=== PATIENT | female | born 1960 | race Caucasian/White ===

== ENCOUNTER → 2016-10-25 | Outpatient (CLI) | payer BC ==
[~2016-10-25] MED LIST: ASPI-435 PO; ATOR10TA82 PO; CEPH500C PO; INSPMPHMLG; LISI-729 PO
--- NOTE | 2016-10-25 16:39 | MAMMOGRAPHY REPORT ---
BILATERAL DIGITAL SCREENING MAMMOGRAM TOMOSYNTHESIS WITH CAD: 10/25/2016 CLINICAL HISTORY: Routine screening. Patient has no complaints. TECHNIQUE: Breast tomosynthesis in addition to standard 2D mammography was performed. Current study was also evaluated with a Computer Aided Detection (CAD) system. COMPARISON: Comparison is made to exams dated: 07/14/2015 mammogram, 04/07/2015 mammogram, 09/30/2014 m ammogram, and 06/25/2014 mammogram - [facility]. BREAST COMPOSITION: There are scattered areas of fibroglandular density in both breasts. FINDINGS: No suspicious masses, calcifications, or areas of architectural distortion are noted in e ither breast. There has been no significant interval change compared to prior exams. A biopsy marke r clip is again noted in the right upper outer quadrant. Asymmetries in bilateral upper outer quadr ants are stable compared to prior exams. IMPRESSION: ACR BI-RADS CATEGORY 2: BENIGN There is no mammographic evidence of malignancy. A 1 year screening mammogram is recommended. The p atient will receive written notification of the results. Approximately 10% of breast cancers are not detected with mammography. A negative mammographic repor t should not delay biopsy if a clinically suggestive mass is present. Liz Damon M.D. /:10/25/2016 15:43:01 Relief Salesperson: Tasha GRAHAM)(M), [facility] letter sent: Normal 1/2 BI-RADS Code: ACR BI-RADS Category 2: Benign
== END | disposition home or self-care (01) ==
LOC: C.MAMM 11:18
PROVIDERS: ATTEND Internal Medicine
DX: Z12.31 Encounter for screening mammogram for malignant neoplasm of breast (principal)

== ENCOUNTER → 2017-04-30 | Outpatient (CLI) | payer BC ==
[~2017-04-30] MED LIST changes: -ATOR10TA82 PO; +ATOR10TA88 PO; -CEPH500C PO
[2017-04-30 15:01] LABS: URINE APPEARANCE TURBID (CLEAR); URINE COLOR DK YELLOW; URINE EPITHELIAL CELL AUTO >30 /lpf (0-5); URINE NITRITE POS (NEG); URINE PH 5.5 (4.5-7.5); URINE SPECIFIC GRAVITY 1.025 (1.000-1.030); UROBILINOGEN NEG (NEG)
[2017-04-30 15:24] LABS: MANUAL MICROSCOPIC REQUIRED? NO; REVIEW REQ? YES; URINE BILIRUBIN NEG (NEG)
== END | disposition home or self-care (01) ==
LOC: C.LAB1850 13:07
PROVIDERS: ATTEND Internal Medicine
DX: N39.0 Urinary tract infection, site not specified (principal)

== ENCOUNTER → 2017-06-22 | Outpatient (CLI) | payer BC ==
[~2017-06-22] MED LIST changes: +ATOR10TA82 PO; -ATOR10TA88 PO
== END | disposition home or self-care (01) ==
LOC: C.LABSPEC 10:56
PROVIDERS: ATTEND Urology
DX: N39.0 Urinary tract infection, site not specified (principal); R10.2 Pelvic and perineal pain; N39.46 Mixed incontinence

== ENCOUNTER → 2017-08-09 | Outpatient (CLI) | payer BC ==
[2017-08-06 12:41] LABS: BLOOD UREA NITROGEN 8 mg/dl (7-18); CREATININE 0.71 mg/dl (0.60-1.20)
[~2017-08-09] MED LIST changes: +OPTIRAY 320 IV PRN
--- NOTE | 2017-08-09 08:38 | DIAGNOSTIC IMAGING REPORT ---
CT UROGRAM CLINICAL HISTORY: Dysuria. Microscopic hematuria. COMPARISON STUDY: No priors. TECHNIQUE: Before and following the IV administration of 120 cc of Optiray 320, CT urogram of the abdomen and pelvis is performed from the lung bases to the proximal femora. Images are reviewed in the axial, sagittal, and coronal planes. IV contrast was administered without complication. A dose lowering technique was utilized adhering to the principles of ALARA. CT DOSE: 1266.48 mGycm FINDINGS: Lung bases: The heart is normal in size and without pericardial effusion. Small fat-containing Bochdalek hernias are present at both lung bases. The lung bases are otherwise clear. There is a small hiatal hernia. Liver: The contrast-enhanced liver is normal in size, contour, and attenuation. There is no intrahepatic biliary ductal dilatation. The hepatic veins and portal veins are patent. Gallbladder: Unremarkable. Spleen: Normal in size and attenuation. Pancreas: Atrophic. Adrenal glands: Unremarkable. Kidneys and ureters: The contrast enhanced kidneys are normal in size and without hydronephrosis. There are no renal calculi identified on the unenhanced images. The kidneys enhance and excrete symmetrically. There is no enhancing renal cortical mass lesion identified. There is no evidence of urothelial lesion within the renal pelvis bilaterally or along the course of either ureter. Abdominal vasculature: The abdominal aorta is normal in course and caliber noting moderate atherosclerotic calcification. Bowel: There is mild to moderate colonic fecal retention. No bowel obstruction is seen. The appendix is well-visualized and normal. Peritoneum: There is no intraperitoneal free air or abdominal ascites. A small fat-containing umbilical hernia is identified. Lymphadenopathy: None. Pelvic viscera: The bladder, uterus, and adnexa are normal as visualized. Skeletal structures: No lytic or blastic lesions are seen. IMPRESSION: 1. Unremarkable CT urogram. 2. There are no acute infectious or inflammatory findings in the abdomen or pelvis. 3. Additional findings as above. Electronically signed by: Josué Pierson M.D. 08/09/2017 8:37 AM Dictated Date/Time: 08/09/2017 8:30 AM
== END | disposition home or self-care (01) ==
LOC: C.CTS 07:59
PROVIDERS: ATTEND Urology
DX: R31.29 Other microscopic hematuria (principal); R30.0 Dysuria

== ENCOUNTER → 2017-11-02 | Day surgery (SDC) | payer BC ==
[2017-11-02] VITALS (7 sets, daily range): BP systolic 112–134; BP diastolic 55–70; PULSE 85–97; TEMP 36.6–36.9; O2SAT 90–99; Ht 175.3 cm; Wt 76.0 kg
[~2017-11-02] VITALS: Ht 175.3 cm; Wt 76.0 kg
[~2017-11-02] MED LIST changes: +ACET-1693 PO; +CEFAZOLIN 1000MG IV PUSH 7.5 ML IV SCH; +CLOP1TAB15 PO; +DEXTROSE 50% 50 ML SYR ONE; +FENTANYL CITRATE INJ 50 MCG/1 ML 2 ML VIAL IV ONE; +FENTANYL CITRATE INJ 50 MCG/1 ML 2 ML VIAL ONE; +GABA-112 PO; +IODIXANOL (VISIPAQUE) 270 MG/ML 150ML FLUSH ONE; +LIDOCAINE HCL 1% 20 ML VIAL INJ ONE; +MIDAZOLAM HCL 1 MG/ML 2ML VIAL IV ONE; +MIDAZOLAM HCL 1 MG/ML 2ML VIAL ONE; +MIRA1TAB3 PO; +NURSING VERBAL MED ORDER ONE; -OPTIRAY 320 IV PRN; +SODIUM CHLORIDE 0.9% 1000ML 1,000 ML IV SCH
--- NOTE | 2017-11-02 05:46 | History and Physical ---
History & Physical Date of Service Nov 02, 2017. History & Physical Dear Dr. Doherty: I had the pleasure of seeing Mrs. Arevalo today for evaluation of her left lower extremity. As you know, she is a 57-year-old female who underwent vascular intervention with stenting and ballooning of her left superficial femoral artery last year. In August, she underwent balloon angioplasty and in January underwent stenting and again re-ballooning this May and August. This was done in the beginning for left lower extremity pain, which started in her groin shooting down to the inner knee. She had no complaints of calf claudication at that time or rest pain. She had no ulcerations on her foot. She now presents complaining of left leg claudication symptoms and rest pains, which developed recently since her ballooning in August. The claudication occurs mostly upstairs both climbing and going down. It is relieved with rest. She claims she does not walk far or fast enough on the level ground to have it bother her, but she does complain of pain in her foot at night where she has to stand up and walk on it or dangling it over the side of the bed. Recently this week, she actually fractured her left lower extremity. She did have an ultrasound of the lower extremity, which showed occlusion of the left superficial femoral artery from its origin to the popliteal. Index, however, on the left side is in the 0.85 range which does not match her symptomatology. She is scheduled for an orthopedic appointment after ours today to further evaluate her fracture. ALLERGIES: PLETAL. MEDICATIONS: Medications include: aspirin, atorvastatin, Plavix, Elmiron, gabapentin, Humalog, lisinopril, and Myrbetriq. PAST MEDICAL HISTORY: Positive for diabetes and lower extremity arterial insufficiency. PAST SURGICAL HISTORY: Include tonsillectomy, C-sections, breast biopsy, endovascular procedures last year. FAMILY HISTORY: Positive for heart disease, hypertension, diabetes, cancer, peripheral vascular disease, carotid disease and stroke. SOCIAL HISTORY: She has smoked for 14 years, half a pack a day. She drinks 1 glass of wine a day. REVIEW OF SYSTEMS: Ten systems were reviewed. Pertinent positives are found in the HPI. No other pertinent positives were found. [place] are found. PHYSICAL EXAMINATION: The patient is awake, oriented x3. She is in no apparent distress. She has normal body habitus. Blood pressure is 106/52 on the left, 102/48 on the right. Head and neck are within normal limits, cannot appreciate carotid pulses. Radials, carotids, supratemporals are +2 bilaterally. Abdominal exam shows no abnormal dilatation of the aorta. Her heart was regular rate and rhythm. Lungs were clear to auscultation. Again, the femoral pulses are +2 bilaterally. She has faintly palpable pedal pulse on the right. I cannot evaluate for pedal pulses in her left foot due to a cast, but she has no palpable popliteal. Capillary refill in the left foot is markedly decreased when compared to the right. Neurologic exam appears to be normal with normal motor function and sensation. ASSESSMENT: 1. 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 PLAN AND RECOMMENDATIONS: At this point, we will obtain arteriography this week for mapping of the arterial supply of the left leg. Being that she is occluded multiple times and has been stented and ballooned in the past, we would recommend bypass versus reendovascular intervention. The lesion is also a fairly long lesion from the origin of the superficial femoral artery down to the popliteal artery. She is agreeable to arteriogram at this point. If we go ahead with the bypass, we will have to coordinate this with orthopedics due to the fracture in her left lower extremity. We will keep you informed as to her progress. Thank you very much for letting us participate in the care of this patient. #[id number] Signature Line Electronic Signature on File CC: Raymond Doherty MD [facility] [address] [address] * Electronically Reviewed/Signed by: Wu Salmeron MD Author Signature Dt/Tm:11/01/2017 11:59 AM Malter Operator Joseluis Bianchi [facility] [address] [place] [address] SELENAS /AUDREY Result Type: .Consult Date of Service: November 01, 2017 00:00 EDT Authorization Status: Final Subject: Consult Ltr Author or Import Date: MD Salmeron Eugene J on November 01, 2017 11:11 EDT Verified By: MD Salmeron Eugene J on November 01, 2017 11:59 EDT Encounter info: [id number], [facility], Clinic, 11/01/2017 - 11/02/2017 Contributor system: [id number]
[2017-11-02 10:12] LABS: CREATININE 0.83 mg/dl (0.60-1.20)
--- NOTE | 2017-11-02 11:10 | History & Physical Bridge Note ---
H&P Re-Evaluation Bridge Note: I have examined the patient, reviewed the History & Physical and in the interval since the performance of the History & Physical I have noted the following changes of clinical significance: No changes noted
--- NOTE | 2017-11-02 11:11 | Pre Sedation Assessment ---
Pre Sedation Assessment General Date of Sedation: Nov 02, 2017. Vital Signs Past 12 Hours Date Time Temp Pulse Resp B/P (MAP) Pulse Ox O2 Delivery O2 Flow Rate FiO2 11/02/17 09:39 36.8 85 18 134/70 (91) 94 Room Air Pre-Sedation Airway Assessment Smoking Status: Former Smoker Hx of Sleep Apnea: No Short Thick Neck: No Thyro-mental Distance: > 3 Finger Breadths Oral Cavity: WNL Mallampati Classification: Class I ASA Classification: Class II NPO Status Date of Last Intake of Fluids: Nov 01, 2017 Time of Last Intake of Fluids: 2229 Date of Last Intake of Solids: Nov 01, 2017 Time of Last Intake of Solids: 2229 Procedure Planning Contraindications for Sedation: None Current Medications Reviewed: Yes Notes The planned sedation has been discussed with the patient. Informed Consent was obtained. I have identified the patient, determined the appropriateness of sedation and have assessed the patient immediately prior to the procedure. All medicine(s) and interventions are by my order.
--- NOTE | 2017-11-02 13:42 | Discharge Instructions ---
Discharge Instructions Date of Service Nov 02, 2017. Visit Reason for Visit: Left Foot Rest Pain Discharge Discharge Diagnosis / Problem: Left superficial femoral artery occlusion Discharge Goals Goal(s): Diagnostic testing Activity Recommendations Activity Limitations: per Instructions/Follow-up section Anesthesia . Post Anesthesia Instructions: If you have had General Anesthesia or IV Sedation: * Do not drive today. * Resume driving when surgeon permits. * Do not make important decisions or sign legal documents today. * Call surgeon for: 1. Temperature elevations greater than 101 degrees F. 2. Uncontrollable pain. 3. Excessive bleeding. 4. Persistent nausea and vomiting. 5. Medication intolerance (nausea, vomiting or rash). * For nausea and vomiting use only clear liquids such as: tea, soda, bouillon until nausea subsides, then gradually increase diet as tolerated. * If you have any concerns or questions, call your surgeon's office. If physician is unavailable and it is an emergency, call 911 or go to the nearest emergency room. . Instructions / Follow-Up Instructions / Follow-Up Call [phone] to schedule a follow up appointment if one not already scheduled. SPECIAL CARE INSTRUCTIONS: Medications: * Continue to take your medications as directed. If you have been given a prescription for Plavix, please fill it immediately and take as directed. Incision Care: * Your puncture site may have some bruising and minor swelling for about one week. * You will have a small dressing covering your puncture site. You may remove the dressing after 24 hours and shower. You may let the warm soapy water run over it, but be sure to dry the puncture site well and keep it dry. * DO NOT IMMERSE THE INCISION IN A TUB/POOL/etc. UNTIL HEALED. * Puncture sites should be kept covered with a band-aid until it begins to heal. Restrictions: * Depending on whether you leg or arm was punctured to access the arteries, you will be required to lay flat, hold your arm still, or both, for about 4 hours after the procedure to prevent bleeding. * Limit your activity for the first 48 hours. You may walk and go up and down steps. Avoid excessive bending or movement at the puncture site. Possible Complications: * Excessive Swelling - after blood flow is improved you may notice increased swelling in the lower legs. This is a normal response. This usually depends on the amount of blockages in the leg, how long they have been there prior to your procedure and how much blood flow was restored. Elevating your legs will help to improve this. Please notify our office ([phone] ) if the swelling does not go away after lying in bed overnight. * Infection/Drainage/Bleeding - Drainage or bleeding from the puncture site should be minimal. If you have excessive bleeding or drainage, call our office ([phone]) right away. * Pain - You may experience some mild pain or soreness at your puncture site. If your pain does not improve, please contact our office ([phone]). Call your doctor and seek emergent treatment if you develop: * Temperature above 101 degrees * Any fever or chills * Any redness or purulent drainage from the puncture site * Any new dusky/blue colored toes or feet with coolness or sharp or aching pain. SKIN IRRITATION: * You may experience some redness and/or swelling in the area where radiation was administered. If any skin irritation occurs, please contact your family physician. FOLLOW UP VISIT: Keep any scheduled doctor appointments. Diet Recommendations Recommended Home Diet: resume previous diet Procedures Procedures Performed: Left Lower Extremity Arteriogram, Mechanical Closure Right Femoral Artery, Moderate Concious Sedation 1327 to 1337 Pending Studies Studies pending at discharge: no Medical Emergencies . Who to Call and When: Medical Emergencies: If at any time you feel your situation is an emergency, please call 911 immediately. . Non-Emergent Contact Non-Emergency issues call your: Surgeon . . "Provider Documentation" section prepared by Wu Salmeron. .
--- NOTE | 2017-11-02 13:43 | [facility] Post Operative Brief Note ---
Immediate Operative Summary Operative Date Nov 02, 2017. Pre-Operative Diagnosis left superficial femoral artery occlusion Post-Operative Diagnosis left superficial femoral artery occlusion Procedure(s) Performed Left Lower Extremity Arteriogram, Mechanical Closure Right Femoral Artery, Moderate Concious Sedation [address] Salmeron Dough Mixing Machine Operator Surgeon(s) none Estimated Blood Loss 5 ml Findings Consistent with Post-Op Diagnosis Specimens none Drains None Anesthesia Type IV Sedat Cons RN Only Complication(s) none Disposition Accompanied Pt To Recover: no Disposition:
--- NOTE | 2017-11-02 13:48 | Post Sedation Assessment ---
Post Sedation Assessment General Date of Sedation Nov 02, 2017. Vital Signs: Vital Signs Past 12 Hours Date Time Temp Pulse Resp B/P (MAP) Pulse Ox O2 Delivery O2 Flow Rate FiO2 11/02/17 09:39 36.8 85 18 134/70 (91) 94 Room Air Post Procedure Recovery Score Activity: (2) Moves 4 extremities * Respiration: (2) Deep breath/cough Circulation: (2) +/-20% PreAnes Value Consciousness: (2) Fully Awake Oxygen Saturation: (2) > 92% On Room Air Post Anesthesia Score: 10 Discharge Sedation Level of Care: Fast Track Phase II Post Sedation Plan On clinical assessment, the patient appears to have tolerated the sedation without complications. Patient is recovering as anticipated. Patient will continue to be monitored by nursing and may be discharged when sedation discharge criteria are met per below protocol. Upon Completions of procedure and additional 15 minutes continue every 5 minute vital signs and the P.A.R. score; then discharge to a Phase I or Fast Track to Phase II per the following guidelines: * Discharge Patient to appropriate Phase II area if PAR is 8 or greater or return to pre- procedure baseline. The post - procedure orders will be as directed. * If PAR score is less than 8 or not return to pre-procedure baseline then patient will follow Phase I monitoring till PAR is reached for Phase II. The Phase I may be done in procedure room or may call to secure a Phase I area. * If naloxone or flumazenil are used for reversal, hold in Phase I for an additional 60 -120 minutes before discharge to Phase II. Please call the Sedation Physician to re-evaluate and complete post-note for discharge to Phase II area. Do NOT discharge from procedure sedation or Phase 1 until post- sedation evaluation note is complete by procedure /sedation MD Sedation Discharge Instructions to be given to the patient at discharge to home.
--- NOTE | 2017-11-02 13:48 | [facility] Operative Report ---
Operative Report Operative Date Nov 02, 2017. Pre-Operative Diagnosis left superficial femoral artery occlusion Post-Operative Diagnosis left superficial femoral artery occlusion Procedure(s) Performed Left Lower Extremity Arteriogram, Mechanical Closure Right Femoral Artery, Moderate Concious Sedation [address] Salmeron Casework Supervisor Surgeon(s) none Estimated Blood Loss 5 ml Findings Total occlusion of left superficial femoral artery and proximal popliteal artery. Specimens none Drains None Anesthesia Type IV Sedat Cons RN Only Complication(s) none Disposition no Indications This is a 57-year-old female who had stents and balloon angioplasties of her left superficial femoral artery done within the last year. She was treated 4 times. She now presented with occlusion of her superficial femoral artery with rest pain in the foot as as well as a fracture to the left ankle. Rest pain in the foot develop prior to her fracturing her ankle. Arteriography was recommended.I have discussed the risks options and benefits of the procedure with the patient. The patient understands the risks options and benefits and agrees to the procedure. Description of Procedure The patient was taken to the angiogram suite and placed in the supine position. After both groins were prepped and draped in a sterile manner local anesthetic was administered to the right groin. A percutaneous puncture was made in the right common femoral artery and an 035 wire inserted. A 5 Setswana sheath was inserted over the wire. Using an 035 Glidewire and a rim catheter the left iliac was cannulated from the right side. The rim catheter was passed down to the distal external iliac artery on the left. Left lower extremity arteriography was performed. This showed the common and profunda femoral arteries to be widely patent. There is occlusion of the superficial femoral artery right at its origin. It reconstituted in the popliteal artery in the midportion. Below there she had three-vessel runoff onto the foot. No other lesions were seen in the left lower extremity. The rim catheter was pulled back to the origin of the left common iliac artery. Arteriography was done of the iliac system which showed this to be widely patent with no evidence of narrowing. The rim catheter was removed. Injection of the sheath on the right side show the puncture to be in the common femoral artery. Puncture was then closed using the star closure device. Adequate hemostasis was noted. Dressings were applied and the patient left the angiogramsuite in good condition and tolerated procedure well. I attest to the content of the Intraoperative Record and any orders documented therein. Any exceptions are noted below.
== END | disposition home or self-care (01) ==
LOC: C.ACU 09:03
PROVIDERS: ATTEND Surgery Vascular Surgery
DX: I70.92 Chronic total occlusion of artery of the extremities (principal); E11.9 Type 2 diabetes mellitus without complications; I77.1 Stricture of artery; Z82.49 Family history of ischemic heart disease and other diseases of the circulatory system; Z83.3 Family history of diabetes mellitus; Z82.3 Family history of stroke

== ENCOUNTER 2017-11-09 06:11 | Inpatient (IN) | payer BC ==
[2017-11-05 14:48] VITALS: BMI 24.0
[2017-11-05 16:22] LABS: BASO % 0.4 %; BASO ABS # 0.03 K/uL (0-0.2); EOS % 0.8 %; EOS ABS # 0.06 K/uL (0-0.5); HEMATOCRIT 40.7 % (37-47); HEMOGLOBIN 13.8 g/dL (12.0-16.0); IG# 0.02 K/uL (0.00-0.02); LYMPH % 28.6 %; LYMPH ABS # 2.12 K/uL (1.2-3.4); MEAN CELL VOLUME 99.8 fL (80-100); MEAN CORPUSCULAR HEMOGLOBIN 33.8 pg (25-34); MEAN CORPUSCULAR HGB CONC 33.9 g/dl (32-36); MEAN PLATELET VOLUME 9.2 fL (7.4-10.4); MONO % 7.8 %; MONO ABS # 0.58 K/uL (0.11-0.59); NEUT % 62.1 %; NEUT ABS # 4.59 K/uL (1.4-6.5); PLATELET COUNT 455 K/uL (130-400); RED CELL DISTRIBUTION WIDTH CV 13.3 % (11.5-14.5); RED CELL DISTRIBUTION WIDTH SD 48.4 fL (36.4-46.3)
[2017-11-05 16:29] LABS: CREATININE 0.95 mg/dl (0.60-1.20); POTASSIUM 4.4 mmol/L (3.5-5.1)
--- NOTE | 2017-11-05 16:29 | DIAGNOSTIC IMAGING REPORT ---
CHEST 2 VIEWS ROUTINE CLINICAL HISTORY: pat preoperative COMPARISON STUDY: No previous studies for comparison. FINDINGS: The bones soft tissues and hemidiaphragms are normal. The cardiomediastinal silhouette is normal. The lungs are clear. The pulmonary vasculature is normal. IMPRESSION: Negative chest. The above report was generated using voice recognition software. It may contain grammatical, syntax or spelling errors. Electronically signed by: Brian Bearden M.D. 11/05/2017 4:28 PM Dictated Date/Time: 11/05/2017 4:28 PM
[~2017-11-09] VITALS: Ht 175.3 cm; Wt 74.6 kg
[2017-11-09] VITALS (9 sets, daily range): BP systolic 104–134; BP diastolic 57–90; PULSE 65–86; TEMP 36.3–36.7; O2SAT 97–100; Ht 175.3 cm; Wt 74.6 kg
--- NOTE | 2017-11-09 05:55 | History and Physical ---
History & Physical Date of Service November 09, 2017. History & Physical Dear Dr. Doherty: I had the pleasure of seeing Mrs. Arevalo today for evaluation of her left lower extremity. As you know, she is a 57-year-old female who underwent vascular intervention with stenting and ballooning of her left superficial femoral artery last year. In August, she underwent balloon angioplasty and in January underwent stenting and again re-ballooning this May and August. This was done in the beginning for left lower extremity pain, which started in her groin shooting down to the inner knee. She had no complaints of calf claudication at that time or rest pain. She had no ulcerations on her foot. She now presents complaining of left leg claudication symptoms and rest pains, which developed recently since her ballooning in August. The claudication occurs mostly upstairs both climbing and going down. It is relieved with rest. She claims she does not walk far or fast enough on the level ground to have it bother her, but she does complain of pain in her foot at night where she has to stand up and walk on it or dangling it over the side of the bed. Recently this week, she actually fractured her left lower extremity. She did have an ultrasound of the lower extremity, which showed occlusion of the left superficial femoral artery from its origin to the popliteal. Index, however, on the left side is in the 0.85 range which does not match her symptomatology. She is scheduled for an orthopedic appointment after ours today to further evaluate her fracture. ALLERGIES: PLETAL. MEDICATIONS: Medications include: aspirin, atorvastatin, Plavix, Elmiron, gabapentin, Humalog, lisinopril, and Myrbetriq. PAST MEDICAL HISTORY: Positive for diabetes and lower extremity arterial insufficiency. PAST SURGICAL HISTORY: Include tonsillectomy, C-sections, breast biopsy, endovascular procedures last year. FAMILY HISTORY: Positive for heart disease, hypertension, diabetes, cancer, peripheral vascular disease, carotid disease and stroke. SOCIAL HISTORY: She has smoked for 14 years, half a pack a day. She drinks 1 glass of wine a day. REVIEW OF SYSTEMS: Ten systems were reviewed. Pertinent positives are found in the HPI. No other pertinent positives were found. [place] are found. PHYSICAL EXAMINATION: The patient is awake, oriented x3. She is in no apparent distress. She has normal body habitus. Blood pressure is 106/52 on the left, 102/48 on the right. Head and neck are within normal limits, cannot appreciate carotid pulses. Radials, carotids, supratemporals are +2 bilaterally. Abdominal exam shows no abnormal dilatation of the aorta. Her heart was regular rate and rhythm. Lungs were clear to auscultation. Again, the femoral pulses are +2 bilaterally. She has faintly palpable pedal pulse on the right. I cannot evaluate for pedal pulses in her left foot due to a cast, but she has no palpable popliteal. Capillary refill in the left foot is markedly decreased when compared to the right. Neurologic exam appears to be normal with normal motor function and sensation. ASSESSMENT: 1. 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 PLAN AND RECOMMENDATIONS: At this point, we will obtain arteriography this week for mapping of the arterial supply of the left leg. Being that she is occluded multiple times and has been stented and ballooned in the past, we would recommend bypass versus reendovascular intervention. The lesion is also a fairly long lesion from the origin of the superficial femoral artery down to the popliteal artery. She is agreeable to arteriogram at this point. If we go ahead with the bypass, we will have to coordinate this with orthopedics due to the fracture in her left lower extremity. We will keep you informed as to her progress. Thank you very much for letting us participate in the care of this patient. #[id number] Signature Line Electronic Signature on File CC: Raymond Doherty MD [facility] [address] [id number] * Electronically Reviewed/Signed by: Wu Salmeron MD Author Signature Dt/Tm:11/01/2017 11:59 AM Lease Purchase Driver Joseluis Bianchi [facility] [place] [place] [address] SELENAS /AUDREY Result Type: .Consult Date of Service: November 01, 2017 00:00 EDT Authorization Status: Final Subject: Consult Ltr Author or Import Date: MD Salmeron Eugene J on November 01, 2017 11:11 EDT Verified By: MD Salmeron Eugene J on November 01, 2017 11:59 EDT Encounter info: [id number], [email or web address], Clinic, 11/01/2017 - 11/02/2017 Contributor system: [id number] She underwent arteriography showing an occluded SFA from its origin to the mid popliteal. We recommended a left femoral to popliteal bypass. She does have a useable vein in the left leg. She is admitted at this time for a fem pop bypass. I have discussed the risks options and benefits of the procedure with the patient. The patient understands the risks options and benefits and agrees to the procedure.
[~2017-11-09 06:11] MED LIST changes: -ACET-1693 PO; -CEFAZOLIN 1000MG IV PUSH 7.5 ML IV SCH; +CEFAZOLIN IV 1,000 MG in SYRINGE 0 ML IV SCH; -DEXTROSE 50% 50 ML SYR ONE; -FENTANYL CITRATE INJ 50 MCG/1 ML 2 ML VIAL IV ONE; -FENTANYL CITRATE INJ 50 MCG/1 ML 2 ML VIAL ONE; -IODIXANOL (VISIPAQUE) 270 MG/ML 150ML FLUSH ONE; +LACTATED RINGER'S 1000ML 1,000 ML IV SCH; -LIDOCAINE HCL 1% 20 ML VIAL INJ ONE; -MIDAZOLAM HCL 1 MG/ML 2ML VIAL IV ONE; -MIDAZOLAM HCL 1 MG/ML 2ML VIAL ONE; -NURSING VERBAL MED ORDER ONE
[2017-11-09] MEDS ORDERED: MIDAZOLAM HCL 1 MG/ML 2ML VIAL ONE (06:38)
[2017-11-09] MEDS ORDERED: FENTANYL CITRATE INJ 50 MCG/1 ML 2 ML VIAL ONE ×4 (06:38→10:55)
[2017-11-09] MEDS ORDERED: BUPIVACAINE/EPINEPHRINE 0.5% MPF 1:200,000 30 ML VIAL ONE (07:02)
[2017-11-09] MEDS ORDERED: GELATIN SPONGE SZ 100 ONE (07:02)
[2017-11-09] MEDS ORDERED: PAPAVERINE HCL INJ 30 MG/ML 2 ML VIAL ONE (07:03)
[2017-11-09] MEDS ORDERED: LIDOCAINE HCL 1% 20 ML VIAL ONE (07:03)
[2017-11-09] MEDS ORDERED: CEFAZOLIN SOD 1 GM VIAL ONE (07:03)
[2017-11-09] MEDS ORDERED: THROMBIN 5000 UNITS KIT ONE (07:03)
[2017-11-09] MEDS ORDERED: HEPARIN SOD (PORCINE) 1000 UNIT/ML 10 ML VIAL ONE ×2 (07:04→11:03)
[2017-11-09] MEDS ORDERED: THROMBIN FOR SOLN 20000 UNIT KIT ONE (07:28)
[2017-11-09] MEDS: CEFAZOLIN 1000MG IV PUSH 7.5 ML IV SCH ×2 (08:10→12:32)
[2017-11-09] MEDS ORDERED: HYDROmorphone INJ 2 MG/ML SYR/VIAL ONE ×2 (08:41→10:57)
[2017-11-09] MEDS: IODIXANOL (VISIPAQUE) 270 MG/ML 50ML ONE ×2 (09:38→11:25)
[2017-11-09] MEDS ORDERED: LABETALOL HCL IV 5 MG/ML 20ML IV PRN (09:45)
[2017-11-09] MEDS ORDERED: HYDROmorphone INJ 2 MG/ML SYR/VIAL IV PRN (09:45)
[2017-11-09] MEDS ORDERED: FENTANYL CITRATE INJ 50 MCG/1 ML 2 ML VIAL IV PRN (09:45)
[2017-11-09] MEDS ORDERED: ATROPINE SULFATE 0.1 MG/ML 5ML SYR IV PRN (09:45)
[2017-11-09] MEDS ORDERED: EpHEDrine SULFATE INJ 50 MG/ML AMP IV PRN (09:45)
[2017-11-09] MEDS ORDERED: ONDANSETRON INJ 2 MG/ML 2 ML VIAL IV PRN ×2 (09:45→11:30)
[2017-11-09] MEDS ORDERED: MEPERIDINE HCL 25 MG/ML CARP IV PRN (09:45)
[2017-11-09] MEDS ORDERED: PROPOFOL IV EMULSION 10 MG/ML 20 ML VIAL ONE (11:03)
[2017-11-09] MEDS ORDERED: EpHEDrine SULFATE 50MG/5ML SYR ONE (11:03)
[2017-11-09] MEDS ORDERED: DEXAMETHASONE SOD INJ 4 MG/ML VIAL ONE (11:03)
[2017-11-09] MEDS ORDERED: NITROGLYCERIN/D5W 100 MCG/ML BTL ONE (11:03)
[2017-11-09] MEDS ORDERED: ONDANSETRON INJ 2 MG/ML 2 ML VIAL ONE (11:03)
[2017-11-09] MEDS ORDERED: NEOSTIGMINE METHYLSULFATE 5 MG/5 ML SYR ONE (11:03)
[2017-11-09] MEDS ORDERED: GLYCOPYRROLATE INJ 0.2 MG/ML VIAL ONE (11:03)
[2017-11-09] MEDS ORDERED: ROCURONIUM BROMIDE 10 MG/ML 5 ML VIAL ONE (11:03)
[2017-11-09] MEDS ORDERED: LIDOCAINE HCL 2% 2 ML VIAL (20MG/ML) ONE (11:03)
[2017-11-09] MEDS ORDERED: PHENYLEPHRINE HCL INJ 10 MG/ML VIAL ONE (11:03)
--- NOTE | 2017-11-09 11:23 | [facility] Post Operative Brief Note ---
Immediate Operative Summary Operative Date November 09, 2017. Pre-Operative Diagnosis 1. 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 Post-Operative Diagnosis Same Procedure(s) Performed Left Femoral Popliteal insitu bypass endarterectomy and patch angioplasty of left common femoral artery. Surgeon Dr. Wu Salmeron Center Mgr Surgeon(s) Stephanie Baker PA-C Estimated Blood Loss 150mL Findings Consistent with Post-Op Diagnosis Specimens A. Plaque of left femoral artery Drains None Anesthesia Type General Complication(s) none Disposition Accompanied Pt To Recover: no Disposition: Recovery Room / PACU
[2017-11-09] MEDS ORDERED: CARBOHYDRATES FOR HYPOGLYCEMIA PO PRN (11:30)
[2017-11-09] MEDS ORDERED: GLUCOSE 40% GEL 15 GM TUBE PO PRN (11:30)
[2017-11-09] MEDS ORDERED: GLUCOSE 10 TABS/TUBE PO PRN (11:30)
[2017-11-09] MEDS ORDERED: MoRPHine SULFATE 4 MG/ML 1 ML CARP\\VIAL IV PRN (11:30)
[2017-11-09] MEDS ORDERED: GLUCAGON FOR INJ 1 MG VIAL SQ PRN (11:30)
[2017-11-09] MEDS ORDERED: DEXTROSE 50% 50 ML SYR IV PRN (11:30)
[2017-11-09] MEDS ORDERED: ACETAMINOPHEN 325 MG TAB PO PRN (11:30)
[2017-11-09] MEDS ORDERED: METOPROLOL TARTRATE 1 MG/ML VIAL ONE (12:03)
--- NOTE | 2017-11-09 12:03 | [facility] Operative Report ---
Operative Report Operative Date November 09, 2017. Pre-Operative Diagnosis 1. 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 Post-Operative Diagnosis Same Procedure(s) Performed Left Femoral Popliteal insitu bypass endarterectomy and patch angioplasty of left common femoral artery. Surgeon Dr. Wu Salmeron Funeral Arranger Surgeon(s) Stephanie Baker PA-C Estimated Blood Loss 150mL Findings Left superficial femoral artery occlusion. Good Doppler pulses after bypass. Vein was very usable. Specimens A. Plaque of left femoral artery Drains None Anesthesia Type General Complication(s) none Disposition no Recovery Room / PACU Indications This is a 57-year-old female who developed breast pain in her left foot. This was approximately 2 days before she fractured her left ankle. She has had stents placed in the left leg in the past. She is now occluded her left superficial femoral artery with resultant rest pain. Bypass is recommended.I have discussed the risks options and benefits of the procedure with the patient. The patient understands the risks options and benefits and agrees to the procedure. Description of Procedure The patient was taken to the operating room and placed in the supine position. The left leg was then prepped and draped in a sterile manner after general anesthesia was accomplished. A longitudinal groin incision was then made. This was carried down to where the common femoral artery was identified at the inguinal ligament. It was dissected free down past the bifurcation. The saphenous vein was identified in the groin. It was of good caliber and was a very usable vein. The saphenofemoral junction was dissected free. We then made an incision below the knee on the medial aspect. The popliteal fossa was entered. Saphenous vein was identified on the way down to the fascial level. Again it was of good caliber at that level. The popliteal artery was then identified. It was isolated. It was soft and mildly thickened. Next the saphenous vein was clamped at the saphenofemoral junction. It was then transected. The proximal stump was oversewn with a 5-0 Prolene suture. The first valve of the saphenous vein was identified and trimmed under direct vision. We then clamped the common femoral artery proximally. We clamped the profunda and superficial femoral arteries distally. A longitudinal arteriotomy was then made. The proximal portion of the superficial femoral artery at its region had a stent present. This was removed. There was a large amount of fibrous hyperplasia present at the beginning of the supreficial artery extending into the common femoral artery. This was excised. We then placed a patch over the common femoral artery and the proximal portion of the superficial femoral artery. This was a bovine patch. Once this was completed, a longitudinal arteriotomy was made in the lower portion of the bovine patch. The saphenous vein was then sewn to the bovine patch opening using a 5-0 Prolene suture in his vascular fashion. After completing the closure clamps were removed. There was good flow into the saphenous vein down to the first valve. We then transected the saphenous vein distally in the distal incision. The distal portion was tied with a 2-0 silk suture. Using the [employer] valve cutter, the valves were cut in the saphenous vein. Excellent flow was seen after cutting the valves with one pass. Popliteal arteries and clamped proximal distally. Large longitudinal arteriotomy was then made. Mild thickening was seen in the artery with a good distal lumen noted. The vein was then trimmed and beveled in the appropriate fashion and an end-to-side anastomosis was accomplished between the saphenous vein and the popliteal artery using a 6-0 Prolene suture in the usual vascular fashion. Prior to completing the closure, backbleeding and fore bleeding was allowed to occur. The final few sutures were placed and securely tied. Clamps were removed and excellent flow was seen through the saphenous vein and popliteal artery. There was a good Doppler signal heard in the foot. Bleeding between the sutures were controlled with interrupted 6-0 Prolene sutures. After this was completed the side branch of the saphenous vein just beyond the anterior arterial anastomosis was punctured with a micropuncture technique and the micropuncture sheath inserted. Arteriogram down the leg showed a large branch present in the mid thigh with a significant amount of flow. There is also branch present at the knee again with a good amount of flow filling the deep veins. The distal anastomosis could be seen. It was patent but only a faint amount of contrast was noted going through it. We then made an incision over the large branch in the mid thigh. This was isolated and tied with 2-0 silk suture. There is a much better pulse distally. We did another injection at that time. Better flow is seen quick visualization of the runoff vessels are noted. There is three-vessel runoff down through the foot. The popliteal anastomosis was widely patent. We then extended lower incision upward approximately 2 cm and the other large branch feeding the deep veins was ligated. This was again done with a 2-0 silk suture. At that point excellent Doppler signals were heard at the foot. Adequate hemostasis was obtained of the wounds and the wounds were then closed in the usual fashion with a running 2-0 Vicryl suture for the femoral sheet 3-0 Vicryl for the subcutaneous layer and ese for the skin. Sterile dressings were applied to the wounds. The lower leg was then placed back in her boot due to her fracture. The patient left the operation room in satisfactory condition and tolerated the procedure well. All needle and sponge counts were correct at the end of the procedure. Stephanie Falcon Pac assisted due to lack of resident availability and was necessary for prepping, draping, retraction, wound closure deep layers, subcutaneous tissue, and skin closure and was necessary for assisting with the case. I attest to the content of the Intraoperative Record and any orders documented therein. Any exceptions are noted below.
[2017-11-09 12:36] LABS: BASO % 0.2 %; BASO ABS # 0.03 K/uL (0-0.2); EOS % 0.2 %; EOS ABS # 0.03 K/uL (0-0.5); HEMATOCRIT 37.1 % (37-47); HEMOGLOBIN 12.2 g/dL (12.0-16.0); IG# 0.04 K/uL (0.00-0.02); LYMPH % 8.1 %; LYMPH ABS # 1.26 K/uL (1.2-3.4); MEAN CELL VOLUME 100.3 fL (80-100); MEAN CORPUSCULAR HGB CONC 32.9 g/dl (32-36); MEAN PLATELET VOLUME 8.7 fL (7.4-10.4); MONO % 0.8 %; MONO ABS # 0.12 K/uL (0.11-0.59); NEUT % 90.4 %; NEUT ABS # 13.99 K/uL (1.4-6.5); PLATELET COUNT 470 K/uL (130-400); RED CELL DISTRIBUTION WIDTH CV 13.1 % (11.5-14.5); RED CELL DISTRIBUTION WIDTH SD 48.1 fL (36.4-46.3); WHITE BLOOD COUNT 15.47 K/uL (4.8-10.8)
--- NOTE | 2017-11-09 13:26 | Progress Note ---
Progress Note Date of Service: November 09, 2017. Subjective I assisted Dr Salmeron with Julieta Arevalo's Left Femoral Popliteal insitu bypass, endarterectomy and patch angioplasty of left common femoral artery on 11/09/17, d/ t lack of resident availability. Problem List Medical Problems: (1) Cellulitis of toe of left foot Status: Acute Objective Vital Signs Vital Signs Past 12 Hours Date Time Temp Pulse Resp B/P (MAP) Pulse Ox O2 Delivery O2 Flow Rate FiO2 11/09/17 13:20 62 13 115/52 100 Nasal Cannula 2 11/09/17 13:10 36.7 61 18 113/49 100 Nasal Cannula 2 11/09/17 13:00 61 12 120/51 100 Nasal Cannula 2 11/09/17 12:50 60 14 113/46 100 Nasal Cannula 2 11/09/17 12:40 68 13 127/54 100 Nasal Cannula 2 11/09/17 12:30 67 13 151/61 100 Oxymask 10 11/09/17 12:20 68 14 146/54 100 Oxymask 10 11/09/17 12:10 36.1 79 17 150/55 100 Oxymask 10 11/09/17 06:41 36.4 79 16 128/90 97 Room Air Intake & Output 8-Hour Column 11/09/17 11/10/17 11/10/17 16:00 00:00 08:00 Intake Total 2150 ml Output Total 600 ml Balance 1550 ml 24-Hour Column 11/10/17 08:00 Intake Total 2150 ml Output Total 600 ml Balance 1550 ml Laboratory and Microbiology Results Past 24 Hours Test 11/09/17 06:26 11/09/17 07:58 11/09/17 12:22 11/09/17 13:05 Range/Units Bedside Glucose 187 267 396 70-90 mg/dl White Blood Count 15.47 4.8-10.8 K/uL Red Blood Count 3.70 4.2-5.4 M/uL Hemoglobin 12.2 12.0-16.0 g/dL Hematocrit 37.1 37-47 % Mean Corpuscular Volume 100.3 80-100 fL Mean Corpuscular Hemoglobin 33.0 25-34 pg Mean Corpuscular Hemoglobin Concent 32.9 32-36 g/dl Platelet Count 470 130-400 K/uL Mean Platelet Volume 8.7 7.4-10.4 fL Neutrophils (%) (Auto) 90.4 % Lymphocytes (%) (Auto) 8.1 % Monocytes (%) (Auto) 0.8 % Eosinophils (%) (Auto) 0.2 % Basophils (%) (Auto) 0.2 % Neutrophils # (Auto) 13.99 1.4-6.5 K/uL Lymphocytes # (Auto) 1.26 1.2-3.4 K/uL Monocytes # (Auto) 0.12 0.11-0.59 K/uL Eosinophils # (Auto) 0.03 0-0.5 K/uL Basophils # (Auto) 0.03 0-0.2 K/uL RDW Standard Deviation 48.1 36.4-46.3 fL RDW Coefficient of Variation 13.1 11.5-14.5 % Immature Granulocyte % (Auto) 0.3 % Immature Granulocyte # (Auto) 0.04 0.00-0.02 K/uL
--- NOTE | 2017-11-09 13:52 | DIAGNOSTIC IMAGING REPORT ---
L ANKLE 2 VIEWS CLINICAL HISTORY: ankle fracture COMPARISON: None. DISCUSSION: Oblique fracture distal fibula. Slight widening of the ankle mortise. Small avulsion from the anterior margin of the distal tibia. Medial malleolus is intact. There is no evidence for soft tissue swelling. IMPRESSION: 1. Oblique fracture distal fibula. 2. Slight widening ankle mortise. 3. Small avulsion anterior margin of the distal tibia. The above report was generated using voice recognition software. It may contain grammatical, syntax or spelling errors. Electronically signed by: Brian Bearden M.D. 11/09/2017 1:50 PM Dictated Date/Time: 11/09/2017 1:49 PM
--- NOTE | 2017-11-09 13:59 | Anesthesiology Progress Note ---
Anesthesia Post Op Note Date & Time November 09, 2017 at 13:56 Vital Signs Pain Intensity: 0 Vital Signs Past 12 Hours Date Time Temp Pulse Resp B/P (MAP) Pulse Ox O2 Delivery O2 Flow Rate FiO2 11/09/17 13:20 62 13 115/52 100 Nasal Cannula 2 11/09/17 13:10 36.7 61 18 113/49 100 Nasal Cannula 2 11/09/17 13:00 61 12 120/51 100 Nasal Cannula 2 11/09/17 12:50 60 14 113/46 100 Nasal Cannula 2 11/09/17 12:40 68 13 127/54 100 Nasal Cannula 2 11/09/17 12:30 67 13 151/61 100 Oxymask 10 11/09/17 12:20 68 14 146/54 100 Oxymask 10 11/09/17 12:10 36.1 79 17 150/55 100 Oxymask 10 11/09/17 06:41 36.4 79 16 128/90 97 Room Air Notes Mental Status: alert / awake / arousable, participated in evaluation Pt Amnestic to Procedure: Yes Nausea / Vomiting: adequately controlled Pain: adequately controlled Airway Patency, RR, SpO2: stable & adequate BP & HR: stable & adequate Hydration State: stable & adequate Anesthetic Complications: no major complications apparent Elevated blood sugar noted. Pt uses insulin pump which was reconnected and activated by pt. Requested hospitalist consult to manage glycemic control.
[2017-11-09] MEDS ORDERED: D5W AND 1/2NSS 1,000 ML IV SCH (14:00)
[2017-11-09] MEDS ORDERED: PHARMACY GLYCEMIC MGMT CONSULT PRN (14:15)
[2017-11-09] MEDS ORDERED: HydrALAZINE HCL 20 MG/ML VIAL IV. PRN (14:30)
[2017-11-09] MEDS ORDERED: INSULIN IV INFUSION PROTOCOL STA (14:36)
--- NOTE | 2017-11-09 14:39 | Medical Consult ---
Consultation Date of Consultation: November 09, 2017. Attending Physician: Wu Salmeron M.D. Reason for Consultation: Hyperglycemia History of Present Illness Patient is a 57 y/o female, with PMHX of PAD, HLD, HTN, and T1DM, urinary incontinence, s/p L femoral popliteal insitu bypass endarterectomy by Dr. Salmeron on 11/09. Hospitalist team was consulted for hyperglycemic management. Patient resting in bed. Feeling well postop. Denies any pain. Has not eaten/ drank since procedure. No flatus/BM postop. Discussed starting insulin gtt while hyperglycemic. Patient denies any fever, chills, sweats, lightheadedness, dizziness, vision changes, CP, palpitations, edema, SOB, wheezing, cough, abdominal pain, nausea, vomiting, diarrhea, urinary symptoms, melena, numbness/ tingling, weakness, muscle/joint pain, anxiety/depression, active bleeding, or new skin discoloration/changes. Past Medical/Surgical History Medical Problems: T1DM on insulin pump PAD HLD HTN urinary incontinence PAST SURGICAL HISTORY: tonsillectomy C-sections breast biopsy endovascular procedures Family History Cancer Diabetes mellitus Heart disease Hypertension Social History Smoking Status: Former Smoker Marital Status: Housing Status: lives with significant other Allergies Coded Allergies: Cilostazol (Verified Allergy, Unknown, CHEST PAIN,SOB NAUSEA, 11/09/17) Home Medications Current Inpatient Medications Medications (Trade) Dose Ordered Sig/Eusebia Route Start Time Stop Time Status Last Admin Dose Admin Sodium Chloride 1,000 ml @ 75 mls/hr [id number] IV 11/09/17 06:00 11/09/17 18:00 Lactated Ringer's 1,000 ml @ 15 mls/hr Q24H IV 11/09/17 06:00 11/10/17 05:59 Fentanyl Citrate (Fentanyl Inj) 50 mcg Q5M PRN IV 11/09/17 09:45 11/09/17 14:45 Hydromorphone HCl (Dilaudid Inj) 0.5 mg Q5M PRN IV 11/09/17 09:45 11/09/17 14:45 Meperidine HCl (Demerol Inj) 25 mg Q5M PRN IV 11/09/17 09:45 11/09/17 14:45 Ondansetron HCl (Zofran Inj) 4 mg ONE PRN IV 11/09/17 09:45 11/09/17 14:45 Labetalol HCl (Normodyne IV) 5 mg Q5M PRN IV 11/09/17 09:45 11/09/17 14:45 Ephedrine Sulfate (EpHEDrine SULFATE INJ) 5 mg Q5M PRN IV 11/09/17 09:45 11/09/17 14:45 Atropine Sulfate (Atropine Sulfate 0.1mg/ml Inj) 0.5 mg Q1M PRN IV 11/09/17 09:45 11/09/17 14:45 Acetaminophen (Tylenol Tab) 650 mg Q4H PRN PO 11/09/17 11:30 12/09/17 11:29 Oxycodone/ Acetaminophen (Percocet 5-325mg Tab) `1-2 TABS FOR MODER... Q4H PRN PO 11/09/17 11:30 11/23/17 11:29 Morphine Sulfate (MoRPHine SULFATE INJ) If PO analgesic is orde... Q2H PRN IV 11/09/17 11:30 11/23/17 11:29 Ondansetron HCl (Zofran Inj) 4 mg Q6H PRN IV 11/09/17 11:30 12/09/17 11:29 Cefazolin Sodium 1000 mg/Syringe 7.5 ml @ 2.5 mls/min Q8H IV 11/09/17 16:00 11/10/17 00:02 Enoxaparin Sodium (Lovenox Inj) 30 mg Q12 SQ 11/10/17 09:00 12/10/17 08:59 Dextrose/Sodium Chloride 1,000 ml @ 125 mls/hr Q8H IV 11/09/17 14:00 11/09/17 21:59 Insulin Human Regular (novoLIN-R) SLIDING SCALE IF C... ACHS SC 11/09/17 16:00 12/09/17 15:59 UNV Glucose (Glucose 40% Gel) 15-30 GRAMS 15 GRAMS... UD PRN PO 11/09/17 11:30 12/09/17 11:29 Glucose (Glucose Chew Tab) 4-8 Tablets 4 Tabl... UD PRN PO 11/09/17 11:30 12/09/17 11:29 Dextrose (Dextrose 50% 50ML Syringe) 25-50ML 25ML FOR ... UD PRN IV 11/09/17 11:30 12/09/17 11:29 Glucagon (Glucagon Inj) 1 mg UD PRN SQ 11/09/17 11:30 12/09/17 11:29 Carbohydrates (Carbohydrates For Hypoglycemia) 15-30 GRAMS 15 grams if BSG 54-69... UD PRN PO 11/09/17 11:30 12/09/17 11:29 Aspirin (Ecotrin Tab) 81 mg QAM PO 11/10/17 09:00 12/10/17 08:59 Atorvastatin Calcium (Lipitor Tab) 40 mg QAM PO 11/10/17 09:00 12/10/17 08:59 Gabapentin (Neurontin Cap) 100 mg QAM PO 11/10/17 09:00 12/10/17 08:59 Insulin Human Lispro (HumaLOG INSULIN PUMP) 1 UD N/A 11/09/17 11:30 12/09/17 11:29 UNV Lisinopril (Zestril Tab) 2.5 mg QAM PO 11/10/17 09:00 12/10/17 08:59 Mirabegron (Myrbetriq Er) 50 mg QAM PO 11/10/17 09:00 12/10/17 08:59 Miscellaneous Information (Consult Glycemic Management Pharmacy) 1 UD PRN N/A 11/09/17 14:15 12/09/17 14:14 Current Inpatient Medications Current Inpatient Medications Medications (Trade) Dose Ordered Sig/Eusebia Route Start Time Stop Time Status Last Admin Dose Admin Sodium Chloride 1,000 ml @ 75 mls/hr [id number] IV 11/09/17 06:00 11/09/17 18:00 Lactated Ringer's 1,000 ml @ 15 mls/hr Q24H IV 11/09/17 06:00 11/10/17 05:59 Fentanyl Citrate (Fentanyl Inj) 50 mcg Q5M PRN IV 11/09/17 09:45 11/09/17 14:45 Hydromorphone HCl (Dilaudid Inj) 0.5 mg Q5M PRN IV 11/09/17 09:45 11/09/17 14:45 Meperidine HCl (Demerol Inj) 25 mg Q5M PRN IV 11/09/17 09:45 11/09/17 14:45 Ondansetron HCl (Zofran Inj) 4 mg ONE PRN IV 11/09/17 09:45 11/09/17 14:45 Labetalol HCl (Normodyne IV) 5 mg Q5M PRN IV 11/09/17 09:45 11/09/17 14:45 Ephedrine Sulfate (EpHEDrine SULFATE INJ) 5 mg Q5M PRN IV 11/09/17 09:45 11/09/17 14:45 Atropine Sulfate (Atropine Sulfate 0.1mg/ml Inj) 0.5 mg Q1M PRN IV 11/09/17 09:45 11/09/17 14:45 Acetaminophen (Tylenol Tab) 650 mg Q4H PRN PO 11/09/17 11:30 12/09/17 11:29 Oxycodone/ Acetaminophen (Percocet 5-325mg Tab) `1-2 TABS FOR MODER... Q4H PRN PO 11/09/17 11:30 11/23/17 11:29 Morphine Sulfate (MoRPHine SULFATE INJ) If PO analgesic is orde... Q2H PRN IV 11/09/17 11:30 11/23/17 11:29 Ondansetron HCl (Zofran Inj) 4 mg Q6H PRN IV 11/09/17 11:30 12/09/17 11:29 Cefazolin Sodium 1000 mg/Syringe 7.5 ml @ 2.5 mls/min Q8H IV 11/09/17 16:00 11/10/17 00:02 Enoxaparin Sodium (Lovenox Inj) 30 mg Q12 SQ 11/10/17 09:00 12/10/17 08:59 Dextrose/Sodium Chloride 1,000 ml @ 125 mls/hr Q8H IV 11/09/17 14:00 11/09/17 21:59 Insulin Human Regular (novoLIN-R) SLIDING SCALE IF C... ACHS SC 11/09/17 16:00 12/09/17 15:59 UNV Glucose (Glucose 40% Gel) 15-30 GRAMS 15 GRAMS... UD PRN PO 11/09/17 11:30 12/09/17 11:29 Glucose (Glucose Chew Tab) 4-8 Tablets 4 Tabl... UD PRN PO 11/09/17 11:30 12/09/17 11:29 Dextrose (Dextrose 50% 50ML Syringe) 25-50ML 25ML FOR ... UD PRN IV 11/09/17 11:30 12/09/17 11:29 Glucagon (Glucagon Inj) 1 mg UD PRN SQ 11/09/17 11:30 12/09/17 11:29 Carbohydrates (Carbohydrates For Hypoglycemia) 15-30 GRAMS 15 grams if BSG 54-69... UD PRN PO 11/09/17 11:30 12/09/17 11:29 Aspirin (Ecotrin Tab) 81 mg QAM PO 11/10/17 09:00 12/10/17 08:59 Atorvastatin Calcium (Lipitor Tab) 40 mg QAM PO 11/10/17 09:00 12/10/17 08:59 Gabapentin (Neurontin Cap) 100 mg QAM PO 11/10/17 09:00 12/10/17 08:59 Insulin Human Lispro (HumaLOG INSULIN PUMP) 1 ea UD N/A 11/09/17 11:30 12/09/17 11:29 UNV Lisinopril (Zestril Tab) 2.5 mg QAM PO 11/10/17 09:00 12/10/17 08:59 Mirabegron (Myrbetriq Er) 50 mg QAM PO 11/10/17 09:00 12/10/17 08:59 Miscellaneous Information (Consult Glycemic Management Pharmacy) 1 ea UD PRN N/A 11/09/17 14:15 12/09/17 14:14 Physical Exam Date Time Temp Pulse Resp B/P (MAP) Pulse Ox O2 Delivery O2 Flow Rate FiO2 11/09/17 14:07 71 16 115/73 (87) 100 Nasal Cannula 2.0 11/09/17 13:40 36.5 67 14 134/78 (96) 97 Nasal Cannula 2.0 11/09/17 13:40 97 Nasal Cannula 2.0 11/09/17 13:40 97 Nasal Cannula 2.0 11/09/17 13:20 62 13 115/52 100 Nasal Cannula 2 11/09/17 13:10 36.7 61 18 113/49 100 Nasal Cannula 2 11/09/17 13:00 61 12 120/51 100 Nasal Cannula 2 11/09/17 12:50 60 14 113/46 100 Nasal Cannula 2 11/09/17 12:40 68 13 127/54 100 Nasal Cannula 2 11/09/17 12:30 67 13 151/61 100 Oxymask 10 11/09/17 12:20 68 14 146/54 100 Oxymask 10 11/09/17 12:10 36.1 79 17 150/55 100 Oxymask 10 11/09/17 06:41 36.4 79 16 128/90 97 Room Air General Appearance: no apparent distress, + pertinent finding (O2 NC ) Head: normocephalic, atraumatic Eyes: normal inspection, PERRL ENT: hearing grossly normal Neck: supple Respiratory/Chest: lungs clear, no respiratory distress, no accessory muscle use Cardiovascular: regular rate, rhythm Abdomen/GI: normal bowel sounds, non tender, soft Extremities/Musculoskelatal: no calf tenderness, no pedal edema Neurologic/Psych: alert, normal mood/affect, oriented x 3 Skin: normal color, warm/dry, no rash Laboratory Results Last 24 Hours Test 11/09/17 06:26 11/09/17 07:58 11/09/17 12:22 11/09/17 13:05 Bedside Glucose 187 mg/dl 267 mg/dl 396 mg/dl White Blood Count 15.47 K/uL Red Blood Count 3.70 M/uL Hemoglobin 12.2 g/dL Hematocrit 37.1 % Mean Corpuscular Volume 100.3 fL Mean Corpuscular Hemoglobin 33.0 pg Mean Corpuscular Hemoglobin Concent 32.9 g/dl Platelet Count 470 K/uL Mean Platelet Volume 8.7 fL Neutrophils (%) (Auto) 90.4 % Lymphocytes (%) (Auto) 8.1 % Monocytes (%) (Auto) 0.8 % Eosinophils (%) (Auto) 0.2 % Basophils (%) (Auto) 0.2 % Neutrophils # (Auto) 13.99 K/uL Lymphocytes # (Auto) 1.26 K/uL Monocytes # (Auto) 0.12 K/uL Eosinophils # (Auto) 0.03 K/uL Basophils # (Auto) 0.03 K/uL RDW Standard Deviation 48.1 fL RDW Coefficient of Variation 13.1 % Immature Granulocyte % (Auto) 0.3 % Immature Granulocyte # (Auto) 0.04 K/uL Assessment & Plan Patient is a 57 y/o female, with PMHX of PAD, HLD, HTN, and T1DM, urinary incontinence, s/p L femoral popliteal insitu bypass endarterectomy by Dr. Salmeron on 11/09. Hospitalist team was consulted for hyperglycemic management. s/p L femoral popliteal insitu bypass endarterectomy by Dr. Salmeron on 11/09: - Surgical management, pain management, DVT prophylaxis as per primary team - Follow postop CBC and PRP PAD, HLD: - Plavix held as per primary team - Continue ASA and Lipitor T1DM on insulin pump w/ hyperglycemia- last hgbA1c 6.6% in 10/2016, peripheral neuropathy: - Pharmacy consulted for glycemic management- starting insulin gtt - Continue Gabapentin 100 mg HS PRN - Recheck hgbA1c HTN: - Hold Lisinopril 2.5 mg daily pending postop PRP - IV Hydralazine PRN Urinary incontinence: Continue Myrbetriq DVT prophylaxis: Lovenox SQ BID as per surgical team Code status: LEVEL I, FULL Dispo: As per primary team
[2017-11-09] MEDS ORDERED: INSULIN HUMAN REGULAR IV BOLUS 2 UNIT in SYRINGE 0 ML IV SCH (15:00)
[2017-11-09] MEDS ORDERED: INSULIN HUMAN LISPRO (humaLOG) 100 UNITS/ML VIAL SC PRN (15:15)
--- NOTE | 2017-11-09 15:19 | Pharmacy Progress Note ---
Glycemic Control Intl Consult Date of Service November 09, 2017. Scope Glycemic Pharmacist consulted by Dr Salmeron on 11/09/17 for glycemic control and to write orders per [facility] inpatient glycemic control protocol Objective Weight (Kilograms): 74.600 Accuchecks BSG (last 24hrs): Test 11/09/17 06:26 11/09/17 07:58 11/09/17 12:21 11/09/17 13:05 Bedside Glucose 187 mg/dl (70-90) 267 mg/dl (70-90) 390 mg/dl (70-90) 396 mg/dl (70-90) Test 11/09/17 14:13 Bedside Glucose 406 mg/dl (70-90) Laboratory Data (last 24hrs) Test 11/09/17 12:22 White Blood Count 15.47 K/uL Red Blood Count 3.70 M/uL Hemoglobin 12.2 g/dL Hematocrit 37.1 % Mean Corpuscular Volume 100.3 fL Mean Corpuscular Hemoglobin 33.0 pg Mean Corpuscular Hemoglobin Concent 32.9 g/dl Platelet Count 470 K/uL Mean Platelet Volume 8.7 fL Neutrophils (%) (Auto) 90.4 % Lymphocytes (%) (Auto) 8.1 % Monocytes (%) (Auto) 0.8 % Eosinophils (%) (Auto) 0.2 % Basophils (%) (Auto) 0.2 % Neutrophils # (Auto) 13.99 K/uL Lymphocytes # (Auto) 1.26 K/uL Monocytes # (Auto) 0.12 K/uL Eosinophils # (Auto) 0.03 K/uL Basophils # (Auto) 0.03 K/uL Recent Pertinent Medications Outpatient Anti-diabetic Regimen: * Humalog Insulin Pump * Carb ratio 1 unit per 15 grams CHO consumed * other settings unknown at this time * A1c = 6.6 % 10/2016 per hospitalist note, new A1c on order Risk Factors for Insulin Resistance: * Steroids: Dexamethasone 4mg IV x 1 in OR * Infection: Ancef postop * IVF: D51/2NS @ 125cc/hr * Recent Surgery: s/p left fem pop insitu bypass endarterectomy * Diet: Type 2 DM Assessment & Plan ASSESSMENT: * 57 year old type 1 diabetic managed as outpatient on humalog insulin pump * s/p left femoral popliteal insitu bypass endarterectomy with sustained hypergycemia requiring insulin drip at this time * Will continue Humalog insulin pump that was restarted postop for patient basal and prandial insulin so that patient may transition back to the pump only more quickly PLAN FOR INPATIENT GLYCEMIC CONTROL: * Starting IV insulin infusion per moderate stress protocol * Goal Range 110 - 180 mg/dl * In the critical care setting, continuous IV insulin infusion has been shown to be the best method for achieving glycemic targets. * Discontinue insulin drip when both: 1 - 2 consecutive blood sugars < 180mg/dl 2 - insulin drip rate < 2 units/hr * Basal insulin with Humalog insulin pump per home basal rate settings * Correctional Insulin with Humalog insulin pump ACHS per home settings * Nutritional / Prandial insulin per carb ratio of 1 unit per 15 grams CHO consumed * Please note that the plan above was derived based on current level of insulin resistance and hospital stress. These recommendations are appropriate for inpatient admission only. Plan of care upon discharge will need to be reassessed to avoid potential outpatient hypo/hyperglycemia. Thank you.
[2017-11-09] MEDS ORDERED: SODIUM CHLORIDE 0.9% 1000ML 1,000 ML IV ONE (15:30)
[2017-11-09] MEDS: INSULIN REGULAR 250 UNITS in SODIUM CHLORIDE 0.9% 250ML 250 ML IV SCH ×6 (15:56→21:22)
[2017-11-09] MEDS ORDERED: INSULIN HUMAN REGULAR SC SCH (16:00)
[2017-11-09] MEDS: CEFAZOLIN IV 1,000 MG in SYRINGE 0 ML IV SCH (16:59)
[2017-11-09] MEDS ORDERED: INSULIN ASPART 100 UNITS/ML 3 ML PEN SC SCH (18:30)
[2017-11-09] MEDS: OXYCODONE/ACETAMINOPHEN 5-325 TAB PO PRN (20:40)
[2017-11-09] MEDS ORDERED: GABAPENTIN 100 MG CAP PO PRN (21:00)
[2017-11-10] VITALS (8 sets, daily range): BP systolic 114–126; BP diastolic 56–67; PULSE 79–99; TEMP 36.6–36.7; O2SAT 94–100
[2017-11-10] MEDS: CEFAZOLIN IV 1,000 MG in SYRINGE 0 ML IV SCH (00:08)
[2017-11-10] MEDS: MIRABEGRON ER 25 MG TAB PO SCH (07:55)
--- NOTE | 2017-11-10 08:13 | Progress Note ---
Subjective Date of Service: November 10, 2017. Subjective this pt is doing well has no issues has better glucose control since resuming her insulin pump Problem List Medical Problems: (1) Cellulitis of toe of left foot Status: Acute Review of Systems Constitutional: No fever, No chills, No weakness, No fatigue Respiratory: No cough, No shortness of breath, No dyspnea on exertion Cardiac: No chest pain, No orthopnea, No PND Abdomen: No pain, No nausea, No vomiting Female : No dysuria, No urinary frequency, No hematuria Neurologic: No memory loss, No paralysis, No weakness Objective Vital Signs Date Time Temp Pulse Resp B/P (MAP) Pulse Ox O2 Delivery O2 Flow Rate FiO2 11/10/17 04:00 17 100 Nasal Cannula 2.0 11/10/17 03:06 36.7 79 16 114/66 (82) 100 Nasal Cannula 2.0 11/10/17 02:00 16 100 Nasal Cannula 2.0 11/10/17 01:00 17 100 Nasal Cannula 2.0 11/10/17 00:05 Nasal Cannula 2.0 11/09/17 23:05 36.7 78 16 114/69 (84) 100 Nasal Cannula 2.0 11/09/17 20:14 36.6 85 16 104/65 (78) 100 Nasal Cannula 2.0 11/09/17 19:00 36.6 86 16 117/71 (86) 100 Nasal Cannula 2.0 11/09/17 16:40 36.3 75 16 107/68 (81) 100 Nasal Cannula 2.0 11/09/17 16:15 Nasal Cannula 2.0 11/09/17 15:40 36.3 65 16 122/78 (93) 100 Nasal Cannula 11/09/17 14:40 69 16 110/57 (74) 100 Nasal Cannula 2.0 11/09/17 14:07 71 16 115/73 (87) 100 Nasal Cannula 2.0 11/09/17 13:40 36.5 67 14 134/78 (96) 97 Nasal Cannula 2.0 11/09/17 13:40 97 Nasal Cannula 2.0 11/09/17 13:40 97 Nasal Cannula 2.0 11/09/17 13:20 62 13 115/52 100 Nasal Cannula 2 11/09/17 13:10 36.7 61 18 113/49 100 Nasal Cannula 2 11/09/17 13:00 61 12 120/51 100 Nasal Cannula 2 11/09/17 12:50 60 14 113/46 100 Nasal Cannula 2 11/09/17 12:40 68 13 127/54 100 Nasal Cannula 2 11/09/17 12:30 67 13 151/61 100 Oxymask 10 11/09/17 12:20 68 14 146/54 100 Oxymask 10 11/09/17 12:10 36.1 79 17 150/55 100 Oxymask 10 Physical Exam General Appearance: WD/WN, + mild distress Eyes: normal inspection, sclerae normal Neck: supple, no JVD Respiratory/Chest: chest non-tender, lungs clear Cardiovascular: regular rate, rhythm, no murmur Abdomen: normal bowel sounds, non tender, soft Extremities: no pedal edema, no calf tenderness Neurologic/Psychiatric: alert, oriented x 3 Laboratory Results Last 24 Hours Test 11/09/17 12:21 11/09/17 12:22 11/09/17 13:05 11/09/17 14:13 Bedside Glucose 390 mg/dl 396 mg/dl 406 mg/dl White Blood Count 15.47 K/uL Red Blood Count 3.70 M/uL Hemoglobin 12.2 g/dL Hematocrit 37.1 % Mean Corpuscular Volume 100.3 fL Mean Corpuscular Hemoglobin 33.0 pg Mean Corpuscular Hemoglobin Concent 32.9 g/dl Platelet Count 470 K/uL Mean Platelet Volume 8.7 fL Neutrophils (%) (Auto) 90.4 % Lymphocytes (%) (Auto) 8.1 % Monocytes (%) (Auto) 0.8 % Eosinophils (%) (Auto) 0.2 % Basophils (%) (Auto) 0.2 % Neutrophils # (Auto) 13.99 K/uL Lymphocytes # (Auto) 1.26 K/uL Monocytes # (Auto) 0.12 K/uL Eosinophils # (Auto) 0.03 K/uL Basophils # (Auto) 0.03 K/uL RDW Standard Deviation 48.1 fL RDW Coefficient of Variation 13.1 % Immature Granulocyte % (Auto) 0.3 % Immature Granulocyte # (Auto) 0.04 K/uL Test 11/09/17 17:03 11/09/17 18:03 11/09/17 19:04 11/09/17 20:06 Bedside Glucose 264 mg/dl 217 mg/dl 194 mg/dl 173 mg/dl Test 11/09/17 21:06 11/10/17 04:44 Bedside Glucose 156 mg/dl Assessment and Plan Patient is a 57 y/o female, with PMHX of PAD, HLD, HTN, and T1DM, urinary incontinence, s/p L femoral popliteal insitu bypass endarterectomy by Dr. Salmeron on 11/09. Hospitalist team was consulted for hyperglycemic management, pt was placed on gtt and will resume home insulin pump when able s/p L femoral popliteal insitu bypass endarterectomy by Dr. Salmeron on 11/09: - Surgical management, pain management, DVT prophylaxis as per primary team PAD, HLD:- Plavix held as per primary team - Continue ASA and Lipitor T1DM on insulin pump w/ hyperglycemia- last hgbA1c 6.6% in 10/2016, peripheral neuropathy: - Pharmacy consulted for glycemic management- starting insulin gtt --> transition to pump when able - Continue Gabapentin 100 mg HS PRN HTN: - Hold Lisinopril 2.5 mg daily pending postop PRP - IV Hydralazine PRN Urinary incontinence: Continue Myrbetriq DVT prophylaxis: Lovenox SQ BID as per surgical team Code status: LEVEL I, FULL
--- NOTE | 2017-11-10 08:30 | Progress Note ---
Progress Note Date of Service: November 10, 2017. Subjective No complaints. No pain in foot. Foot feels much better. Problem List Medical Problems: (1) Cellulitis of toe of left foot Status: Acute Objective Vital Signs Vital Signs Past 12 Hours Date Time Temp Pulse Resp B/P (MAP) Pulse Ox O2 Delivery O2 Flow Rate FiO2 11/10/17 04:00 17 100 Nasal Cannula 2.0 11/10/17 03:06 36.7 79 16 114/66 (82) 100 Nasal Cannula 2.0 11/10/17 02:00 16 100 Nasal Cannula 2.0 11/10/17 01:00 17 100 Nasal Cannula 2.0 11/10/17 00:05 Nasal Cannula 2.0 11/09/17 23:05 36.7 78 16 114/69 (84) 100 Nasal Cannula 2.0 Exam Awake and alert VSS Afebrile Graft patent Good pedal doppler signals on foot Dressing intact. Laboratory and Microbiology Results Past 24 Hours Test 11/09/17 12:21 11/09/17 12:22 11/09/17 13:05 11/09/17 14:13 Range/Units Bedside Glucose 390 396 406 70-90 mg/dl White Blood Count 15.47 4.8-10.8 K/uL Red Blood Count 3.70 4.2-5.4 M/uL Hemoglobin 12.2 12.0-16.0 g/dL Hematocrit 37.1 37-47 % Mean Corpuscular Volume 100.3 80-100 fL Mean Corpuscular Hemoglobin 33.0 25-34 pg Mean Corpuscular Hemoglobin Concent 32.9 32-36 g/dl Platelet Count 470 130-400 K/uL Mean Platelet Volume 8.7 7.4-10.4 fL Neutrophils (%) (Auto) 90.4 % Lymphocytes (%) (Auto) 8.1 % Monocytes (%) (Auto) 0.8 % Eosinophils (%) (Auto) 0.2 % Basophils (%) (Auto) 0.2 % Neutrophils # (Auto) 13.99 1.4-6.5 K/uL Lymphocytes # (Auto) 1.26 1.2-3.4 K/uL Monocytes # (Auto) 0.12 0.11-0.59 K/uL Eosinophils # (Auto) 0.03 0-0.5 K/uL Basophils # (Auto) 0.03 0-0.2 K/uL RDW Standard Deviation 48.1 36.4-46.3 fL RDW Coefficient of Variation 13.1 11.5-14.5 % Immature Granulocyte % (Auto) 0.3 % Immature Granulocyte # (Auto) 0.04 0.00-0.02 K/uL Test 11/09/17 17:03 11/09/17 18:03 11/09/17 19:04 11/09/17 20:06 Range/Units Bedside Glucose 264 217 194 173 70-90 mg/dl Test 11/09/17 21:06 11/10/17 08:03 11/10/17 08:16 Range/Units Bedside Glucose 156 145 70-90 mg/dl Imp: Post left fem pop bypass Plan: Will increase ambulation today and start PT/OT
[2017-11-10] MEDS: ENOXAPARIN 30 MG/0.3 ML SYR SQ SCH ×2 (08:47→21:14)
[2017-11-10] MEDS: ASPIRIN 81 MG ECTAB PO SCH (08:47)
[2017-11-10] MEDS: ATORVASTATIN 40 MG TAB PO SCH (08:47)
[2017-11-10 08:49] LABS: BASO % 0.1 %; BASO ABS # 0.01 K/uL (0-0.2); EOS % 0.1 %; EOS ABS # 0.01 K/uL (0-0.5); HEMATOCRIT 28.1 % (37-47); HEMOGLOBIN 9.5 g/dL (12.0-16.0); IG# 0.02 K/uL (0.00-0.02); LYMPH ABS # 2.53 K/uL (1.2-3.4); MEAN CELL VOLUME 99.3 fL (80-100); MEAN CORPUSCULAR HEMOGLOBIN 33.6 pg (25-34); MEAN CORPUSCULAR HGB CONC 33.8 g/dl (32-36); MEAN PLATELET VOLUME 8.7 fL (7.4-10.4); MONO % 9.1 %; MONO ABS # 0.92 K/uL (0.11-0.59); NEUT % 65.5 %; NEUT ABS # 6.63 K/uL (1.4-6.5); PLATELET COUNT 433 K/uL (130-400); RED CELL DISTRIBUTION WIDTH CV 13.1 % (11.5-14.5); WHITE BLOOD COUNT 10.12 K/uL (4.8-10.8)
[2017-11-10] MEDS ORDERED: LISINOPRIL 5 MG TAB PO SCH (09:00)
[2017-11-10] MEDS ORDERED: GABAPENTIN 100 MG CAP PO SCH (09:00)
[2017-11-10 09:18] LABS: CREATININE 0.63 mg/dl (0.60-1.20); POTASSIUM 4.1 mmol/L (3.5-5.1)
[2017-11-10 09:41] LABS: HEMOGLOBIN A1C 6.7 % (4.5-5.6)
--- NOTE | 2017-11-10 11:42 | Pharmacy Progress Note ---
Glycemic Control Progress Note Date of Service November 10, 2017. Scope Glycemic Pharmacist consulted for glycemic control to write orders per [facility] inpatient glycemic control protocol. Objective Accuchecks BSG (last 24hrs): Test 11/09/17 12:21 11/09/17 13:05 11/09/17 14:13 11/09/17 17:03 Bedside Glucose 390 mg/dl (70-90) 396 mg/dl (70-90) 406 mg/dl (70-90) 264 mg/dl (70-90) Test 11/09/17 18:03 11/09/17 19:04 11/09/17 20:06 11/09/17 21:06 Bedside Glucose 217 mg/dl (70-90) 194 mg/dl (70-90) 173 mg/dl (70-90) 156 mg/dl (70-90) Test 11/10/17 08:03 11/10/17 08:16 Bedside Glucose 145 mg/dl (70-90) Random Glucose 136 mg/dl (70-99) HbA1c: Test 11/10/17 08:16 Hemoglobin A1c 6.7 % (4.5-5.6) H Recent Pertinent Medications Outpatient Anti-diabetic Regimen: * Humalog Insulin Pump * Carb ratio 1 unit per 15 grams CHO consumed * other settings unknown at this time * A1c = 6.7 % Risk Factors for Insulin Resistance: * Steroids: Dexamethasone 4mg IV x 1 in OR 11/09 * Recent Surgery: POD1 left fem pop insitu bypass endarterectomy * Diet: Type 2 DM Assessment & Plan ASSESSMENT: 11/10/17 * Patient transitioned off of insulin drip last night when two consecutive blood sugars were < 180mg/dl and insulin drip rate was < 2 units/hr * Blood sugars look great, only on home insulin pump * A1c at goal 11/09/17 * 57 year old type 1 diabetic managed as outpatient on humalog insulin pump * s/p left femoral popliteal insitu bypass endarterectomy with sustained hypergycemia requiring insulin drip at this time * Will continue Humalog insulin pump that was restarted postop for patient basal and prandial insulin so that patient may transition back to the pump only more quickly PLAN FOR INPATIENT GLYCEMIC CONTROL: * Discontinued IV insulin infusion per moderate stress protocol (DONE last night ) * Basal insulin with Humalog insulin pump per home basal rate settings * Correctional Insulin with Humalog insulin pump ACHS per home settings * Nutritional / Prandial insulin per carb ratio of 1 unit per 15 grams CHO consumed * Please note that the plan above was derived based on current level of insulin resistance and hospital stress. These recommendations are appropriate for inpatient admission only. Plan of care upon discharge will need to be reassessed to avoid potential outpatient hypo/hyperglycemia. Thank you.
[2017-11-10] MEDS: OXYCODONE/ACETAMINOPHEN 5-325 TAB PO PRN (17:13)
[2017-11-11 06:56] VITALS: BP 109/64; PULSE 104; TEMP 36.9; O2SAT 95
[2017-11-11] MEDS: ASPIRIN 81 MG ECTAB PO SCH (08:44)
[2017-11-11] MEDS: ATORVASTATIN 40 MG TAB PO SCH (08:45)
[2017-11-11] MEDS: MIRABEGRON ER 25 MG TAB PO SCH (08:45)
--- NOTE | 2017-11-11 09:23 | Progress Note ---
Progress Note Date of Service: November 11, 2017. Subjective No complaints. Left foot and toes feeling better Problem List Medical Problems: (1) Cellulitis of toe of left foot Status: Acute Objective Vital Signs Vital Signs Past 12 Hours Date Time Temp Pulse Resp B/P (MAP) Pulse Ox O2 Delivery O2 Flow Rate FiO2 11/11/17 06:56 36.9 104 16 109/64 (79) 95 Room Air 11/10/17 23:40 Room Air 11/10/17 22:54 36.7 99 14 121/65 (83) 94 Room Air Exam Awake and alert VSS Afebrile Incisions dry and clean Good dopplers in feet and in graft. Laboratory and Microbiology Results Past 24 Hours Test 11/10/17 12:20 11/10/17 17:14 11/10/17 20:51 11/11/17 07:53 Range/Units Bedside Glucose 201 86 71 280 70-90 mg/dl Imp: Post left fem pop bypass Plan: Doing well Was in chair yesterday Once patient can ambulate with walker can d/c home
[2017-11-11] MEDS: ENOXAPARIN 30 MG/0.3 ML SYR SQ SCH ×2 (09:39→21:39)
[2017-11-11] MEDS: OXYCODONE/ACETAMINOPHEN 5-325 TAB PO PRN (12:36)
[2017-11-11 15:25] VITALS: BP 98/61; PULSE 90; TEMP 36.7; O2SAT 97
[2017-11-11 23:08] VITALS: BP 114/68; PULSE 93; TEMP 36.8; O2SAT 96
[2017-11-12] VITALS (7 sets, daily range): BP systolic 93–128; BP diastolic 56–73; PULSE 79–106; TEMP 36.7–36.8; O2SAT 96–98
[2017-11-12] MEDS: OXYCODONE/ACETAMINOPHEN 5-325 TAB PO PRN (01:16)
--- NOTE | 2017-11-12 08:02 | Anesthesiology Progress Note ---
Anesthesia Post Op Note Date & Time November 12, 2017 at 08:01 Vital Signs Vital Signs Past 12 Hours Date Time Temp Pulse Resp B/P (MAP) Pulse Ox O2 Delivery O2 Flow Rate FiO2 11/12/17 07:27 36.7 79 18 110/65 (80) 97 Room Air 11/11/17 23:10 Room Air 11/11/17 23:08 36.8 93 17 114/68 (83) 96 Room Air Notes Mental Status: alert / awake / arousable, participated in evaluation Pt Amnestic to Procedure: Yes Nausea / Vomiting: adequately controlled Pain: adequately controlled Airway Patency, RR, SpO2: stable & adequate BP & HR: stable & adequate Hydration State: stable & adequate Anesthetic Complications: no major complications apparent
--- NOTE | 2017-11-12 08:45 | Progress Note ---
Progress Note Date of Service: November 12, 2017. Subjective 57 yo f with multiple medical problems, POD #3 after LLE fem-pop insitu bypass, seen in f/u today. Pt admits pain, but is controlled by meds. Admits fatigue. Lightheaded during PT yesterday, BP at that time dropped into 70's systolic, then recovered to 117 when sitting for a few minutes. Hgb 9.5 POD #1. Resting VS stable. Problem List Medical Problems: (1) Cellulitis of toe of left foot Status: Acute Objective Vital Signs Vital Signs Past 12 Hours Date Time Temp Pulse Resp B/P (MAP) Pulse Ox O2 Delivery O2 Flow Rate FiO2 11/12/17 07:27 36.7 79 18 110/65 (80) 97 Room Air 11/11/17 23:10 Room Air 11/11/17 23:08 36.8 93 17 114/68 (83) 96 Room Air Exam CONST: A&O x3, NAD, generally healthy appearing female CHEST: RRR lungs CTAB ABD; soft, nonender, + bs x 4 quad EXT: LLE incisions intact with ese, + local tenderness, ecchymosis and edema. + excellent distal dopplers. L foot/ankle with + signifciant ecchymosis and edema from recent fx. pressure areas noted to MTP jt, dorsal foot and heel area. + tender. Toes with brisk cap refill. Laboratory and Microbiology Results Past 24 Hours Test 11/11/17 12:23 11/11/17 17:15 11/11/17 20:47 11/12/17 08:36 Range/Units Bedside Glucose 224 206 226 70-90 mg/dl ASSESSMENT and PLAN: s/p LLE fem-pop insitu bypass LLE SFA occlusion with rest pain Pt doing generally well post op. Foot pain improved since surgery. Recheck H&H this AM and RN to perform orthostatic VS. PT NOT to use knee walker at this point. Possible D/C tomorrow.
[2017-11-12 09:06] LABS: HEMATOCRIT 27.3 % (37-47); HEMOGLOBIN 9.2 g/dL (12.0-16.0)
[2017-11-12] MEDS: ASPIRIN 81 MG ECTAB PO SCH (09:32)
[2017-11-12] MEDS: ATORVASTATIN 40 MG TAB PO SCH (09:33)
[2017-11-12] MEDS: MIRABEGRON ER 25 MG TAB PO SCH (09:33)
[2017-11-12] MEDS: ENOXAPARIN 30 MG/0.3 ML SYR SQ SCH ×2 (09:34→21:44)
--- NOTE | 2017-11-12 12:11 | Clinical Documentation Query ---
QUERY 1 OF [address] ROMEO, In your clinical opinion is this patient being managed for: ( x ) Acute blood loss anemia ( ) Not Agree ( ) Other explanation of clinical findings (Please Explain. If no explanation given, this would be considered a no response.) ( ) Unable to determine ( ) Need to Discuss (Please call CDS via extension or qliq. If no interaction occurs this is considered a no response.) The medical record reflects the following clinical findings, treatment, and risk factors. Clinical Indicators: 57 yo female presenting with Left superficial femoral artery occlusion for an endarterectomy. EBL of 150 cc. Baseline Hgb 13.8/Hct 40.7 which has trended down to 9.2/27.3. Pt became lightheaded and systolic BP dropped into the 70's systolic in PT on 11/11 Treatment: repeated H/H, check orthostatic BP's Risk Factors: surgical blood loss QUERY 2 OF 2 In your clinical opinion is this patient being managed for: ( ) Pressure ulcers L foot and L heel, unstageable, POA ( ) Pressure ulcers L foot and L heel, unstageable, not POA ( x ) Not Agree ( ) Other explanation of clinical findings (Please Explain. If no explanation given, this would be considered a no response.) ( ) Unable to determine ( ) Need to Discuss (Please call CDS via extension or qliq. If no interaction occurs this is considered a no response.) The medical record reflects the following clinical findings, treatment, and risk factors. Clinical Indicators: Documentation in the progress note of 11/12 indicates "pressure areas to MTP joint, dorsal foot and heel area." WOCN note indicates "deep tissue injury" Treatment: WOCN consult, optifoam change q 3 days, assess sites daily for progression, anode builder to offload pressure Risk Factors: DM, PAD, HTN Please clarify and document your clinical opinion in the progress notes and discharge summary. Terms such as "probable", "suspected", "likely", "questionable", "possible", or "still to be ruled out" are acceptable. IF IN AGREEMENT, YOU MUST DOCUMENT ABOVE DIAGNOSTIC STATEMENT IN DAILY PROGRESS NOTES AND DISCHARGE SUMMARY. This document is not part of the patient's record. Thank You, Sharon Shahid, RN [phone]
--- NOTE | 2017-11-12 14:46 | Pharmacy Progress Note ---
Pharmacy Glycemic Short Note 2 Date of Service November 12, 2017. OUTPATIENT ANTIDIABETIC REGIMEN: * Humalog Insulin Pump * Carb ratio 1 unit per 15 grams CHO consumed * other settings unknown at this time * A1c = 6.7 % ASSESSMENT: * 57 yr old T1DM female admitted POD #3 s/p left femoral popliteal insitu bypass endarterectomy * Pt's BSGs became elevated on 11/11 but seem to be trending downward now. * Discussed with pt's RN and requested that BSG be checked q4h (rather than ACHS ) in attempt to get BSGs back within goal. PLAN FOR INPATIENT GLYCEMIC CONTROL: * Basal insulin with Humalog insulin pump per home basal rate settings * Correctional Insulin with Humalog insulin pump ACHS per home settings * Nutritional / Prandial insulin per carb ratio of 1 unit per 15 grams CHO consumed PLAN FOR DISCHARGE: * HbA1c indicates adequate glycemic control * Continue Humalog pump on discharge at home settings
--- NOTE | 2017-11-12 16:11 | Hospitalist Progress Note ---
Hospitalist Progress Note Date of Service November 12, 2017. (Yamile Pierre ., SUNNI) Subjective Pt evaluation today including: conversation w/ patient, physical exam, chart review, lab review, review of inpatient medication list Voiding: no voiding problems Ms. Arevalo continues to feel a bit lightheaded with standing after experiencing SBP in the 70s yesterday with standing. She has some discomfort in her left foot. She otherwise has no complaints. ROS Constitutional: no chills, aches, sweats or fever Respiratory: no sob,cough, sputum, or wheezing Cardiac: no chest pain, palpitations, edema, orthopnea GI: no abdominal pain, nausea, vomiting, diarrhea or constipation : no dysuria or hesitancy Extremities: see HPI Skin: no rash All other systems reviewed and negative (Yamile Pierre .SUNNI) Medications Medications Administered Medications (Trade) Dose Ordered Sig/Eusebia Route Start Time Stop Time Status Last Admin Dose Admin Cefazolin Sodium 7.5 ml @ 2.5 mls/min PREOP IV 11/09/17 06:00 11/09/17 12:00 DC 11/09/17 12:32 2.5 MLS/MIN Gelatin (Surgifoam Sponge 100 (LARGE)) 2 ea STK-MED ONCE .ROUTE 11/09/17 07:02 11/09/17 07:03 DC 11/09/17 11:25 2 EA Iodixanol (Visipaque 50ml) 270 mg STK-MED ONCE .ROUTE 11/09/17 07:03 11/09/17 07:04 DC 11/09/17 11:25 270 MG Heparin Sodium (Porcine) (Heparin Iv Bolus) 10,000 unit STK-MED ONCE .ROUTE 11/09/17 07:04 11/09/17 07:05 DC 11/09/17 11:25 5,000 UNIT Thrombin (Recothrom Kit) 20,000 units STK-MED ONCE .ROUTE 11/09/17 07:28 11/09/17 07:29 DC 11/09/17 11:25 20,000 UNITS Oxycodone/ Acetaminophen (Percocet 5-325mg Tab) `1-2 TABS FOR MODER... Q4H PRN PO 11/09/17 11:30 11/23/17 11:29 11/12/17 01:16 2 TAB Cefazolin Sodium 1000 mg/Syringe 7.5 ml @ 2.5 mls/min Q8H IV 11/09/17 16:00 11/10/17 00:02 DC 11/10/17 00:08 2.5 MLS/MIN Enoxaparin Sodium (Lovenox Inj) 30 mg Q12 SQ 11/10/17 09:00 12/10/17 08:59 11/12/17 09:34 30 MG Aspirin (Ecotrin Tab) 81 mg QAM PO 11/10/17 09:00 12/10/17 08:59 11/12/17 09:32 81 MG Atorvastatin Calcium (Lipitor Tab) 40 mg QAM PO 11/10/17 09:00 12/10/17 08:59 11/12/17 09:33 40 MG Insulin Human Lispro (HumaLOG INSULIN PUMP) 1 ea ACHS N/A 11/09/17 17:15 12/09/17 17:14 11/12/17 12:00 1 EA Mirabegron (Myrbetriq Er) 50 mg QAM PO 11/10/17 09:00 12/10/17 08:59 11/12/17 09:33 50 MG Insulin Human Regular (Insulin IV Infusion Protocol) 1 ea NOW STAT N/A 11/09/17 14:36 11/09/17 14:39 DC 11/09/17 14:36 1 EA Insulin Human Regular 2 unit/ Syringe 2 ml @ 1 mls/min TODAY@1500 IV 11/09/17 15:00 11/09/17 15:01 DC 11/09/17 15:38 1 MLS/MIN Insulin Human Regular 250 units/ Sodium Chloride 252.5 ml @ 0 mls/hr Q24H IV 11/09/17 15:00 11/10/17 08:00 DC 11/09/17 20:12 1.9 MLS/HR Sodium Chloride 1,000 ml @ 125 mls/hr Q8H ONCE IV 11/09/17 15:30 11/09/17 23:29 DC 11/09/17 16:59 125 MLS/HR (Yamile Pierre CRNP) Objective Vital Signs Date Time Temp Pulse Resp B/P (MAP) Pulse Ox O2 Delivery O2 Flow Rate FiO2 11/12/17 15:11 36.7 87 18 128/73 (91) 96 Room Air 11/12/17 11:27 36.7 87 18 123/68 (86) 98 Room Air 11/12/17 08:55 106 100/66 (77) 11/12/17 08:55 97 93/60 (71) 11/12/17 08:54 85 112/56 (74) 11/12/17 08:00 Room Air 11/12/17 07:27 36.7 79 18 110/65 (80) 97 Room Air 11/11/17 23:10 Room Air 11/11/17 23:08 36.8 93 17 114/68 (83) 96 Room Air (Yamile Pierre CRNP) Physical Exam Notes: General: no distress Eyes: normal inspection, PERLL Respiratory: chest non tender, clear to auscultation, normal breath sounds, no respiratory distress, no accessory muscle use Cardiac: regular rate and rhythm, no rub or gallop, no murmur, no edema, no jvd GI/: active bowel sounds, no abd pain or tenderness, soft, non distended Extremities: normal range of motion, normal strength, non tender Neuro/Psych: alert and oriented x 3, normal mood and affect Skin: normal color, dry, wounds with dressings with small amounts of shadowing left foot. Incision with ese, well approximated and without erythema or drainage (Yamile Peirre, SUNNI) Laboratory Results Last 24 Hours Test 11/11/17 17:15 11/11/17 20:47 11/12/17 07:51 11/12/17 08:51 Bedside Glucose 206 mg/dl 226 mg/dl 174 mg/dl Hemoglobin 9.2 g/dL Hematocrit 27.3 % Test 11/12/17 11:56 Bedside Glucose 209 mg/dl (Yamile Pierre CRNP) Assessment and Plan Patient is a 57 y/o female, with PMHX of PAD, HLD, HTN, and T1DM, urinary incontinence, s/p L femoral popliteal insitu bypass endarterectomy by Dr. Salmeron on 11/09. Hospitalist team was consulted for hyperglycemic management, pt was placed on gtt initially but has transition to home insulin pump s/p L femoral popliteal insitu bypass endarterectomy by Dr. Salmeron on 11/09, post op anemia due to blood loss, hypotension: - Surgical management, pain management, DVT prophylaxis as per primary team - agree hold htn medications until patients pressures have normalized - she does not appear to be orthostatic any longer from her recorded vital signs. Encourage slow change from laying to standing. - hgb stable around 9.5 for the past few days. PAD, HLD:- Plavix held as per primary team - Continue ASA and Lipitor T1DM on insulin pump w/ hyperglycemia- last hgbA1c 6.6% in 10/2016, peripheral neuropathy: - Pharmacy consulted for glycemic management- continue home insulin pump with q4h checks per their recommendation - Continue Gabapentin 100 mg HS PRN Hypertension - Hold Lisinopril 2.5 mg as above Urinary incontinence: Continue Myrbetriq DVT prophylaxis: Lovenox SQ BID as per surgical team Code status: LEVEL I, FULL Medicine will sign off as patient is being well managed by pharmacy for hyperglycemia and is off insulin drip. Please let us know if we can be of any further assistance (Yamile Pierre, SUNNI) Supervising Note Dr. Kang I performed a history and physical examination on the patient. I reviewed above note and agree with it. I discussed plan with APC and patient. During my face to face encounter with the patient, I answered all of the patient's questions. Blood sugar appears to be better controlled. Will sign off case. Please call if any questions or assistance is required. (Jeffy Kang M.D.)
[2017-11-13] VITALS (7 sets, daily range): BP systolic 110–149; BP diastolic 60–74; PULSE 80–101; TEMP 36.6–36.8; O2SAT 94–98
[2017-11-13] MEDS: ATORVASTATIN 40 MG TAB PO SCH (08:45)
[2017-11-13] MEDS: ASPIRIN 81 MG ECTAB PO SCH (08:45)
[2017-11-13] MEDS: MIRABEGRON ER 25 MG TAB PO SCH (08:45)
[2017-11-13] MEDS: ENOXAPARIN 30 MG/0.3 ML SYR SQ SCH ×2 (08:46→20:50)
[2017-11-13] MEDS: PSEUDOEPHEDRINE HCL 30 MG TAB PO SCH ×3 (10:30→22:07)
--- NOTE | 2017-11-13 14:29 | Medical Consult ---
Consultation Note Date of Service November 12, 2017. Consultation Note CHIEF COMPLAINT: Left heel ulcer and ankle fracture. HISTORY OF PRESENT ILLNESS: Julieta is a pleasant 57-year-old female, who I am following for her left ankle fracture. I was consult did to evaluate her immobilization she is starting to develop a heel ulcer in the hospital. She underwent left femoral popliteal in situ bypass endarterectomy and patch angioplasty of the left common femoral artery by Dr. Salmeron on November 09, 2017. She has been removed from the boot and the heel and foot ulcer have been covered. PAST MEDICAL HISTORY: Diabetes and lower extremity arterial insufficiency. PAST SURGICAL HISTORY: Tonsillectomy, , breast biopsy, endovascular procedure. MEDICATIONS: Noted in the EMR. ALLERGIES: Pletal. FAMILY HISTORY: Heart disease, hypertension, diabetes, cancer, PVD, carotid artery disease, and stroke. SOCIAL HISTORY: Smoked for 14 years half-pack per day. Admits to alcohol use one glass of wine per day. REVIEW OF SYSTEMS: A 14-point review of systems is noted in my office medical record. PHYSICAL EXAM: Patient is in no acute distress breathing easily at 16 breaths per minute. They have an appropriate mood and affect. They weigh 75 kg and are 175 cm tall. Focusing on the left lower extremity, her sensation to light touch is intact distally, she is able to wiggle her toes up and down. His cap refill less than 2 seconds. Mild swelling about the ankle and foot with noted ecchymosis about the ankle and lower leg. Minimal tenderness to palpation about the distal fibula. Her calf is soft and nontender. Negative calf and forefoot squeeze test. The dressing about her heel was removed, there is a very small type I pressure ulcer near the Achilles insertion. In addition she has the same dressings over the ball of her foot. RADIOGRAPHS: 3 views of the left ankle compared to outside films done October 27, 2017, show a minimally displaced Barreto B distal fibula fracture. There is also noted calcification within the anterior vessels of the ankle. IMPRESSION: Left distal fibula fracture, Barreto B, minimally displaced, closed, subsequent hospital visit, grade 1 Heel ulcer. PLAN: After a lengthy discussion with the patient today regarding my above clinical findings, as well and reviewing her radiographs, she will continue to be treated conservatively in a high tide cam boot and remain nonweightbearing. A doughnut will be placed around the heel ulcer dressing to offload that area while in the boot. She may ice and elevate. She will follow-up as an outpatient in 1-2 weeks for repeat x-rays 3 views of the left ankle out of the boot. The patient understood all my instructions and explanation; all their questions were satisfactorily addressed.
[2017-11-13] MEDS: OXYCODONE/ACETAMINOPHEN 5-325 TAB PO PRN (23:49)
[2017-11-14] VITALS (8 sets, daily range): BP systolic 98–125; BP diastolic 59–72; PULSE 84–105; TEMP 36.5–36.7; O2SAT 95–100
[2017-11-14] MEDS: PSEUDOEPHEDRINE HCL 30 MG TAB PO SCH ×4 (04:05→21:32)
[2017-11-14] MEDS: ENOXAPARIN 30 MG/0.3 ML SYR SQ SCH ×2 (09:06→21:19)
[2017-11-14] MEDS: ATORVASTATIN 40 MG TAB PO SCH (09:06)
[2017-11-14] MEDS: ASPIRIN 81 MG ECTAB PO SCH (09:06)
[2017-11-14] MEDS: MIRABEGRON ER 25 MG TAB PO SCH (09:07)
--- NOTE | 2017-11-14 17:01 | Progress Note ---
Progress Note Date of Service: November 14, 2017. Subjective 57 yo f s/p LLE fem-pop in situ bypass, seen inf/u today. Pt deneis any new complaints. Problem List Medical Problems: (1) Cellulitis of toe of left foot Status: Acute Objective Vital Signs Vital Signs Past 12 Hours Date Time Temp Pulse Resp B/P (MAP) Pulse Ox O2 Delivery O2 Flow Rate FiO2 11/14/17 15:50 85 125/72 (89) 11/14/17 15:17 36.7 91 18 105/67 (80) 95 Room Air 11/14/17 11:48 105 100 11/14/17 11:29 36.6 86 18 116/70 (85) 96 Room Air 11/14/17 08:41 Room Air 11/14/17 07:25 36.6 84 18 120/59 (79) 98 Room Air Exam CONST: A&O x3, NAD, generally healthy appearing female CHEST: RRR lungs CTAB ABD; soft, nonender, + bs x 4 quad EXT: LLE incisions intact with ese, + local tenderness, ecchymosis and edema. + excellent distal dopplers. L foot/ankle with + signifciant ecchymosis and edema from recent fx. pressure areas noted to MTP jt, dorsal foot and heel area. + tender. Toes with brisk cap refill. Intake & Output 8-Hour Column 11/14/17 11/15/17 11/15/17 16:00 00:00 08:00 Intake Total 320 ml Output Total 400 ml Balance -80 ml 24-Hour Column 11/15/17 08:00 Intake Total 320 ml Output Total 400 ml Balance -80 ml Laboratory and Microbiology Results Past 24 Hours Test 11/13/17 17:28 11/13/17 20:22 11/13/17 23:49 11/14/17 04:03 Range/Units Bedside Glucose 205 134 82 87 70-90 mg/dl Test 11/14/17 08:08 11/14/17 12:09 Range/Units Bedside Glucose 166 189 70-90 mg/dl ASSESSMENT and PLAN: s/p LLE fem-pop bypass PAD with rest pain Pt doing well pos top. Consider d/c to rehab when placed.
[2017-11-15 02:50] VITALS: BP 110/68; PULSE 90; TEMP 36.8; O2SAT 93
[2017-11-15] MEDS: PSEUDOEPHEDRINE HCL 30 MG TAB PO SCH ×2 (04:04→09:28)
[2017-11-15 07:36] VITALS: BP 109/66; PULSE 89; TEMP 36.8; O2SAT 97
[2017-11-15] MEDS: MIRABEGRON ER 25 MG TAB PO SCH (09:27)
[2017-11-15] MEDS: ASPIRIN 81 MG ECTAB PO SCH (09:27)
[2017-11-15] MEDS: ATORVASTATIN 40 MG TAB PO SCH (09:27)
[2017-11-15] MEDS: ENOXAPARIN 30 MG/0.3 ML SYR SQ SCH (09:28)
[2017-11-15] MEDS ORDERED: OXYC-57 PO ×3 (11:19→12:35)
--- NOTE | 2017-11-15 11:22 | Discharge Instructions ---
Discharge Instructions Date of Service November 15, 2017. Admission Reason for Admission: Peripheral Arterial Disease Discharge Discharge Diagnosis / Problem: Left femoral to popliteal bypass Discharge Goals Goal(s): Therapeutic intervention Activity Recommendations Activity Limitations: per Instructions/Follow-up section Lifting Limitations: none Exercise/Sports Limitations: none Shower/Bathe: tomorrow Weightbearing Status: Left weightbearing (as tolerated), Right weightbearing ( as tolerated) . Instructions / Follow-Up Instructions / Follow-Up Call [phone] to schedule a follow up appointment if one not already scheduled. ACTIVITY RECOMMENDATIONS: See Above SPECIAL CARE INSTRUCTIONS: Call your doctor if: * Temperature above 101 degrees * Pain not relieved by pain medicine ordered * There is increased drainage or redness from any incision * You have any unanswered questions or concerns. Current Hospital Diet Patient's current hospital diet: AHA Diet (Heart Healthy), Diabetes Type 2 Diet Discharge Diet Recommended Diet: AHA Diet (Heart Healthy), Diabetes Type 2 Diet Procedures Procedures Performed: Left Femoral Popliteal insitu bypass endarterectomy and patch angioplasty of left common femoral artery. Pending Studies Studies pending at discharge: no Laboratory Results Hemoglobin A1c Test 11/10/17 08:16 Range/Units Estimated Average Glucose 146 mg/dl Hemoglobin A1c 6.7 H 4.5-5.6 % Medical Emergencies . Who to Call and When: Medical Emergencies: If at any time you feel your situation is an emergency, please call 911 immediately. . Non-Emergent Contact Non-Emergency issues call your: Surgeon . "Provider Documentation" section prepared by Wu Salmeron. . [place] Drug Monitoring Program Search Results: no issues identified
[2017-11-15 13:15] VITALS: BP 109/66; PULSE 89; TEMP 36.8; O2SAT 97
--- NOTE | 2017-11-15 14:43 | Progress Note ---
Progress Note Date of Service: November 15, 2017. Subjective 57 yo f s/p LLE fem-pop in situ bypass seen in f/u today. Pt states she began having severe cramps in L bottom of foot when wearing her boot, so removed it. She is remaining NWB on LLE. Denies any other new complaints and is anxious for d/c. Problem List Medical Problems: (1) Cellulitis of toe of left foot Status: Acute Objective Vital Signs Vital Signs Past 12 Hours Date Time Temp Pulse Resp B/P (MAP) Pulse Ox O2 Delivery O2 Flow Rate FiO2 11/15/17 13:15 36.8 89 16 97 Room Air 11/15/17 07:40 Room Air 11/15/17 07:36 36.8 89 16 109/66 (80) 97 Room Air 11/15/17 02:50 36.8 90 14 110/68 (82) 93 Room Air Exam CONST: A&O x3, NAD, generally healthy appearing female CHEST: RRR lungs CTAB ABD; soft, nonender, + bs x 4 quad EXT: LLE incisions intact with ese, + local tenderness, ecchymosis and edema. + excellent distal dopplers. L foot/ankle with + signifciant ecchymosis and edema from recent fx. pressure areas noted to MTP jt, dorsal foot and heel area. + tender. Toes with brisk cap refill. Intake & Output 8-Hour Column 11/15/17 11/16/17 11/16/17 16:00 00:00 08:00 Intake Total 420 ml Balance 420 ml 24-Hour Column 11/16/17 08:00 Intake Total 420 ml Balance 420 ml Laboratory and Microbiology Results Past 24 Hours Test 11/14/17 17:03 11/14/17 20:37 11/15/17 08:15 11/15/17 11:57 Range/Units Bedside Glucose 189 126 275 267 70-90 mg/dl ASSESSMENT and PLAN: s/p LLE fem-pop in situ bypass LLE severe PAD with rest pain Pt doing generally well post op. Will d/c to rehab today. Will attempt to reach orthopedics for recs regarding her boot.
--- NOTE | 2017-11-15 15:17 | Consultant Recommendations ---
Team Leader/Research Psychologist Recommendations Date of Service November 15, 2017. Team Leader/Research Psychologist Recommendations Left distal fibula fracture, Barreto B, minimally displaced, closed, subsequent hospital visit, grade 1 Heel ulcer. Nonweightbearing. Continue boot +/- arch support. Continue with donut insert padding to heel. Ice. Elevate. Follow up next with Dr Inman in office. Phone number [phone].
--- NOTE | 2017-11-19 12:37 | DISCHARGE SUMMARY ---
ADMISSION DIAGNOSIS: Left superficial femoral artery occlusion with rest pain in the left foot. DISCHARGE DIAGNOSES: 1. Status post left femoral to popliteal artery in situ bypass, and endarterectomy and patch angioplasty of left common femoral artery. 2. Left superficial femoral artery occlusion with rest pain of the left foot. DISCHARGE CONDITION: Stable. CONSULTATIONS IN THE HOSPITAL: Included: 1. Orthopedics with Dr. Inman due to her left ankle fracture. 2. Medicine due to hyperglycemia postoperatively. PROCEDURES IN THE HOSPITAL: Included her left femoral to popliteal artery in situ bypass, and endarterectomy and patch angioplasty of left common femoral artery performed on 11/09/2017 with an EBL of 150 mL and no significant complication. HISTORY OF PRESENT ILLNESS: Ms. Arevalo is a 57-year-old female who presented to Dr. Salmeron's office due to a left SFA occlusion a few weeks prior to this surgery. She is complaining of severe pain in her left foot, worse since lying down in bed at night and imaging had demonstrated an occlusion of her SFA in the location of previously placed stents at another facility. She is also complaining of significant claudication. Patient did suffer a fall prior to being seen in the office by Dr. Salmeron and was noted to have a left ankle fracture. She underwent attempted angiography of the left leg; however, the occlusion was unable to be traversed with a wire and that point she was recommended to undergo a femoral to distal bypass. The procedure, risks, benefits and alternatives were discussed at length with the patient. She expressed understanding and agreement to proceed. HOSPITAL COURSE: The patient was admitted on 11/09/2017 after undergoing her left leg femoral popliteal artery in situ bypass procedure. This was performed without significant complications. She did have elevated blood sugars for a few days postoperatively, which were managed by medicine. She also developed some small ulcers on her foot due to swelling and her orthopedic boot. Due to difficulty getting around and difficulty being at home alone for any period of time, it was recommended that she go to a rehab for a period of time postoperatively and she was discharged when placement was made to [facility]. PHYSICAL EXAMINATION: VITAL SIGNS: On day of discharge, her vital signs were as follows: A temperature of 36.8, pulse of 89, respiratory rate of 16, blood pressure of 109/66 and pulse oximetry of 97% on room air. CONSTITUTIONAL AND GENERAL: Patient is a healthy appearing, well-nourished, well-developed middle-aged female in no acute distress. She ambulates with a walker and is nonweightbearing on her left foot due to the fracture. HEAD: Normocephalic and atraumatic. EYES: EOMI. ENMT: Demonstrates no hearing loss, rhinorrhea or pharyngeal erythema. NECK: Supple, nontender with midline trachea without masses or crepitus. LUNGS: Demonstrate no dyspnea. They are clear bilaterally. CARDIOVASCULAR: Demonstrated nondisplaced apical impulse with a regular rate and rhythm without murmurs. Her peripheral pulses are full and equal in all extremities unless otherwise noted, specifically they were normal in her carotid, brachial, radial and femoral pulses. Her left one is difficult to palpate due to her incision. ABDOMEN: Soft, nontender with normoactive bowel sounds in all 4 quadrants. No guarding or rebound. There is no flank or CVA tenderness. Patient's left foot demonstrates excellent easily dopplerable distal pulses. The pulse in her bypass is palpable. EXTREMITIES: Her bilateral upper extremities demonstrate no cyanosis, edema, clubbing, varicosities or ulcers. Patient definitely does have some considerable edema due to her recent surgery. Her incisions are well approximated with ese and healing appropriately. There is tenderness and some mild ecchymosis but no significant erythema or drainage is noted. Her incisions are dry. Her left foot does demonstrate a few small pressure areas from her wearing the boot. These are not open as of yet and they are protected with dressing. DIET UPON DISCHARGE: Low-cholesterol AHA and diabetic diet. MEDICATIONS: Reconciled on the chart and are as per the discharge instructions. FOLLOWUP: Should be with Dr. Salmeron or his PA Stephanie Falcon within 2 weeks for reevaluation and removal of ese. Patient was advised to call the office with any other questions.
== END 2017-11-15 15:00 | DRG 253 ==
LOC: C.ACU 06:11 → C.MSW 06:12 → ENRESERV 13:00
PROVIDERS: ADMIT Surgery Vascular Surgery; ATTEND Surgery Vascular Surgery
PROC: 06BQ0ZZ Excision of Left Saphenous Vein, Open Approach (ICD-10-PCS; principal; 2017-11-09 08:00)
PROC: 04PY0DZ Removal of Intraluminal Device from Lower Artery, Open Approach (ICD-10-PCS; principal; 2017-11-09 08:00)
PROC: 04CL0ZZ Extirpation of Matter from Left Femoral Artery, Open Approach (ICD-10-PCS; principal; 2017-11-09 08:00)
PROC: 041L09L Bypass Left Femoral Artery to Popliteal Artery with Autologous Venous Tissue, Open Approach (ICD-10-PCS; principal; 2017-11-09 08:00)
PROC: 04UL0KZ Supplement Left Femoral Artery with Nonautologous Tissue Substitute, Open Approach (ICD-10-PCS; principal; 2017-11-09 08:00)
DX: E10.51 Type 1 diabetes mellitus with diabetic peripheral angiopathy without gangrene (principal); I77.1 Stricture of artery; D62 Acute posthemorrhagic anemia; L97.429 Non-pressure chronic ulcer of left heel and midfoot with unspecified severity; L03.032 Cellulitis of left toe; E10.40 Type 1 diabetes mellitus with diabetic neuropathy, unspecified; Z79.82 Long term (current) use of aspirin; F17.200 Nicotine dependence, unspecified, uncomplicated; E10.65 Type 1 diabetes mellitus with hyperglycemia; E78.5 Hyperlipidemia, unspecified; I10 Essential (primary) hypertension; R32 Unspecified urinary incontinence; S82.832D Other fracture of upper and lower end of left fibula, subsequent encounter for closed fracture with routine healing; X58.XXXD Exposure to other specified factors, subsequent encounter

== ENCOUNTER → 2017-11-21 | Outpatient (CLI) | payer BC ==
[~2017-11-21] MED LIST changes: -CEFAZOLIN IV 1,000 MG in SYRINGE 0 ML IV SCH; -LACTATED RINGER'S 1000ML 1,000 ML IV SCH; +OXYC-57 PO; -SODIUM CHLORIDE 0.9% 1000ML 1,000 ML IV SCH
== END | disposition home or self-care (01) ==
LOC: C.RDSM 14:30
PROVIDERS: ATTEND Orthopaedic Surgery Sports Medicine
DX: S82.899A Other fracture of unspecified lower leg, initial encounter for closed fracture (principal); X58.XXXA Exposure to other specified factors, initial encounter

== ENCOUNTER → 2018-02-19 | Outpatient (CLI) | payer BC ==
[~2018-02-19] MED LIST changes: -GABA-112 PO; -OXYC-57 PO; +SNTO30
== END | disposition home or self-care (01) ==
LOC: C.RDSM 09:48
PROVIDERS: ATTEND Orthopaedic Surgery Sports Medicine
DX: S82.892A Other fracture of left lower leg, initial encounter for closed fracture (principal); X58.XXXA Exposure to other specified factors, initial encounter

== ENCOUNTER 2022-06-10 13:24 | Inpatient (IN) ==
[2022-06-10 13:53] LABS: Basophils # (auto) 0.04 K/uL (0-0.2); Basophils % (auto) 0.6 %; Eosinophils # (auto) 0.09 K/uL (0-0.50); Eosinophils % (auto) 1.3 %; Hematocrit (blood only) 42.6 % (34.1-44.9); Hemoglobin 14.8 g/dl (12.0-16.0); Immature Granulocytes # (auto) 0.02 K/uL (0.00-0.02); Immature Granulocytes % (auto) 0.3 %; Lymphocytes % (auto) 35.5 %; Mean Corpuscular Hemoglobin 35.5 pg (25.0-34.0); Mean Corpuscular Hgb Conc 34.7 g/dL (32.0-36.0); Mean Corpuscular Volume 102.2 fL (80.0-100.0); Mean Platelet Volume 9.3 fL (9.4-12.3); Monocytes # (auto) 0.54 K/uL (0.24-0.82); Neutrophils # (auto) 3.68 K/uL (1.4-6.5); Neutrophils % (auto) 54.3 %; Platelet Count 384 K/uL (130-400); RDW Coefficient of Variation 12.8 % (11.5-14.5); RDW Standard Deviation 48.1 fL (36.4-46.3); Red Blood Count 4.17 M/uL (3.93-5.22); White Blood Count 6.77 K/ul (4.8-10.8)
[2022-06-10 14:11] LABS: Partial Thromboplastin Ratio 1.1; Partial Thromboplastin Time 29.3 Seconds (21.0-31.0); Prothrombin Time 10.7 Seconds (9.0-12.0)
[2022-06-10 14:25] LABS: Albumin Globulin Ratio 1.2 (0.9-2); Albumin Level 3.8 gm/dl (3.4-5.0); BUN Creatinine Ratio 19.7 (10-20); Bilirubin,Total 0.6 mg/dl (0.2-1.0); Calcium 9.2 mg/dl (8.5-10.1); Creatinine Clr Calc Pharmacy 75.4 ml/min; Est GFR (African American) 96.1 ml/min; Est GFR (Non-African American) 82.9 ml/min; Globulin 3.3 gm/dl (2.5-4.0); Potassium 4.4 mmol/L (3.5-5.1); Total Protein 7.1 gm/dl (6.0-8.3)
[2022-06-10 14:27] LABS: Troponin I High Sensitivity 3.7 pg/ml (0-14)
--- NOTE | 2022-06-10 15:14 | Emergency Department Note ---
Impression & Plan Acute pain of right foot, PAD (peripheral artery disease) ED Provider Note INFORMANT: Patient ED PROVIDER(S): Shahbaz Tsang MD CHIEF COMPLAINT: Right leg pain PLAN: Disposition: Admitted Condition: Good Outpatient prescription management: none Referral: None MEDICAL DECISION MAKING: Patient presented to emergency room because of right leg pain. Her laboratory testing was unremarkable. Patient underwent ultrasound imaging of the right leg and she was found to have occlusion of her right superficial femoral artery. There was reconstitution of flow in the distal superficial femoral/popliteal artery. She did have three-vessel runoff although blunted waveforms distally. Given the findings with her recent stenting, I did consult with vascular surgery, Dr. Wu Salmeron. He recommended admission and noted that the patient would need operative intervention with a bypass. He asked for the hospitalist admit the patient. The patient was given IV heparin per his direction. She was also given IV morphine for pain. [facility] was [facility] for further management. Triage Nursing notes reviewed and agree them. Vital Signs: reviewed and remarkable for no significant abnormalities Differential diagnosis: Arterial compromise, DVT, musculoskeletal, infection, joint effusion, trauma, lymphedema,, as well as other pathologies. Diagnostics interpreted by me: ECG: none Cardiac Monitoring: none Imaging studies: Ultrasound as noted below HPI: The patient is a 62 year old female who presents to the Emergency Room with complaints of right foot pain. This started yesterday and is persisting. The patient also notes the following associated symptoms, claudication, fatigue and redness in the foot. The patient has used rest for relieving factors. Current pain is rated as 4/10. Patient had a stent by Dr. Salmeron in the RLE3 weeks ago. She called today and was directed to the ER. Pt denies LOC, headache, fevers, chills, diaphoresis, visual changes, neck pain, chest pain, breathing difficulties, nausea, vomiting, abdominal pain, back pain, melena, hematochezia, urinary symptoms, weakness, lymphadenopathy, or other complaints. ROS: See above HPI for pertinent positives & negatives. A total of 10 systems reviewed and were otherwise negative. PAST MEDICAL HISTORY:See Below , PAD PAST SURGICAL HISTORY:See Below,RLE Stent FAMILY HISTORY:See Below SOCIAL HISTORY:See Below, smoker HOME MEDICATIONS:See Below ALLERGIES:See Below VITALS:See Below PHYSICAL EXAMINATION: GENERAL: Awake, alert, well-appearing, in no distress HENT: Normocephalic, atraumatic. Oropharynx unremarkable. EYES: Normal conjunctiva. Sclera non-icteric. NECK: Inspection normal. Non-tender. Supple. No nuchal rigidity. FROM. No masses. RESPIRATORY: Clear to auscultation. No wheezes. No rales. Normal respiratory effort. CARDIAC: Normal rate. Normal rhythm. No murmurs. No rubs. Extremities warm and well perfused. Pulses equal. No JVD. GI: Soft, non-distended. No tenderness to palpation. No rebound or guarding. No masses. RECTAL: Deferred. MUSCULOSKELETAL: Atraumatic. Chest examination reveals no tenderness. The back is symmetrical on inspection without obvious abnormality. There is no CVA tenderness to palpation. No joint edema. LOWER EXTREMITIES: Calves are equal size bilaterally and non-tender. No edema. No discoloration on the LEFT. RIGHT foot erythematous on the heel and toes. NEURO: Normal sensorium. No sensory or motor deficits noted. SKIN: No rash or jaundice noted. Shahbaz Tsang MD Past Med/Surg History Medical History Acquired deformity of both feet Acquired hallux valgus of right foot Callus Controlled type 1 diabetes mellitus with hypoglycemia, with long-term current use of insulin Current tobacco use Diabetes Diabetes mellitus with diabetic polyneuropathy Diabetic neuropathy Hallux rigidus of right foot Hallux rigidus, left foot Hallux valgus (acquired), left foot HTN (hypertension) Hyperlipidemia Lateral epicondylitis of elbow 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 Superficial femoral artery occlusion Vitamin B12 deficiency Vitamin D deficiency Surgical History H/O hand surgery History of 3 sections History of angioplasty History of ankle surgery History of femoropopliteal bypass Family History Father Myocardial infarction Hypertension Diabetes Cardiac disorder Mother Lung cancer Diabetes Cardiac disorder Myocardial infarction Brother Lung cancer Hypertension Cardiac disorder Myocardial infarction Aunt Dementia Sister Hypertension Diabetes Denies family history of Colon cancer Ovarian cancer Prostate cancer Breast cancer Social History Smoking Status: Current every day smoker Tobacco Type: Cigarettes packs per day: 1; Second Hand Exposure: Yes; Hx Alcohol Use: Yes Alcohol type: wine Alcohol type Comment: 1-2 daily Hx Substance Use: No Preferred Language: Chinese Visual Impairment: No Limitations Hearing Ability: Normal marital status: Current Living Situation: Spouse 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 Feels Safe at Home: Yes Childhood Exposure to Second-Hand Smoke: Yes Dental Care, Regularly: No Physical Activity Frequency: Does not Exercise Seatbelt Use: always Sunscreen Use: No Allergies Allergies Allergy/AdvReac Type Severity Reaction Status Date / Time cilostazol Allergy Severe CHEST Verified 06/10/22 16:12 PAIN,SOB NAUSEA Home Meds Home Medications Medication Instructions Recorded Confirmed ascorbic acid (vitamin C) 100 mg 100 mg PO DAILY 06/11/19 06/10/22 tablet aspirin 81 mg tablet,delayed 81 mg PO QAM 06/11/19 06/10/22 release (Adult Aspirin Regimen) cyanocobalamin (vitamin B-12) 1,000 mcg PO DAILY 06/28/20 06/10/22 1,000 mcg capsule clopidogrel 75 mg tablet (Plavix) 75 mg PO QAM 06/10/22 06/10/22 insulin lispro 100 unit/mL 0 unit continuous subcutaneous 06/10/22 06/10/22 subcutaneous solution (Humalog infusion DAILY U-100 Insulin) Previous Rx's Medication Instructions Recorded blood sugar diagnostic (Contour #600 ea 04/22/21 Next Test Strips) atorvastatin 40 mg tablet (Lipitor) 40 mg PO DAILY #90 tabs 06/21/21 glucagon 3 mg/actuation nasal 3 mg intranasal ONCE #2 ea 08/04/21 spray (Baqsimi) mirabegron 50 mg tablet,extended 50 mg PO DAILY #90 tabs 08/22/21 release 24 hr (Myrbetriq) flash glucose scanning reader #1 ea 11/21/21 (FreeStyle Gayatri 2 Kamiah) flash glucose sensor (FreeStyle #7 ea 11/21/21 Gayatri 2 Sensor kit) gabapentin 100 mg capsule 100 mg PO TID PRN loss of 04/05/22 sensation #270 caps lisinopril 2.5 mg tablet 5 mg PO DAILY #180 tabs 04/12/22 Results & Data (ED) Vital Signs Vital Signs - 24 hr 06/10/22 13:27 06/10/22 14:13 06/10/22 14:13 Temperature 36.5 C Temperature Source Temporal Artery Scan Pulse Rate 87 83 Pulse Rate [Right Finger] 85 Pulse Rate from SpO2 Sensor 84 Pulse Rhythm [Right Finger] Regular Pulse Strength [Right Finger] Normal Respiratory Rate 16 20 17 Respiratory Effort / Characteristics Non-Labored Respiratory Depth Normal Respiratory Pattern Regular Blood Pressure 124/63 Blood Pressure [Right Arm] 134/59 L Blood Pressure Mean 83 Blood Pressure Mean [Right Arm] 84 Blood Pressure Position [Right Arm] Lying Pulse Oximetry 100 98 97 Oxygen Delivery Method Room Air Room Air Sepsis Recent Fever Within 48 Hours No Sepsis New/Unexplained Change in Mental Status No Sepsis Action Taken by Nursing No Action Required 06/10/22 14:30 06/10/22 14:30 06/10/22 15:38 Temperature Temperature Source Pulse Rate 86 Pulse Rate [Right Finger] Pulse Rate from SpO2 Sensor 85 Pulse Rhythm [Right Finger] Pulse Strength [Right Finger] Respiratory Rate 17 Respiratory Effort / Characteristics Respiratory Depth Respiratory Pattern Blood Pressure 140/68 139/64 Blood Pressure [Right Arm] Blood Pressure Mean 92 89 Blood Pressure Mean [Right Arm] Blood Pressure Position [Right Arm] Pulse Oximetry 98 Oxygen Delivery Method Sepsis Recent Fever Within 48 Hours Sepsis New/Unexplained Change in Mental Status Sepsis Action Taken by Nursing 06/10/22 15:38 06/10/22 16:00 06/10/22 16:00 Temperature Temperature Source Pulse Rate 84 82 Pulse Rate [Right Finger] Pulse Rate from SpO2 Sensor 84 83 Pulse Rhythm [Right Finger] Pulse Strength [Right Finger] Respiratory Rate 19 14 Respiratory Effort / Characteristics Respiratory Depth Respiratory Pattern Blood Pressure 144/80 H Blood Pressure [Right Arm] Blood Pressure Mean 101 Blood Pressure Mean [Right Arm] Blood Pressure Position [Right Arm] Pulse Oximetry 98 97 Oxygen Delivery Method Sepsis Recent Fever Within 48 Hours Sepsis New/Unexplained Change in Mental Status Sepsis Action Taken by Nursing 06/10/22 16:30 06/10/22 16:30 06/10/22 17:00 Temperature Temperature Source Pulse Rate 79 Pulse Rate [Right Finger] Pulse Rate from SpO2 Sensor 79 Pulse Rhythm [Right Finger] Pulse Strength [Right Finger] Respiratory Rate 17 Respiratory Effort / Characteristics Respiratory Depth Respiratory Pattern Blood Pressure 150/79 H 156/88 H Blood Pressure [Right Arm] Blood Pressure Mean 102 110 Blood Pressure Mean [Right Arm] Blood Pressure Position [Right Arm] Pulse Oximetry 97 Oxygen Delivery Method Sepsis Recent Fever Within 48 Hours Sepsis New/Unexplained Change in Mental Status Sepsis Action Taken by Nursing 06/10/22 17:00 06/10/22 17:30 06/10/22 17:30 Temperature Temperature Source Pulse Rate 86 83 Pulse Rate [Right Finger] Pulse Rate from SpO2 Sensor 86 82 Pulse Rhythm [Right Finger] Pulse Strength [Right Finger] Respiratory Rate 25 H 18 Respiratory Effort / Characteristics Respiratory Depth Respiratory Pattern Blood Pressure 153/78 H Blood Pressure [Right Arm] Blood Pressure Mean 103 Blood Pressure Mean [Right Arm] Blood Pressure Position [Right Arm] Pulse Oximetry 97 96 Oxygen Delivery Method Sepsis Recent Fever Within 48 Hours Sepsis New/Unexplained Change in Mental Status Sepsis Action Taken by Nursing Laboratory Data Result diagrams: 06/10/22 13:40 06/10/22 13:40 Lab Results 06/10/22 06/10/22 06/10/22 Range/Units 13:40 13:40 13:40 WBC 6.77 (4.8-10.8) K/ul RBC 4.17 (3.93-5.22) M/uL Hgb 14.8 (12.0-16.0) g/dl Hct 42.6 (34.1-44.9) % MCV 102.2 H (80.0-100.0) fL MCH 35.5 H (25.0-34.0) pg MCHC 34.7 (32.0-36.0) g/dL RDW Std Deviation 48.1 H (36.4-46.3) fL RDW Coeff of Nicolas 12.8 (11.5-14.5) % Plt Count 384 (130-400) K/uL MPV 9.3 L (9.4-12.3) fL Immature Gran % (Auto) 0.3 % Neut % (Auto) 54.3 % Lymph % (Auto) 35.5 % [place] % (Auto) 8.0 % Eos % (Auto) 1.3 % Baso % (Auto) 0.6 % Neut # (Auto) 3.68 (1.4-6.5) K/uL Lymph # (Auto) 2.40 (1.2-3.4) K/uL [place] # (Auto) 0.54 (0.24-0.82) K/uL Eos # (Auto) 0.09 (0-0.50) K/uL Baso # (Auto) 0.04 (0-0.2) K/uL Immature Gran # (Auto) 0.02 (0.00-0.02) K/uL PT 10.7 (9.0-12.0) Seconds INR 1.0 (0.9-1.1) APTT 29.3 (21.0-31.0) Seconds PTT Ratio 1.1 Sodium 138 (136-145) mmol/L Potassium 4.4 (3.5-5.1) mmol/L Chloride 104 (98-107) mmol/L Carbon Dioxide 28 (21-32) mmol/L Anion Gap 6 (3-11) BUN 15 (6-23) mg/dl Creatinine 0.76 (0.6-1.2) mg/dl Est Cr Clr Drug Dosing 75.4 ml/min Est GFR ( Amer) 96.1 ml/min Est GFR (Non-Af Amer) 82.9 ml/min BUN/Creatinine Ratio 19.7 (10-20) Glucose 183 H (70-99(Fasting)) mg/dl Calcium 9.2 (8.5-10.1) mg/dl Total Bilirubin 0.6 (0.2-1.0) mg/dl AST 22 (13-39) U/L ALT 14 (7-52) U/L Alkaline Phosphatase 78 (34-104) U/L Troponin I High Sens 3.7 (0-14) pg/ml Total Protein 7.1 (6.0-8.3) gm/dl Albumin 3.8 (3.4-5.0) gm/dl Globulin 3.3 (2.5-4.0) gm/dl Albumin/Globulin Ratio 1.2 (0.9-2) Administered Medications Heparin Sodium/Dextrose (Heparin Sodium/Dextrose) 25,000 units in 500 mls @ 16 mls/hr IV .Q24H [facility]; Protocol Stop: 07/10/22 17:14 Last Admin: 06/10/22 18:27 Dose: 800 units/hr, 16 mls/hr Documented By: STACIE Co-signed By: NRB Discontinued Medications Heparin Sodium (Porcine) (Heparin Sod (Porcine) 1000 Unit/Ml) 4,000 units IV NOW ONE Stop: 06/10/22 18:16 Last Admin: 06/10/22 18:00 Dose: 4,000 units Documented By: STACIE Co-signed By: LIS Heparin Sodium/Dextrose (Heparin Iv Adult Wt-Based Low-Dose With Bolus Protocol) 1 each IV NOW STA; Protocol Stop: 06/10/22 16:47 Last Admin: 06/10/22 18:00 Dose: 1 each Documented By: STACIE Imaging Data Radiologist's Impression: Duplex Scan Lower Extremity Artery 06/10/22 13:43 ULTRASOUND RIGHT LOWER EXTREMITY ARTERIAL CLINICAL HISTORY: Arterial stent in the right leg. COMPARISON STUDY: No priors. FINDINGS: Real-time grayscale and color Doppler sonography of the arteries of the right lower extremity is performed from the inguinal crease to the foot. Ankle brachial indices were not performed on this portable examination. FINDINGS: There is advanced atherosclerotic plaque and irregularity throughout the arteries of the right lower extremity. There are triphasic arterial waveforms in the common femoral artery with velocities measuring up to 147 cm/s. The profunda femoris artery is patent with velocities measured 136 cm/s. There is complete thrombosis throughout the superficial femoral artery, proximally to distally which likely includes the reported history of a superficial femoral artery stent. There is reconstitution at the level of the distal superficial femoral/popliteal artery. There is monophasic flow within the popliteal artery and velocities measuring up to 116 cm/s. There are blunted arterial waveforms with monophasic flow throughout the calf arteries. Velocities within the calf vessels measure up to 37 cm/s. The dorsalis pedis artery is patent with velocities measuring up to 14 cm/s. IMPRESSION: 1. Complete thrombosis of the right superficial femoral artery, which likely includes the reported history of a superficial femoral artery stent. 2. There is reconstitution of flow at the distal superficial femoral/popliteal artery with three-vessel runoff to the foot. Blunted/monophasic waveforms are noted within the calf vessels. Dictated: 06/10/2022 3:20 PM Transcribed: 06/10/2022 3:32 PM Zahra [id number] [facility] Electronically signed by: Josué Pierson M.D. 06/10/2022 3:43 PM Discharge Plan Visit Data Chief Complaint: Referred by Doctor Stated Complaint: REFFERED BY DOCTOR, NUMBNESS IN FOOT ED Provider: Shahbaz Tsang Discharge Problem: Acute pain of right foot, PAD (peripheral artery disease)
--- NOTE | 2022-06-10 15:45 | Ultrasound Report ---
ULTRASOUND RIGHT LOWER EXTREMITY ARTERIAL CLINICAL HISTORY: Arterial stent in the right leg. COMPARISON STUDY: No priors. FINDINGS: Real-time grayscale and color Doppler sonography of the arteries of the right lower extremi ty is performed from the inguinal crease to the foot. Ankle brachial indices were not performed on th is portable examination. FINDINGS: There is advanced atherosclerotic plaque and irregularity throughout the arteries of the ri ght lower extremity. There are triphasic arterial waveforms in the common femoral artery with velocit ies measuring up to 147 cm/s. The profunda femoris artery is patent with velocities measured 136 cm/s . There is complete thrombosis throughout the superficial femoral artery, proximally to distally whic h likely includes the reported history of a superficial femoral artery stent. There is reconstitution at the level of the distal superficial femoral/popliteal artery. There is monophasic flow within the popliteal artery and velocities measuring up to 116 cm/s. There are blunted arterial waveforms with monophasic flow throughout the calf arteries. Velocities within the calf vessels measure up to 37 cm/ s. The dorsalis pedis artery is patent with velocities measuring up to 14 cm/s. IMPRESSION: 1. Complete thrombosis of the right superficial femoral artery, which likely includes the reported hi story of a superficial femoral artery stent. 2. There is reconstitution of flow at the distal superficial femoral/popliteal artery with three-vess el runoff to the foot. Blunted/monophasic waveforms are noted within the calf vessels. Dictated: 06/10/2022 3:20 PM Transcribed: 06/10/2022 3:32 PM Zahra [id number] [facility] Electronically signed by: Josué Pierson M.D. 06/10/2022 3:43 PM
[2022-06-10] MEDS ORDERED: Heparin IV Adult Wt-Based Low-Dose WITH Bolus Protocol IV STA (16:46)
[2022-06-10] MEDS ORDERED: MoRPHine SULFATE 2 MG/ML CARP IV PRN (16:46)
[2022-06-10] MEDS ORDERED: HEPARIN SOD (PORCINE) 1000 UNIT/ML IV ONE ×2 (17:01→18:15)
--- NOTE | 2022-06-10 17:37 | History & Physical Report ---
Date of Service June 10, 2022 Assessment & Plan (1) Arterial thrombosis: Plan: Patient has occlusion of her superficial femoral artery after undergoing a procedure and stenting of the superficial femoral artery on the right side May 15. Patient is instituted on therapeutic heparin drip and vascular surgery consultation will be performed when available. Patient remains on aspirin and Dr. Salmeron recommends discontinuation of Plavix (2) Diabetic peripheral neuropathy associated with type 1 diabetes mellitus: Plan: Patient remains on an insulin pump, she is on gabapentin for peripheral ne uropathy as needed on lisinopril 2.5 for risk reduction of diabetic nephropathy (3) Tobacco use disorder: Plan: Patient says he has been continuing to smoke up until day of admission she now will stop smoking and does not wish for nicotine patch counseling was given for smoking cessation (4) Vitamin B12 deficiency: Plan: We will continue oral B12 supplementation check a B12 level in the morning (5) Hyperlipidemia: Plan: Remains on atorvastatin History of Present Illness Primary Care Provider: Raymond Doherty MD 62-year-old female with type 1 diabetes and tobacco use history who underwent angioplasty and stenting of right superficial femoral artery by Dr. Salmeron March 15 presents to the ER with right foot pain escalating over the last 2 days, arterial Doppler in the ER shows complete thrombosis of the right superficial femoral artery which includes the previously performed stent with reconstitution of flow distally. Patient was instituted on a therapeutic heparin infusion in the emergency department Patient is a previous left femoropopliteal bypass November 09, [address] Salmeron and does continue to smoke Allergies Allergy/AdvReac Type Severity Reaction Status Date / Time cilostazol Allergy Severe CHEST Verified 06/10/22 16:12 PAIN,SOB NAUSEA Home Medications Medication Instructions Recorded Confirmed Type ascorbic acid (vitamin C) 100 mg 100 mg PO DAILY 06/11/19 06/10/22 History tablet aspirin 81 mg tablet,delayed 81 mg PO QAM 06/11/19 06/10/22 History release (Adult Aspirin Regimen) cyanocobalamin (vitamin B-12) 1,000 mcg PO DAILY 06/28/20 06/10/22 History 1,000 mcg capsule blood sugar diagnostic (Contour #600 ea 04/22/21 03/21/22 Rx Next Test Strips) atorvastatin 40 mg tablet (Lipitor) 40 mg PO DAILY #90 tabs 06/21/21 06/10/22 Rx glucagon 3 mg/actuation nasal 3 mg intranasal ONCE #2 ea 08/04/21 06/10/22 Rx spray (Baqsimi) mirabegron 50 mg tablet,extended 50 mg PO DAILY #90 tabs 08/22/21 06/10/22 Rx release 24 hr (Myrbetriq) flash glucose scanning reader #1 ea 11/21/21 03/21/22 Rx (FreeStyle Gayatri 2 [place]) flash glucose sensor (FreeStyle #7 ea 11/21/21 03/21/22 Rx Gayatri 2 Sensor kit) gabapentin 100 mg capsule 100 mg PO TID PRN loss of 04/05/22 06/10/22 Rx sensation #270 caps lisinopril 2.5 mg tablet 5 mg PO DAILY #180 tabs 04/12/22 06/10/22 Rx clopidogrel 75 mg tablet (Plavix) 75 mg PO QAM 06/10/22 06/10/22 History insulin lispro 100 unit/mL 0 unit continuous subcutaneous 06/10/22 06/10/22 History subcutaneous solution (Humalog infusion DAILY U-100 Insulin) Past Med/Surg History Medical History Acquired deformity of both feet Acquired hallux valgus of right foot Callus Controlled type 1 diabetes mellitus with hypoglycemia, with long-term current use of insulin Current tobacco use Diabetes Diabetes mellitus with diabetic polyneuropathy Diabetic neuropathy Hallux rigidus of right foot Hallux rigidus, left foot Hallux valgus (acquired), left foot HTN (hypertension) Hyperlipidemia Lateral epicondylitis of elbow 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 Superficial femoral artery occlusion Vitamin B12 deficiency Vitamin D deficiency Surgical History H/O hand surgery History of 3 sections History of angioplasty History of ankle surgery History of femoropopliteal bypass Family History Father Myocardial infarction Hypertension Diabetes Cardiac disorder Mother Lung cancer Diabetes Cardiac disorder Myocardial infarction Brother Lung cancer Hypertension Cardiac disorder Myocardial infarction Aunt Dementia Sister Hypertension Diabetes Denies family history of Colon cancer Ovarian cancer Prostate cancer Breast cancer Social History Smoking Status: Current every day smoker Tobacco Type: Cigarettes packs per day: 1; Second Hand Exposure: Yes; Hx Alcohol Use: Yes Alcohol type: wine Alcohol type Comment: 1-2 daily Hx Substance Use: No Preferred Language: Malaysian Visual Impairment: No Limitations Hearing Ability: Normal marital status: Current Living Situation: Spouse 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 Feels Safe at Home: Yes Childhood Exposure to Second-Hand Smoke: Yes Dental Care, Regularly: No Physical Activity Frequency: Does not Exercise Seatbelt Use: always Sunscreen Use: No Review of Systems Review of Systems: Mild distress and fatigue no headache, no visual changes no speech or swallowing issues no chest pain, pressure or palpitations no shortness of breath, cough or wheezes no abdominal pain, nausea or vomiting, diarrhea or constipation no dysuria, hematuria or frequency Patient is right foot pain predominantly on the heel no back pain, CVA tenderness or radicular pain no bruising, bleeding or rashes no focal signs of weakness or numbness or altered sensation no complaints of anxiety or depression.. Physical Exam Physical Exam: The patient appeared well nourished and normally developed. Vital signs as documented. Head exam is normocephalic atraumatic Neck is without JVD, thyromegaly, or carotid bruits. Lungs are clear to auscultation, no focal loss of breath sounds Cardiac exam, Rhythm is regular.. No murmurs, rubs or gallops. Abdominal exam reveals normal bowel sounds, soft non tender, no masses Right lower extremity has redness to her foot I cannot palpate pulses to dors deon pedis or posterior tibialis and she is delayed capillary refill on the right foot compared to the left Neurologic exam is alert and oriented, no focal loss of strength or sensation Skin is without bruises or rashes Psychologically is without concerns for anxiety or depression.. Results & Data Results & Data ([facility]) Vital Signs (Past 12 Hours) Vital Signs Temp Pulse Pulse Resp BP BP Pulse Ox 06/10/22 16:00 82 14 97 06/10/22 16:00 144/80 H 06/10/22 15:38 84 19 98 06/10/22 15:38 139/64 06/10/22 14:30 86 17 98 06/10/22 14:30 140/68 06/10/22 14:13 83 17 97 06/10/22 14:13 85 20 134/59 L 98 06/10/22 13:27 97.7 F 87 16 124/63 100 O2 Del Method 06/10/22 16:00 06/10/22 16:00 06/10/22 15:38 06/10/22 15:38 06/10/22 14:30 06/10/22 14:30 06/10/22 14:13 06/10/22 14:13 Room Air 06/10/22 13:27 Room Air Diagnostic Findings Duplex Scan Lower Extremity Artery 06/10/22 13:43 ULTRASOUND RIGHT LOWER EXTREMITY ARTERIAL CLINICAL HISTORY: Arterial stent in the right leg. COMPARISON STUDY: No priors. FINDINGS: Real-time grayscale and color Doppler sonography of the arteries of the right lower extremity is performed from the inguinal crease to the foot. Ankle brachial indices were not performed on this portable examination. FINDINGS: There is advanced atherosclerotic plaque and irregularity throughout the arteries of the right lower extremity. There are triphasic arterial waveforms in the common femoral artery with velocities measuring up to 147 cm/s. The profunda femoris artery is patent with velocities measured 136 cm/s. There is complete thrombosis throughout the superficial femoral artery, proximally to distally which likely includes the reported history of a superficial femoral artery stent. There is reconstitution at the level of the distal superficial femoral/popliteal artery. There is monophasic flow within the popliteal artery and velocities measuring up to 116 cm/s. There are blunted arterial waveforms with monophasic flow throughout the calf arteries. Velocities within the calf vessels measure up to 37 cm/s. The dorsalis pedis artery is patent with velocities measuring up to 14 cm/s. IMPRESSION: 1. Complete thrombosis of the right superficial femoral artery, which likely includes the reported history of a superficial femoral artery stent. 2. There is reconstitution of flow at the distal superficial femoral/popliteal artery with three-vessel runoff to the foot. Blunted/monophasic waveforms are noted within the calf vessels. Electronically signed by: Josué Pierson M.D. 06/10/2022 3:43 PM PG Care Time/CCT Total # of Minutes Spent Total Time Spent with Patient: Total time spent is greater than 50% in coordination of care (as documented) at patient's floor/unit and/or counseling patient: Coding Level of Care Code 32191 Initial Inpt Care Lvl 2 Diagnoses Arterial thrombosis I74.9 Diabetic peripheral neuropathy associated with type 1 diabetes mellitus E10.42 Tobacco use disorder F17.200 Vitamin B12 deficiency E53.8 Hyperlipidemia E78.5
[2022-06-10] MEDS: HEPARIN SODIUM/DEXTROSE 25,000 UNITS/500 ML BAG IV SCH (18:27)
[2022-06-10] MEDS ORDERED: ALUMINUM/MAGNESIUM SUSP 30 ML UDC PO PRN (20:55)
[2022-06-10] MEDS ORDERED: DEXTROSE 50% 50 ML SYRINGE IV PRN (20:55)
[2022-06-10] MEDS ORDERED: GLUCOSE 40% GEL 15 GM TUBE PO PRN (20:55)
[2022-06-10] MEDS ORDERED: ONDANSETRON INJ 2 MG/ML 2 ML VIAL IV PRN (20:55)
[2022-06-10] MEDS ORDERED: GLUCOSE 10 TAB/TUBE PO PRN (20:55)
[2022-06-10] MEDS ORDERED: CARBOHYDRATES FOR HYPOGLYCEMIA PO PRN (20:55)
[2022-06-10] MEDS ORDERED: GLUCAGON FOR INJ 1 MG VIAL SQ PRN (20:55)
[2022-06-10] MEDS ORDERED: INSULIN ASPART 100 UNITS/ML VIAL SC PRN (21:30)
[2022-06-10] MEDS: ACETAMINOPHEN 500 MG TAB PO PRN (21:32)
[2022-06-11 01:03] LABS: Partial Thromboplastin Ratio 2.2
[2022-06-11 01:08] LABS: Partial Thromboplastin Time 60.5 Seconds (21.0-31.0)
[2022-06-11] MEDS: ACETAMINOPHEN 500 MG TAB PO PRN ×2 (05:54→12:23)
[2022-06-11 06:23] LABS: BUN Creatinine Ratio 21.4 (10-20); Calcium 8.7 mg/dl (8.5-10.1); Creatinine Clr Calc Pharmacy 81.9 ml/min; Est GFR (African American) 106.1 ml/min; Est GFR (Non-African American) 91.6 ml/min; Potassium 4.1 mmol/L (3.5-5.1)
[2022-06-11 06:32] LABS: Partial Thromboplastin Ratio 2.1
[2022-06-11] MEDS: ATORVASTATIN 40 MG TAB PO SCH (08:11)
[2022-06-11] MEDS: ASCORBIC ACID 500 MG TAB PO SCH (08:12)
[2022-06-11] MEDS: MIRABEGRON ER 25 MG TAB PO SCH (08:14)
[2022-06-11] MEDS: CYANOCOBALAMIN (B-12) 500 MCG TABLET PO SCH (08:15)
[2022-06-11] MEDS: lisinopril 5 MG TAB PO SCH (08:15)
[2022-06-11] MEDS: ASPIRIN 81 MG ECTAB PO SCH (08:16)
[2022-06-11] MEDS: NICOTINE 7 MG/24 HR TDSY TD SCH (08:16)
[2022-06-11] MEDS: oxyCODONE HCL IR 5 MG TAB (IMMEDIATE RELEASE) PO PRN ×3 (08:22→21:04)
[2022-06-11] MEDS: INSULIN, Rapid-Acting PUMP SCH ×5 (08:30→21:01)
[2022-06-11] MEDS ORDERED: NON-FORMULARY MEDICATION (Insulin Lispro [Humalog U-100 Insulin] 100 unit/mL solution) continuous subcutaneous infusion SCH (09:00)
--- NOTE | 2022-06-11 11:30 | Ultrasound Report ---
US venous mapping right lower extremity CLINICAL HISTORY: pre op right fem pop bypass. Venous mapping. COMPARISON STUDY: None. FINDINGS: The right greater and lesser saphenous veins were visualized and appear patent. The caliber of these venous structures are included on the attached worksheet. IMPRESSION: Ultrasound provided for mapping of the right greater and lesser saphenous veins. ACT 112: Negative or not required by law. Electronically signed by: Darron Simms M.D. 06/11/2022 11:29 AM
--- NOTE | 2022-06-11 15:23 | Hospitalist Progress Note ---
Date of Service June 11, 2022 Assessment & Plan (1) Arterial thrombosis: Plan: Patient has occlusion of her right superficial femoral artery after undergoing a procedure and stenting of the superficial femoral artery on the right side May 15. -Continue heparin drip -Vascular surgery consultation pending but n.p.o. after midnight tonight likely for vascular surgery on Sunday -Patient remains on aspirin and Dr. Salmeron recommends discontinuation of Plavix -Continue Tylenol, oxycodone, IV morphine as needed for pain -Follow CBC, BMP (2) Diabetic peripheral neuropathy associated with type 1 diabetes mellitus: Plan: Patient remains on an insulin pump, continue Accu-Cheks She is on gabapentin for peripheral neuropathy as needed-not ordered here -Continue on on lisinopril 5 Mg daily for risk reduction of diabetic nephropathy -Hemoglobin A1c pending (3) Tobacco use disorder: Plan: Current smoker -She reports she is committed to smoking cessation Continue nicotine patch (4) Vitamin B12 deficiency: Plan: -continue oral B12 supplementation -check a B12 level in the morning (5) Hyperlipidemia: Plan: Remains on atorvastatin (6) PAD (peripheral artery disease): Plan: History of left femoropopliteal bypass and now right SFA stent with occlusion Is a type I diabetic and current smoker putting her at high risk for PAD Continue aspirin but Plavix discontinued as above -Continue atorvastatin 40 mg daily -Encourage smoking cessation (7) Urinary urgency: Plan: Continue Myrbetriq Follows with urology (8) Macrocytosis without anemia: Plan: With a history of B12 deficiency Check B12, TSH, and folate in the morning (9) HTN (hypertension): Plan: Blood pressures are controlled Continue home lisinopril Plan DVT prophylaxis-Heparin drip Disposition-continued stay medical/surgical unit, awaiting vascular surgery Admission and Anticipated Discharge Date Admission Date: June 10, 2022 Subjective Patient has pain in her right leg and foot. Denies chest pains or shortness of breath, no abdominal pains or nausea. She is eating and drinking. Review of Systems Review of Systems: All systems reviewed & are unremarkable except as noted in HPI & below Physical Exam Constitutional: WD/WN, vitals as above Eyes: + anicteric sclerae Neck: trachea midline, no thyromegaly Respiratory: normal respiratory effort, lungs clear to auscultation Cardiovascular: RRR, no murmur, no edema Vessels: dorsalis pedis pulses present (Bilaterally but barely palpable on right) Chest (Breasts): Chest: normal inspection of chest Gastrointestinal (Abdomen): normal bowel sounds, soft, nontender, no hepatosplenomegaly Musculoskeletal: Extremities: extremities normal to inspection; no cyanosis and no clubbing Skin: no rashes, warm and dry Neurologic: moves all extremities and awake; no focal motor deficits Psychiatric: A+Ox3, euthymic affect Lymphatic: no lymphedema Results & Data Results & Data ([facility]) Vital Signs (Past 12 Hours) Vital Signs Temp Pulse Resp BP Pulse Ox O2 Del Method 06/11/22 07:40 Room Air 06/11/22 07:29 36.7 C 70 16 147/75 H 97 Room Air Laboratory Results 06/11/22 06/11/22 06/11/22 Range/Units 11:59 08:04 05:30 APTT 58.0 H* (21.0-31.0) Seconds PTT Ratio 2.1 Sodium (136-145) mmol/L Potassium (3.5-5.1) mmol/L Chloride (98-107) mmol/L Carbon Dioxide (21-32) mmol/L Anion Gap (3-11) BUN (6-23) mg/dl Creatinine (0.6-1.2) mg/dl Est Cr Clr Drug Dosing ml/min Est GFR ( Amer) ml/min Est GFR (Non-Af Amer) ml/min BUN/Creatinine Ratio (10-20) Glucose (70-99(Fasting)) mg/dl POC Glucose 117 H 114 H (70-99) mg/dl Estimat Average Glucose Hemoglobin A1c Calcium (8.5-10.1) mg/dl Magnesium (1.7-2.4) mg/dl SARS-CoV-2, RNA, NAAT (NEGATIVE) 06/11/22 06/11/22 06/11/22 Range/Units 05:30 05:30 00:18 APTT 60.5 H* (21.0-31.0) Seconds PTT Ratio 2.2 Sodium 140 (136-145) mmol/L Potassium 4.1 (3.5-5.1) mmol/L Chloride 107 (98-107) mmol/L Carbon Dioxide 30 (21-32) mmol/L Anion Gap 3 (3-11) BUN 15 (6-23) mg/dl Creatinine 0.70 (0.6-1.2) mg/dl Est Cr Clr Drug Dosing 81.9 ml/min Est GFR ( Amer) 106.1 ml/min Est GFR (Non-Af Amer) 91.6 ml/min BUN/Creatinine Ratio 21.4 H (10-20) Glucose 169 H (70-99(Fasting)) mg/dl POC Glucose (70-99) mg/dl Estimat Average Glucose Pending Hemoglobin A1c Pending Calcium 8.7 (8.5-10.1) mg/dl Magnesium 2.0 (1.7-2.4) mg/dl SARS-CoV-2, RNA, NAAT (NEGATIVE) 06/11/22 06/10/22 06/10/22 Range/Units 00:01 20:47 18:55 APTT (21.0-31.0) Seconds PTT Ratio Sodium (136-145) mmol/L Potassium (3.5-5.1) mmol/L Chloride (98-107) mmol/L Carbon Dioxide (21-32) mmol/L Anion Gap (3-11) BUN (6-23) mg/dl Creatinine (0.6-1.2) mg/dl Est Cr Clr Drug Dosing ml/min Est GFR ( Amer) ml/min Est GFR (Non-Af Amer) ml/min BUN/Creatinine Ratio (10-20) Glucose (70-99(Fasting)) mg/dl POC Glucose 110 H 190 H (70-99) mg/dl Estimat Average Glucose Hemoglobin A1c Calcium (8.5-10.1) mg/dl Magnesium (1.7-2.4) mg/dl SARS-CoV-2, RNA, NAAT NEGATIVE (NEGATIVE) PG Care Time/CCT Total # of Minutes Spent Total Time Spent with Patient: Total time spent is greater than 50% in coordination of care (as documented) at patient's floor/unit and/or counseling patient: Coding Level of Care Code 31398 Subseq Hosp Care Lvl 2 Diagnoses Arterial thrombosis I74.9 Diabetic peripheral neuropathy associated with type 1 diabetes mellitus E10.42 Tobacco use disorder F17.200 Vitamin B12 deficiency E53.8 Hyperlipidemia E78.5 PAD (peripheral artery disease) I73.9 Urinary urgency R39.15 Macrocytosis without anemia D75.89 HTN (hypertension) I10
[2022-06-12] MEDS: HEPARIN SODIUM/DEXTROSE 25,000 UNITS/500 ML BAG IV SCH (00:12)
[2022-06-12 06:54] LABS: Estimated Average Glucose 174 mg/dl; Hemoglobin A1C 7.7 % (4.5-5.6)
[2022-06-12 08:11] LABS: Basophils # (auto) 0.04 K/uL (0-0.2); Basophils % (auto) 0.8 %; Eosinophils # (auto) 0.08 K/uL (0-0.50); Eosinophils % (auto) 1.6 %; Hematocrit (blood only) 39.3 % (34.1-44.9); Hemoglobin 13.4 g/dl (12.0-16.0); Immature Granulocytes # (auto) 0.01 K/uL (0.00-0.02); Immature Granulocytes % (auto) 0.2 %; Lymphocytes # (auto) 2.15 K/uL (1.2-3.4); Mean Corpuscular Hemoglobin 35.4 pg (25.0-34.0); Mean Corpuscular Hgb Conc 34.1 g/dL (32.0-36.0); Mean Corpuscular Volume 103.7 fL (80.0-100.0); Mean Platelet Volume 9.2 fL (9.4-12.3); Monocytes # (auto) 0.41 K/uL (0.24-0.82); Monocytes % (auto) 8.2 %; Neutrophils # (auto) 2.31 K/uL (1.4-6.5); Neutrophils % (auto) 46.2 %; Platelet Count 279 K/uL (130-400); RDW Coefficient of Variation 12.5 % (11.5-14.5); RDW Standard Deviation 47.9 fL (36.4-46.3); Red Blood Count 3.79 M/uL (3.93-5.22)
[2022-06-12 08:31] LABS: BUN Creatinine Ratio 18.1 (10-20); Calcium 8.8 mg/dl (8.5-10.1); Creatinine Clr Calc Pharmacy 79.6 ml/min; Est GFR (African American) 102.6 ml/min; Est GFR (Non-African American) 88.5 ml/min; Magnesium 1.9 mg/dl (1.7-2.4); Potassium 3.9 mmol/L (3.5-5.1)
[2022-06-12] MEDS: INSULIN, Rapid-Acting PUMP SCH ×4 (08:32→21:56)
[2022-06-12] MEDS: ASCORBIC ACID 500 MG TAB PO SCH (08:34)
[2022-06-12] MEDS: MIRABEGRON ER 25 MG TAB PO SCH (08:34)
[2022-06-12] MEDS: ATORVASTATIN 40 MG TAB PO SCH (08:34)
[2022-06-12] MEDS: NICOTINE 7 MG/24 HR TDSY TD SCH (08:34)
[2022-06-12] MEDS: ASPIRIN 81 MG ECTAB PO SCH (08:35)
[2022-06-12] MEDS: lisinopril 5 MG TAB PO SCH (08:35)
[2022-06-12] MEDS: CYANOCOBALAMIN (B-12) 500 MCG TABLET PO SCH (08:35)
[2022-06-12 08:41] LABS: Partial Thromboplastin Ratio 1.9
--- NOTE | 2022-06-12 08:51 | Consultation ---
Date of Consultation June 12, 2022 Assessment & Plan (1) Acute occlusion of artery of lower extremity: Pt with acute occlusion of RLE SFA/pop arteries. Pt discussed with Dr Salmeron, recommends pt undergo RLE fem-distal BPG in OR tomorrow. Procedure, risks, benefits, and alternatives discussed with pt at Dr Salmeron's request. Pt expresses understanding and agreement to proceed. History of Present Illness Reason for Consultation: RLE PAD Attending Physician: Susan Tucker MD History of Present Illness 62 yo f with hx of DMII, PAD with LLE fem-pop BPG years ago, and RLE angio with intervention d/t acute occlusion about 4 weeks ago, seen today in consultation for occlusion of RLE stents. Pt also with hx of HTN, hyperlipidemia, and neuropathy. Pt states she was at home and devloped some RLE pain and numbness about 3 days ago. Thought it was d/t low blood sugar, so corrected this, but pain and numbness remained, so she came to [facility] ED for eval. States she is unable to ambulate more than a few feet on her RLE. States numbness extends from toes to ankle, with some tingling in R heel. Denies PALOMARES, fever, chest pain, SOB, palpitations, abd pain, N/V, other complaints. Imaging demonstrates occluded RLE stents. Allergies Allergy/AdvReac Type Severity Reaction Status Date / Time cilostazol Allergy Severe CHEST Verified 06/10/22 16:12 PAIN,SOB NAUSEA Home Medications Medication Instructions Recorded Confirmed Type ascorbic acid (vitamin C) 100 mg 100 mg PO DAILY 06/11/19 06/10/22 History tablet aspirin 81 mg tablet,delayed 81 mg PO QAM 06/11/19 06/10/22 History release (Adult Aspirin Regimen) cyanocobalamin (vitamin B-12) 1,000 mcg PO DAILY 06/28/20 06/10/22 History 1,000 mcg capsule blood sugar diagnostic (Contour #600 ea 04/22/21 03/21/22 Rx Next Test Strips) atorvastatin 40 mg tablet (Lipitor) 40 mg PO DAILY #90 tabs 06/21/21 06/10/22 Rx glucagon 3 mg/actuation nasal 3 mg intranasal ONCE #2 ea 08/04/21 06/10/22 Rx spray (Baqsimi) mirabegron 50 mg tablet,extended 50 mg PO DAILY #90 tabs 08/22/21 06/10/22 Rx release 24 hr (Myrbetriq) flash glucose scanning reader #1 ea 11/21/21 03/21/22 Rx (FreeStyle Gayatri 2 [place]) flash glucose sensor (FreeStyle #7 ea 11/21/21 03/21/22 Rx Gayatri 2 Sensor kit) gabapentin 100 mg capsule 100 mg PO TID PRN loss of 04/05/22 06/10/22 Rx sensation #270 caps lisinopril 2.5 mg tablet 5 mg PO DAILY #180 tabs 04/12/22 06/10/22 Rx clopidogrel 75 mg tablet (Plavix) 75 mg PO QAM 06/10/22 06/10/22 History insulin lispro 100 unit/mL 0 unit continuous subcutaneous 06/10/22 06/10/22 History subcutaneous solution (Humalog infusion DAILY U-100 Insulin) Patient History Medical History (Updated 06/12/22 @ 08:50 by Stephanie Falcon PA-C) Acquired deformity of both feet Acquired hallux valgus of right foot Acute occlusion of artery of lower extremity Callus Controlled type 1 diabetes mellitus with hypoglycemia, with long-term current use of insulin Current tobacco use Diabetes Diabetes mellitus with diabetic polyneuropathy Diabetic neuropathy Hallux rigidus of right foot Hallux rigidus, left foot Hallux valgus (acquired), left foot HTN (hypertension) Hyperlipidemia Lateral epicondylitis of elbow Macrocytosis without anemia 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 Superficial femoral artery occlusion Vitamin B12 deficiency Vitamin D deficiency Surgical History H/O hand surgery History of 3 sections History of angioplasty History of ankle surgery History of femoropopliteal bypass Family History Father Myocardial infarction Hypertension Diabetes Cardiac disorder Mother Lung cancer Diabetes Cardiac disorder Myocardial infarction Brother Lung cancer Hypertension Cardiac disorder Myocardial infarction Aunt Dementia Sister Hypertension Diabetes Denies family history of Colon cancer Ovarian cancer Prostate cancer Breast cancer Social History Smoking Status: Current every day smoker Tobacco Type: Cigarettes packs per day: 1; Cigarettes Per Day: 5/6 cigarettes per day; Second Hand Exposure: No; Do You Dip or Chew Tobacco: No; Tobacco Cessation Education Requested by Patient: No Hx Alcohol Use: Yes Alcohol type: wine Alcohol type Comment: 1-2 daily Hx Substance Use: No Preferred Language: Malaysian Visual Impairment: No Limitations Hearing Ability: Normal Digital Marketing Assistant Required: Yes Beliefs That Will Affect Care: None marital status: Current Living Situation: Spouse 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 Feels Safe at Home: Yes Safety Concerns: Feels Safe At This Time Childhood Exposure to Second-Hand Smoke: Yes Dental Care, Regularly: No Physical Activity Frequency: Does not Exercise Seatbelt Use: always Sunscreen Use: No Assistive Devices: Denture - Upper and Glasses Review of Systems Review of Systems: All systems reviewed & are unremarkable except as noted in HPI & below Physical Exam Constitutional: WD/WN, vitals as above cooperative; not in distress ENMT: Ears: no hearing impairment Respiratory: normal respiratory effort, lungs clear to auscultation A uscultation: + diminished lung sounds Cardiovascular: Rate/Rhythm: regular rate and regular rhythm Vessels: femoral pulses present, posterior tibial pulses present (RLE palpable, LLE nonpalpable), dorsalis pedis pulses present (LLE palpable, RLE nonpalpable) and radial pulses present Extremities: + abnormal capillary refill (RLE toes delayed at 7-8 seconds) Gastrointestinal (Abdomen): Inspection/Auscultation: abdomen normal to inspection and normal bowel sounds Percussion/Palpation: abdomen soft; abdomen nontender Musculoskeletal: able to bend R toes, but feels she has less strength in it. Skin: no rashes, warm and dry Neurologic: moves all extremities and awake; no focal motor deficits and not confused Psychiatric: A+Ox3, euthymic affect Results & Data ([facility]) Vital Signs (Past 12 Hours) Vital Signs Temp Pulse Resp BP Pulse Ox O2 Del Method 06/12/22 08:00 36.7 C 66 17 120/64 96 Room Air 06/11/22 21:00 Room Air
[2022-06-12] MEDS: CYANOCOBALAMIN 1000 MCG/ML VIAL IM SCH (10:20)
[2022-06-12] MEDS: FOLIC ACID 1 MG TAB PO SCH (10:20)
[2022-06-12] MEDS: oxyCODONE HCL IR 5 MG TAB (IMMEDIATE RELEASE) PO PRN (10:28)
[2022-06-12] MEDS: ACETAMINOPHEN 500 MG TAB PO PRN (14:28)
--- NOTE | 2022-06-12 16:20 | Hospitalist Progress Note ---
Date of Service June 12, 2022 Assessment & Plan (1) Arterial thrombosis: Plan: Patient has occlusion of her right superficial femoral artery after undergoing a procedure and stenting of the superficial femoral artery on the right side May 15. -Continue heparin drip -Vascular surgery planning for bypass graft Sunday -n.p.o. after midnight -Patient remains on aspirin and Dr. Salmeron recommends discontinuation of Plavix -Continue Tylenol, oxycodone, IV morphine as needed for pain -Follow CBC, BMP (2) Diabetic peripheral neuropathy associated with type 1 diabetes mellitus: Plan: Patient remains on an insulin pump, continue Accu-Cheks She is on gabapentin prn for peripheral neuropathy as needed-not ordered here -Continue on on lisinopril 5 Mg daily for risk reduction of diabetic nephropathy -Hemoglobin A1c 7.7% -ok to wear insulin pump with surgery (3) Tobacco use disorder: Plan: Current smoker -She reports she is committed to smoking cessation Continue nicotine patch (4) Vitamin B12 deficiency: Plan: -is on oral B12 supplementation - B12 level here still low at 279 -add on B12 1000 mcg IM daily x 3 doses then resume po B12 (5) Hyperlipidemia: Plan: Remains on atorvastatin (6) PAD (peripheral artery disease): Plan: History of left femoropopliteal bypass and now right SFA stent with occlusion Is a type I diabetic and current smoker putting her at high risk for PAD Continue aspirin but Plavix discontinued as above -Continue atorvastatin 40 mg daily -Encouraged smoking cessation (7) Urinary urgency: Plan: Continue Myrbetriq Follows with urology (8) Macrocytosis without anemia: Plan: With a history of B12 deficiency as baove B12 level low and replacing as above olate also low-replace with folic acid 1mg po daily TSH normal (9) HTN (hypertension): Plan: Blood pressures are controlled Continue home lisinopril Plan DVT prophylaxis-Heparin drip Disposition-continued stay medical/surgical unit, awaiting vascular surgery Admission and Anticipated Discharge Date Admission Date: June 10, 2022 Subjective Pt reports ongoing pain in right leg but controlled with pain meds. No CP, SOB, abd pain, nausea. Review of Systems Review of Systems: All systems reviewed & are unremarkable except as noted in HPI & below Physical Exam Constitutional: WD/WN, vitals as above Eyes: + anicteric sclerae Neck: trachea midline, no thyromegaly Respiratory: normal respiratory effort, lungs clear to auscultation Cardiovascular: RRR, no murmur, no edema Vessels: dorsalis pedis pulses present (on left but not right) cap refill delayed on right foot Chest (Breasts): Chest: normal inspection of chest Gastrointestinal (Abdomen): normal bowel sounds, soft, nontender, no hepatosplenomegaly Musculoskeletal: Extremities: extremities normal to inspection; no cyanosis and no clubbing Skin: no rashes, warm and dry Neurologic: moves all extremities and awake; no focal motor deficits Psychiatric: A+Ox3, euthymic affect Lymphatic: no lymphedema Results & Data Results & Data ([facility]) Vital Signs (Past 12 Hours) Vital Signs Temp Pulse Pulse Resp BP Pulse Ox O2 Del Method 06/12/22 15:36 36.6 C 70 16 119/72 95 Room Air 06/12/22 12:11 36.4 C L 74 14 124/72 98 Room Air 06/12/22 08:00 36.7 C 66 17 120/64 96 Room Air Laboratory Results 06/12/22 06/12/22 06/12/22 Range/Units 11:49 07:53 07:53 WBC 5.00 (4.8-10.8) K/ul RBC 3.79 L (3.93-5.22) M/uL Hgb 13.4 (12.0-16.0) g/dl Hct 39.3 (34.1-44.9) % MCV 103.7 H (80.0-100.0) fL MCH 35.4 H (25.0-34.0) pg MCHC 34.1 (32.0-36.0) g/dL RDW Std Deviation 47.9 H (36.4-46.3) fL RDW Coeff of Nicolas 12.5 (11.5-14.5) % Plt Count 279 (130-400) K/uL MPV 9.2 L (9.4-12.3) fL Immature Gran % (Auto) 0.2 % Neut % (Auto) 46.2 % Lymph % (Auto) 43.0 % Sanders % (Auto) 8.2 % Eos % (Auto) 1.6 % Baso % (Auto) 0.8 % Neut # (Auto) 2.31 (1.4-6.5) K/uL Lymph # (Auto) 2.15 (1.2-3.4) K/uL Sanders # (Auto) 0.41 (0.24-0.82) K/uL Eos # (Auto) 0.08 (0-0.50) K/uL Baso # (Auto) 0.04 (0-0.2) K/uL Immature Gran # (Auto) 0.01 (0.00-0.02) K/uL APTT (21.0-31.0) Seconds PTT Ratio Sodium (136-145) mmol/L Potassium (3.5-5.1) mmol/L Chloride (98-107) mmol/L Carbon Dioxide (21-32) mmol/L Anion Gap (3-11) BUN (6-23) mg/dl Creatinine (0.6-1.2) mg/dl Est Cr Clr Drug Dosing ml/min Est GFR ( Amer) ml/min Est GFR (Non-Af Amer) ml/min BUN/Creatinine Ratio (10-20) Glucose (70-99(Fasting)) mg/dl POC Glucose 156 H (70-99) mg/dl Estimat Average Glucose mg/dl Hemoglobin A1c (4.5-5.6) % Calcium (8.5-10.1) mg/dl Magnesium (1.7-2.4) mg/dl Vitamin B12 (180-914) pg/ml Folate (>5.38) ng/ml TSH 4.522 H (0.300-4.500) uIu/ml 06/12/22 06/12/22 06/12/22 Range/Units 07:53 07:53 07:53 WBC (4.8-10.8) K/ul RBC (3.93-5.22) M/uL Hgb (12.0-16.0) g/dl Hct (34.1-44.9) % MCV (80.0-100.0) fL MCH (25.0-34.0) pg MCHC (32.0-36.0) g/dL RDW Std Deviation (36.4-46.3) fL RDW Coeff of Nicolas (11.5-14.5) % Plt Count (130-400) K/uL MPV (9.4-12.3) fL Immature Gran % (Auto) % Neut % (Auto) % Lymph % (Auto) % Sanders % (Auto) % Eos % (Auto) % Baso % (Auto) % Neut # (Auto) (1.4-6.5) K/uL Lymph # (Auto) (1.2-3.4) K/uL Sanders # (Auto) (0.24-0.82) K/uL Eos # (Auto) (0-0.50) K/uL Baso # (Auto) (0-0.2) K/uL Immature Gran # (Auto) (0.00-0.02) K/uL APTT 51.0 H* (21.0-31.0) Seconds PTT Ratio 1.9 Sodium 138 (136-145) mmol/L Potassium 3.9 (3.5-5.1) mmol/L Chloride 106 (98-107) mmol/L Carbon Dioxide 31 (21-32) mmol/L Anion Gap 1 L (3-11) BUN 13 (6-23) mg/dl Creatinine 0.72 (0.6-1.2) mg/dl Est Cr Clr Drug Dosing 79.6 ml/min Est GFR ( Amer) 102.6 ml/min Est GFR (Non-Af Amer) 88.5 ml/min BUN/Creatinine Ratio 18.1 (10-20) Glucose 121 H (70-99(Fasting)) mg/dl POC Glucose (70-99) mg/dl Estimat Average Glucose mg/dl Hemoglobin A1c (4.5-5.6) % Calcium 8.8 (8.5-10.1) mg/dl Magnesium 1.9 (1.7-2.4) mg/dl Vitamin B12 279 (180-914) pg/ml Folate 5.46 (>5.38) ng/ml TSH (0.300-4.500) uIu/ml 06/12/22 06/11/22 06/11/22 Range/Units 05:48 20:20 17:07 WBC (4.8-10.8) K/ul RBC (3.93-5.22) M/uL Hgb (12.0-16.0) g/dl Hct (34.1-44.9) % MCV (80.0-100.0) fL MCH (25.0-34.0) pg MCHC (32.0-36.0) g/dL RDW Std Deviation (36.4-46.3) fL RDW Coeff of Nicolas (11.5-14.5) % Plt Count (130-400) K/uL MPV (9.4-12.3) fL Immature Gran % (Auto) % Neut % (Auto) % Lymph % (Auto) % Sanders % (Auto) % Eos % (Auto) % Baso % (Auto) % Neut # (Auto) (1.4-6.5) K/uL Lymph # (Auto) (1.2-3.4) K/uL Sanders # (Auto) (0.24-0.82) K/uL Eos # (Auto) (0-0.50) K/uL Baso # (Auto) (0-0.2) K/uL Immature Gran # (Auto) (0.00-0.02) K/uL APTT (21.0-31.0) Seconds PTT Ratio Sodium (136-145) mmol/L Potassium (3.5-5.1) mmol/L Chloride (98-107) mmol/L Carbon Dioxide (21-32) mmol/L Anion Gap (3-11) BUN (6-23) mg/dl Creatinine (0.6-1.2) mg/dl Est Cr Clr Drug Dosing ml/min Est GFR ( Amer) ml/min Est GFR (Non-Af Amer) ml/min BUN/Creatinine Ratio (10-20) Glucose (70-99(Fasting)) mg/dl POC Glucose 152 H 163 H 120 H (70-99) mg/dl Estimat Average Glucose mg/dl Hemoglobin A1c (4.5-5.6) % Calcium (8.5-10.1) mg/dl Magnesium (1.7-2.4) mg/dl Vitamin B12 (180-914) pg/ml Folate (>5.38) ng/ml TSH (0.300-4.500) uIu/ml 06/11/22 Range/Units 05:30 WBC (4.8-10.8) K/ul RBC (3.93-5.22) M/uL Hgb (12.0-16.0) g/dl Hct (34.1-44.9) % MCV (80.0-100.0) fL MCH (25.0-34.0) pg MCHC (32.0-36.0) g/dL RDW Std Deviation (36.4-46.3) fL RDW Coeff of Nicolas (11.5-14.5) % Plt Count (130-400) K/uL MPV (9.4-12.3) fL Immature Gran % (Auto) % Neut % (Auto) % Lymph % (Auto) % Sanders % (Auto) % Eos % (Auto) % Baso % (Auto) % Neut # (Auto) (1.4-6.5) K/uL Lymph # (Auto) (1.2-3.4) K/uL Sanders # (Auto) (0.24-0.82) K/uL Eos # (Auto) (0-0.50) K/uL Baso # (Auto) (0-0.2) K/uL Immature Gran # (Auto) (0.00-0.02) K/uL APTT (21.0-31.0) Seconds PTT Ratio Sodium (136-145) mmol/L Potassium (3.5-5.1) mmol/L Chloride (98-107) mmol/L Carbon Dioxide (21-32) mmol/L Anion Gap (3-11) BUN (6-23) mg/dl Creatinine (0.6-1.2) mg/dl Est Cr Clr Drug Dosing ml/min Est GFR ( Amer) ml/min Est GFR (Non-Af Amer) ml/min BUN/Creatinine Ratio (10-20) Glucose (70-99(Fasting)) mg/dl POC Glucose (70-99) mg/dl Estimat Average Glucose 174 mg/dl Hemoglobin A1c 7.7 H (4.5-5.6) % Calcium (8.5-10.1) mg/dl Magnesium (1.7-2.4) mg/dl Vitamin B12 (180-914) pg/ml Folate (>5.38) ng/ml TSH (0.300-4.500) uIu/ml PG Care Time/CCT Total # of Minutes Spent Total Time Spent with Patient: Total time spent is greater than 50% in coordination of care (as documented) at patient's floor/unit and/or counseling patient: Coding Level of Care Code 47700 Subseq Hosp Care Lvl 2 Diagnoses Arterial thrombosis I74.9 Diabetic peripheral neuropathy associated with type 1 diabetes mellitus E10.42 Tobacco use disorder F17.200 Vitamin B12 deficiency E53.8 Hyperlipidemia E78.5 PAD (peripheral artery disease) I73.9 Urinary urgency R39.15 Macrocytosis without anemia D75.89 HTN (hypertension) I10
[2022-06-13 06:00] LABS: Basophils # (auto) 0.03 K/uL (0-0.2); Basophils % (auto) 0.5 %; Eosinophils # (auto) 0.09 K/uL (0-0.50); Eosinophils % (auto) 1.5 %; Hematocrit (blood only) 37.8 % (34.1-44.9); Hemoglobin 13.2 g/dl (12.0-16.0); Immature Granulocytes # (auto) 0.01 K/uL (0.00-0.02); Immature Granulocytes % (auto) 0.2 %; Lymphocytes # (auto) 2.26 K/uL (1.2-3.4); Lymphocytes % (auto) 37.4 %; Mean Corpuscular Hemoglobin 35.5 pg (25.0-34.0); Mean Corpuscular Hgb Conc 34.9 g/dL (32.0-36.0); Mean Corpuscular Volume 101.6 fL (80.0-100.0); Mean Platelet Volume 9.5 fL (9.4-12.3); Monocytes # (auto) 0.54 K/uL (0.24-0.82); Monocytes % (auto) 8.9 %; Neutrophils # (auto) 3.12 K/uL (1.4-6.5); Neutrophils % (auto) 51.5 %; Platelet Count 283 K/uL (130-400); RDW Coefficient of Variation 12.3 % (11.5-14.5); RDW Standard Deviation 46.5 fL (36.4-46.3); Red Blood Count 3.72 M/uL (3.93-5.22); White Blood Count 6.05 K/ul (4.8-10.8)
[2022-06-13 06:26] LABS: Calcium 8.7 mg/dl (8.5-10.1); Creatinine Clr Calc Pharmacy 68.3 ml/min; Est GFR (African American) 85.1 ml/min; Est GFR (Non-African American) 73.4 ml/min; Magnesium 1.8 mg/dl (1.7-2.4)
[2022-06-13 06:45] LABS: Partial Thromboplastin Ratio 1.7
[2022-06-13] MEDS: HEPARIN SODIUM/DEXTROSE 25,000 UNITS/500 ML BAG IV SCH ×2 (06:46→22:27)
--- NOTE | 2022-06-13 07:29 | History & Physical Bridge Note ---
Date of Service June 13, 2022 History & Physical Bridge Note Patient for right fem pop bypass. I have discussed the risks options and benefits of the procedure with the patient. The patient understands the risks options and benefits and agrees to the procedure. I have examined the patient, reviewed the History & Physical and in the interval since the performance of the History & Physical I have noted the following changes of clinical significance: no changes noted
[2022-06-13 07:31] LABS: Partial Thromboplastin Time 46.7 Seconds (21.0-31.0)
[2022-06-13] MEDS ORDERED: ceFAZolin 2000MG 2,000 MG/15 ML SYR IV ONE (08:00)
[2022-06-13] MEDS: ASCORBIC ACID 500 MG TAB PO SCH (08:25)
[2022-06-13] MEDS: FOLIC ACID 1 MG TAB PO SCH (08:27)
[2022-06-13] MEDS: lisinopril 5 MG TAB PO SCH (08:27)
[2022-06-13] MEDS: ASPIRIN 81 MG ECTAB PO SCH (08:28)
[2022-06-13] MEDS: ATORVASTATIN 40 MG TAB PO SCH (08:28)
[2022-06-13] MEDS: MIRABEGRON ER 25 MG TAB PO SCH (08:29)
[2022-06-13] MEDS ORDERED: SODIUM CHLORIDE 0.9% 1000ML 1,000 ML IV SCH (09:00)
[2022-06-13] MEDS ORDERED: NEOSTIGMINE METHYLSULFATE 1 MG/ML 10ML VIAL ONE (09:24)
[2022-06-13] MEDS ORDERED: ONDANSETRON INJ 2 MG/ML 2 ML VIAL ONE ×2 (09:24→19:32)
[2022-06-13] MEDS ORDERED: MIDAZOLAM HCL 1 MG/ML 2ML VIAL ONE (09:24)
[2022-06-13] MEDS ORDERED: GLYCOPYRROLATE 0.2 MG/ML VIAL ONE (09:24)
[2022-06-13] MEDS ORDERED: PROPOFOL IV EMULSION 10 MG/ML 20 ML VIAL IV ONE ×2 (09:24→19:32)
[2022-06-13] MEDS ORDERED: fentaNYL citrate 100 MCG/2 ML VIAL ONE ×3 (09:24→14:45)
[2022-06-13] MEDS: INSULIN, Rapid-Acting PUMP SCH ×4 (09:31→22:40)
[2022-06-13] MEDS ORDERED: ATROPINE SULFATE 0.1 MG/ML 10ML SYR IV PRN ×2 (09:42→18:51)
[2022-06-13] MEDS ORDERED: HYDROmorphone INJ 1 MG/ML SYRINGE IV PRN (09:42)
[2022-06-13] MEDS ORDERED: ONDANSETRON INJ 2 MG/ML 2 ML VIAL IV PRN ×2 (09:42→18:51)
[2022-06-13] MEDS ORDERED: fentaNYL citrate 100 MCG/2 ML VIAL IV PRN ×2 (09:42→18:51)
[2022-06-13] MEDS ORDERED: ePHEDrine sulfate 50 MG/ML AMP IV PRN ×2 (09:42→18:51)
--- NOTE | 2022-06-13 09:42 | Anesthesiology Consultation ---
Date of Service June 13, 2022 History Surgery Operation Date: 06/13/22 09:45 Proposed Procedures p Right Femoral Popliteal Prosthetic Bypass - Wu Salmeron MD Height/Weight Height: 5 ft 8 in Weight: 68.8 kg Allergies Allergy/AdvReac Type Severity Reaction Status Date / Time cilostazol Allergy Severe CHEST Verified 06/10/22 16:12 PAIN,SOB NAUSEA Medications Home Medications Medication Instructions Recorded Confirmed Last Taken ascorbic acid (vitamin C) 100 mg 100 mg PO DAILY 06/11/19 06/10/22 05/14/22 06:30 tablet aspirin 81 mg tablet,delayed 81 mg PO QAM 06/11/19 06/10/22 05/14/22 06:30 release (Adult Aspirin Regimen) cyanocobalamin (vitamin B-12) 1,000 mcg PO DAILY 06/28/20 06/10/22 05/14/22 06:30 1,000 mcg capsule blood sugar diagnostic (Contour #600 ea 04/22/21 03/21/22 Unknown Next Test Strips) atorvastatin 40 mg tablet (Lipitor) 40 mg PO DAILY #90 tabs 06/21/21 06/10/22 05/14/22 06:30 glucagon 3 mg/actuation nasal 3 mg intranasal ONCE #2 ea 08/04/21 06/10/22 Unknown spray (Baqsimi) mirabegron 50 mg tablet,extended 50 mg PO DAILY #90 tabs 08/22/21 06/10/22 05/14/22 06:30 release 24 hr (Myrbetriq) flash glucose scanning reader #1 ea 11/21/21 03/21/22 Unknown (FreeStyle Gayatri 2 Petroleum) flash glucose sensor (FreeStyle #7 ea 11/21/21 03/21/22 Unknown Gayatri 2 Sensor kit) gabapentin 100 mg capsule 100 mg PO TID PRN loss of 04/05/22 06/10/22 Unknown sensation #270 caps lisinopril 2.5 mg tablet 5 mg PO DAILY #180 tabs 04/12/22 06/10/22 05/14/22 06:30 clopidogrel 75 mg tablet (Plavix) 75 mg PO QAM 06/10/22 06/10/22 Unknown insulin lispro 100 unit/mL 0 unit continuous subcutaneous 06/10/22 06/10/22 Unknown subcutaneous solution (Humalog infusion DAILY U-100 Insulin) Active Medications Generic Name Dose Route Start Last Admin Trade Name Freq PRN Reason Stop Dose Admin Acetaminophen 1,000 mg 06/10/22 20:55 06/12/22 14:28 Acetaminophen 500 Mg Tab PO 07/10/22 20:54 1,000 mg TID PRN Administration pain/fever Ascorbic Acid 250 mg 06/11/22 09:00 06/13/22 08:25 Ascorbic Acid 500 Mg Tab PO 07/11/22 08:59 250 mg DAILY NIRALI Administration Aspirin 81 mg 06/11/22 09:00 06/13/22 08:28 Aspirin 81 Mg Ectab PO 07/11/22 08:59 81 mg QAM NIRALI Administration Atorvastatin Calcium 40 mg 06/11/22 09:00 06/13/22 08:28 Atorvastatin 40 Mg Tab PO 07/11/22 08:59 40 mg DAILY NIRALI Administration Cyanocobalamin 1,000 mcg 06/11/22 09:00 06/12/22 08:35 Cyanocobalamin (B-12) 500 Mcg Tablet PO 07/11/22 08:59 1,000 mcg DAILY NIRALI Administration Cyanocobalamin 1,000 mcg 06/12/22 09:30 06/12/22 10:20 Cyanocobalamin 1000 Mcg/Ml Vial IM 06/14/22 09:01 1,000 mcg QAM NIRALI Administration Folic Acid 1 mg 06/12/22 09:30 06/13/22 08:27 Folic Acid 1 Mg Tab PO 07/12/22 09:29 1 mg QAM NIRALI Administration Heparin Sodium/Dextrose 25,000 units in 500 mls @ 16 mls/hr 06/10/22 17:15 06/13/22 07:14 Heparin Sodium/Dextrose IV 07/10/22 17:14 800 units/hr .Q24H NIRALI 16 mls/hr Titration Protocol 800 UNITS/HR Sodium Chloride 1,000 mls @ 80 mls/hr 06/13/22 09:00 06/13/22 09:20 Nss 1000ml IV 06/13/22 21:29 80 mls/hr .[id number] NIRALI Administration Insulin Aspart 1 each 06/11/22 07:30 06/13/22 09:31 Insulin, Rapid-Acting Pump N/A 07/11/22 07:29 Not Given ACHS [facility] Protocol Lisinopril 5 mg 06/11/22 09:00 06/13/22 08:27 Lisinopril 5 Mg Tab PO 07/11/22 08:59 5 mg DAILY NIRALI Administration Mirabegron 50 mg 06/11/22 09:00 06/13/22 08:29 Mirabegron Er 25 Mg Tab PO 07/11/22 08:59 50 mg DAILY NIRALI Administration Miscellaneous 1 each 06/11/22 08:59 06/13/22 08:25 Remove Nicoderm Patch N/A 07/11/22 08:58 1 each DAILY@0859 NIRALI Administration Nicotine 7 mg 06/11/22 09:00 06/12/22 08:34 Nicotine 7 Mg/24 Hr Tdsy TD 07/11/22 08:59 Not Given QAM NIRALI Oxycodone HCl 10 mg 06/10/22 20:55 06/12/22 10:28 Oxycodone Hcl Ir 5 Mg Tab (Immediate Release) PO 06/24/22 20:54 10 mg Q6H PRN Administration mild to moderate pain NPO Date Last Intake of Fluids: 06/12/22 Time Last Intake of Fluids: 20:30 Last Intake of Fluids Comment: sips of water this am with morning medications Date Last Intake of Solids: 06/12/22 Time Last Intake of Solids: 20:30 Past Medical History Medical History Acquired deformity of both feet Acquired hallux valgus of right foot Acute occlusion of artery of lower extremity Callus Controlled type 1 diabetes mellitus with hypoglycemia, with long-term current use of insulin Current tobacco use Diabetes Diabetes mellitus with diabetic polyneuropathy Diabetic neuropathy Hallux rigidus of right foot Hallux rigidus, left foot Hallux valgus (acquired), left foot HTN (hypertension) Hyperlipidemia Lateral epicondylitis of elbow Macrocytosis without anemia 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 Superficial femoral artery occlusion Vitamin B12 deficiency Vitamin D deficiency (1) Arterial thrombosis: Plan: Patient has occlusion of her superficial femoral artery after undergoing a procedure and stenting of the superficial femoral artery on the right side May 15. Patient is instituted on therapeutic heparin drip and vascular surgery consultation will be performed when available. Patient remains on aspirin and Dr. Salmeron recommends discontinuation of Plavix Past Family History Family History Father Myocardial infarction Hypertension Diabetes Cardiac disorder Mother Lung cancer Diabetes Cardiac disorder Myocardial infarction Brother Lung cancer Hypertension Cardiac disorder Myocardial infarction Aunt Dementia Sister Hypertension Diabetes Denies family history of Colon cancer Ovarian cancer Prostate cancer Breast cancer Past Surgical History Surgical History H/O hand surgery History of 3 sections History of angioplasty History of ankle surgery History of femoropopliteal bypass Social History Smoking Status: Current every day smoker tobacco type: cigarettes Smoking cigarettes per day: 5/6 cigarettes per day Do You Dip or Chew Tobacco: No Hx Alcohol Use: Yes Alcohol type: wine alcohol intake frequency: 0-2 drinks per day Hx Substance Use: No substance use type: does not use Physical Exam Vital Signs Last Vital Signs Temp 36.6 C 06/13/22 09:19 Pulse 73 06/13/22 09:19 Resp 18 06/13/22 09:19 BP 139/57 L 06/13/22 09:19 Pulse Ox 98 06/13/22 09:19 O2 Del Method 06/13/22 09:19 Testing Laboratory Results 06/13/22 05:33 06/13/22 05:33 PT 10.7 Seconds (9.0-12.0) 06/10/22 13:40 INR 1.0 (0.9-1.1) 06/10/22 13:40 APTT 46.7 Seconds (21.0-31.0) H* 06/13/22 05:33 Hemoglobin A1c 7.7 % (4.5-5.6) H 06/11/22 05:30 Blood Type O Positive 06/13/22 05:33 Antibody Screen NEGATIVE 06/13/22 05:33 06/13/22 06/13/22 09:14 05:56 POC Glucose 226 H 189 H
[2022-06-13] MEDS ORDERED: BUPIVACAINE/EPINEPHRINE 0.5% MPF 1:200,000 10 ML VIAL ONE (10:03)
[2022-06-13] MEDS ORDERED: THROMBIN FOR SOLN 20000 UNIT KIT ONE (10:03)
[2022-06-13] MEDS ORDERED: PAPAVERINE HCL INJ 30 MG/ML 2 ML VIAL ONE (10:03)
[2022-06-13] MEDS ORDERED: HEPARIN (PORCINE) 1000 UNIT/ML 10 ML (CATH LAB USE ONLY) ONE (10:03)
[2022-06-13] MEDS ORDERED: LIDOCAINE 1% LOCAL 20 ML VIAL ONE (10:03)
[2022-06-13] MEDS ORDERED: ceFAZolin 330 MG/ML 1 GM VIAL ONE ×2 (10:03→14:33)
[2022-06-13] MEDS ORDERED: GELATIN SPONGE 12-7MM ONE (10:15)
[2022-06-13] MEDS ORDERED: LIDOCAINE 2% MPF LOCAL 5 ML VIAL INFIL ONE ×2 (11:10→19:32)
[2022-06-13] MEDS ORDERED: ROCURONIUM BROMIDE 10 MG/ML 5 ML VIAL IV ONE ×6 (11:10→14:15)
[2022-06-13] MEDS ORDERED: HEPARIN SOD (PORCINE) 1000 UNIT/ML ONE ×2 (11:10→12:51)
[2022-06-13] MEDS ORDERED: GELATIN SPONGE SZ 100 ONE (11:12)
[2022-06-13] MEDS ORDERED: ePHEDrine sulfate 50 MG/ML SYR ONE (11:20)
[2022-06-13] MEDS ORDERED: PHENYLEPHRINE HCL 10 MG/ML VIAL ONE (12:47)
[2022-06-13] MEDS ORDERED: SUGAMMADEX SODIUM 200 MG/2 ML VIAL IV ONE (13:21)
[2022-06-13] MEDS ORDERED: ALBUMIN HUMAN 5% 12.5 GM/250 ML VIAL IV ONE (13:22)
[2022-06-13] MEDS ORDERED: SODIUM CHLORIDE 0.9% 250 ML IV PRN ×4 (13:32→18:20)
[2022-06-13 13:44] LABS: iSTAT Creatinine 0.6 mg/dl (0.6-1.3); iSTAT Hemoglobin 10.2 g/dl (12.0-16.0); iSTAT Ionized Calcium 1.14 mmol/l (1.12-1.32); iSTAT Potassium 4.8 mmol/L (3.3-5.0)
[2022-06-13] MEDS ORDERED: NovoLIN-R INSULIN PER UNIT CHARGE ONE (13:45)
[2022-06-13] MEDS ORDERED: VISIPAQUE IV ONE (13:54)
[2022-06-13] MEDS ORDERED: VASOPRESSIN 20 UNIT/ML VIAL ONE (13:56)
[2022-06-13] MEDS: GELATIN SPONGE SZ 100 ONE ×2 (15:01→16:47)
[2022-06-13] MEDS ORDERED: PROTAMINE SULFATE 10 MG/ML 5 ML VIAL IV ONE (15:02)
--- NOTE | 2022-06-13 15:07 | Post Operative Brief Note ---
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
[2022-06-13] MEDS ORDERED: PHENYLEPHRINE 100MCG/ML 5ML SYR ONE (15:37)
[2022-06-13] MEDS ORDERED: STAT IV Infusion **Titration per Protocol STA (15:42)
[2022-06-13] MEDS ORDERED: INSULIN ASPART PER UNIT ONE (15:43)
[2022-06-13] MEDS ORDERED: PHENYLEPHRINE 100MCG/ML 5ML SYR IV PRN (15:44)
[2022-06-13] MEDS ORDERED: PHENYLEPHRINE HCL 20 MG in DEXTROSE 5% 500 ML IV SCH (15:45)
[2022-06-13 15:48] LABS: Basophils # (auto) 0.05 K/uL (0-0.2); Basophils % (auto) 0.4 %; Eosinophils # (auto) 0.01 K/uL (0-0.50); Eosinophils % (auto) 0.1 %; Hematocrit (blood only) 32.1 % (34.1-44.9); Immature Granulocytes # (auto) 0.07 K/uL (0.00-0.02); Immature Granulocytes % (auto) 0.5 %; Mean Corpuscular Hemoglobin 33.5 pg (25.0-34.0); Mean Corpuscular Hgb Conc 34.3 g/dL (32.0-36.0); Mean Corpuscular Volume 97.9 fL (80.0-100.0); Mean Platelet Volume 9.8 fL (9.4-12.3); Monocytes # (auto) 0.76 K/uL (0.24-0.82); Monocytes % (auto) 5.5 %; Neutrophils # (auto) 11.84 K/uL (1.4-6.5); Neutrophils % (auto) 85.5 %; Platelet Count 182 K/uL (130-400); RDW Coefficient of Variation 16.2 % (11.5-14.5); RDW Standard Deviation 58.7 fL (36.4-46.3); Red Blood Count 3.28 M/uL (3.93-5.22); White Blood Count 13.83 K/ul (4.8-10.8)
--- NOTE | 2022-06-13 16:11 | Anesthesiology Progress Note ---
Date of Service June 13, 2022 Anesthesia Post Procedure Vital Signs Vital Signs: Temp Pulse Pulse Resp BP Pulse Ox O2 Del Method 06/13/22 15:21 36.0 C L 102 H 10 L 72/43 L 100 Oxymask 06/13/22 09:19 36.6 C 73 18 139/57 L 98 Room Air 06/13/22 08:01 36.5 C 71 16 113/68 97 Room Air 06/12/22 21:55 Room Air 06/12/22 20:26 36.8 C 72 18 107/64 97 Room Air O2 Flow Rate 06/13/22 15:21 4 06/13/22 09:19 06/13/22 08:01 06/12/22 21:55 06/12/22 20:26 Pain Intensity Right Foot: Pain Intensity: 0 Right Leg: Pain Intensity: 5 Transfer of Care Handoff Completed per policy Notes Mental Status: alert / awake / arousable and participated in evaluation Patient Amnestic to Procedure: Yes Nausea / Vomiting: adequately controlled Pain: adequately controlled Airway Patency, RR, SpO2: stable & adequate BP & HR: see Notes below Hydration State: stable & adequate Anesthetic Complications: no major complications apparent and Pt Satisfied with anesthetic care Notes: Patient treated with intraoperative IV insulin and then a dose of subQ insulin in recovery room. Her BP's were labile throughout the case and she did require a single unit of pRBC's during the procedure. Post-op CBC pending. BP's were low in recovery and patient required phenylephrine bolus and then I decided to write for a phenylephrine ggt to be started in PACU and continued in ICU. Patient has arterial line in place and seems to be working well. She is awake and conversant. Endorses mild pain and mild nausea that improved with BP improvement (nausea). Patient to be transferred to ICU in stable condition.
[2022-06-13] MEDS ORDERED: INSULIN ASPART PER UNIT SC STA (16:36)
--- NOTE | 2022-06-13 16:45 | Electrocardiogram Report ---
Test Reason : Blood Pressure : / mmHG Vent. Rate : 069 BPM Atrial Rate : 069 BPM P-R Int : 128 ms QRS Dur : 090 ms QT Int : 384 ms P-R-T Axes : 068 031 074 degrees QTc Int : 411 ms Normal sinus rhythm Normal ECG When compared with ECG of 05-NOV-2017 15:47, No significant change Confirmed by Raymond Reis ([id number]) on 06/13/2022 4:45:21 PM Referred By: REFERRED SELF Confirmed By:Raymond Reis
[2022-06-13] MEDS: NICOTINE 7 MG/24 HR TDSY TD SCH (16:47)
[2022-06-13] MEDS: CYANOCOBALAMIN 1000 MCG/ML VIAL IM SCH (16:49)
[2022-06-13] MEDS: LACTATED RINGER'S 1,000 ML IV SCH ×2 (16:49→22:26)
[2022-06-13 16:58] LABS: BUN Creatinine Ratio 32.9 (10-20); Creatinine Clr Calc Pharmacy 81.9 ml/min; Est GFR (African American) 106.1 ml/min; Est GFR (Non-African American) 91.6 ml/min; Potassium 4.5 mmol/L (3.5-5.1)
[2022-06-13] MEDS: ceFAZolin 2000MG 2,000 MG/15 ML SYR IV SCH (17:18)
[2022-06-13] MEDS: MoRPHine SULFATE 2 MG/ML CARP IV PRN ×2 (17:39→22:02)
[2022-06-13] MEDS: Heparin IV Adult Wt-Based Standard *NO* Bolus Protocol IV SCH ×3 (17:41→18:34)
[2022-06-13] MEDS ORDERED: METOCLOPRAMIDE HCL INJ 5 MG/ML 2 ML VIAL IV ONE (17:46)
[2022-06-13] MEDS ORDERED: RAPID SEQUENCE INDUCTION BAG ONE (17:49)
[2022-06-13] MEDS ORDERED: PANTOPRAZOLE BOLUS/DRIP 1 EACH IV STA (17:54)
[2022-06-13] MEDS ORDERED: PANTOprazole 80 MG in DEXTROSE 5% 100 ML IV ONE (18:15)
[2022-06-13 18:17] LABS: Hematocrit (blood only) 31.8 % (34.1-44.9); Hemoglobin 10.8 g/dl (12.0-16.0); Mean Corpuscular Hemoglobin 33.4 pg (25.0-34.0); Mean Corpuscular Volume 98.5 fL (80.0-100.0); Mean Platelet Volume 9.7 fL (9.4-12.3); Platelet Count 233 K/uL (130-400); RDW Coefficient of Variation 17.5 % (11.5-14.5); RDW Standard Deviation 62.4 fL (36.4-46.3); Red Blood Count 3.23 M/uL (3.93-5.22); White Blood Count 19.82 K/ul (4.8-10.8)
[2022-06-13] MEDS ORDERED: STAT IV STA (18:20)
[2022-06-13] MEDS ORDERED: CALCIUM GLUCONATE 10% 2,000 MG in DEXTROSE 5% 50 ML IV ONE (18:20)
[2022-06-13] MEDS: PANTOprazole 40 MG in DEXTROSE 5% 100 ML IV SCH ×3 (18:24→23:19)
--- NOTE | 2022-06-13 18:25 | XRay Report ---
XR chest 1V portable HISTORY: vomiting blood COMPARISON: None. FINDINGS: The lungs are clear. Cardiac silhouette is normal in size. No pleural effusions. No pneumot horax. IMPRESSION: No acute process. ACT 112: Negative or not required by law. Electronically signed by: Darron Simms M.D. 06/13/2022 6:22 PM
--- NOTE | 2022-06-13 18:37 | Anesthesiology Consultation ---
Date of Service June 13, 2022 Assessment & Plan (1) Encounter for pre-operative examination: Chart Review Chart Review: Acceptable Risk for Surgery (urgent procedure for bleeding) History Surgery Operation Date: 06/13/22 09:45 Proposed Procedures p Right Femoral Popliteal Prosthetic Bypass - Wu Salmeron MD Operation Date: 06/13/22 18:45 Proposed Procedures p Esophagogastroduodenoscopy Dr Rangel - Glynn Mendes Case, DO Height/Weight Height: 5 ft 8 in Weight: 68.8 kg Allergies Allergy/AdvReac Type Severity Reaction Status Date / Time cilostazol Allergy Severe CHEST Verified 06/10/22 16:12 PAIN,SOB NAUSEA Medications Home Medications Medication Instructions Recorded Confirmed Last Taken ascorbic acid (vitamin C) 100 mg 100 mg PO DAILY 06/11/19 06/10/22 05/14/22 06:30 tablet aspirin 81 mg tablet,delayed 81 mg PO QAM 06/11/19 06/10/22 05/14/22 06:30 release (Adult Aspirin Regimen) cyanocobalamin (vitamin B-12) 1,000 mcg PO DAILY 06/28/20 06/10/22 05/14/22 06:30 1,000 mcg capsule blood sugar diagnostic (Contour #600 ea 04/22/21 03/21/22 Unknown Next Test Strips) atorvastatin 40 mg tablet (Lipitor) 40 mg PO DAILY #90 tabs 06/21/21 06/10/22 05/14/22 06:30 glucagon 3 mg/actuation nasal 3 mg intranasal ONCE #2 ea 08/04/21 06/10/22 Unknown spray (Baqsimi) mirabegron 50 mg tablet,extended 50 mg PO DAILY #90 tabs 08/22/21 06/10/22 05/14/22 06:30 release 24 hr (Myrbetriq) flash glucose scanning reader #1 ea 11/21/21 03/21/22 Unknown (FreeStyle Gayatri 2 [place]) flash glucose sensor (FreeStyle #7 ea 11/21/21 03/21/22 Unknown Gayatri 2 Sensor kit) gabapentin 100 mg capsule 100 mg PO TID PRN loss of 04/05/22 06/10/22 Unknown sensation #270 caps lisinopril 2.5 mg tablet 5 mg PO DAILY #180 tabs 04/12/22 06/10/22 05/14/22 06:30 clopidogrel 75 mg tablet (Plavix) 75 mg PO QAM 06/10/22 06/10/22 Unknown insulin lispro 100 unit/mL 0 unit continuous subcutaneous 06/10/22 06/10/22 Unknown subcutaneous solution (Humalog infusion DAILY U-100 Insulin) Active Medications Generic Name Dose Route Start Last Admin Trade Name Freq PRN Reason Stop Dose Admin Acetaminophen 1,000 mg 06/10/22 20:55 06/12/22 14:28 Acetaminophen 500 Mg Tab PO 07/10/22 20:54 1,000 mg TID PRN Administration pain/fever Ascorbic Acid 250 mg 06/11/22 09:00 06/13/22 08:25 Ascorbic Acid 500 Mg Tab PO 07/11/22 08:59 250 mg DAILY NIRALI Administration Aspirin 81 mg 06/11/22 09:00 06/13/22 08:28 Aspirin 81 Mg Ectab PO 07/11/22 08:59 81 mg QAM NIRALI Administration Atorvastatin Calcium 40 mg 06/11/22 09:00 06/13/22 08:28 Atorvastatin 40 Mg Tab PO 07/11/22 08:59 40 mg DAILY NIRALI Administration Cyanocobalamin 1,000 mcg 06/11/22 09:00 06/12/22 08:35 Cyanocobalamin (B-12) 500 Mcg Tablet PO 07/11/22 08:59 1,000 mcg DAILY NIRALI Administration Cyanocobalamin 1,000 mcg 06/12/22 09:30 06/13/22 16:49 Cyanocobalamin 1000 Mcg/Ml Vial IM 06/14/22 09:01 Not Given QAM NIRALI Folic Acid 1 mg 06/12/22 09:30 06/13/22 08:27 Folic Acid 1 Mg Tab PO 07/12/22 09:29 1 mg QAM NIRALI Administration Phenylephrine HCl 20 mg/ 502 mls @ 72.529 mls/hr 06/13/22 15:45 06/13/22 18:15 Dextrose IV 07/13/22 15:44 1.1 mcg/kg/min .Q6H56M NIRALI 114 mls/hr Titration Protocol 0.7 MCG/KG/MIN Cefazolin Sodium 2,000 mg in 15 mls @ 3.75 mls/min 06/13/22 18:00 06/13/22 17:18 Ancef 2000mg IV 06/14/22 02:03 3.75 mls/min Q8H NRIALI Administration Protocol Lactated Ringer's 1,000 mls @ 125 mls/hr 06/13/22 16:36 06/13/22 16:49 Lr IV 07/13/22 16:35 125 mls/hr .Q8H NIRALI Administration Sodium Chloride 250 mls @ 15 mls/hr 06/13/22 17:52 06/13/22 18:32 Nss IV 06/14/22 03:54 15 mls/hr .[id number] PRN Administration For Transfusion Duration Pantoprazole Sodium 40 mg/ 100 mls @ 20 mls/hr 06/13/22 18:15 06/13/22 18:24 Dextrose IV 07/13/22 18:14 8 mg/hr Q5H NIRALI 20 mls/hr Administration 8 MG/HR Insulin Aspart 1 each 06/11/22 07:30 06/13/22 17:14 Insulin, Rapid-Acting Pump N/A 07/11/22 07:29 1 each ACHS NIRALI Administration Protocol Lisinopril 5 mg 06/11/22 09:00 06/13/22 08:27 Lisinopril 5 Mg Tab PO 07/11/22 08:59 5 mg DAILY NIRALI Administration Mirabegron 50 mg 06/11/22 09:00 06/13/22 08:29 Mirabegron Er 25 Mg Tab PO 07/11/22 08:59 50 mg DAILY NIRALI Administration Miscellaneous 1 each 06/11/22 08:59 06/13/22 08:25 Remove Nicoderm Patch N/A 07/11/22 08:58 1 each DAILY@0859 NIRALI Administration Morphine Sulfate 2 mg 06/10/22 20:55 06/13/22 17:39 Morphine Sulfate 2 Mg/Ml Carp IV 06/24/22 20:54 2 mg Q4 PRN Administration Moderate Pain Nicotine 7 mg 06/11/22 09:00 06/13/22 16:47 Nicotine 7 Mg/24 Hr Tdsy TD 07/11/22 08:59 Not Given QAM NIRALI Ondansetron HCl 4 mg 06/10/22 20:55 06/13/22 18:24 Ondansetron Inj 2 Mg/Ml 2 Ml Vial IV 07/10/22 20:54 4 mg Q6H PRN Administration Nausea Oxycodone HCl 10 mg 12/03/22 20:55 06/12/22 10:28 Oxycodone Hcl Ir 5 Mg Tab (Immediate Release) PO 06/24/22 20:54 10 mg Q6H PRN Administration mild to moderate pain Phenylephrine HCl 100 mcg 06/13/22 15:44 06/13/22 15:38 Phenylephrine 100mcg/Ml 5ml Syr IV 06/13/22 23:44 100 mcg Q5M PRN Administration PACU Use Only-SBP<90 or HR>70 NPO Date Last Intake of Fluids: 06/12/22 Time Last Intake of Fluids: 20:30 Last Intake of Fluids Comment: sips of water this am with morning medications Date Last Intake of Solids: 06/12/22 Time Last Intake of Solids: 20:30 Past Medical History Medical History Acquired deformity of both feet Acquired hallux valgus of right foot Acute occlusion of artery of lower extremity Callus Controlled type 1 diabetes mellitus with hypoglycemia, with long-term current use of insulin Current tobacco use Diabetes Diabetes mellitus with diabetic polyneuropathy Diabetic neuropathy Hallux rigidus of right foot Hallux rigidus, left foot Hallux valgus (acquired), left foot HTN (hypertension) Hyperlipidemia Lateral epicondylitis of elbow Macrocytosis without anemia 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 Superficial femoral artery occlusion Vitamin B12 deficiency Vitamin D deficiency Past Family History Family History Father Myocardial infarction Hypertension Diabetes Cardiac disorder Mother Lung cancer Diabetes Cardiac disorder Myocardial infarction Brother Lung cancer Hypertension Cardiac disorder Myocardial infarction Aunt Dementia Sister Hypertension Diabetes Denies family history of Colon cancer Ovarian cancer Prostate cancer Breast cancer Past Surgical History Surgical History H/O hand surgery History of 3 sections History of angioplasty History of ankle surgery History of femoropopliteal bypass Social History Smoking Status: Current every day smoker tobacco type: cigarettes Smoking cigarettes per day: 5/6 cigarettes per day Do You Dip or Chew Tobacco: No Hx Alcohol Use: Yes Alcohol type: wine alcohol intake frequency: 0-2 drinks per day Hx Substance Use: No substance use type: does not use Physical Exam Vital Signs Last Vital Signs Temp 36.8 C 06/13/22 18:22 Pulse 82 06/13/22 18:22 Resp 16 06/13/22 18:22 BP 125/48 L 06/13/22 18:22 Pulse Ox 99 06/13/22 18:22 O2 Del Method 06/13/22 16:10 O2 Flow Rate 4 06/13/22 15:40 Testing Laboratory Results 06/13/22 18:11 06/13/22 15:39 PT 10.7 Seconds (9.0-12.0) 06/10/22 13:40 INR 1.0 (0.9-1.1) 06/10/22 13:40 APTT 46.7 Seconds (21.0-31.0) H* 06/13/22 05:33 Hemoglobin A1c 7.7 % (4.5-5.6) H 06/11/22 05:30 Blood Type O Positive 06/13/22 05:33 Antibody Screen NEGATIVE 06/13/22 05:33 06/13/22 06/13/22 06/13/22 17:00 15:19 13:19 POC Glucose 298 H 304 H* POC Glucose (other) 367 H* 06/13/22 09:14 POC Glucose 226 H POC Glucose (other) Electrocardiogram Date: 06/13/22 Findings: + NSR @ (69)
--- NOTE | 2022-06-13 18:55 | Gastrointestinal Consultation ---
Date of Consultation June 13, 2022 Assessment & Plan (1) Hematemesis: Emergent EGD now for further evaluation of hematemesis Continue Protonix gtt at 8 mg/hour....she did receive Protonix bolus of 80 mg Further recommendations to follow above noted testing. History of Present Illness Reason for Consultation: Hematemesis Attending Physician: Jonatan Pereira History of Present Illness 62 yo CF with extensive PMHx including DM, Diabetic gastroparesis, and PAD, who underwent a R Fem-pop bypass today. Upon completion of procedure, she did have an episode of emesis of undigested food in the recovery room. She subsequently was transferred to the ICU for post-op care, and had multiple witnessed episodes of Hematemesis, with bright red blood. I was contacted by the ICU attending, Dr. Cortes, who asked for the patient to be evaluated as the patient does need heparin therapy in the post-op period. The patient is awake, alert and is agreeable to EGD evaluation at present, however, she was previously sedated today. She admits to a history diabetic gastroparesis, but does not have any history of GERD, and has never undergone an EGD in the past. She states that she has no history of liver disease. She denies any further complaints at present including fevers, chills, nausea, lightheadedness, dizziness, dysphagia or odynophagia. Allergies Allergy/AdvReac Type Severity Reaction Status Date / Time cilostazol Allergy Severe CHEST Verified 06/10/22 16:12 PAIN,SOB NAUSEA Home Medications Medication Instructions Recorded Confirmed Type ascorbic acid (vitamin C) 100 mg 100 mg PO DAILY 06/11/19 06/10/22 History tablet aspirin 81 mg tablet,delayed 81 mg PO QAM 06/11/19 06/10/22 History release (Adult Aspirin Regimen) cyanocobalamin (vitamin B-12) 1,000 mcg PO DAILY 06/28/20 06/10/22 History 1,000 mcg capsule blood sugar diagnostic (Contour #600 ea 04/22/21 03/21/22 Rx Next Test Strips) atorvastatin 40 mg tablet (Lipitor) 40 mg PO DAILY #90 tabs 06/21/21 06/10/22 Rx glucagon 3 mg/actuation nasal 3 mg intranasal ONCE #2 ea 08/04/21 06/10/22 Rx spray (Baqsimi) mirabegron 50 mg tablet,extended 50 mg PO DAILY #90 tabs 08/22/21 06/10/22 Rx release 24 hr (Myrbetriq) flash glucose scanning reader #1 ea 11/21/21 03/21/22 Rx (FreeStyle Gayatri 2 [place]) flash glucose sensor (FreeStyle #7 ea 11/21/21 03/21/22 Rx Gayatri 2 Sensor kit) gabapentin 100 mg capsule 100 mg PO TID PRN loss of 04/05/22 06/10/22 Rx sensation #270 caps lisinopril 2.5 mg tablet 5 mg PO DAILY #180 tabs 04/12/22 06/10/22 Rx clopidogrel 75 mg tablet (Plavix) 75 mg PO QAM 06/10/22 06/10/22 History insulin lispro 100 unit/mL 0 unit continuous subcutaneous 06/10/22 06/10/22 History subcutaneous solution (Humalog infusion DAILY U-100 Insulin) Patient History Medical History Acquired deformity of both feet Acquired hallux valgus of right foot Acute occlusion of artery of lower extremity Callus Controlled type 1 diabetes mellitus with hypoglycemia, with long-term current use of insulin Current tobacco use Diabetes Diabetes mellitus with diabetic polyneuropathy Diabetic neuropathy Hallux rigidus of right foot Hallux rigidus, left foot Hallux valgus (acquired), left foot HTN (hypertension) Hyperlipidemia Lateral epicondylitis of elbow Macrocytosis without anemia 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 Superficial femoral artery occlusion Vitamin B12 deficiency Vitamin D deficiency Surgical History H/O hand surgery History of 3 sections History of angioplasty History of ankle surgery History of femoropopliteal bypass Family History Father Myocardial infarction Hypertension Diabetes Cardiac disorder Mother Lung cancer Diabetes Cardiac disorder Myocardial infarction Brother Lung cancer Hypertension Cardiac disorder Myocardial infarction Aunt Dementia Sister Hypertension Diabetes Denies family history of Colon cancer Ovarian cancer Prostate cancer Breast cancer Social History Smoking Status: Current every day smoker Tobacco Type: Cigarettes packs per day: 1; Cigarettes Per Day: 5/6 cigarettes per day; Second Hand Exposure: No; Do You Dip or Chew Tobacco: No; Tobacco Cessation Education Requested by Patient: No Hx Alcohol Use: Yes Alcohol type: wine Alcohol type Comment: 1-2 daily Hx Substance Use: No Preferred Language: [place] Visual Impairment: No Limitations Hearing Ability: Normal Orthopedic Physical Therapist Required: Yes Beliefs That Will Affect Care: None marital status: Current Living Situation: Spouse 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 Feels Safe at Home: Yes Safety Concerns: Feels Safe At This Time Childhood Exposure to Second-Hand Smoke: Yes Dental Care, Regularly: No Physical Activity Frequency: Does not Exercise Seatbelt Use: always Sunscreen Use: No Assistive Devices: None Physical Exam Constitutional: WD/WN, vitals as above Respiratory: normal respiratory effort, lungs clear to auscultation Cardiovascular: RRR, no murmur, no edema Gastrointestinal (Abdomen): normal bowel sounds, soft, nontender, no hepatosplenomegaly Psychiatric: A+Ox3, euthymic affect Results & Data ([facility]) Vital Signs (Past 12 Hours) Vital Signs Temp Pulse Pulse Resp BP BP Pulse Ox 06/13/22 18:22 36.8 C 82 16 125/48 L 99 06/13/22 18:16 36.7 C 120 H 20 73/40 L 100 06/13/22 16:00 85 17 106/46 L 100 06/13/22 15:50 87 13 98/53 L 100 06/13/22 15:40 89 12 118/59 L 100 06/13/22 16:10 36.7 C 70 19 107/52 L 100 06/13/22 15:30 89 13 109/53 L 100 06/13/22 15:21 36.0 C L 102 H 10 L 72/43 L 100 06/13/22 09:19 36.6 C 73 18 139/57 L 98 06/13/22 08:01 36.5 C 71 16 113/68 97 O2 Del Method O2 Flow Rate 06/13/22 18:22 06/13/22 18:16 06/13/22 16:00 Room Air 06/13/22 15:50 Room Air 06/13/22 15:40 Oxymask 4 06/13/22 16:10 Room Air 06/13/22 15:30 Oxymask 6 06/13/22 15:21 Oxymask 4 06/13/22 09:19 Room Air 06/13/22 08:01 Room Air PG Care Time/CCT Total # of Minutes Spent Total Time Spent with Patient: Total time spent is greater than 50% in coordination of care (as documented) at patient's floor/unit and/or counseling patient: Coding Level of Care Code 66383 Inpt Consult Level 5 Diagnoses Hematemesis K92.0
[2022-06-13] MEDS ORDERED: ETOMIDATE 2 MG/ML 20 ML VIAL IV ONE (19:32)
[2022-06-13 19:35] LABS: Fibrinogen 269 mg/dl (184-400); INR 1.1 (0.9-1.1); Partial Thromboplastin Ratio 1.2; Partial Thromboplastin Time 32.5 Seconds (21.0-31.0)
--- NOTE | 2022-06-13 19:44 | Hospitalist Progress Note ---
Date of Service June 13, 2022 Assessment & Plan (1) Hematemesis: Plan: Eliana-Campbell tear? other? with resulting #2, #3 emergent EGD tonight by Dr Rangel, [facility]. PPI drip has been initiated by ICU attending. Transfusional support. anti emetics. (2) Acute blood loss anemia: Plan: 2 units PRBCs ordered by Dr Cortes serial CBC (3) Postoperative hypotension: Plan: 2nd to #3 briefly needed phenylephrine drip post-op Tx 2 units PRBCs (4) Acute occlusion of artery of lower extremity: Plan: Patient has occlusion of her right superficial femoral artery after undergoing a procedure and stenting of the superficial femoral artery of the RLE on May [address] Salmeron. Today - s/p Right Femoral Popliteal Prosthetic Bypass along with BUDGET EXAMINER and Stenting of right popliteal artery by Dr Head. Pulses very adequate on exam this evening post-op. See events of this evening above. If EGD is clear - heparin drip to be resumed. Will remain on asa and statin along with plavix. (5) Arterial thrombosis: Plan: RLE SFA occlusion s/p intervention today - see #4. (6) Diabetic peripheral neuropathy associated with type 1 diabetes mellitus: Plan: Typically on insulin pump at home. Hemoglobin A1c 7.7%. Defer glycemic management to ICU team. (7) Tobacco use disorder: Plan: Current smoker pre-hospital Continue nicotine patch (8) Vitamin B12 deficiency: Plan: Is on oral B12 supplementation at home. Despite such - B12 level here still low at 279. Thus - B12 1000 mcg IM daily x 3 doses then resume po B12 thereafter. (9) Hyperlipidemia: Plan: Cont lipitor (10) PAD (peripheral artery disease): Plan: History of left femoropopliteal bypass and now right SFA stent with occlusion s/p right fem-pop bypass and BUDGET EXAMINER w/ stent to popliteal artery today by Dr Salmeron see above (11) Urinary urgency: Plan: Continue Myrbetriq Follows with urology (12) Macrocytosis without anemia: Plan: replacing B12 replacing folate now with acute blood loss anemia - see above (13) HTN (hypertension): Plan: with post-op hypotension Continue home lisinopril if BPs will allow Plan DVT prophylaxis-Heparin drip if EGD is negative appreciate vascular surgery & ICU attending consults Admission and Anticipated Discharge Date Admission Date: June 10, 2022 Subjective saw patient post-op in the ICU by report, upon arrival in the ICU, began to have hematemesis she had hypotension and briefly needed phenylephrine IV for BP support ICU attending Dr Cortes saw patient right away and ordered 2 units PRBCs for her acute bleeding GI was consulted for consideration of emergent EGD (as patient needed heparin drip post-op for recent right leg bypass) just before patient was to have EGD I saw patient at bedside complained of feeling cold and mild right leg pain no dyspnea vomiting had stopped Review of Systems Review of Systems: gen - feels cold, tired cv - no cp pulm - no dyspnea GI - no abd pain Physical Exam Physical Exam: gen - shivering, but awake/alert skin - looks pale mouth - MMM neck - no JVD heart - 2/6 NORBERT LSB, RRR, s1 s2 lungs - CTA b/l abd - soft NT ND BS+ ext - right foot - pulses 1-2+; left foot 1+, no edema either leg Results & Data Results & Data ([facility]) Vital Signs (Past 12 Hours) Vital Signs Temp Pulse Pulse Resp BP BP Pulse Ox 06/13/22 18:25 131/65 06/13/22 18:25 79 0 L 99 06/13/22 18:18 80/44 L 06/13/22 18:18 114 H 18 100 06/13/22 18:17 83/47 L 06/13/22 18:17 130 H 14 100 06/13/22 18:09 105/57 L 06/13/22 18:09 97 H 0 L 100 06/13/22 18:00 92 H 6 L 100 06/13/22 18:00 113/80 06/13/22 17:00 85 1 L 99 06/13/22 17:00 114/64 06/13/22 16:47 80 98 06/13/22 16:47 121/55 L 06/13/22 16:41 88/46 L 06/13/22 16:41 81 97 06/13/22 16:36 85 100 06/13/22 16:36 83/42 L 06/13/22 18:48 36.6 C 92 H 18 175/54 H 100 06/13/22 18:22 36.8 C 82 16 125/48 L 99 06/13/22 18:16 36.7 C 120 H 20 73/40 L 100 06/13/22 16:00 85 17 106/46 L 100 06/13/22 15:50 87 13 98/53 L 100 06/13/22 15:40 89 12 118/59 L 100 06/13/22 16:10 36.7 C 70 19 107/52 L 100 06/13/22 15:30 89 13 109/53 L 100 06/13/22 15:21 36.0 C L 102 H 10 L 72/43 L 100 06/13/22 09:19 36.6 C 73 18 139/57 L 98 06/13/22 08:01 36.5 C 71 16 113/68 97 O2 Del Method O2 Flow Rate 06/13/22 18:25 06/13/22 18:25 06/13/22 18:18 06/13/22 18:18 06/13/22 18:17 06/13/22 18:17 06/13/22 18:09 06/13/22 18:09 06/13/22 18:00 06/13/22 18:00 06/13/22 17:00 06/13/22 17:00 06/13/22 16:47 06/13/22 16:47 06/13/22 16:41 06/13/22 16:41 Room Air 06/13/22 16:36 06/13/22 16:36 06/13/22 18:48 06/13/22 18:22 06/13/22 18:16 06/13/22 16:00 Room Air 06/13/22 15:50 Room Air 06/13/22 15:40 Oxymask 4 06/13/22 16:10 Room Air 06/13/22 15:30 Oxymask 6 06/13/22 15:21 Oxymask 4 06/13/22 09:19 Room Air 06/13/22 08:01 Room Air Laboratory Results Laboratory Results - last 24 hr 06/12/22 06/12/22 06/13/22 07:53 20:24 05:33 WBC RBC Hgb POC Hgb Hct POC Hct MCV MCH MCHC RDW Std Deviation RDW Coeff of Nicolas Plt Count MPV Immature Gran % (Auto) Neut % (Auto) Lymph % (Auto) Shoshone % (Auto) Eos % (Auto) Baso % (Auto) Neut # (Auto) Lymph # (Auto) Shoshone # (Auto) Eos # (Auto) Baso # (Auto) Immature Gran # (Auto) PT INR APTT PTT Ratio Fibrinogen POC Sodium Sodium POC Potassium Potassium POC Chloride Chloride Carbon Dioxide POC Total CO2 Anion Gap POC Anion Gap POC BUN BUN Creatinine POC Creatinine Est Cr Clr Drug Dosing Est GFR ( Amer) Est GFR (Non-Af Amer) BUN/Creatinine Ratio Glucose POC Glucose 90 POC Glucose (other) Lactate Calcium POC Ioniz Calcium Ruben Magnesium Blood Type O Positive Blood Type Recheck O Positive Antibody Screen NEGATIVE Crossmatch See Detail 06/13/22 06/13/22 06/13/22 05:33 05:33 05:33 WBC 6.05 RBC 3.72 L Hgb 13.2 POC Hgb Hct 37.8 POC Hct MCV 101.6 H MCH 35.5 H MCHC 34.9 RDW Std Deviation 46.5 H RDW Coeff of Nicolas 12.3 Plt Count 283 MPV 9.5 Immature Gran % (Auto) 0.2 Neut % (Auto) 51.5 Lymph % (Auto) 37.4 Shoshone % (Auto) 8.9 Eos % (Auto) 1.5 Baso % (Auto) 0.5 Neut # (Auto) 3.12 Lymph # (Auto) 2.26 Shoshone # (Auto) 0.54 Eos # (Auto) 0.09 Baso # (Auto) 0.03 Immature Gran # (Auto) 0.01 PT INR APTT 46.7 H* PTT Ratio 1.7 Fibrinogen POC Sodium Sodium 138 POC Potassium Potassium 4.0 POC Chloride Chloride 105 Carbon Dioxide 29 POC Total CO2 Anion Gap 4 POC Anion Gap POC BUN BUN 21 Creatinine 0.84 POC Creatinine Est Cr Clr Drug Dosing 68.3 Est GFR ( Amer) 85.1 Est GFR (Non-Af Amer) 73.4 BUN/Creatinine Ratio 25.0 H Glucose 215 H POC Glucose POC Glucose (other) Lactate Calcium 8.7 POC Ioniz Calcium Ruben Magnesium 1.8 Blood Type Blood Type Recheck Antibody Screen Crossmatch 06/13/22 06/13/22 06/13/22 05:56 09:14 13:19 WBC RBC Hgb POC Hgb 10.2 L Hct POC Hct 30 L MCV MCH MCHC RDW Std Deviation RDW Coeff of Nicolas Plt Count MPV Immature Gran % (Auto) Neut % (Auto) Lymph % (Auto) Shoshone % (Auto) Eos % (Auto) Baso % (Auto) Neut # (Auto) Lymph # (Auto) Shoshone # (Auto) Eos # (Auto) Baso # (Auto) Immature Gran # (Auto) PT INR APTT PTT Ratio Fibrinogen POC Sodium 136 Sodium POC Potassium 4.8 Potassium POC Chloride 107 Chloride Carbon Dioxide POC Total CO2 22 L Anion Gap POC Anion Gap 13.0 L POC BUN 21 H BUN Creatinine POC Creatinine 0.6 Est Cr Clr Drug Dosing Est GFR ( Amer) Est GFR (Non-Af Amer) BUN/Creatinine Ratio Glucose POC Glucose 189 H 226 H POC Glucose (other) 367 H* Lactate Calcium POC Ioniz Calcium Ruben 1.14 Magnesium Blood Type Blood Type Recheck Antibody Screen Crossmatch 06/13/22 06/13/22 06/13/22 15:19 15:39 15:39 WBC 13.83 H RBC 3.28 L Hgb 11.0 L POC Hgb Hct 32.1 L POC Hct MCV 97.9 MCH 33.5 MCHC 34.3 RDW Std Deviation 58.7 H RDW Coeff of Nicolas 16.2 H Plt Count 182 MPV 9.8 Immature Gran % (Auto) 0.5 Neut % (Auto) 85.5 Lymph % (Auto) 8.0 Shoshone % (Auto) 5.5 Eos % (Auto) 0.1 Baso % (Auto) 0.4 Neut # (Auto) 11.84 H Lymph # (Auto) 1.10 L Shoshone # (Auto) 0.76 Eos # (Auto) 0.01 Baso # (Auto) 0.05 Immature Gran # (Auto) 0.07 H PT INR APTT PTT Ratio Fibrinogen POC Sodium Sodium 137 POC Potassium Potassium 4.5 POC Chloride Chloride 114 H Carbon Dioxide 18 L POC Total CO2 Anion Gap 5 POC Anion Gap POC BUN BUN 23 Creatinine 0.70 POC Creatinine Est Cr Clr Drug Dosing 81.9 Est GFR ( Amer) 106.1 Est GFR (Non-Af Amer) 91.6 BUN/Creatinine Ratio 32.9 H Glucose 313 H* POC Glucose 304 H* POC Glucose (other) Lactate Calcium 7.0 L POC Ioniz Calcium Ruben Magnesium Blood Type Blood Type Recheck Antibody Screen Crossmatch 06/13/22 06/13/22 06/13/22 17:00 18:11 18:11 WBC 19.82 H RBC 3.23 L Hgb 10.8 L POC Hgb Hct 31.8 L POC Hct MCV 98.5 MCH 33.4 MCHC 34.0 RDW Std Deviation 62.4 H RDW Coeff of Nicolas 17.5 H Plt Count 233 MPV 9.7 Immature Gran % (Auto) Neut % (Auto) Lymph % (Auto) Shoshone % (Auto) Eos % (Auto) Baso % (Auto) Neut # (Auto) Lymph # (Auto) [place]oshone # (Auto) Eos # (Auto) Baso # (Auto) Immature Gran # (Auto) PT INR APTT PTT Ratio Fibrinogen POC Sodium Sodium POC Potassium Potassium POC Chloride Chloride Carbon Dioxide POC Total CO2 Anion Gap POC Anion Gap POC BUN BUN Creatinine POC Creatinine Est Cr Clr Drug Dosing Est GFR ( Amer) Est GFR (Non-Af Amer) BUN/Creatinine Ratio Glucose POC Glucose 298 H POC Glucose (other) Lactate 2.1 H* Calcium POC Ioniz Calcium Ruben Magnesium Blood Type Blood Type Recheck Antibody Screen Crossmatch 06/13/22 18:11 WBC RBC Hgb POC Hgb Hct POC Hct MCV MCH MCHC RDW Std Deviation RDW Coeff of Nicolas Plt Count MPV Immature Gran % (Auto) Neut % (Auto) Lymph % (Auto) [place]oshone % (Auto) Eos % (Auto) Baso % (Auto) Neut # (Auto) Lymph # (Auto) [place]oshone # (Auto) Eos # (Auto) Baso # (Auto) Immature Gran # (Auto) PT 12.0 INR 1.1 APTT 32.5 H PTT Ratio 1.2 Fibrinogen 269 POC Sodium Sodium POC Potassium Potassium POC Chloride Chloride Carbon Dioxide POC Total CO2 Anion Gap POC Anion Gap POC BUN BUN Creatinine POC Creatinine Est Cr Clr Drug Dosing Est GFR ( Amer) Est GFR (Non-Af Amer) BUN/Creatinine Ratio Glucose POC Glucose POC Glucose (other) Lactate Calcium POC Ioniz Calcium Ruben Magnesium Blood Type Blood Type Recheck Antibody Screen Crossmatch PG Care Time/CCT Total # of Minutes Spent Total Time Spent with Patient: Total time spent is greater than 50% in coordination of care (as documented) at patient's floor/unit and/or counseling patient: Coding Level of Care Code 21484 Subseq Hosp Care Lvl 1 Diagnoses Hematemesis K92.0 Acute blood loss anemia D62 Postoperative hypotension I95.81 Acute occlusion of artery of lower extremity I70.209 Arterial thrombosis I74.9 Diabetic peripheral neuropathy associated with type 1 diabetes mellitus E10.42 Tobacco use disorder F17.200 Vitamin B12 deficiency E53.8 Hyperlipidemia E78.5 PAD (peripheral artery disease) I73.9 Urinary urgency R39.15 Macrocytosis without anemia D75.89 HTN (hypertension) I10
--- NOTE | 2022-06-13 19:51 | GI REPORT ---
Patient Name: Julieta Arevalo Procedure Date: 06/13/2022 6:53 PM Date of : 1960 Admit Type: Inpatient Age: 62 Gender: Female Attending MD: Glynn Rangel DO, Procedure: Upper GI endoscopy Providers: Glynn Rangel DO Referring MD: Kadeem Cortes M.D. Indications: Hematemesis Medicines: Monitored Anesthesia Care Complications: No immediate complications. Estimated Blood Loss: Estimated blood loss: none. Procedure: Pre-Anesthesia Assessment: - Prior to the procedure, a History and Physical was performed, and patient medications and allergies were reviewed. The patient's tolerance of previous anesthesia was also reviewed. The risks and benefits of the procedure and the sedation options and risks were discussed with the patient. All questions were answered, and informed consent was obtained. Prior Anticoagulants: The patient has taken heparin, last dose was day of procedure. ASA Grade Assessment: E - Emergency. After reviewing the risks and benefits, the patient was deemed in satisfactory condition to undergo the procedure. After obtaining informed consent, the endoscope was passed under direct vision. Throughout the procedure, the patient's blood pressure, pulse, and oxygen saturations were monitored continuously. The Endoscope was introduced through the mouth, and advanced to the second part of duodenum. The upper GI endoscopy was accomplished without difficulty. The patient tolerated the procedure well. Findings: LA Grade A (one or more mucosal breaks less than 5 mm, not extending between tops of 2 mucosal folds) esophagitis with no bleeding was found 38 cm from the incisors. A medium amount of food (residue) was found in the gastric fundus and on the greater curvature of the stomach. Food (residue) was found in the second portion of the duodenum. Impression: - LA Grade A reflux esophagitis with no bleeding. - A medium amount of food (residue) in the stomach. - Retained food in the duodenum. - No specimens collected. Recommendation: - Return patient to ICU for ongoing care. - Clear liquid diet. - Use Protonix (pantoprazole) 40 mg IV twice daily. - No evidence of active bleeding. Glynn Rangel DO 06/13/2022 7:51:20 PM This report has been signed electronically. Note Initiated On: 06/13/2022 6:53 PM Number of Addenda: 0 I attest to the content of the Intraoperative Record and orders documented therein, exceptions below {[id number]}
--- NOTE | 2022-06-13 20:03 | Critical Care Consultation ---
Date of Consultation June 13, 2022 Assessment & Plan (1) Acute occlusion of artery of lower extremity: Blood pressure parameters and anticoagulation per vascular surgery. We will hold on heparin infusion overnight due to concerns of GI bleed. Esophagitis noted on EGD. We will continue Protonix infusion. Hemoglobin stable. Transfuse to maintain hemoglobin greater than 7. Continue to wean pressors as able. Pharmacy to assist with glucose control. Zofran for nausea. (2) Arterial thrombosis: (3) Hematemesis: (4) Postoperative hypotension: (5) Gastroparesis: History of Present Illness Reason for Consultation: Post fem popliteal artery moderate Attending Physician: Jonatan Pereira History of Present Illness 62-year-old lady presenting to the ICU status post vascular surgical procedure and found to have hematemesis on arrival to the ICU. Blood pressures dropped and she was requiring escalating doses of phenylephrine. 2 units of packed RBCs given urgently. Patient received 1 unit of packed RBC in the OR. Patient was started on Protonix drip. Nausea was controlled with Zofran. Patient denies any abdominal pain or chest pain. Chest x-ray appeared clear. I contacted Dr. Wong of gastroenterology and she was taken urgently back to the OR for EGD. I also discussed the case with Dr. Salmeron vascular surgery who agreed with the plan overall. Allergies Allergy/AdvReac Type Severity Reaction Status Date / Time cilostazol Allergy Severe CHEST Verified 06/10/22 16:12 PAIN,SOB NAUSEA Home Medications Medication Instructions Recorded Confirmed Type ascorbic acid (vitamin C) 100 mg 100 mg PO DAILY 06/11/19 06/10/22 History tablet aspirin 81 mg tablet,delayed 81 mg PO QAM 06/11/19 06/10/22 History release (Adult Aspirin Regimen) cyanocobalamin (vitamin B-12) 1,000 mcg PO DAILY 06/28/20 06/10/22 History 1,000 mcg capsule blood sugar diagnostic (Contour #600 ea 04/22/21 03/21/22 Rx Next Test Strips) atorvastatin 40 mg tablet (Lipitor) 40 mg PO DAILY #90 tabs 06/21/21 06/10/22 Rx glucagon 3 mg/actuation nasal 3 mg intranasal ONCE #2 ea 08/04/21 06/10/22 Rx spray (Baqsimi) mirabegron 50 mg tablet,extended 50 mg PO DAILY #90 tabs 08/22/21 06/10/22 Rx release 24 hr (Myrbetriq) flash glucose scanning reader #1 ea 11/21/21 03/21/22 Rx (FreeStyle Gayatri 2 Higden) flash glucose sensor (FreeStyle #7 ea 11/21/21 03/21/22 Rx Gayatri 2 Sensor kit) gabapentin 100 mg capsule 100 mg PO TID PRN loss of 04/05/22 06/10/22 Rx sensation #270 caps lisinopril 2.5 mg tablet 5 mg PO DAILY #180 tabs 04/12/22 06/10/22 Rx clopidogrel 75 mg tablet (Plavix) 75 mg PO QAM 06/10/22 06/10/22 History insulin lispro 100 unit/mL 0 unit continuous subcutaneous 06/10/22 06/10/22 History subcutaneous solution (Humalog infusion DAILY U-100 Insulin) Patient History Medical History (Updated 06/13/22 @ 20:01 by Foster Cortes MD) Acquired deformity of both feet Acquired hallux valgus of right foot Acute occlusion of artery of lower extremity Callus Controlled type 1 diabetes mellitus with hypoglycemia, with long-term current use of insulin Current tobacco use Diabetes Diabetes mellitus with diabetic polyneuropathy Diabetic neuropathy Gastroparesis Hallux rigidus of right foot Hallux rigidus, left foot Hallux valgus (acquired), left foot HTN (hypertension) Hyperlipidemia Lateral epicondylitis of elbow Macrocytosis without anemia 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 Postoperative hypotension Superficial femoral artery occlusion Vitamin B12 deficiency Vitamin D deficiency Surgical History H/O hand surgery History of 3 sections History of angioplasty History of ankle surgery History of femoropopliteal bypass Family History Father Myocardial infarction Hypertension Diabetes Cardiac disorder Mother Lung cancer Diabetes Cardiac disorder Myocardial infarction Brother Lung cancer Hypertension Cardiac disorder Myocardial infarction Aunt Dementia Sister Hypertension Diabetes Denies family history of Colon cancer Ovarian cancer Prostate cancer Breast cancer Social History Smoking Status: Current every day smoker Tobacco Type: Cigarettes packs per day: 1; Cigarettes Per Day: 5/6 cigarettes per day; Second Hand Exposure: No; Do You Dip or Chew Tobacco: No; Tobacco Cessation Education Requested by Patient: No Hx Alcohol Use: Yes Alcohol type: wine Alcohol type Comment: 1-2 daily Hx Substance Use: No Preferred Language: Yakut Visual Impairment: No Limitations Hearing Ability: Normal Take Off Man Required: Yes Beliefs That Will Affect Care: None marital status: Current Living Situation: Spouse 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 Eyes: Pupils are equal round and reactive to light. Conjunctivae are normal. Anicteric sclera. Ears nose, mouth and throat: Mallampati class 1. Normal posterior oropharynx. Uvula is midline. Neck: Trachea is midline. Visual inspection is normal. Respiratory: Clear to auscultation bilaterally. No use of accessory muscles. No significant clubbing noted. Cardiovascular: Distal pulses intact in the right lower extremity. Pulses in the left lower extremity diminished. Gastrointestinal: Normal bowel sounds, soft, nontender and nondistended. No hepatosplenomegaly noted. Musculoskeletal: No cyanosis. Patient is able to move all extremities. Strength is 5 out of 5 in the upper and lower extremities. Skin: No rashes, warm dry and intact. Neurologic: No obvious focal neurological deficits seen. Psychiatric: Alert and oriented x3 with a euthymic affect. Results & Data Results [facility]) Vital Signs (Past 12 Hours) Vital Signs Temp Pulse Pulse Resp BP BP Pulse Ox 06/13/22 19:53 36.5 C 90 14 150/51 H 100 06/13/22 19:41 36.3 C L 96 H 19 141/53 H 100 06/13/22 18:25 131/65 06/13/22 18:25 79 0 L 99 06/13/22 18:18 80/44 L 06/13/22 18:18 114 H 18 100 06/13/22 18:17 83/47 L 06/13/22 18:17 130 H 14 100 06/13/22 18:09 105/57 L 06/13/22 18:09 97 H 0 L 100 06/13/22 18:00 92 H 6 L 100 06/13/22 18:00 113/80 06/13/22 17:00 85 1 L 99 06/13/22 17:00 114/64 06/13/22 16:47 80 98 06/13/22 16:47 121/55 L 06/13/22 16:41 88/46 L 06/13/22 16:41 81 97 06/13/22 16:36 85 100 06/13/22 16:36 83/42 L 06/13/22 18:48 36.6 C 92 H 18 175/54 H 100 06/13/22 18:22 36.8 C 82 16 125/48 L 99 06/13/22 18:16 36.7 C 120 H 20 73/40 L 100 06/13/22 16:00 85 17 106/46 L 100 06/13/22 15:50 87 13 98/53 L 100 06/13/22 15:40 89 12 118/59 L 100 06/13/22 16:10 36.7 C 70 19 107/52 L 100 06/13/22 15:30 89 13 109/53 L 100 06/13/22 15:21 36.0 C L 102 H 10 L 72/43 L 100 06/13/22 09:19 36.6 C 73 18 139/57 L 98 06/13/22 08:01 36.5 C 71 16 113/68 97 O2 Del Method O2 Flow Rate 06/13/22 19:53 Oxymask 6 06/13/22 19:41 Oxymask 6 06/13/22 18:25 06/13/22 18:25 06/13/22 18:18 06/13/22 18:18 06/13/22 18:17 06/13/22 18:17 06/13/22 18:09 06/13/22 18:09 06/13/22 18:00 06/13/22 18:00 06/13/22 17:00 06/13/22 17:00 06/13/22 16:47 06/13/22 16:47 06/13/22 16:41 06/13/22 16:41 Room Air 06/13/22 16:36 06/13/22 16:36 06/13/22 18:48 06/13/22 18:22 06/13/22 18:16 06/13/22 16:00 Room Air 06/13/22 15:50 Room Air 06/13/22 15:40 Oxymask 4 06/13/22 16:10 Room Air 06/13/22 15:30 Oxymask 6 06/13/22 15:21 Oxymask 4 06/13/22 09:19 Room Air 06/13/22 08:01 Room Air Coding Level of Care Code Critical Care 1st 30-74 mins Diagnoses Acute occlusion of artery of lower extremity I70.209 Arterial thrombosis I74.9 Hematemesis K92.0 Postoperative hypotension I95.81 Gastroparesis K31.84 Time Spent (min) 43
--- NOTE | 2022-06-13 20:09 | Anesthesiology Progress Note ---
Date of Service June 13, 2022 Anesthesia Post Procedure Vital Signs Vital Signs: Temp Pulse Pulse Pulse Resp BP BP 06/13/22 19:53 36.5 C 90 14 150/51 H 06/13/22 19:41 36.3 C L 96 H 19 141/53 H 06/13/22 18:25 131/65 06/13/22 18:25 79 0 L 06/13/22 18:18 80/44 L 06/13/22 18:18 114 H 18 06/13/22 18:17 83/47 L 06/13/22 18:17 130 H 14 06/13/22 18:09 105/57 L 06/13/22 18:09 97 H 0 L 06/13/22 18:00 92 H 6 L 06/13/22 18:00 113/80 06/13/22 17:00 85 1 L 06/13/22 17:00 114/64 06/13/22 16:47 80 06/13/22 16:47 121/55 L 06/13/22 16:41 88/46 L 06/13/22 16:41 81 06/13/22 16:36 85 06/13/22 16:36 83/42 L 06/13/22 18:48 36.6 C 92 H 18 175/54 H 06/13/22 18:22 36.8 C 82 16 125/48 L 06/13/22 18:16 36.7 C 120 H 20 73/40 L 06/13/22 16:00 85 17 106/46 L 06/13/22 15:50 87 13 98/53 L 06/13/22 15:40 89 12 118/59 L 06/13/22 16:10 36.7 C 70 19 107/52 L 06/13/22 15:30 89 13 109/53 L 06/13/22 15:21 36.0 C L 102 H 10 L 72/43 L 06/13/22 09:19 36.6 C 73 18 139/57 L 06/13/22 08:01 36.5 C 71 16 113/68 06/12/22 21:55 06/12/22 20:26 36.8 C 72 18 107/64 Pulse Ox O2 Del Method O2 Flow Rate 06/13/22 19:53 100 Oxymask 6 06/13/22 19:41 100 Oxymask 6 06/13/22 18:25 06/13/22 18:25 99 06/13/22 18:18 06/13/22 18:18 100 06/13/22 18:17 06/13/22 18:17 100 06/13/22 18:09 06/13/22 18:09 100 06/13/22 18:00 100 06/13/22 18:00 06/13/22 17:00 99 06/13/22 17:00 06/13/22 16:47 98 06/13/22 16:47 06/13/22 16:41 06/13/22 16:41 97 Room Air 06/13/22 16:36 100 06/13/22 16:36 06/13/22 18:48 100 06/13/22 18:22 99 06/13/22 18:16 100 06/13/22 16:00 100 Room Air 06/13/22 15:50 100 Room Air 06/13/22 15:40 100 Oxymask 4 06/13/22 16:10 100 Room Air 06/13/22 15:30 100 Oxymask 6 06/13/22 15:21 100 Oxymask 4 06/13/22 09:19 98 Room Air 06/13/22 08:01 97 Room Air 06/12/22 21:55 Room Air 06/12/22 20:26 97 Room Air Pain Intensity Right Foot: Pain Intensity: 0 Right Leg: Pain Intensity: 5 Transfer of Care Handoff Completed per policy Notes Mental Status: alert / awake / arousable Patient Amnestic to Procedure: Yes Nausea / Vomiting: adequately controlled Pain: adequately controlled Airway Patency, RR, SpO2: stable & adequate BP & HR: stable & adequate Hydration State: stable & adequate Anesthetic Complications: no major complications apparent
[2022-06-14] MEDS: oxyCODONE HCL IR 5 MG TAB (IMMEDIATE RELEASE) PO PRN ×4 (01:12→19:34)
[2022-06-14] MEDS: ceFAZolin 2000MG 2,000 MG/15 ML SYR IV SCH (01:13)
[2022-06-14] MEDS: PANTOprazole 40 MG in DEXTROSE 5% 100 ML IV SCH ×2 (04:28→09:41)
[2022-06-14] MEDS: LACTATED RINGER'S 1,000 ML IV SCH ×2 (05:28→13:28)
[2022-06-14 06:12] LABS: BUN Creatinine Ratio 33.3 (10-20); Calcium 7.1 mg/dl (8.5-10.1); Creatinine Clr Calc Pharmacy 100.6 ml/min; Est GFR (African American) 113.5 ml/min; Magnesium 1.3 mg/dl (1.7-2.4); Phosphorus 2.6 mg/dl (2.5-4.9); Potassium 3.7 mmol/L (3.5-5.1)
[2022-06-14 06:24] LABS: Partial Thromboplastin Ratio > 5.1
[2022-06-14 06:54] LABS: Partial Thromboplastin Time > 139.0 Seconds (21.0-31.0)
[2022-06-14 07:09] LABS: Hematocrit (blood only) 33.5 % (34.1-44.9); Hemoglobin 11.9 g/dl (12.0-16.0); Mean Corpuscular Hemoglobin 31.6 pg (25.0-34.0); Mean Corpuscular Hgb Conc 35.5 g/dL (32.0-36.0); Mean Corpuscular Volume 89.1 fL (80.0-100.0); Mean Platelet Volume 10.2 fL (9.4-12.3); Platelet Count 162 K/uL (130-400); RDW Coefficient of Variation 18.5 % (11.5-14.5); RDW Standard Deviation 58.8 fL (36.4-46.3); Red Blood Count 3.76 M/uL (3.93-5.22); White Blood Count 12.28 K/ul (4.8-10.8)
[2022-06-14] MEDS: POTASSIUM CHLORIDE / WTR 10 MEQ/100 ML PLCT IV SCH ×2 (07:54→09:01)
[2022-06-14] MEDS: MAGNESIUM SULFATE / D5W 1 GM/100 ML BAG IV SCH ×4 (07:54→13:51)
[2022-06-14] MEDS: INSULIN, Rapid-Acting PUMP SCH ×4 (08:00→21:17)
[2022-06-14] MEDS: lisinopril 5 MG TAB PO SCH (08:10)
[2022-06-14] MEDS: CLOPIDOGREL BISULFATE 75 MG TAB PO SCH (08:10)
[2022-06-14] MEDS: NICOTINE 7 MG/24 HR TDSY TD SCH (08:10)
[2022-06-14] MEDS: ATORVASTATIN 40 MG TAB PO SCH (08:11)
[2022-06-14] MEDS: ASPIRIN 81 MG ECTAB PO SCH (08:11)
[2022-06-14] MEDS: FOLIC ACID 1 MG TAB PO SCH (08:11)
[2022-06-14] MEDS: MIRABEGRON ER 25 MG TAB PO SCH (08:11)
[2022-06-14] MEDS: ASCORBIC ACID 500 MG TAB PO SCH (08:12)
[2022-06-14] MEDS: CYANOCOBALAMIN 1000 MCG/ML VIAL IM SCH (08:12)
[2022-06-14 08:29] LABS: Basophils # (auto) 0.03 K/uL (0-0.2); Basophils % (auto) 0.2 %; Immature Granulocytes # (auto) 0.04 K/uL (0.00-0.02); Immature Granulocytes % (auto) 0.3 %; Lymphocytes # (auto) 2.53 K/uL (1.2-3.4); Lymphocytes % (auto) 20.6 %; Monocytes # (auto) 1.14 K/uL (0.24-0.82); Monocytes % (auto) 9.3 %; Neutrophils # (auto) 8.54 K/uL (1.4-6.5); Neutrophils % (auto) 69.6 %
[2022-06-14 10:15] LABS: Partial Thromboplastin Ratio 1.3; Partial Thromboplastin Time 35.7 Seconds (21.0-31.0)
[2022-06-14] MEDS ORDERED: CALCIUM GLUCONATE 10% 2,000 MG in DEXTROSE 5% 50 ML IV ONE (10:15)
--- NOTE | 2022-06-14 10:28 | Critical Care Progress Note ---
Date of Service June 14, 2022 Assessment & Plan (1) Acute occlusion of artery of lower extremity: Plan: Continue heparin infusion, Plavix and aspirin per vascular surgery recommendations. Blood pressure parameters per vascular surgery. (2) Arterial thrombosis: Plan: Status post femoral popliteal bypass on the right which appears to have been successful. (3) Hematemesis: Plan: EGD with signs of mild esophagitis. Patient has a history of gastroparesis. Will need outpatient gastric emptying study. Hemoglobin stable. Patient is status post 3 units of packed RBCs this admission. No further evidence of vomiting or hematemesis. (4) Postoperative hypotension: Plan: Resolved (5) Gastroparesis: Plan: Maintain euglycemia. Patient has an insulin pump. Reglan as needed. Plan Stable for downgrade out of the ICU. Discussed with multidisciplinary team and hospital service. Thank you for the consultation. Please call with questions. Admission and Anticipated Discharge Date Admission Date: June 10, 2022 Subjective Patient looks great today. Denies any nausea or vomiting. No chest pain or abdominal complaints. Has continued right lower extremity pain likely from reperfusion. Pulses are adequate. Art line in place. RN held lisinopril due to concerns of hypotension from the art line, but noninvasive blood pressures have looked great. Review of Systems Review of Systems: All systems reviewed & are unremarkable except as noted in HPI & below Physical Exam Physical Exam: Constitutional: Patient stable and looks well-nourished. Eyes: Pupils are equal round and reactive to light. Conjunctivae are normal. Anicteric sclera. Ears nose, mouth and throat: Mallampati class 1. Normal posterior oropharynx. Uvula is midline. Neck: Trachea is midline. Visual inspection is normal. Respiratory: Clear to auscultation bilaterally. No use of accessory muscles. No significant clubbing noted. Cardiovascular: Distal pulses intact in the right lower extremity. Pulses in the left lower extremity diminished. Gastrointestinal: Normal bowel sounds, soft, nontender and nondistended. No hepatosplenomegaly noted. Musculoskeletal: No cyanosis. Patient is able to move all extremities. Strength is 5 out of 5 in the upper and lower extremities. Skin: No rashes, warm dry and intact. Neurologic: No obvious focal neurological deficits seen. Psychiatric: Alert and oriented x3 with a euthymic affect. Results & Data Results & Data ([facility]) Vital Signs (Past 12 Hours) Vital Signs Temp Pulse Resp BP Pulse Ox O2 Del Method 06/14/22 05:00 87 14 98 06/14/22 05:00 108/52 L 06/14/22 04:00 87 12 99 Room Air 06/14/22 04:00 132/42 L 06/14/22 03:00 91 H 12 98 06/14/22 03:00 136/58 L 06/14/22 02:00 85 14 98 06/14/22 02:00 132/54 L 06/14/22 01:15 121/58 L 06/14/22 01:15 85 20 99 06/14/22 01:10 86 17 100 06/14/22 01:10 126/53 L 06/14/22 01:05 124/60 06/14/22 01:05 87 14 100 06/14/22 01:00 85 14 98 06/14/22 01:00 134/55 L 06/14/22 00:55 86 14 98 06/14/22 00:55 130/56 L 06/14/22 00:50 133/57 L 06/14/22 00:50 86 14 98 06/14/22 00:45 130/56 L 06/14/22 00:45 85 14 97 06/14/22 00:40 84 14 98 06/14/22 00:40 133/56 L 06/14/22 00:35 85 14 95 06/14/22 00:35 137/53 L 06/14/22 00:30 83 14 98 06/14/22 00:30 129/56 L 06/14/22 00:25 137/56 L 06/14/22 00:25 84 14 98 06/14/22 00:20 136/53 L 06/14/22 00:20 84 14 98 06/14/22 00:15 126/55 L 06/14/22 00:15 85 12 98 06/14/22 00:10 130/55 L 06/14/22 00:10 83 12 98 06/14/22 00:05 130/56 L 06/14/22 00:05 82 14 98 06/14/22 00:00 81 14 98 Room Air 06/14/22 00:00 129/57 L 06/13/22 23:55 129/55 L 06/13/22 23:55 83 14 98 06/13/22 23:50 131/58 L 06/13/22 23:50 82 14 98 06/13/22 23:45 129/54 L 06/13/22 23:45 81 14 97 06/13/22 23:40 121/60 06/13/22 23:40 80 14 99 06/13/22 23:35 130/57 L 06/13/22 23:35 82 14 100 06/14/22 04:10 36.8 C 06/14/22 00:00 36.8 C 06/14/22 00:48 82 06/13/22 22:55 14 130/58 L 06/13/22 22:55 78 14 100 06/13/22 22:50 79 14 100 06/13/22 22:50 129/59 L 06/13/22 22:45 79 14 100 06/13/22 22:45 128/63 06/13/22 22:40 78 16 100 06/13/22 22:40 137/64 06/13/22 22:35 110/75 06/13/22 22:35 80 12 100 06/13/22 22:30 78 14 100 06/13/22 22:30 119/64 06/13/22 23:29 Room Air Coding Level of Care Code 91963 Subseq Hosp Care Lvl 2 Diagnoses Acute occlusion of artery of lower extremity I70.209 Arterial thrombosis I74.9 Hematemesis K92.0 Postoperative hypotension I95.81 Gastroparesis K31.84
[2022-06-14] MEDS: MoRPHine SULFATE 2 MG/ML CARP IV PRN ×3 (12:11→22:47)
--- NOTE | 2022-06-14 13:14 | Surgery Progress Note ---
Date of Service June 14, 2022 Assessment & Plan (1) Acute occlusion of artery of lower extremity: Plan: Pt with acute occlusion of RLE SFA/pop arteries, now POD #1 after fem-ak pop prosthetic BPG and angio with MEDIA SERVICES SPECIALIST/stent pop art. Overall doing well. Hgb 11.9 today, did have 2 U PRBC since procedure. Increase activity, OOB to chair. Admission and Anticipated Discharge Date Admission Date: June 10, 2022 Subjective 62 yo f POD #1 after RLE fem-ak pop BPG and angio with MEDIA SERVICES SPECIALIST/viabahn pop art, seen in f/u today. Pt states pain in RLE incisions and some in foot as well, but has noted more sensation in her foot since the procedure. Had episode of emesis yesterday, but none today. Admits fatigue. Denies any other new complaints. Review of Systems Review of Systems: All systems reviewed & are unremarkable except as noted in HPI & below Physical Exam Constitutional: WD/WN, vitals as above cooperative; not in distress Respiratory: normal respiratory effort, lungs clear to auscultation Auscultation: + diminished lung sounds Cardiovascular: Rate/Rhythm: regular rate and regular rhythm Vessels: femoral pulses present, posterior tibial pulses present (Good doppler signals), dorsalis pedis pulses present (good doppler signals) and radial pulses present Extremities: normal capillary refill Gastrointestinal (Abdomen): Inspection/Auscultation: abdomen normal to inspection and normal bowel sounds Percussion/Palpation: abdomen soft; abdomen nontender Skin: no rashes, warm and dry Neurologic: moves all extremities and awake; no focal motor deficits and not confused Psychiatric: A+Ox3, euthymic affect Results & Data ([facility]) Vital Signs (Past 12 Hours) Vital Signs Temp Pulse Resp BP Pulse Ox O2 Del Method 06/14/22 12:00 90 14 06/14/22 12:00 131/53 L 06/14/22 11:00 86 16 06/14/22 11:00 122/52 L 06/14/22 10:00 84 16 06/14/22 10:00 121/53 L 06/14/22 09:35 119/57 L 06/14/22 09:35 92 H 16 06/14/22 09:00 89 15 06/14/22 09:00 124/52 L 06/14/22 08:00 93 H 16 06/14/22 08:00 131/53 L 06/14/22 07:00 88 18 97 06/14/22 07:00 135/50 L 06/14/22 06:00 91 H 14 97 06/14/22 06:00 125/67 06/14/22 10:56 Room Air 06/14/22 05:00 87 14 98 06/14/22 05:00 108/52 L 06/14/22 04:00 87 12 99 Room Air 06/14/22 04:00 132/42 L 06/14/22 03:00 91 H 12 98 06/14/22 03:00 136/58 L 06/14/22 02:00 85 14 98 06/14/22 02:00 132/54 L 06/14/22 01:15 121/58 L 06/14/22 01:15 85 20 99 06/14/22 04:10 36.8 C
--- NOTE | 2022-06-14 17:50 | Hospitalist Progress Note ---
Date of Service June 14, 2022 Assessment & Plan (1) Hematemesis: Plan: occurred evening of 06/13 following her RLE fem-pop bypass s/p urgent EGD by Dr Rangel - esophagitis found but no active bleeding during the EGD; retained food c/w gastroparesis also seen cont PPI twice daily heparin drip for RLE bypass cautiously resumed and thus far tolerating (2) Esophagitis: Plan: as seen on EGD 06/13 cont PPI twice daily (3) Gastroparesis: Plan: retained food products on EGD 06/13 highly suggestive of gastroparesis in light of long-standing T1DM will need formal gastric emptying study as outpatient if any issues with post-prandial nausea --> trial of reglan (4) Acute blood loss anemia: Plan: in the setting of RLE fem-pop bypass acute blood loss 2nd to #1 s/p 2 units PRBCs 12/6 H/H stable today (5) Postoperative hypotension: Plan: 2nd to #1 resolved briefly needed phenylephrine drip post-op s/p 2 units PRBCs (6) Acute occlusion of artery of lower extremity: Plan: s/p stenting of the superficial femoral artery of the RLE on May [address] Salmeron. Presented this admission with occlusion of RLE SFA stent. POD #1 - s/p Right Femoral Popliteal Prosthetic Bypass along with RIGGING WORKER and Stenting of right popliteal artery by Dr Salmeron. Cont heparin drip. Cont asa and plavix. Cont statin. (7) Arterial thrombosis: Plan: RLE SFA occlusion s/p fem-pop bypass & RIGGING WORKER with stenting of right popliteal artery. POD #1. (8) Diabetic peripheral neuropathy associated with type 1 diabetes mellitus: Plan: Insulin pump resumed. Hemoglobin A1c 7.7%. Having hyperglycemia in setting of aaron-operative physical stress. Would increase basal rate to 0.8 units/hr (patient unable to physically manipulate her pump, however) and make adjustments to her correction. Will ask pharmacy for assistance tomorrow if hyperglycemia continues. 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 Despite such - B12 level here still low at 279. s/p B12 1000 mcg IM daily x 3 doses Now resumed po B12. (11) Hyperlipidemia: Plan: Cont lipitor (12) PAD (peripheral artery disease): Plan: History of left femoropopliteal bypass and now right SFA stent with occlusion s/p right fem-pop bypass and RIGGING WORKER w/ stent to popliteal artery by Dr Salmeron see above (13) Urinary urgency: Plan: Continue Myrbetriq Follows with urology (14) Macrocytosis without anemia: Plan: replacing B12 replacing folate now with acute blood loss anemia as above H/H stable today (15) HTN (hypertension): Plan: likely can resume lisinopril in am Plan DVT prophylaxis-Heparin drip appreciate vascular surgery & ICU attending consults needs PT/OT Admission and Anticipated Discharge Date Admission Date: June 10, 2022 Subjective patient resting comfortably in bed main complaint is that of right heel pain "pins and needles, throbbing" present since April or early May denies pain in any other location of right leg denies pain left leg denies numbness left leg or foot we discussed her EGD yesterday and the findings of retained food and what that means (gastroparesis) we discussed her DM -- we looked at her insulin pump -- basal rate is 0.7 units/hr [id number] we discussed a modest adjustment in basal rate but she does not know how to manipulate the device / change the basal rate tele overnight wnl Review of Systems Review of Systems: gen - fatigue; appetite poor cv - no cp, no orthopnea pulm - no dyspnea GI - no further hematemesis; denies chronic post-prandial nausea or vomiting Physical Exam Physical Exam: gen - looks better than yesterday; NAD mouth - MMM neck - no JVD heart - 2/6 NORBERT LSB, RRR, s1 s2 lungs - CTA b/l abd - soft NT ND BS+ ext - right foot - pulses 1-2+; left foot 1+, mild edema b/l but worse right leg skin - dressings intact right leg Results & Data Results & Data ([facility]) Vital Signs (Past 12 Hours) Vital Signs Temp Pulse Pulse Resp BP BP Pulse Ox 06/14/22 16:06 36.9 C 89 12 127/51 L 99 06/14/22 15:29 88 06/14/22 09:30 91 H 06/14/22 12:00 36.9 C 06/14/22 15:00 84 98 06/14/22 14:00 84 98 06/14/22 14:00 129/53 L 06/14/22 13:49 85 17 99 06/14/22 13:49 96/55 L 06/14/22 13:45 86 19 99 06/14/22 13:45 102/52 L 06/14/22 13:40 92 H 22 99 06/14/22 13:40 103/69 06/14/22 13:32 121/54 L 06/14/22 13:32 99 H 18 100 06/14/22 13:00 90 10 L 06/14/22 13:00 127/55 L 06/14/22 08:00 36.8 C 06/14/22 12:00 90 14 06/14/22 12:00 131/53 L 06/14/22 11:00 86 16 06/14/22 11:00 122/52 L 06/14/22 10:00 84 16 06/14/22 10:00 121/53 L 06/14/22 09:35 119/57 L 06/14/22 09:35 92 H 16 06/14/22 09:00 89 15 06/14/22 09:00 124/52 L 06/14/22 08:00 93 H 16 06/14/22 08:00 131/53 L 06/14/22 07:00 88 18 97 06/14/22 07:00 135/50 L 06/14/22 06:00 91 H 14 97 06/14/22 06:00 125/67 06/14/22 10:56 O2 Del Method 06/14/22 16:06 Room Air 06/14/22 15:29 06/14/22 09:30 06/14/22 12:00 06/14/22 15:00 06/14/22 14:00 06/14/22 14:00 06/14/22 13:49 06/14/22 13:49 06/14/22 13:45 06/14/22 13:45 06/14/22 13:40 06/14/22 13:40 06/14/22 13:32 06/14/22 13:32 06/14/22 13:00 06/14/22 13:00 06/14/22 08:00 06/14/22 12:00 06/14/22 12:00 06/14/22 11:00 06/14/22 11:00 06/14/22 10:00 06/14/22 10:00 06/14/22 09:35 06/14/22 09:35 06/14/22 09:00 06/14/22 09:00 06/14/22 08:00 06/14/22 08:00 06/14/22 07:00 06/14/22 07:00 06/14/22 06:00 06/14/22 06:00 06/14/22 10:56 Room Air Laboratory Results Laboratory Results - last 24 hr 06/13/22 06/14/22 06/14/22 05:33 04:43 04:43 WBC 12.28 H RBC 3.76 L Hgb 11.9 L Hct 33.5 L MCV 89.1 D MCH 31.6 MCHC 35.5 RDW Std Deviation 58.8 H RDW Coeff of Nicolas 18.5 H Plt Count 162 MPV 10.2 Immature Gran % (Auto) 0.3 Neut % (Auto) 69.6 Lymph % (Auto) 20.6 [place] % (Auto) 9.3 Eos % (Auto) 0.0 Baso % (Auto) 0.2 Neut # (Auto) 8.54 H Lymph # (Auto) 2.53 [place] # (Auto) 1.14 H Eos # (Auto) 0.00 Baso # (Auto) 0.03 Immature Gran # (Auto) 0.04 H APTT PTT Ratio Sodium 137 Potassium 3.7 Chloride 111 H Carbon Dioxide 20 L Anion Gap 6 BUN 19 Creatinine 0.57 L Est Cr Clr Drug Dosing 100.6 Est GFR ( Amer) 113.5 Est GFR (Non-Af Amer) 98.0 BUN/Creatinine Ratio 33.3 H Glucose 204 H POC Glucose Calcium 7.1 L Phosphorus 2.6 Magnesium 1.3 L Blood Type O Positive Antibody Screen NEGATIVE Crossmatch See Detail 06/14/22 06/14/22 06/14/22 04:43 09:20 11:26 WBC RBC Hgb Hct MCV MCH MCHC RDW Std Deviation RDW Coeff of Nicolas Plt Count MPV Immature Gran % (Auto) Neut % (Auto) Lymph % (Auto) [place] % (Auto) Eos % (Auto) Baso % (Auto) Neut # (Auto) Lymph # (Auto) [place] # (Auto) Eos # (Auto) Baso # (Auto) Immature Gran # (Auto) APTT > 139.0 H* 35.7 H PTT Ratio > 5.1 1.3 Sodium Potassium Chloride Carbon Dioxide Anion Gap BUN Creatinine Est Cr Clr Drug Dosing Est GFR ( Amer) Est GFR (Non-Af Amer) BUN/Creatinine Ratio Glucose POC Glucose 195 H Calcium Phosphorus Magnesium Blood Type Antibody Screen Crossmatch 06/14/22 06/14/22 06/14/22 16:23 17:02 21:02 WBC RBC Hgb Hct MCV MCH MCHC RDW Std Deviation RDW Coeff of Nicolas Plt Count MPV Immature Gran % (Auto) Neut % (Auto) Lymph % (Auto) [place] % (Auto) Eos % (Auto) Baso % (Auto) Neut # (Auto) Lymph # (Auto) [place] # (Auto) Eos # (Auto) Baso # (Auto) Immature Gran # (Auto) APTT 52.4 H* PTT Ratio 1.9 Sodium Potassium Chloride Carbon Dioxide Anion Gap BUN Creatinine Est Cr Clr Drug Dosing Est GFR ( Amer) Est GFR (Non-Af Amer) BUN/Creatinine Ratio Glucose POC Glucose 234 H 157 H Calcium Phosphorus Magnesium Blood Type Antibody Screen Crossmatch PG Care Time/CCT Total # of Minutes Spent Total Time Spent with Patient: Total time spent is greater than 50% in coordination of care (as documented) at patient's floor/unit and/or counseling patient: Coding Level of Care Code 84617 Subseq Hosp Care Lvl 2 Diagnoses Hematemesis K92.0 Esophagitis K20.90 Gastroparesis K31.84 Acute blood loss anemia D62 Postoperative hypotension I95.81 Acute occlusion of artery of lower extremity I70.209 Arterial thrombosis I74.9 Diabetic peripheral neuropathy associated with type 1 diabetes mellitus E10.42 Tobacco use disorder F17.200 Vitamin B12 deficiency E53.8 Hyperlipidemia E78.5 PAD (peripheral artery disease) I73.9 Urinary urgency R39.15 Macrocytosis without anemia D75.89 HTN (hypertension) I10
[2022-06-14 17:52] LABS: Partial Thromboplastin Ratio 1.9
[2022-06-14 18:01] LABS: Partial Thromboplastin Time 52.4 Seconds (21.0-31.0)
[2022-06-14] MEDS: HEPARIN SODIUM/DEXTROSE 25,000 UNITS/500 ML BAG IV SCH (19:29)
[2022-06-14] MEDS: MoRPHine SULFATE 4 MG/ML 1 ML CARP\\VIAL IV PRN (20:41)
[2022-06-14] MEDS: GABAPENTIN 100 MG CAP PO SCH (20:44)
[2022-06-14] MEDS: PANTOprazole 40 MG TAB PO SCH (20:45)
--- NOTE | 2022-06-14 20:59 | Communication Note ---
Date of Service: June 14, 2022 Notified by patient's RN that her pain has been progressing through the early evening and her leg swelling feels more prominent compared to previous exams. Patient seen at bedside. She is in distress secondary to pain. She says that any movement of her RLE hurts. It is worst at the knee, but extends in both directions from there. She declines numbness/tingling at this time. Vitals are stable. Generally she is in distress secondary to pain. Exam of the RLE - dressing is c/d/i. Visual exam does note more fullness in this leg compared to her LLE. Doppler revealed a strong DP+ with good flow. Her calf is tighter, but still compressible, to the touch. Capillary refill < 1 second in the toes. Leg pain - s/p surgery yesterday on the RLE. Postsurgical edema and reperfusion- related pain are both likely contributing. She has good perfusion in her leg. The tightness compared to the LLE is noted. Dr. Salmeron was called by patient's RN who asked to elevate the leg overnight. Will continue to monitor for signs/symptoms of developing compartment syndrome. Pain meds on file. Escalate if needed. Plan d/w RN.
[2022-06-15] MEDS: LACTATED RINGER'S 1,000 ML IV SCH ×2 (00:27→13:04)
[2022-06-15] MEDS: HEPARIN SODIUM/DEXTROSE 25,000 UNITS/500 ML BAG IV SCH (02:18)
[2022-06-15] MEDS: MoRPHine SULFATE 4 MG/ML 1 ML CARP\\VIAL IV PRN ×4 (04:12→22:08)
[2022-06-15] MEDS: INSULIN, Rapid-Acting PUMP SCH ×4 (08:00→21:04)
[2022-06-15 08:06] LABS: Hematocrit (blood only) 26.5 % (34.1-44.9); Hemoglobin 9.2 g/dl (12.0-16.0); Mean Corpuscular Hemoglobin 31.7 pg (25.0-34.0); Mean Corpuscular Hgb Conc 34.7 g/dL (32.0-36.0); Mean Corpuscular Volume 91.4 fL (80.0-100.0); Mean Platelet Volume 10.2 fL (9.4-12.3); Platelet Count 150 K/uL (130-400); RDW Coefficient of Variation 18.5 % (11.5-14.5); RDW Standard Deviation 61.8 fL (36.4-46.3); White Blood Count 13.54 K/ul (4.8-10.8)
[2022-06-15 08:31] LABS: Partial Thromboplastin Ratio 2.3
[2022-06-15 08:35] LABS: Partial Thromboplastin Time 63.6 Seconds (21.0-31.0)
[2022-06-15] MEDS: oxyCODONE HCL IR 5 MG TAB (IMMEDIATE RELEASE) PO PRN (08:46)
[2022-06-15] MEDS: PANTOprazole 40 MG TAB PO SCH ×2 (08:47→21:04)
[2022-06-15] MEDS: MIRABEGRON ER 25 MG TAB PO SCH (08:48)
[2022-06-15] MEDS: FOLIC ACID 1 MG TAB PO SCH (08:48)
[2022-06-15] MEDS: GABAPENTIN 100 MG CAP PO SCH ×3 (08:48→21:04)
[2022-06-15] MEDS: ATORVASTATIN 40 MG TAB PO SCH (08:48)
[2022-06-15] MEDS: CLOPIDOGREL BISULFATE 75 MG TAB PO SCH (08:48)
[2022-06-15] MEDS: ASPIRIN 81 MG ECTAB PO SCH (08:48)
[2022-06-15] MEDS: NICOTINE 7 MG/24 HR TDSY TD SCH (08:49)
[2022-06-15 08:52] LABS: BUN Creatinine Ratio 18.8 (10-20); Calcium 7.6 mg/dl (8.5-10.1); Creatinine Clr Calc Pharmacy 119.4 ml/min; Est GFR (African American) 120.1 ml/min; Est GFR (Non-African American) 103.7 ml/min; Magnesium 1.7 mg/dl (1.7-2.4); Potassium 3.8 mmol/L (3.5-5.1)
[2022-06-15] MEDS: ASCORBIC ACID 500 MG TAB PO SCH (09:35)
--- NOTE | 2022-06-15 14:58 | Surgery Progress Note ---
Date of Service June 15, 2022 Assessment & Plan (1) Acute occlusion of artery of lower extremity: Plan: Pt with acute occlusion of RLE SFA/pop arteries, now POD #2 after fem-ak pop prosthetic BPG and angio with SWATCH MAKER/stent pop art. Overall doing well. Recommend continue pain control and increase activity. Admission and Anticipated Discharge Date Admission Date: June 10, 2022 Subjective 62 yo f POD #2 after RLE fem-AK pop prosthetic BPG and angio with SWATCH MAKER/stent pop artery, seen in f/u today. Pt states feeling tired and having RLE pain and swelling. Pain is located in her incisions and behind her R knee and pins and needles in her heel. Otherwise feeling well. Did get oob to chair today. Review of Systems Review of Systems: All systems reviewed & are unremarkable except as noted in HPI & below Physical Exam Constitutional: WD/WN, vitals as above cooperative; not in distress ENMT: Ears: no hearing impairment Respiratory: normal respiratory effort, lungs clear to auscultation Auscultation: + diminished lung sounds Cardiovascular: Rate/Rhythm: regular rate and regular rhythm Vessels: femoral pulses present, posterior tibial pulses present (Good doppler signals), dorsalis pedis pulses present (good doppler signals) and radial pulses present Extremities: normal capillary refill Gastrointestinal (Abdomen): Inspection/Auscultation: abdomen normal to inspection and normal bowel sounds Percussion/Palpation: abdomen soft; abdomen nontender Skin: no rashes, warm and dry Neurologic: moves all extremities and awake; no focal motor deficits and not confused Psychiatric: A+Ox3, euthymic affect Results & Data ([facility]) Vital Signs (Past 12 Hours) Vital Signs Temp Pulse Pulse Resp BP Pulse Ox O2 Del Method 06/15/22 12:44 103 H 06/15/22 11:24 36.8 C 102 H 20 120/66 100 Room Air 06/15/22 07:40 105 H 06/15/22 08:14 37.0 C 102 H 16 125/53 L 100 Room Air
[2022-06-15 19:44] LABS: Hematocrit (blood only) 23.1 % (34.1-44.9); Hemoglobin 8.1 g/dl (12.0-16.0)
[2022-06-15] MEDS ORDERED: SODIUM CHLORIDE 0.9% 250 ML IV PRN (20:40)
--- NOTE | 2022-06-15 20:42 | Hospitalist Progress Note ---
Date of Service June 15, 2022 Assessment & Plan (1) Acute blood loss anemia: Plan: initial acute blood loss anemia was shortly after her fem-pop bypass had hematemesis underwent emergent EGD esophagitis seen; no Eliana-raudel tear or PUD s/p 2 units PRBCs / Hb 11.9 on 06/14 then ~9 this am then ~8 this evening concerning for ongoing bleeding - GI? retroperitoneal bleed? psoas hematoma/bleeding? STAT CT abd/pelvis - r/o retroperitoneal bleeding, etc if the CT is negative would make NPO and ask GI to see first thing in am T/C 2 units PRBCs serial H/H and Tx if Hb <8 fortunately BPs are stable at this time may need to hold heparin drip with any further H/H decrease sent message to Dr Salmeron informing him of acute drop in H/H (2) Hematemesis: Plan: occurred evening of 06/13 following her RLE fem-pop bypass s/p urgent EGD by Dr Rangel - esophagitis found but no active bleeding during the EGD; retained food c/w gastroparesis also seen cont PPI twice daily no hematemesis since then see #1 above (3) Esophagitis: Plan: as seen on EGD 06/13 cont PPI twice daily (4) Gastroparesis: Plan: retained food products on EGD 06/13 highly suggestive of gastroparesis in light of long-standing T1DM will need formal gastric emptying study as outpatient if any issues with post-prandial nausea --> trial of reglan (5) Postoperative hypotension: Plan: 2nd to #1 resolved briefly needed phenylephrine drip post-op s/p 2 units PRBCs no issues since (6) Acute occlusion of artery of lower extremity: Plan: s/p stenting of the superficial femoral artery of the RLE on May [address] Salmeron. Presented this admission with occlusion of RLE SFA stent. POD #2 - s/p Right Femoral Popliteal Prosthetic Bypass along with SUPERVISOR HANGING [employer] TRIMMING and Stenting of right popliteal artery by Dr Salmeron. Cont heparin drip but see #1 above re: concerns for bleeding. Cont asa and plavix. Cont statin. (7) Arterial thrombosis: Plan: RLE SFA occlusion s/p fem-pop bypass & SUPER[employer] with stenting of right popliteal artery. POD #2. (8) Diabetic peripheral neuropathy associated with type 1 diabetes mellitus: Plan: Insulin pump; basal rate increased today. Hemoglobin A1c 7.7%. (9) Tobacco use disorder: Plan: Current smoker pre-hospital Continue nicotine patch Sliver Chopper to quit (10) Vitamin B12 deficiency: Plan: Is on oral B12 supplementation at home. Despite such - B12 level here still low at 279. s/p B12 1000 mcg IM daily x 3 doses Now resumed po B12. (11) Hyperlipidemia: Plan: Cont lipitor (12) PAD (peripheral artery disease): Plan: History of left femoropopliteal bypass and now right SFA stent with occlusion s/p right fem-pop bypass and SU[employer] w/ stent to popliteal artery by Dr Salmeron - POD #2 see above (13) Urinary urgency: Plan: Continue Myrbetriq Follows with urology (14) Macrocytosis without anemia: Plan: replacing B12 replacing folate now with acute blood loss anemia as above (15) HTN (hypertension): Plan: cont to hold lisinopril Plan DVT prophylaxis-Heparin drip appreciate vascular surgery PT/OT updated pt's by phone this evening Admission and Anticipated Discharge Date Admission Date: June 10, 2022 Subjective patient was resting comfortably during the visit she apparently had had a normal, brown stool earlier in the day; no BRBPR or melena she has had ongoing swelling/pain in the right proximal thigh and behind the right knee denies abd pain denies vomiting has had fair appetite throughout the day today tele stable overnight denies dyspnea insulin pump basal rate increased to 0.9 units/hour today Review of Systems Review of Systems: gen - no fever cv - no cp, no orthopnea pulm - no dyspnea GI - no vomiting, no diarrhea Physical Exam Physical Exam: gen - NAD, pallor mouth - MMM neck - no JVD heart - 2/6 NORBERT LSB, RR, borderline tachy, s1 s2 lungs - CTA b/l abd - soft NT ND BS+ ext - right foot - pulses 1-2+; left foot 1+ skin - dressings intact right leg; bruise present right lateral thigh; right thigh is very swollen vs the left thigh; there is right flank body wall edema; no Dean-benítez's sign; generalized pallor psych - a/o x 3 Results & Data Results & Data ([facility]) Vital Signs (Past 12 Hours) Vital Signs Temp Pulse Pulse Resp BP Pulse Ox O2 Del Method 06/15/22 20:11 Room Air 06/15/22 15:55 37.0 C 93 H 20 118/65 98 Room Air 06/15/22 15:25 100 H 06/15/22 12:44 103 H 06/15/22 11:24 36.8 C 102 H 20 120/66 100 Room Air Laboratory Results Laboratory Results - last 24 hr 06/14/22 06/15/22 06/15/22 21:02 07:15 07:32 WBC RBC Hgb Hct MCV MCH MCHC RDW Std Deviation RDW Coeff of Nicolas Plt Count MPV APTT 63.6 H* PTT Ratio 2.3 Sodium Potassium Chloride Carbon Dioxide Anion Gap BUN Creatinine Est Cr Clr Drug Dosing Est GFR ( Amer) Est GFR (Non-Af Amer) BUN/Creatinine Ratio Glucose POC Glucose 157 H 226 H Calcium Magnesium 06/15/22 06/15/22 06/15/22 07:33 07:33 10:57 WBC 13.54 H RBC 2.90 L Hgb 9.2 L Hct 26.5 L MCV 91.4 MCH 31.7 MCHC 34.7 RDW Std Deviation 61.8 H RDW Coeff of Nicolas 18.5 H Plt Count 150 MPV 10.2 APTT PTT Ratio Sodium 135 L Potassium 3.8 Chloride 106 Carbon Dioxide 24 Anion Gap 5 BUN 9 Creatinine 0.48 L Est Cr Clr Drug Dosing 119.4 Est GFR ( Amer) 120.1 Est GFR (Non-Af Amer) 103.7 BUN/Creatinine Ratio 18.8 Glucose 194 H POC Glucose 263 H Calcium 7.6 L Magnesium 1.7 06/15/22 06/15/22 06/15/22 16:24 19:12 20:32 WBC RBC Hgb 8.1 L Hct 23.1 L MCV MCH MCHC RDW Std Deviation RDW Coeff of Nicolas Plt Count MPV APTT PTT Ratio Sodium Potassium Chloride Carbon Dioxide Anion Gap BUN Creatinine Est Cr Clr Drug Dosing Est GFR ( Amer) Est GFR (Non-Af Amer) BUN/Creatinine Ratio Glucose POC Glucose 208 H 226 H Calcium Magnesium PG Care Time/CCT Total # of Minutes Spent Total Time Spent with Patient: Total time spent is greater than 50% in coordination of care (as documented) at patient's floor/unit and/or counseling patient: Coding Level of Care Code 00459 Subseq Hosp Care Lvl 3 Diagnoses Acute blood loss anemia D62 Hematemesis K92.0 Esophagitis K20.90 Gastroparesis K31.84 Postoperative hypotension I95.81 Acute occlusion of artery of lower extremity I70.209 Arterial thrombosis I74.9 Diabetic peripheral neuropathy associated with type 1 diabetes mellitus E10.42 Tobacco use disorder F17.200 Vitamin B12 deficiency E53.8 Hyperlipidemia E78.5 PAD (peripheral artery disease) I73.9 Urinary urgency R39.15 Macrocytosis without anemia D75.89 HTN (hypertension) I10
[2022-06-15] MEDS: ACETAMINOPHEN 500 MG TAB PO PRN (22:08)
[2022-06-16 00:32] LABS: Hematocrit (blood only) 21.1 % (34.1-44.9); Hemoglobin 7.4 g/dl (12.0-16.0)
[2022-06-16 01:21] LABS: Basophils # (auto) 0.02 K/uL (0-0.2); Basophils % (auto) 0.2 %; Eosinophils # (auto) 0.08 K/uL (0-0.50); Eosinophils % (auto) 0.8 %; Immature Granulocytes # (auto) 0.04 K/uL (0.00-0.02); Immature Granulocytes % (auto) 0.4 %; Lymphocytes % (auto) 13.8 %; Mean Corpuscular Hemoglobin 31.6 pg (25.0-34.0); Mean Platelet Volume 10.2 fL (9.4-12.3); Monocytes # (auto) 1.21 K/uL (0.24-0.82); Monocytes % (auto) 11.9 %; Neutrophils # (auto) 7.41 K/uL (1.4-6.5); Neutrophils % (auto) 72.9 %; Platelet Count 145 K/uL (130-400); RDW Coefficient of Variation 17.4 % (11.5-14.5); RDW Standard Deviation 58.3 fL (36.4-46.3); Red Blood Count 2.34 M/uL (3.93-5.22); White Blood Count 10.16 K/ul (4.8-10.8)
--- NOTE | 2022-06-16 02:01 | Communication Note ---
Date of Service: June 16, [address] Pereira earlier in the evening. Informed by patient's nurse early in the evening that her repeat hemoglobin demonstrated a drop from 9.2 in a.m. to 8.1 around 1999. Repeat hemoglobin in the early childhood specialist demonstrated a further drop to 7.4. At the bedside, patient reports feeling fineactually much better compared to prior. She denies any significant pain in her leg. She actually feels like she is getting more mobility back in it. She denies any belly pain. Denies any nausea or vomiting. Denies any sensation of diarrhea. Denies any lightheadedness or dizziness. Has been able to get some sleep without any issue. Most recent set of vital signs demonstrating blood pressure 94/68. Heart rate 103. Respiratory rate 16. Temperature 36.9. Oxygen saturation 93% on room air. Generalwell-appearing 62-year-old female no acute distress. Abdomensoft, nontender, nondistended to palpation. Respiratoryclear to ausc ultation bilaterally without crackles or wheezes. Extremitiesright lower extremity dressings clean dry and intact. Right lower extremity feels noticeably more soft this evening compared to yesterday. Good distal perfusion. Ankle movement intact. Anemiathankfully, patient is asymptomatic right now and there are no obvious signs of active (clinical) extravasation right now. She is not reporting any GI symptoms that may suggest GI rebleeding, compared to prior. Her CT of the abdomen pelvis (per stat rad) did not show any developing retroperitoneal bleeding or hematomas forming elsewhere. However, given precipitous drop as well as hypotension/tachycardia, we will proceed with the following -- PAUSE heparin gtt -- Transfuse 1U pRBC -- Will consider protamine if there is a change in clinical status On another note, patient presented with platelet level 384 and is currently at 145. This is in the setting of recent surgery as well as hematemesis several days ago and ongoing ABLA - primarily suspect this is largely consumptive. Lower suspicion for HIT right now (4T score is 4), however, will need to continue to monitor levels with daily labs.
[2022-06-16] MEDS ORDERED: SODIUM CHLORIDE 0.9% 250 ML IV PRN (02:11)
[2022-06-16] MEDS: HEPARIN SODIUM/DEXTROSE 25,000 UNITS/500 ML BAG IV SCH ×2 (02:58→02:59)
[2022-06-16 03:29] LABS: RBC Morphology Unremarkable
[2022-06-16 03:33] LABS: Mean Corpuscular Hgb Conc 35.1 g/dL (32.0-36.0); Mean Corpuscular Volume 91.3 fL (80.0-100.0)
[2022-06-16] MEDS: LACTATED RINGER'S 1,000 ML IV SCH (05:14)
[2022-06-16] MEDS ORDERED: PANTOprazole 40 MG in SYRINGE 0 ML IV SCH ×2 (05:30→21:00)
[2022-06-16] MEDS: MoRPHine SULFATE 2 MG/ML CARP IV PRN (06:34)
[2022-06-16] MEDS: ACETAMINOPHEN 500 MG TAB PO PRN (06:36)
[2022-06-16 06:59] LABS: Hematocrit (blood only) 27.3 % (34.1-44.9); Hemoglobin 9.5 g/dl (12.0-16.0); Mean Corpuscular Hemoglobin 31.7 pg (25.0-34.0); Mean Corpuscular Hgb Conc 34.8 g/dL (32.0-36.0); Mean Platelet Volume 10.1 fL (9.4-12.3); Platelet Count 141 K/uL (130-400); RDW Coefficient of Variation 16.4 % (11.5-14.5); White Blood Count 9.29 K/ul (4.8-10.8)
[2022-06-16 07:24] LABS: Partial Thromboplastin Ratio 1.2
[2022-06-16 07:50] LABS: BUN Creatinine Ratio 10.9 (10-20); Calcium 7.7 mg/dl (8.5-10.1); Creatinine Clr Calc Pharmacy 124.6 ml/min; Est GFR (African American) 121.8 ml/min; Est GFR (Non-African American) 105.1 ml/min; Potassium 3.2 mmol/L (3.5-5.1)
--- NOTE | 2022-06-16 08:30 | CT Scan Report ---
CT abd pelvis wo con CLINICAL HISTORY: R fem-pop bypas; blood loss; retroperitnl hemtoma? TECHNIQUE: Helical axial images of the abdomen and pelvis were obtained. Automated dose lowering tech niques and/or adjustment according to patient size were utilized for this exam. This exam was perfor med without intravenous contrast. CT DOSE: 419.60 mGy.cm COMPARISON: Comparison is made to CT abdomen pelvis 08/09/2017 FINDINGS: Lower chest: Groundglass opacity is seen in the right middle lobe. Liver: Unremarkable. No focal lesions are seen. Gallbladder and biliary tree: Layering radiodense material is seen in the dependent portion of the li tanya representing sludge. No intra- or extrahepatic biliary ductal dilation. Pancreas: The pancreas is atrophic. Spleen: Unremarkable. Adrenals: Unremarkable. Kidneys and ureters: Perinephric stranding is noted bilaterally. Bladder: You catheter is seen. Reproductive organs: Unremarkable. Bowel: Unremarkable. Lymph nodes Retroperitoneal: Unremarkable. Pelvic: Unremarkable. Mesenteric: Unremarkable. Peritoneum: Normal. Vessels: Atherosclerotic calcifications are seen. Abdominal wall: Post surgical changes of right femoral popliteal bypass with subcutaneous emphysema. No drainable fluid collections are seen. Soft tissue stranding is seen. Bones: Degenerative changes in the visualized spine. IMPRESSION: Postsurgical changes of right femoral popliteal bypass. No evidence of retroperitoneal hematoma. ACT 112: Negative or not required by law. Electronically signed by: Enrique Foss M.D. 06/16/2022 8:27 AM
--- NOTE | 2022-06-16 09:06 | Communication Note ---
Date of Service: June 16, 2022 Patient is a 62 yo female with acute arterial occlusion of lower extremity POD#3 from vascular intervention. She was seen by GI earlier in this admission due to hematemesis. No further hematemesis. No melena. H/H 9.5/27.3 now, but was 7.4/21.1 earlier today. Concern has arisen given her ongoing anemia despite transfusion of PRBCs. She does not have any overt GI bleeding. She is on a heparin gtt. Aspirin & Plavix on hold. She is currently on Pantoprazole 40 mg BID after an EGD on 06/13/[address] abdomen/pelvis is without acute concerns for bleeding. At this point, I would recommend IV Protonix 40 mg BID, Carafate 1 gm four times daily, & IV Pepcid [address] Manley has advised obtaining a NM GI bleeding scan. If negative and anemia persists, would have to consider prepping for a colonoscopy at some point in the coming days. Continue to monitor H/H and monitor for signs of overt GI bleeding.
[2022-06-16] MEDS: POTASSIUM CHLORIDE / WTR 10 MEQ/100 ML PLCT IV SCH ×2 (09:10→13:18)
[2022-06-16] MEDS: MAGNESIUM SULFATE / D5W 1 GM/100 ML BAG IV SCH ×2 (09:10→13:46)
[2022-06-16] MEDS: MIRABEGRON ER 25 MG TAB PO SCH (09:13)
[2022-06-16] MEDS: ATORVASTATIN 40 MG TAB PO SCH (09:15)
[2022-06-16] MEDS: GABAPENTIN 100 MG CAP PO SCH ×3 (09:15→20:04)
[2022-06-16] MEDS: FOLIC ACID 1 MG TAB PO SCH (09:16)
[2022-06-16] MEDS: INSULIN, Rapid-Acting PUMP SCH ×4 (09:18→21:05)
[2022-06-16] MEDS: NICOTINE 7 MG/24 HR TDSY TD SCH (09:18)
--- NOTE | 2022-06-16 10:42 | Surgery Progress Note ---
Date of Service June 16, 2022 Assessment & Plan (1) Acute occlusion of artery of lower extremity: Plan: Pt with acute occlusion of RLE SFA/pop arteries, now POD #3 after fem-ak pop prosthetic BPG and angio with WELDING MACHINE OPERATOR ARC/stent pop art. Overall doing well. Hgb was decreased to 8 yesterday, pt received another U PRBC, Hgb 9.5 today. Recommend continue pain control and increase activity. Admission and Anticipated Discharge Date Admission Date: June 10, 2022 Subjective 62 yo f POD #3 after RLE fem-pop prosthetic BPG and WELDING MACHINE OPERATOR ARC/stent pop art, seen in f/u today. Pt admits pain in RLE incisions and behind R knee, but states this is improving. Tingling pain in R heel is also improving. No CP, SOB, N/V, abd pain, other complaints. Ambulating with walker. Review of Systems Review of Systems: All systems reviewed & are unremarkable except as noted in HPI & below Physical Exam Constitutional: WD/WN, vitals as above cooperative; not in distress Cardiovascular: Rate/Rhythm: regular rate and regular rhythm Vessels: femoral pulses present, posterior tibial pulses present (Good doppler signals), dorsalis pedis pulses present (good doppler signals) and radial pulses present Extremities: normal capillary refill and + edema (soft edema RLE ) Skin: + incision (RLE incisions intact with ese, mild bloody drainage. ) R groin prevena intact. Psychiatric: A+Ox3, euthymic affect Results & Data ([facility]) Vital Signs (Past 12 Hours) Vital Signs Temp Pulse Pulse Pulse Resp BP BP 06/16/22 07:41 37.1 C 90 20 106/62 06/16/22 07:37 96 H 06/16/22 07:32 37.1 C 90 18 06/16/22 05:15 36.9 C 99 H 16 123/71 06/16/22 04:40 36.8 C 100 H 16 110/65 06/16/22 03:40 36.8 C 95 H 16 119/70 06/16/22 03:10 36.8 C 94 H 16 127/67 06/16/22 02:55 36.7 C 93 H 18 123/70 06/16/22 02:55 36.7 C 93 H 18 123/70 06/16/22 02:39 36.7 C 98 H 18 120/67 06/16/22 02:01 36.9 C 103 H 16 94/68 L 06/15/22 22:36 37.0 C 100 H 16 109/61 BP Pulse Ox O2 Del Method 06/16/22 07:41 98 Room Air 06/16/22 07:37 06/16/22 07:32 122/69 100 Room Air 06/16/22 05:15 98 06/16/22 04:40 98 06/16/22 03:40 98 06/16/22 03:10 98 06/16/22 02:55 96 06/16/22 02:55 96 06/16/22 02:39 96 06/16/22 02:01 98 Room Air 06/15/22 22:36 96 Room Air
--- NOTE | 2022-06-16 12:03 | Nuclear Medicine Report ---
NM GI bleeding CLINICAL HISTORY: suspected acute GI bleeding TECHNIQUE: Following the intravenous injection of 25.4 mCi of Tc-99m tagged autologous RBCs, planar i mages of the abdomen were obtained over the course of one hour. COMPARISON: Comparison is made to CT abdomen pelvis 06/15/2022 FINDINGS: Expected radiopharmaceutical uptake is seen in the liver, spleen and blood pool. No significant pool of radiopharmaceutical activity is identified over the region of the bowel to sug gest GI blood loss. However, if patient re-bleeds within 24 hours, additional follow-up imaging may b e obtained with the current radiopharmaceutical activity. IMPRESSION: No evidence of acute gastrointestinal bleeding. ACT 112: Negative or not required by law. Electronically signed by: Enrique Foss M.D. 06/16/2022 12:02 PM
[2022-06-16 12:28] LABS: Hemoglobin 9.3 g/dl (12.0-16.0)
[2022-06-16] MEDS: SUCRALFATE 1 GM/10 ML UDC PO SCH ×4 (13:08→20:03)
[2022-06-16] MEDS: FAMOTIDINE 20 MG in SYRINGE 3 ML IV SCH ×2 (13:09→19:58)
[2022-06-16] MEDS ORDERED: CLOPIDOGREL BISULFATE 75 MG TAB PO ONE (18:20)
[2022-06-16] MEDS ORDERED: ASPIRIN 81 MG ECTAB PO STA (18:20)
[2022-06-16] MEDS: PANTOprazole 40 MG in SYRINGE 0 ML IV SCH (20:03)
--- NOTE | 2022-06-16 20:12 | Hospitalist Progress Note ---
Date of Service June 16, 2022 Assessment & Plan (1) Acute blood loss anemia: Plan: initial acute blood loss anemia was shortly after her fem-pop bypass several days ago due to hematemesis underwent emergent EGD esophagitis seen; no Eliana-underwood tear or PUD s/p 2 units PRBCs / Hb 11.9 on 06/14 then decreased to low of 7.[address] abd/pelvis - NO retroperitoneal bleeding, psoas hematoma, etc received 1 unit of PRBCs overnight H/H stable today nuc GI bleeding scan negative spoke with GI spoke with vascular plan - stop heparin, resume asa/plavix diet as tolerated cont daily CBC pepcid and carafate added to protonix (2) Hematemesis: Plan: occurred evening of 06/13 following her RLE fem-pop bypass s/p urgent EGD by Dr Rangel - esophagitis found but no active bleeding during the EGD; retained food c/w gastroparesis also seen cont PPI twice daily no hematemesis since then see #1 above (3) Esophagitis: Plan: as seen on EGD 06/13 cont PPI twice daily (carafate/pepcid also added by GI this am) (4) Gastroparesis: Plan: retained food products on EGD 06/13 highly suggestive of gastroparesis in light of long-standing T1DM will need formal gastric emptying study as outpatient if any issues with post-prandial nausea --> trial of reglan (5) Postoperative hypotension: Plan: 2nd to #1 resolved briefly needed phenylephrine drip post-op s/p 2 units PRBCs night of her surgery no issues since (6) Acute occlusion of artery of lower extremity: Plan: s/p stenting of the superficial femoral artery of the RLE on May [address] Salmeron. Presented this admission with occlusion of RLE SFA stent. POD #3 - s/p Right Femoral Popliteal Prosthetic Bypass along with MEETING FACILITATOR and Stenting of right popliteal artery by Dr Salmeron. see #1 above resume asa and plavix. Cont statin. stopping heparin drip (7) Arterial thrombosis: Plan: RLE SFA occlusion s/p fem-pop bypass & MEETING FACILITATOR with stenting of right popliteal artery. POD #3. (8) Diabetic peripheral neuropathy associated with type 1 diabetes mellitus: Plan: Insulin pump; basal rate increased yesterday to 0.9 units/hr improved BSGs Hemoglobin A1c 7.7%. (9) Tobacco use disorder: Plan: Current smoker pre-hospital Continue nicotine patch [employer] to quit (10) Vitamin B12 deficiency: Plan: Is on oral B12 supplementation at home. Despite such - B12 level here still low at 279. s/p B12 1000 mcg IM daily x 3 doses Now resumed po B12. (11) Hyperlipidemia: Plan: Cont lipitor (12) PAD (peripheral artery disease): Plan: History of left femoropopliteal bypass and now right SFA stent with occlusion s/p right fem-pop bypass and MEETING FACILITATOR w/ stent to popliteal artery by Dr Salmeron - POD #3 see above (13) Urinary urgency: Plan: Continue Myrbetriq Follows with urology (14) Macrocytosis without anemia: Plan: replacing B12 replacing folate now with acute blood loss anemia as above daily CBC (15) HTN (hypertension): Plan: cont to hold lisinopril Plan DVT prophylaxis- heparin drip stopped due to concerns for bleeding appreciate vascular surgery PT/OT updated pt's by phone this evening once again Admission and Anticipated Discharge Date Admission Date: June 10, 2022 Subjective patient feels better today right heel numbness/pain improved right leg/thigh pain improved NO abd pain, nausea, emesis, hematemesis NO melena or BRBPR (no stool today) eating well without any GI symptoms tele overnight wnl Review of Systems Review of Systems: gen - no fever, good appetite cv - no chest pain, no orthopnea pulm - no dyspnea or cough GI - no GI symptoms Physical Exam Physical Exam: gen - NAD, looks good today mouth - MMM neck - no JVD heart - 2/6 NORBERT LSB, RR, borderline tachy, s1 s2 lungs - CTA b/l abd - soft NT ND BS+ ext - right foot - pulses 2+; left foot 1+ skin - dressings intact right leg; right thigh swollen vs left thigh; no Dean- benítez's sign; generalized pallor improved today psych - a/o x 3 Results & Data Results & Data ([facility]) Vital Signs (Past 12 Hours) Vital Signs Temp Pulse Pulse Pulse Resp BP BP 06/16/22 19:14 37.2 C 95 H 18 06/16/22 16:38 94 H 06/16/22 16:12 36.8 C 90 18 06/16/22 12:24 36.7 C 96 H 21 130/57 L 06/16/22 12:24 95 H 21 130/57 L BP Pulse Ox O2 Del Method 06/16/22 19:14 108/67 98 Room Air 06/16/22 16:38 06/16/22 16:12 118/66 98 Room Air 06/16/22 12:24 99 Room Air 06/16/22 12:24 99 Room Air Laboratory Results Laboratory Results - last 24 hr 06/15/22 06/15/22 06/16/22 19:12 20:32 00:26 WBC 10.16 RBC 2.34 L Hgb 7.4 L Hct 21.1 L MCV 91.3 MCH 31.6 MCHC 35.1 RDW Std Deviation 58.3 H RDW Coeff of Nicolas 17.4 H Plt Count 145 MPV 10.2 Immature Gran % (Auto) 0.4 Neut % (Auto) 72.9 Lymph % (Auto) 13.8 Perkins % (Auto) 11.9 Eos % (Auto) 0.8 Baso % (Auto) 0.2 Neut # (Auto) 7.41 H Lymph # (Auto) 1.40 Perkins # (Auto) 1.21 H Eos # (Auto) 0.08 Baso # (Auto) 0.02 Immature Gran # (Auto) 0.04 H Absolute Nucleated RBC Nucleated RBC % (auto) Neutrophils % (Manual) Band Neutrophils % Lymphocytes % (Manual) Prolymphocyte % Reactive Lymphs % (Man) Monocytes % (Manual) Eosinophils % (Manual) Basophils % (Manual) Metamyelocytes % (Man) Myelocytes % (Man) Promyelocytes % (Man) Blast Cells % (Manual) Plasma Cell % (Manual) Other Cells % Nucleated RBC % Neutrophils # (Manual) Band Neutrophils # Total Absolute Neuts Lymphocytes # (Manual) Prolymphocyte # Reactive Lymphs # Total Abs Lymphocytes Monocytes # (Manual) Eosinophils # (Manual) Basophils # (Manual) Metamyelocytes # (Man) Myelocytes # (Manual) Promyelocytes # (Man) Blast Cells # (Man) Plasma Cell # (Manual) Other Cells # Nucleated RBCs # (Man) Hypersegmented Neuts Hyposegmented Neuts Hypogranular Neuts Large Granular Lymphs # Lrg Granular Lymphs Hairy Cells Smudge Cells Toxic Granulation Toxic Vacuolation Dohle Bodies Pablo Rods Platelet Estimate Hypogranular Platelets Clumped Platelets Giant Platelets Platelet Satelliting RBC Morphology Unremarkable Polychromasia Hypochromasia Poikilocytosis Basophilic Stippling Anisocytosis Microcytosis Macrocytosis Spherocytes Pappenheimer Bodies Sickle Cells Target Cells Tear Drop Cells Ovalocytes Stomatocytes [place] Bodies Echinocytes Acanthocytes (Spur) Rouleaux RBC Agglutinates Schistocytes Sezary Cell APTT PTT Ratio Sodium Potassium Chloride Carbon Dioxide Anion Gap BUN Creatinine Est Cr Clr Drug Dosing Est GFR ( Amer) Est GFR (Non-Af Amer) BUN/Creatinine Ratio Glucose POC Glucose 226 H Calcium Magnesium Blood Parasites ID Blood Type O Positive Antibody Screen NEGATIVE Crossmatch See Detail 06/16/22 06/16/22 06/16/22 00:26 06:32 06:32 WBC Cancelled RBC Cancelled Hgb Cancelled Hct Cancelled MCV Cancelled MCH Cancelled MCHC Cancelled RDW Std Deviation Cancelled RDW Coeff of Nicolas Cancelled Plt Count Cancelled MPV Cancelled Immature Gran % (Auto) Cancelled Neut % (Auto) Cancelled Lymph % (Auto) Cancelled Perkins % (Auto) Cancelled Eos % (Auto) Cancelled Baso % (Auto) Cancelled Neut # (Auto) Cancelled Lymph # (Auto) Cancelled Perkins # (Auto) Cancelled Eos # (Auto) Cancelled Baso # (Auto) Cancelled Immature Gran # (Auto) Cancelled Absolute Nucleated RBC Cancelled Nucleated RBC % (auto) Cancelled Neutrophils % (Manual) Cancelled Band Neutrophils % Cancelled Lymphocytes % (Manual) Cancelled Prolymphocyte % Cancelled Reactive Lymphs % (Man) Cancelled Monocytes % (Manual) Cancelled Eosinophils % (Manual) Cancelled Basophils % (Manual) Cancelled Metamyelocytes % (Man) Cancelled Myelocytes % (Man) Cancelled Promyelocytes % (Man) Cancelled Blast Cells % (Manual) Cancelled Plasma Cell % (Manual) Cancelled Other Cells % Cancelled Nucleated RBC % Cancelled Neutrophils # (Manual) Cancelled Band Neutrophils # Cancelled Total Absolute Neuts Cancelled Lymphocytes # (Manual) Cancelled Prolymphocyte # Cancelled Reactive Lymphs # Cancelled Total Abs Lymphocytes Cancelled Monocytes # (Manual) Cancelled Eosinophils # (Manual) Cancelled Basophils # (Manual) Cancelled Metamyelocytes # (Man) Cancelled Myelocytes # (Manual) Cancelled Promyelocytes # (Man) Cancelled Blast Cells # (Man) Cancelled Plasma Cell # (Manual) Cancelled Other Cells # Cancelled Nucleated RBCs # (Man) Cancelled Hypersegmented Neuts Cancelled Hyposegmented Neuts Cancelled Hypogranular Neuts Cancelled Large Granular Lymphs Cancelled # Lrg Granular Lymphs Cancelled Hairy Cells Cancelled Smudge Cells Cancelled Toxic Granulation Cancelled Toxic Vacuolation Cancelled Dohle Bodies Cancelled Pablo Rods Cancelled Platelet Estimate Cancelled Hypogranular Platelets Cancelled Clumped Platelets Cancelled Giant Platelets Cancelled Platelet Satelliting Cancelled RBC Morphology Cancelled Polychromasia Cancelled Hypochromasia Cancelled Poikilocytosis Cancelled Basophilic Stippling Cancelled Anisocytosis Cancelled Microcytosis Cancelled Macrocytosis Cancelled Spherocytes Cancelled Pappenheimer Bodies Cancelled Sickle Cells Cancelled Target Cells Cancelled Tear Drop Cells Cancelled Ovalocytes Cancelled Stomatocytes Cancelled [place] Bodies Cancelled Echinocytes Cancelled Acanthocytes (Spur) Cancelled Rouleaux Cancelled RBC Agglutinates Cancelled Schistocytes Cancelled Sezary Cell Cancelled APTT 33.0 H PTT Ratio 1.2 Sodium Potassium Chloride Carbon Dioxide Anion Gap BUN Creatinine Est Cr Clr Drug Dosing Est GFR ( Amer) Est GFR (Non-Af Amer) BUN/Creatinine Ratio Glucose POC Glucose Calcium Magnesium 1.6 L Blood Parasites ID Cancelled Blood Type Antibody Screen Crossmatch 06/16/22 06/16/22 06/16/22 06:32 06:32 07:28 WBC 9.29 RBC 3.00 L Hgb 9.5 L Hct 27.3 L MCV 91.0 MCH 31.7 MCHC 34.8 RDW Std Deviation 55.0 H RDW Coeff of Nicolas 16.4 H Plt Count 141 MPV 10.1 Immature Gran % (Auto) Neut % (Auto) Lymph % (Auto) Perkins % (Auto) Eos % (Auto) Baso % (Auto) Neut # (Auto) Lymph # (Auto) Perkins # (Auto) Eos # (Auto) Baso # (Auto) Immature Gran # (Auto) Absolute Nucleated RBC Nucleated RBC % (auto) Neutrophils % (Manual) Band Neutrophils % Lymphocytes % (Manual) Prolymphocyte % Reactive Lymphs % (Man) Monocytes % (Manual) Eosinophils % (Manual) Basophils % (Manual) Metamyelocytes % (Man) Myelocytes % (Man) Promyelocytes % (Man) Blast Cells % (Manual) Plasma Cell % (Manual) Other Cells % Nucleated RBC % Neutrophils # (Manual) Band Neutrophils # Total Absolute Neuts Lymphocytes # (Manual) Prolymphocyte # Reactive Lymphs # Total Abs Lymphocytes Monocytes # (Manual) Eosinophils # (Manual) Basophils # (Manual) Metamyelocytes # (Man) Myelocytes # (Manual) Promyelocytes # (Man) Blast Cells # (Man) Plasma Cell # (Manual) Other Cells # Nucleated RBCs # (Man) Hypersegmented Neuts Hyposegmented Neuts Hypogranular Neuts Large Granular Lymphs # Lrg Granular Lymphs Hairy Cells Smudge Cells Toxic Granulation Toxic Vacuolation Dohle Bodies Pablo Rods Platelet Estimate Hypogranular Platelets Clumped Platelets Giant Platelets Platelet Satelliting RBC Morphology Polychromasia Hypochromasia Poikilocytosis Basophilic Stippling Anisocytosis Microcytosis Macrocytosis Spherocytes Pappenheimer Bodies Sickle Cells Target Cells Tear Drop Cells Ovalocytes Stomatocytes [place] Bodies Echinocytes Acanthocytes (Spur) Rouleaux RBC Agglutinates Schistocytes Sezary Cell APTT PTT Ratio Sodium 139 Potassium 3.2 L Chloride 107 Carbon Dioxide 28 Anion Gap 4 BUN 5 L Creatinine 0.46 L Est Cr Clr Drug Dosing 124.6 Est GFR ( Amer) 121.8 Est GFR (Non-Af Amer) 105.1 BUN/Creatinine Ratio 10.9 Glucose 150 H POC Glucose 178 H Calcium 7.7 L Magnesium Blood Parasites ID Blood Type Antibody Screen Crossmatch 06/16/22 06/16/22 06/16/22 12:10 12:14 16:40 WBC RBC Hgb 9.3 L Hct 27.0 L MCV MCH MCHC RDW Std Deviation RDW Coeff of Nicolas Plt Count MPV Immature Gran % (Auto) Neut % (Auto) Lymph % (Auto) Perkins % (Auto) Eos % (Auto) Baso % (Auto) Neut # (Auto) Lymph # (Auto) Perkins # (Auto) Eos # (Auto) Baso # (Auto) Immature Gran # (Auto) Absolute Nucleated RBC Nucleated RBC % (auto) Neutrophils % (Manual) Band Neutrophils % Lymphocytes % (Manual) Prolymphocyte % Reactive Lymphs % (Man) Monocytes % (Manual) Eosinophils % (Manual) Basophils % (Manual) Metamyelocytes % (Man) Myelocytes % (Man) Promyelocytes % (Man) Blast Cells % (Manual) Plasma Cell % (Manual) Other Cells % Nucleated RBC % Neutrophils # (Manual) Band Neutrophils # Total Absolute Neuts Lymphocytes # (Manual) Prolymphocyte # Reactive Lymphs # Total Abs Lymphocytes Monocytes # (Manual) Eosinophils # (Manual) Basophils # (Manual) Metamyelocytes # (Man) Myelocytes # (Manual) Promyelocytes # (Man) Blast Cells # (Man) Plasma Cell # (Manual) Other Cells # Nucleated RBCs # (Man) Hypersegmented Neuts Hyposegmented Neuts Hypogranular Neuts Large Granular Lymphs # Lrg Granular Lymphs Hairy Cells Smudge Cells Toxic Granulation Toxic Vacuolation Dohle Bodies Pablo Rods Platelet Estimate Hypogranular Platelets Clumped Platelets Giant Platelets Platelet Satelliting RBC Morphology Polychromasia Hypochromasia Poikilocytosis Basophilic Stippling Anisocytosis Microcytosis Macrocytosis Spherocytes Pappenheimer Bodies Sickle Cells Target Cells Tear Drop Cells Ovalocytes Stomatocytes [place] Bodies Echinocytes Acanthocytes (Spur) Rouleaux RBC Agglutinates Schistocytes Sezary Cell APTT PTT Ratio Sodium Potassium Chloride Carbon Dioxide Anion Gap BUN Creatinine Est Cr Clr Drug Dosing Est GFR ( Amer) Est GFR (Non-Af Amer) BUN/Creatinine Ratio Glucose POC Glucose 182 H 213 H Calcium Magnesium Blood Parasites ID Blood Type Antibody Screen Crossmatch Diagnostic Findings Nuc bleeding scan NEGATIVE PG Care Time/CCT Total # of Minutes Spent Total Time Spent with Patient: Total time spent is greater than 50% in coordination of care (as documented) at patient's floor/unit and/or counseling patient: Coding Level of Care Code 23213 Subseq Hosp Care Lvl 3 Diagnoses Acute blood loss anemia D62 Hematemesis K92.0 Esophagitis K20.90 Gastroparesis K31.84 Postoperative hypotension I95.81 Acute occlusion of artery of lower extremity I70.209 Arterial thrombosis I74.9 Diabetic peripheral neuropathy associated with type 1 diabetes mellitus E10.42 Tobacco use disorder F17.200 Vitamin B12 deficiency E53.8 Hyperlipidemia E78.5 PAD (peripheral artery disease) I73.9 Urinary urgency R39.15 Macrocytosis without anemia D75.89 HTN (hypertension) I10
[2022-06-16] MEDS: oxyCODONE HCL IR 5 MG TAB (IMMEDIATE RELEASE) PO PRN (20:31)
[2022-06-17 05:55] LABS: Basophils # (auto) 0.02 K/uL (0-0.2); Basophils % (auto) 0.2 %; Eosinophils # (auto) 0.14 K/uL (0-0.50); Eosinophils % (auto) 1.5 %; Hematocrit (blood only) 25.5 % (34.1-44.9); Hemoglobin 8.8 g/dl (12.0-16.0); Immature Granulocytes # (auto) 0.04 K/uL (0.00-0.02); Immature Granulocytes % (auto) 0.4 %; Lymphocytes # (auto) 1.66 K/uL (1.2-3.4); Lymphocytes % (auto) 18.2 %; Mean Corpuscular Hemoglobin 31.5 pg (25.0-34.0); Mean Corpuscular Hgb Conc 34.5 g/dL (32.0-36.0); Mean Corpuscular Volume 91.4 fL (80.0-100.0); Mean Platelet Volume 10.1 fL (9.4-12.3); Monocytes # (auto) 1.02 K/uL (0.24-0.82); Monocytes % (auto) 11.2 %; Neutrophils # (auto) 6.26 K/uL (1.4-6.5); Neutrophils % (auto) 68.5 %; Platelet Count 183 K/uL (130-400); RDW Coefficient of Variation 16.1 % (11.5-14.5); RDW Standard Deviation 53.1 fL (36.4-46.3); Red Blood Count 2.79 M/uL (3.93-5.22); White Blood Count 9.14 K/ul (4.8-10.8)
[2022-06-17 06:12] LABS: Calcium 7.5 mg/dl (8.5-10.1); Creatinine Clr Calc Pharmacy 95.6 ml/min; Est GFR (African American) 111.6 ml/min; Est GFR (Non-African American) 96.3 ml/min; Magnesium 1.8 mg/dl (1.7-2.4); Potassium 3.5 mmol/L (3.5-5.1)
[2022-06-17] MEDS: oxyCODONE HCL IR 5 MG TAB (IMMEDIATE RELEASE) PO PRN ×3 (07:44→20:26)
[2022-06-17] MEDS: NICOTINE 7 MG/24 HR TDSY TD SCH (07:48)
[2022-06-17] MEDS: SUCRALFATE 1 GM/10 ML UDC PO SCH ×4 (07:49→20:28)
[2022-06-17] MEDS: ASPIRIN 81 MG ECTAB PO SCH (07:49)
[2022-06-17] MEDS: CLOPIDOGREL BISULFATE 75 MG TAB PO SCH (07:50)
[2022-06-17] MEDS: MIRABEGRON ER 25 MG TAB PO SCH (07:50)
[2022-06-17] MEDS: GABAPENTIN 100 MG CAP PO SCH ×3 (07:50→20:30)
[2022-06-17] MEDS: ATORVASTATIN 40 MG TAB PO SCH (07:51)
[2022-06-17] MEDS: PANTOprazole 40 MG in SYRINGE 0 ML IV SCH ×2 (07:51→20:29)
[2022-06-17] MEDS: FOLIC ACID 1 MG TAB PO SCH (07:51)
[2022-06-17] MEDS: FAMOTIDINE 20 MG in SYRINGE 3 ML IV SCH ×2 (07:51→20:27)
[2022-06-17] MEDS: INSULIN, Rapid-Acting PUMP SCH ×4 (08:23→20:27)
[2022-06-17] MEDS ORDERED: GABAPENTIN 100 MG CAP PO STA (08:56)
--- NOTE | 2022-06-17 10:24 | Surgery Progress Note ---
Date of Service June 17, 2022 Assessment & Plan (1) Acute occlusion of artery of lower extremity: Plan: Pt with acute occlusion of RLE SFA/pop arteries, now POD #4. Overall doing well. Hgb now 8.8. No active bleeding sites appreciated. Will start on iron po. Increase activity with PT/OT Admission and Anticipated Discharge Date Admission Date: June 10, 2022 Subjective Patient still with a small amount of ankle pain. Claims her foot feels good. She has been in a chair but has not ambulated much yet. No lightheadedness or d izziness. Physical Exam Constitutional: WD/WN, vitals as above Respiratory: normal respiratory effort and + respiratory distress Cardiovascular: Rate/Rhythm: regular rate and regular rhythm Extremities: normal capillary refill good doppler of left foot Gastrointestinal (Abdomen): Inspection/Auscultation: abdomen normal to insp ection Percussion/Palpation: abdomen soft; abdomen nontender Musculoskeletal: no cyanosis or clubbing, extremities motor strength 5/5 Skin: + incision (prevena in place, other incisions dry and clean) Neurologic: CN's II-XI intact bilaterally and moves all extremities Psychiatric: Orientation: alert and oriented x 3 Results & Data ([facility]) Vital Signs (Past 12 Hours) Vital Signs Temp Pulse Pulse Pulse Resp BP BP 06/17/22 07:40 36.9 C 84 18 107/63 06/17/22 07:17 88 06/17/22 02:49 36.9 C 90 18 130/64 06/16/22 23:51 91 H 06/16/22 22:30 37 C 101 H 18 119/61 Pulse Ox O2 Del Method 06/17/22 07:40 96 Room Air 06/17/22 07:17 06/17/22 02:49 97 Room Air 06/16/22 23:51 06/16/22 22:30 94 Room Air
[2022-06-17] MEDS: FERROUS SULFATE 325 MG TAB PO SCH (16:28)
--- NOTE | 2022-06-17 20:02 | Hospitalist Progress Note ---
Date of Service June 17, 2022 Assessment & Plan (1) Acute blood loss anemia: Plan: initial acute blood loss anemia was shortly after her fem-pop bypass several days ago due to hematemesis underwent emergent EGD esophagitis seen; no Eliana-underwood tear or PUD s/p 2 units PRBCs 06/13 Hb 11.9 on 06/14 then decreased to low of 7.4 / CT abd/pelvis - NO retroperitoneal bleeding, psoas hematoma, etc received 1 unit of PRBCs due to hemoglobin of 7.4 nuc GI bleeding scan negative H/H stable today cont asa/plavix cautiously diet as tolerated cont daily CBC pepcid and carafate added to protonix by GI (2) Hematemesis: Plan: occurred evening of 06/13 following her RLE fem-pop bypass s/p urgent EGD by Dr Rangel - esophagitis found but no active bleeding during the EGD; retained food c/w gastroparesis also seen cont PPI twice daily no hematemesis since then see #1 above (3) Esophagitis: Plan: as seen on EGD 06/13 cont PPI twice daily (carafate/pepcid also added by GI this am) (4) Gastroparesis: Plan: retained food products on EGD 06/13 highly suggestive of gastroparesis in light of long-standing T1DM will need formal gastric emptying study as outpatient if any issues with post-prandial nausea --> trial of reglan (5) Postoperative hypotension: Plan: 2nd to #1 resolved briefly needed phenylephrine drip post-op s/p 2 units PRBCs night of her surgery no issues since (6) Acute occlusion of artery of lower extremity: Plan: s/p stenting of the superficial femoral artery of the RLE on May [address] Salmeron. Presented this admission with occlusion of RLE SFA stent. POD #4 - s/p Right Femoral Popliteal Prosthetic Bypass along with SOLID STATE TESTER and Stenting of right popliteal artery by Dr Salmeron. see #1 above Cont asa and plavix. Cont statin. (7) Arterial thrombosis: Plan: RLE SFA occlusion s/p fem-pop bypass & SOLID STATE TESTER with stenting of right popliteal artery. POD #4. (8) Diabetic peripheral neuropathy associated with type 1 diabetes mellitus: Plan: Insulin pump; basal rate increased to 0.9 units/hr and overall BSGs are better Hemoglobin A1c 7.7%. (9) Tobacco use disorder: Plan: Current smoker pre-hospital Continue nicotine patch [employer] to quit (10) Vitamin B12 deficiency: Plan: Is on oral B12 supplementation at home. Despite such - B12 level here still low at 279. s/p B12 1000 mcg IM daily x 3 doses Now resumed po B12. (11) Hyperlipidemia: Plan: Cont lipitor (12) PAD (peripheral artery disease): Plan: History of left femoropopliteal bypass and now right SFA stent with occlusion s/p right fem-pop bypass and SOLID STATE TESTER w/ stent to popliteal artery by Dr Salmeron - POD #4 see above (13) Urinary urgency: Plan: Continue Myrbetriq Follows with urology (14) Macrocytosis without anemia: Plan: replacing B12 replacing folate now with acute blood loss anemia as above daily CBC (15) HTN (hypertension): Plan: cont to hold lisinopril BPs remain controlled Plan DVT prophylaxis- heparin drip stopped due to concerns for bleeding no chemical means at this time appreciate vascular surgery PT/OT updated pt's by phone yesterday evening hopefully OOB to chair tomorrow hopefully d/c velásquez tomorrow Admission and Anticipated Discharge Date Admission Date: June 10, 2022 Subjective no issues overnight the right leg continues to feel better numbness right foot improved eating well still with little activity OOB no overt GI bleeding tele wnl Review of Systems Review of Systems: gen - no fever cv - no cp, no orthopnea pulm - no dyspnea Physical Exam Physical Exam: gen - NAD, pleasant mouth - MMM neck - no JVD heart - 2/6 NORBERT LSB, RRR, s1 s2 lungs - CTA b/l abd - soft NT ND BS+ ext - right foot - pulses 2+; left foot 1+ skin - dressings intact right leg; right thigh swollen vs left thigh; generalized pallor psych - a/o x 3 Results & Data Results & Data ([facility]) Vital Signs (Past 12 Hours) Vital Signs Temp Pulse Pulse Pulse Resp BP BP 06/17/22 19:25 37 C 92 H 18 110/51 L 06/17/22 15:03 85 06/17/22 14:45 36.6 C 101 H 20 110/63 06/17/22 11:04 36.9 C 84 20 99/60 L Pulse Ox O2 Del Method 06/17/22 19:25 95 Room Air 06/17/22 15:03 06/17/22 14:45 97 Room Air 06/17/22 11:04 97 Room Air Laboratory Results Laboratory Results - last 24 hr 06/16/22 06/17/22 06/17/22 20:17 05:29 05:29 WBC 9.14 RBC 2.79 L Hgb 8.8 L Hct 25.5 L MCV 91.4 MCH 31.5 MCHC 34.5 RDW Std Deviation 53.1 H RDW Coeff of Nicolas 16.1 H Plt Count 183 MPV 10.1 Immature Gran % (Auto) 0.4 Neut % (Auto) 68.5 Lymph % (Auto) 18.2 Forrest % (Auto) 11.2 Eos % (Auto) 1.5 Baso % (Auto) 0.2 Neut # (Auto) 6.26 Lymph # (Auto) 1.66 Forrest # (Auto) 1.02 H Eos # (Auto) 0.14 Baso # (Auto) 0.02 Immature Gran # (Auto) 0.04 H Sodium 136 Potassium 3.5 Chloride 103 Carbon Dioxide 29 Anion Gap 4 BUN 6 Creatinine 0.60 Est Cr Clr Drug Dosing 95.6 Est GFR ( Amer) 111.6 Est GFR (Non-Af Amer) 96.3 BUN/Creatinine Ratio 10.0 Glucose 180 H POC Glucose 220 H Calcium 7.5 L Magnesium 1.8 06/17/22 06/17/22 06/17/22 07:25 11:15 16:26 WBC RBC Hgb Hct MCV MCH MCHC RDW Std Deviation RDW Coeff of Nicolas Plt Count MPV Immature Gran % (Auto) Neut % (Auto) Lymph % (Auto) Forrest % (Auto) Eos % (Auto) Baso % (Auto) Neut # (Auto) Lymph # (Auto) Forrest # (Auto) Eos # (Auto) Baso # (Auto) Immature Gran # (Auto) Sodium Potassium Chloride Carbon Dioxide Anion Gap BUN Creatinine Est Cr Clr Drug Dosing Est GFR ( Amer) Est GFR (Non-Af Amer) BUN/Creatinine Ratio Glucose POC Glucose 180 H 185 H 196 H Calcium Magnesium PG Care Time/CCT Total # of Minutes Spent Total Time Spent with Patient: Total time spent is greater than 50% in coordination of care (as documented) at patient's floor/unit and/or counseling patient: Coding Level of Care Code 46000 Subseq Hosp Care Lvl 2 Diagnoses Acute blood loss anemia D62 Hematemesis K92.0 Esophagitis K20.90 Gastroparesis K31.84 Postoperative hypotension I95.81 Acute occlusion of artery of lower extremity I70.209 Arterial thrombosis I74.9 Diabetic peripheral neuropathy associated with type 1 diabetes mellitus E10.42 Tobacco use disorder F17.200 Vitamin B12 deficiency E53.8 Hyperlipidemia E78.5 PAD (peripheral artery disease) I73.9 Urinary urgency R39.15 Macrocytosis without anemia D75.89 HTN (hypertension) I10
[2022-06-17] MEDS: DOCUSATE SODIUM 100 MG CAP PO SCH (20:29)
[2022-06-17] MEDS: ACETAMINOPHEN 500 MG TAB PO PRN (22:17)
[2022-06-18] MEDS: ACETAMINOPHEN 500 MG TAB PO PRN (02:52)
[2022-06-18 06:35] LABS: Hematocrit (blood only) 24.5 % (34.1-44.9); Hemoglobin 8.3 g/dl (12.0-16.0); Mean Corpuscular Hemoglobin 31.6 pg (25.0-34.0); Mean Corpuscular Hgb Conc 33.9 g/dL (32.0-36.0); Mean Corpuscular Volume 93.2 fL (80.0-100.0); Platelet Count 228 K/uL (130-400); RDW Coefficient of Variation 15.9 % (11.5-14.5); RDW Standard Deviation 54.1 fL (36.4-46.3); Red Blood Count 2.63 M/uL (3.93-5.22); White Blood Count 8.26 K/ul (4.8-10.8)
[2022-06-18 06:54] LABS: BUN Creatinine Ratio 11.9 (10-20); Calcium 7.4 mg/dl (8.5-10.1); Creatinine Clr Calc Pharmacy 97.2 ml/min; Est GFR (African American) 112.3 ml/min; Est GFR (Non-African American) 96.9 ml/min; Potassium 3.4 mmol/L (3.5-5.1)
[2022-06-18] MEDS: NICOTINE 7 MG/24 HR TDSY TD SCH (07:26)
[2022-06-18] MEDS: PANTOprazole 40 MG in SYRINGE 0 ML IV SCH ×2 (07:45→20:00)
[2022-06-18] MEDS: ASPIRIN 81 MG ECTAB PO SCH (07:45)
[2022-06-18] MEDS: MIRABEGRON ER 25 MG TAB PO SCH (07:45)
[2022-06-18] MEDS: FAMOTIDINE 20 MG in SYRINGE 3 ML IV SCH ×2 (07:45→19:59)
[2022-06-18] MEDS: FOLIC ACID 1 MG TAB PO SCH (07:46)
[2022-06-18] MEDS: SUCRALFATE 1 GM/10 ML UDC PO SCH ×4 (07:46→20:00)
[2022-06-18] MEDS: CLOPIDOGREL BISULFATE 75 MG TAB PO SCH (07:46)
[2022-06-18] MEDS: ATORVASTATIN 40 MG TAB PO SCH (07:46)
[2022-06-18] MEDS: FERROUS SULFATE 325 MG TAB PO SCH ×2 (07:46→17:42)
[2022-06-18] MEDS: GABAPENTIN 100 MG CAP PO SCH ×3 (07:47→20:01)
[2022-06-18] MEDS: DOCUSATE SODIUM 100 MG CAP PO SCH ×2 (07:47→20:01)
[2022-06-18] MEDS: oxyCODONE HCL IR 5 MG TAB (IMMEDIATE RELEASE) PO PRN ×3 (07:54→19:59)
[2022-06-18] MEDS: INSULIN, Rapid-Acting PUMP SCH ×4 (08:42→20:05)
[2022-06-18] MEDS: POTASSIUM CHLORIDE CRTAB 20 MEQ TABCR PO SCH ×3 (08:45→20:05)
--- NOTE | 2022-06-18 11:14 | Surgery Progress Note ---
Date of Service June 18, 2022 Assessment & Plan (1) Acute occlusion of artery of lower extremity: Plan: Doing well from bypass surgery. From vascular standpoint can be discharged on asa and plavix would like to add Xarelto 2.5mg bid starting next week Admission and Anticipated Discharge Date Admission Date: June 10, 2022 Subjective Heel discomfort improving. Rest of foot without problems. Ambulating with walker Physical Exam Constitutional: WD/WN, vitals as above Respiratory: normal respiratory effort and + respiratory distress Cardiovascular: Rate/Rhythm: regular rate and regular rhythm Extremities: normal capillary refill Musculoskeletal: no cyanosis or clubbing, extremities motor strength 5/5 Skin: + incision (prevena in place, other incisions dry and clean) Right heel erythematous but not ischemic and no breakdown noted Neurologic: CN's II-XI intact bilaterally and moves all extremities Psychiatric: Orientation: alert and oriented x 3 Results & Data ([facility]) Vital Signs (Past 12 Hours) Vital Signs Temp Pulse Pulse Pulse Resp BP BP 06/18/22 07:50 36.7 C 71 18 103/62 06/18/22 07:06 72 06/18/22 02:42 37 C 93 H 18 118/62 06/17/22 23:46 85 Pulse Ox O2 Del Method 06/18/22 07:50 96 Room Air 06/18/22 07:06 06/18/22 02:42 98 Room Air 06/17/22 23:46
[2022-06-18] MEDS ORDERED: IRON SUCROSE 200 MG in 0.9 % SODIUM CHLORIDE 100 ML IV ONE (13:00)
[2022-06-18 15:07] LABS: Hematocrit (blood only) 27.6 % (34.1-44.9); Hemoglobin 9.4 g/dl (12.0-16.0)
--- NOTE | 2022-06-18 20:35 | Hospitalist Progress Note ---
Date of Service June 18, 2022 Assessment & Plan (1) Acute blood loss anemia: Plan: initial acute blood loss anemia was shortly after her fem-pop bypass several days ago due to hematemesis underwent emergent EGD esophagitis seen; no Eliana-underwood tear or PUD s/p 2 units PRBCs 06/13 Hb 11.9 on 06/14 then decreased to low of 7.4 06/15 CT abd/pelvis 06/15/22 - NO retroperitoneal bleeding, psoas hematoma, etc received 1 unit of PRBCs due to hemoglobin of 7.4 at that time nuc GI bleeding scan negative H/H dropped again this AM, repeat this afternoon and Hb >9 cont asa/plavix cautiously diet as tolerated cont daily CBC pepcid and carafate added to protonix by GI will give venofer 200mg IV x 1 check the stool once she indeed has a bowel movement (2) Hematemesis: Plan: occurred evening of 06/13 following her RLE fem-pop bypass s/p urgent EGD by Dr Rangel - esophagitis found but no active bleeding during the EGD; retained food c/w gastroparesis also seen cont PPI twice daily no hematemesis since then see #1 above (3) Esophagitis: Plan: as seen on EGD 06/13 cont PPI twice daily (carafate/pepcid also added by GI this am) (4) Gastroparesis: Plan: retained food products on EGD 06/13 highly suggestive of gastroparesis in light of long-standing T1DM will need formal gastric emptying study as outpatient if any issues with post-prandial nausea --> trial of reglan (5) Postoperative hypotension: Plan: 2nd to #1 resolved briefly needed phenylephrine drip post-op s/p 2 units PRBCs night of her surgery no issues since (6) Acute occlusion of artery of lower extremity: Plan: s/p stenting of the superficial femoral artery of the RLE on May [address] Rodriguez. Presented this admission with occlusion of RLE SFA stent. POD #5 - s/p Right Femoral Popliteal Prosthetic Bypass along with [employer] and Stenting of right popliteal artery by Dr Rodriguez. see #1 above Cont asa and plavix. Cont statin. I spoke with Dr Rodriguez - from his standpoint she can d/c home with asa/plavix and f/u with him in 1-2 weeks post-d/c (7) Arterial thrombosis: Plan: RLE SFA occlusion s/p fem-pop bypass & [employer] with stenting of right popliteal artery. POD #5. (8) Diabetic peripheral neuropathy associated with type 1 diabetes mellitus: Plan: Insulin pump; basal rate increased to 0.9 units/hr and overall BSGs are better Hemoglobin A1c 7.7%. (9) Tobacco use disorder: Plan: Current smoker pre-hospital Continue nicotine patch Temperature Regulator Pyrometer to quit (10) Vitamin B12 deficiency: Plan: Is on oral B12 supplementation at home. Despite such - B12 level here still low at 279. s/p B12 1000 mcg IM daily x 3 doses Now resumed po B12. (11) Hyperlipidemia: Plan: Cont lipitor (12) PAD (peripheral artery disease): Plan: History of left femoropopliteal bypass and now right SFA stent with occlusion s/p right fem-pop bypass and [employer] w/ stent to popliteal artery by Dr Rodriguez - POD #5 see above (13) Urinary urgency: Plan: Continue Myrbetriq Follows with urology velásquez removed -- voiding ok (14) Macrocytosis without anemia: Plan: replacing B12 replacing folate now with acute blood loss anemia as above daily CBC venofer 200mg IV x 1 repeat again tomorrow (15) HTN (hypertension): Plan: cont to hold lisinopril BPs remain controlled Plan DVT prophylaxis- heparin drip stopped due to concerns for bleeding no chemical means at this time appreciate vascular surgery PT/OT updated pt's by phone this evening issues with hemoglobin -- last problem that needs to be stable/resolved Admission and Anticipated Discharge Date Admission Date: June 10, 2022 Subjective patient's RLE pain improving range of motion of RLE improving sat in chair today velásquez removed; voiding ok no stools yesterday or today no melena/rectal bleeding eating well; no GI intolerance tele stable overnight Review of Systems Review of Systems: gen - no fever cv - no cp, no orthopnea pulm - no dyspnea or cough GI - no N/V Physical Exam Physical Exam: gen - NAD, pleasant, looks very good today mouth - MMM neck - no JVD heart - 2/6 NORBERT LSB, RRR, s1 s2 lungs - CTA b/l abd - soft NT ND BS+ ext - right foot - pulses 2+; left foot 1+ skin - dressings intact right leg; right thigh swollen vs left thigh - about the same as yesterday; generalized pallor but no rash psych - a/o x 3 Results & Data Results & Data ([facility]) Vital Signs (Past 12 Hours) Vital Signs Temp Pulse Pulse Pulse Resp BP Pulse Ox 06/18/22 19:31 37.0 C 90 18 121/66 97 06/18/22 15:05 85 06/18/22 15:00 37.1 C 85 18 113/73 97 06/18/22 11:19 36.4 C L 76 20 139/44 L 97 O2 Del Method 06/18/22 19:31 Room Air 06/18/22 15:05 06/18/22 15:00 Room Air 06/18/22 11:19 Room Air Laboratory Results Laboratory Results - last 24 hr 06/15/22 06/18/22 06/18/22 19:12 05:43 05:43 WBC 8.26 RBC 2.63 L Hgb 8.3 L Hct 24.5 L MCV 93.2 MCH 31.6 MCHC 33.9 RDW Std Deviation 54.1 H RDW Coeff of Nicolas 15.9 H Plt Count 228 MPV 10.0 Sodium 139 Potassium 3.4 L Chloride 105 Carbon Dioxide 30 Anion Gap 4 BUN 7 Creatinine 0.59 L Est Cr Clr Drug Dosing 97.2 Est GFR ( Amer) 112.3 Est GFR (Non-Af Amer) 96.9 BUN/Creatinine Ratio 11.9 Glucose 174 H POC Glucose Calcium 7.4 L Crossmatch See Detail 06/18/22 06/18/22 06/18/22 07:34 11:24 14:30 WBC RBC Hgb 9.4 L Hct 27.6 L MCV MCH MCHC RDW Std Deviation RDW Coeff of Nicolas Plt Count MPV Sodium Potassium Chloride Carbon Dioxide Anion Gap BUN Creatinine Est Cr Clr Drug Dosing Est GFR ( Amer) Est GFR (Non-Af Amer) BUN/Creatinine Ratio Glucose POC Glucose 189 H 139 H Calcium Crossmatch 06/18/22 06/18/22 16:15 19:57 WBC RBC Hgb Hct MCV MCH MCHC RDW Std Deviation RDW Coeff of Nicolas Plt Count MPV Sodium Potassium Chloride Carbon Dioxide Anion Gap BUN Creatinine Est Cr Clr Drug Dosing Est GFR ( Amer) Est GFR (Non-Af Amer) BUN/Creatinine Ratio Glucose POC Glucose 141 H 157 H Calcium Crossmatch PG Care Time/CCT Total # of Minutes Spent Total Time Spent with Patient: Total time spent is greater than 50% in coordination of care (as documented) at patient's floor/unit and/or counseling patient: Coding Level of Care Code 40720 Subseq Hosp Care Lvl 2 Diagnoses Acute blood loss anemia D62 Hematemesis K92.0 Esophagitis K20.90 Gastroparesis K31.84 Postoperative hypotension I95.81 Acute occlusion of artery of lower extremity I70.209 Arterial thrombosis I74.9 Diabetic peripheral neuropathy associated with type 1 diabetes mellitus E10.42 Tobacco use disorder F17.200 Vitamin B12 deficiency E53.8 Hyperlipidemia E78.5 PAD (peripheral artery disease) I73.9 Urinary urgency R39.15 Macrocytosis without anemia D75.89 HTN (hypertension) I10
[2022-06-19 05:55] LABS: Hematocrit (blood only) 24.2 % (34.1-44.9); Hemoglobin 8.1 g/dl (12.0-16.0); Mean Corpuscular Hemoglobin 31.5 pg (25.0-34.0); Mean Corpuscular Hgb Conc 33.5 g/dL (32.0-36.0); Mean Corpuscular Volume 94.2 fL (80.0-100.0); Mean Platelet Volume 9.7 fL (9.4-12.3); Platelet Count 275 K/uL (130-400); RDW Coefficient of Variation 16.2 % (11.5-14.5); RDW Standard Deviation 55.3 fL (36.4-46.3); Red Blood Count 2.57 M/uL (3.93-5.22); White Blood Count 8.07 K/ul (4.8-10.8)
[2022-06-19] MEDS: ACETAMINOPHEN 500 MG TAB PO PRN (06:24)
[2022-06-19 06:42] LABS: Basophils # (auto) 0.03 K/uL (0-0.2); Basophils % (auto) 0.4 %; Eosinophils # (auto) 0.25 K/uL (0-0.50); Eosinophils % (auto) 3.1 %; Immature Granulocytes # (auto) 0.05 K/uL (0.00-0.02); Immature Granulocytes % (auto) 0.6 %; Lymphocytes # (auto) 1.81 K/uL (1.2-3.4); Lymphocytes % (auto) 22.4 %; Monocytes # (auto) 0.94 K/uL (0.24-0.82); Monocytes % (auto) 11.6 %; Neutrophils # (auto) 4.99 K/uL (1.4-6.5); Neutrophils % (auto) 61.9 %; Polychromasia 1+
[2022-06-19] MEDS: INSULIN, Rapid-Acting PUMP SCH ×4 (07:38→20:43)
[2022-06-19] MEDS: POTASSIUM CHLORIDE CRTAB 20 MEQ TABCR PO SCH (07:38)
[2022-06-19] MEDS: FAMOTIDINE 20 MG in SYRINGE 3 ML IV SCH ×2 (07:38→20:41)
[2022-06-19] MEDS: SUCRALFATE 1 GM/10 ML UDC PO SCH ×4 (07:38→20:41)
[2022-06-19] MEDS: MIRABEGRON ER 25 MG TAB PO SCH (07:38)
[2022-06-19] MEDS: PANTOprazole 40 MG in SYRINGE 0 ML IV SCH ×2 (07:38→20:41)
[2022-06-19] MEDS: GABAPENTIN 100 MG CAP PO SCH ×3 (07:39→20:41)
[2022-06-19] MEDS: ATORVASTATIN 40 MG TAB PO SCH (07:39)
[2022-06-19] MEDS: CLOPIDOGREL BISULFATE 75 MG TAB PO SCH (07:39)
[2022-06-19] MEDS: DOCUSATE SODIUM 100 MG CAP PO SCH ×2 (07:39→20:42)
[2022-06-19] MEDS: FOLIC ACID 1 MG TAB PO SCH (07:39)
[2022-06-19] MEDS: ASPIRIN 81 MG ECTAB PO SCH (07:39)
[2022-06-19] MEDS: FERROUS SULFATE 325 MG TAB PO SCH ×2 (07:39→17:10)
[2022-06-19] MEDS: NICOTINE 7 MG/24 HR TDSY TD SCH (07:40)
[2022-06-19] MEDS ORDERED: IRON SUCROSE 300 MG in SODIUM CHLORIDE 0.9% 250 ML IV ONE (08:00)
--- NOTE | 2022-06-19 09:41 | Surgery Progress Note ---
Date of Service June 19, 2022 Assessment & Plan (1) Acute occlusion of artery of lower extremity: Plan: Doing well from bypass surgery. From vascular standpoint can be discharged on asa and plavix would like to add Xarelto 2.5mg bid starting later this week. Office will send to pharmacy for her if pt discharged prior to then. Admission and Anticipated Discharge Date Admission Date: June 10, 2022 Subjective 62 yo f POD #7 after RLE fem-AK pop prosthetic BPG and stenting of pop art, seen in f/u today. Pt overall doing well. Admits discomfort in RLE, but states is much improved. Denies dizziness, chest pain, SOB, abd pain, N/V, other complaints. VSS, hgb stable Review of Systems Review of Systems: All systems reviewed & are unremarkable except as noted in HPI & below Physical Exam Constitutional: WD/WN, vitals as above cooperative; not in distress Respiratory: normal respiratory effort, lungs clear to auscultation Aus cultation: + diminished lung sounds Cardiovascular: Rate/Rhythm: regular rate and regular rhythm Vessels: f emoral pulses present, posterior tibial pulses present (Good doppler signals), dorsalis pedis pulses present (good doppler signals) and radial pulses present Extremities: normal capillary refill and + edema (soft edema RLE ) Skin: no rashes, warm and dry + incision (RLE incisions intact with ese, mild serous/bloody drainage. ) Neurologic: moves all extremities and awake; no focal motor deficits and not confused Psychiatric: A+Ox3, euthymic affect Results & Data ([facility]) Vital Signs (Past 12 Hours) Vital Signs Temp Pulse Pulse Resp BP Pulse Ox O2 Del Method 06/19/22 08:00 36.6 C 84 20 103/59 L 97 Room Air 06/19/22 02:52 37.3 C 92 H 16 115/66 99 Room Air 06/19/22 01:59 87 06/18/22 22:47 37.2 C 91 H 16 122/68 98 Room Air
[2022-06-19 15:07] LABS: Hemoglobin 8.5 g/dl (12.0-16.0); Reticulocyte % 3.4 % (0.5-2.0); Reticulocytes # 0.09 10^6/uL (0.02-0.10)
[2022-06-19] MEDS: oxyCODONE HCL IR 5 MG TAB (IMMEDIATE RELEASE) PO PRN ×2 (17:19→22:09)
--- NOTE | 2022-06-19 21:56 | Hospitalist Progress Note ---
Date of Service June 19, 2022 Assessment & Plan (1) Acute blood loss anemia: Plan: initial acute blood loss anemia was shortly after her fem-pop bypass several days ago due to hematemesis underwent emergent EGD esophagitis seen; no Eliana-underwood tear or PUD s/p 2 units PRBCs 06/13 Hb 11.9 on 06/14 then decreased to low of 7.4 06/15 CT abd/pelvis 06/15/22 - NO retroperitoneal bleeding, psoas hematoma, etc received 1 unit of PRBCs due to hemoglobin of 7.4 at that time nuclear GI bleeding scan negative asa and plavix resumed cautiously H/H continue to oscillate but hemoglobin appears to have settled about 8.5 s/p venofer IV yesterday and will give another dose tomorrow will give 3rd/final dose tomorrow, 06/20 stop oral Fe LDH and t.bili checked - negative; hemolysis highly unlikely retic count appropriately high I spoke with GI - occult GI bleeding felt unlikely at this time repeat cbc am (2) Hematemesis: Plan: occurred evening of 06/13 following her RLE fem-pop bypass s/p urgent EGD by Dr Rangel - esophagitis found but no active bleeding during the EGD; retained food c/w gastroparesis also seen cont PPI twice daily no hematemesis since then see #1 above can stop IV pepcid; cont carafate qid (3) Esophagitis: Plan: as seen on EGD 06/13 cont PPI twice daily and carafate stop pepcid (4) Gastroparesis: Plan: retained food products on EGD 06/13 highly suggestive of gastroparesis in light of long-standing T1DM will need formal gastric emptying study as outpatient has not had any post-prandial nausea this admission (5) Postoperative hypotension: Plan: 2nd to #1 resolved briefly needed phenylephrine drip post-op s/p 2 units PRBCs night of her surgery no issues since (6) Acute occlusion of artery of lower extremity: Plan: s/p stenting of the superficial femoral artery of the RLE on May [address] Rodriguez. Presented this admission with occlusion of RLE SFA stent. POD #6 - s/p Right Femoral Popliteal Prosthetic Bypass along with [employer] and Stenting of right popliteal artery by Dr Rodriguez. see #1 above Cont asa and plavix. Cont statin. I spoke with Dr Rodriguez - from his standpoint she can d/c home with asa/plavix and f/u with him in 1-2 weeks post-d/c (7) Arterial thrombosis: Plan: RLE SFA occlusion s/p fem-pop bypass & [employer] with stenting of right popliteal artery. POD #6. (8) Diabetic peripheral neuropathy associated with type 1 diabetes mellitus: Plan: Insulin pump; basal rate increased to 0.9 units/hr and overall BSGs are better Hemoglobin A1c 7.7%. at discharge can likely resume basal rate of 0.7 or 0.8 (9) Tobacco use disorder: Plan: Current smoker pre-hospital Continue nicotine patch [employer] to quit (10) Vitamin B12 deficiency: Plan: Is on oral B12 supplementation at home. Despite such - B12 level here still low at 279. s/p B12 1000 mcg IM daily x 3 doses Now resumed po B12. (11) Hyperlipidemia: Plan: Cont lipitor (12) PAD (peripheral artery disease): Plan: History of left femoropopliteal bypass and now right SFA stent with occlusion s/p right fem-pop bypass and [employer] w/ stent to popliteal artery by Dr Rodriguez - POD #6 see above (13) Urinary urgency: Plan: Continue Myrbetriq Follows with urology velásquez removed and no voiding issues (14) Macrocytosis without anemia: Plan: replacing B12 replacing folate now with acute blood loss anemia as above daily CBC venofer 200mg IV x 1 yesterday; venofer 300mg x 1 today; then 300mg x 1 tomorrow (15) HTN (hypertension): Plan: cont to hold lisinopril BPs remain controlled Plan DVT prophylaxis- no chemical means at this time due to concerns of bleeding appreciate vascular surgery PT/OT updated pt's at bedside today if CBC is wnl tomorrow am ---> d/c home with Admission and Anticipated Discharge Date Admission Date: June 10, 2022 Subjective patient feels well RLE pain much improved ambulating comfortably eating well had a normal, brown stool today no melena or rectal bleeding no pain with eating edema right thigh improving at bedside Review of Systems Review of Systems: gen - no fevers; good energy; feels good overall cv - no chest pain pulm - no cough or dyspnea GI - no abd pain, no vomiting Physical Exam Physical Exam: gen - NAD, pleasant mouth - MMM neck - no JVD heart - 2/6 NORBERT LSB, RRR, s1 s2 lungs - CTA b/l abd - soft NT ND BS+ ext - right foot - pulses 2+; left foot 1-2+ skin - dressings intact right leg; right thigh swelling improved; ecchymoses right thigh in multiple locations psych - a/o x 3 Results & Data Results & Data ([facility]) Vital Signs (Past 12 Hours) Vital Signs Temp Pulse Resp BP Pulse Ox O2 Del Method 06/19/22 19:21 37.4 C 94 H 18 125/66 95 Room Air 06/19/22 15:43 37.1 C 101 H 18 134/69 96 Room Air 06/19/22 11:42 36.6 C 88 18 122/57 L 97 Room Air Laboratory Results Laboratory Results - last 24 hr 06/19/22 06/19/22 06/19/22 05:34 05:36 05:36 WBC 8.07 RBC 2.57 L Hgb 8.1 L Hct 24.2 L MCV 94.2 MCH 31.5 MCHC 33.5 RDW Std Deviation 55.3 H RDW Coeff of Nicolas 16.2 H Plt Count 275 MPV 9.7 Immature Gran % (Auto) 0.6 Neut % (Auto) 61.9 Lymph % (Auto) 22.4 Clinton % (Auto) 11.6 Eos % (Auto) 3.1 Baso % (Auto) 0.4 Reticulocyte % (Auto) Neut # (Auto) 4.99 Lymph # (Auto) 1.81 Clinton # (Auto) 0.94 H Eos # (Auto) 0.25 Baso # (Auto) 0.03 Reticulocyte # Immature Gran # (Auto) 0.05 H Polychromasia 1+ POC Glucose Total Bilirubin 0.7 Lactate Dehydrogenase 163 06/19/22 06/19/22 14:32 19:58 WBC RBC Hgb 8.5 L Hct 26.0 L MCV MCH MCHC RDW Std Deviation RDW Coeff of Nicolas Plt Count MPV Immature Gran % (Auto) Neut % (Auto) Lymph % (Auto) Clinton % (Auto) Eos % (Auto) Baso % (Auto) Reticulocyte % (Auto) 3.4 H Neut # (Auto) Lymph # (Auto) Clinton # (Auto) Eos # (Auto) Baso # (Auto) Reticulocyte # 0.09 Immature Gran # (Auto) Polychromasia POC Glucose 114 H Total Bilirubin Lactate Dehydrogenase PG Care Time/CCT Total # of Minutes Spent Total Time Spent with Patient: Total time spent is greater than 50% in coordination of care (as documented) at patient's floor/unit and/or counseling patient: Coding Level of Care Code 09930 Subseq Hosp Care Lvl 2 Diagnoses Acute blood loss anemia D62 Hematemesis K92.0 Esophagitis K20.90 Gastroparesis K31.84 Postoperative hypotension I95.81 Acute occlusion of artery of lower extremity I70.209 Arterial thrombosis I74.9 Diabetic peripheral neuropathy associated with type 1 diabetes mellitus E10.42 Tobacco use disorder F17.200 Vitamin B12 deficiency E53.8 Hyperlipidemia E78.5 PAD (peripheral artery disease) I73.9 Urinary urgency R39.15 Macrocytosis without anemia D75.89 HTN (hypertension) I10
[2022-06-20 06:04] LABS: Hematocrit (blood only) 25.2 % (34.1-44.9); Hemoglobin 8.3 g/dl (12.0-16.0); Mean Corpuscular Hemoglobin 31.6 pg (25.0-34.0); Mean Corpuscular Hgb Conc 32.9 g/dL (32.0-36.0); Mean Corpuscular Volume 95.8 fL (80.0-100.0); Mean Platelet Volume 9.5 fL (9.4-12.3); Platelet Count 360 K/uL (130-400); RDW Coefficient of Variation 15.9 % (11.5-14.5); RDW Standard Deviation 54.1 fL (36.4-46.3); Red Blood Count 2.63 M/uL (3.93-5.22); White Blood Count 8.54 K/ul (4.8-10.8)
[2022-06-20 06:21] LABS: BUN Creatinine Ratio 10.7 (10-20); Calcium 7.7 mg/dl (8.5-10.1); Creatinine Clr Calc Pharmacy 76.4 ml/min; Est GFR (African American) 97.6 ml/min; Est GFR (Non-African American) 84.2 ml/min; Potassium 3.8 mmol/L (3.5-5.1)
[2022-06-20] MEDS ORDERED: IRON SUCROSE 300 MG in SODIUM CHLORIDE 0.9% 250 ML IV ONE (08:00)
[2022-06-20] MEDS: INSULIN, Rapid-Acting PUMP SCH ×2 (08:34→13:24)
[2022-06-20] MEDS: SUCRALFATE 1 GM/10 ML UDC PO SCH ×2 (08:37→13:25)
[2022-06-20] MEDS: DOCUSATE SODIUM 100 MG CAP PO SCH (08:37)
[2022-06-20] MEDS: ASPIRIN 81 MG ECTAB PO SCH (08:37)
[2022-06-20] MEDS: CLOPIDOGREL BISULFATE 75 MG TAB PO SCH (08:38)
[2022-06-20] MEDS: ATORVASTATIN 40 MG TAB PO SCH (08:38)
[2022-06-20] MEDS: GABAPENTIN 100 MG CAP PO SCH ×2 (08:39→13:25)
[2022-06-20] MEDS: MIRABEGRON ER 25 MG TAB PO SCH (08:39)
[2022-06-20] MEDS: FOLIC ACID 1 MG TAB PO SCH (08:39)
[2022-06-20] MEDS: NICOTINE 7 MG/24 HR TDSY TD SCH (08:40)
[2022-06-20] MEDS: CYANOCOBALAMIN (B-12) 500 MCG TABLET PO SCH (08:45)
[2022-06-20] MEDS ORDERED: PANTOprazole 40 MG TAB PO SCH (09:00)
--- NOTE | 2022-06-20 13:45 | Discharge Summary ---
Date of Service June 20, 2022 Admission HPI Per Admitting Provider 62-year-old female with type 1 diabetes and tobacco use history who underwent angioplasty and stenting of right superficial femoral artery by Dr. Rodriguez March 15 presents to the ER with right foot pain escalating over the last 2 days, arterial Doppler in the ER shows complete thrombosis of the right superficial femoral artery which includes the previously performed stent with reconstitution of flow distally. Patient was instituted on a therapeutic heparin infusion in the emergency department Patient is a previous left femoropopliteal bypass November 09, [address] Rodriguez and does continue to smoke Principal Diagnosis Right SFA thrombosis, GI bleed, acute blood loss anemia Discharge Exam gen - NAD, pleasant mouth - MMM neck - no JVD heart - / NORBERT LSB, RRR, s1 s2 lungs - CTA b/l abd - soft NT ND BS+ ext - right foot - pulses 2+; left foot 1-2+ skin - dressings intact right leg; right thigh swelling improved; ecchymoses right thigh in multiple locations psych - a/o x 3 Discharge Data Allergies Allergy/AdvReac Type Severity Reaction Status Date / Time cilostazol Allergy Severe CHEST Verified 06/10/22 16:12 PAIN,SOB NAUSEA Consultations 06/10/22 17:12 ED Decision to Admit Stat 06/10/22 20:55 Consult Vascular Surgery Routine 06/13/22 16:36 Consult Punch Box Tender Routine Procedures Performed Operation Date: 06/13/22 09:45 Actual Procedures p Right Femoral Popliteal Prosthetic Bypass(Right) - Wu Rodriguez MD Operation Date: 06/13/22 18:45 Actual Procedures p Esophagogastroduodenoscopy(Not Applicable) - Glynn Rangel, DO Ordered Studies 06/10/22 13:43 US arterial duplex LE RT Stat 06/11/22 10:04 US venous mapping LE RT Routine 06/13/22 11:46 EV angio LE RT Routine 06/15/22 20:21 CT abd pelvis wo con Urgent Hospital Course (1) Acute blood loss anemia: initial acute blood loss anemia was shortly after her fem-pop bypass several days ago due to hematemesis underwent emergent EGD esophagitis seen; no Eliana-underwood tear or PUD s/p 2 units PRBCs 06/13 Hb 11.9 on 06/14 then decreased to low of 7.4 06/15 CT abd/pelvis 06/15/22 - NO retroperitoneal bleeding, psoas hematoma, etc received 1 unit of PRBCs due to hemoglobin of 7.4 at that time nuclear GI bleeding scan negative asa and plavix resumed cautiously H/H continue to oscillate but hemoglobin appears to have settled about 8.3 s/p venofer IV x 3 prior to discharge stop oral Fe LDH and t.bili checked - negative; hemolysis highly unlikely retic count appropriately high I spoke with GI - occult GI bleeding felt unlikely at this time -also with folic acid and B12 deficiency -follow CBC as an outpt with PCP (2) Hematemesis: occurred evening of 06/13 following her RLE fem-pop bypass s/p urgent EGD by Dr Rangel - esophagitis found but no active bleeding during the EGD; retained food c/w gastroparesis also seen cont PPI twice daily no hematemesis since then treated with carafate for a week and can stop on discharge (3) Esophagitis: as seen on EGD 06/13 cont PPI twice daily (4) Gastroparesis: retained food products on EGD 06/13 highly suggestive of gastroparesis in light of long-standing T1DM will need formal gastric emptying study as outpatient has not had any post-prandial nausea this admission (5) Postoperative hypotension: 2nd to #1 resolved briefly needed phenylephrine drip post-op s/p 2 units PRBCs night of her surgery no issues since ok to resume lisinopril on discharge at a lower dose of 2.5mg daily (6) Acute occlusion of artery of lower extremity: s/p stenting of the superficial femoral artery of the RLE on May [address] Rodriguez. Presented this admission with occlusion of RLE SFA stent. Now s/p Right Femoral Popliteal Prosthetic Bypass along with DISPATCHER RADIO and Stenting of right popliteal artery by Dr Rodriguez. Cont asa and plavix. Cont statin. I spoke with Dr Rodriguez - from his standpoint she can d/c home with asa/plavix and f/u with him in 1-2 weeks post-d/c Vascular plans to add on low dose Xarelto 2.5mg po bid later this week as an out patient (7) Arterial thrombosis: RLE SFA occlusion s/p fem-pop bypass & DISPATCHER RADIO with stenting of right popliteal artery. (8) Diabetic peripheral neuropathy associated with type 1 diabetes mellitus: Insulin pump; basal rate increased to 0.9 units/hr and overall BSGs are better Hemoglobin A1c 7.7%. 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 Despite such - B12 level here still low at 279. s/p B12 1000 mcg IM daily x 3 doses Now resumed po B12. (11) Hyperlipidemia: Cont lipitor (12) PAD (peripheral artery disease): History of left femoropopliteal bypass and now right SFA stent with occlusion s/p right fem-pop bypass and DISPATCHER RADIO w/ stent to popliteal artery by Dr Rodriguez see above (13) Urinary urgency: Continue Myrbetriq Follows with urology velásquez removed and no voiding issues (14) Macrocytosis without anemia: replacing B12 replacing folate now with acute blood loss anemia as above venofer 200mg IV x 1 then venofer 300mg x 2 (15) HTN (hypertension): restart low dose lisinopril as outpt Plan DVT prophylaxis- ASA/Plavix appreciate vascular surgery PT/OT recommend reutrn home dc to home today Total Time Total Time Spent Total Time Spent (In Minutes): 35 min Discussed care w/ Dr. Rodriguez on day of discharge Discharge Plan Discharge Items Patient Disposition: Home - Self-Care Reason For Visit: R SFA THROMBOSIS Discharge Diagnosis: Right superficial femoral artery thrombosis, status post Right Femoral Popliteal Prosthetic Bypass(Right), DISPATCHER RADIO and Stenting of right popliteal artery, right lower extremity arteriogram Acute blood loss anemia Hematemesis Suspected gastroparesis Activity: As commented below Bathing: Keep incision dry Bathing Comment: Contact Dr. Rodriguez's office for questions regarding showering Weightbearing: Right weightbearing Weightbearing Comment: as tolerated Non-emergency contact: Primary Care Provider and Surgeon Call non-emergency contact if: you have any medication questions, your pain is not controlled, your pain is unusual for you, you have a fever, your wound has increased redness, your wound has increased drainage and your wound pain has increased Follow-up/Referrals: Raymond Doherty MD [Primary Care Provider] - 06/27/22 1:30 pm Wu Rodriguez MD [Physician] - (Dr. Rodriguez's office will contact you with your appointment date and time.) Diet: Carb Count or DM1 Addtl Attending Provider Instructions: Your wound vacuum will come off once the battery dies. You can continue to take oxycodone as needed for moderate-severe pain, acetaminophen as needed for mild- moderate pain. Follow up with Dr. Rodriguez within 1-2 weeks-his office will call you with your appointment date/time. Continue aspirin and Plavix. You will also be started on a low dose of Xarelto as a third blood thinner later this week. It is very important that you continue to NOT SMOKE once you go home. You had anemia from blood loss while here and did receive blood transfusions as well as IV iron. Please have your PCP check your blood count within 1 week. Because you were found to have food in your stomach despite not eating for over 24 hours, it is suggested that you have a gastric emptying study to diagnose gastroparesis. The Nurse Navigator here will help arrange this study for you. For the inflammation found in your esophagus, you were started on an antacid called Protonix to be taken twice a day. Pending Studies at Discharge: No Stand-Alone Forms: [facility], Work/School Release, Smoking Cessation Medications and DC Order Prescriptions: New acetaminophen [Tylenol Extra Strength] 500 mg Tablet 1,000 mg PO TID PRN (Reason: mild-moderate pain) Qty: 180 0RF Rx Instructions: Over the counter oxycodone 5 mg Tablet 5 - 10 mg PO Q4H PRN (Reason: moderate-severe pain) Qty: 30 0RF docusate sodium 100 mg Capsule 100 mg PO BID Qty: 60 0RF pantoprazole 40 mg Tablet,Delayed Release (Dr/Ec) 40 mg PO BID Qty: 60 0RF folic acid 1 mg Tablet 1 mg PO QAM Qty: 30 0RF Continued aspirin [Adult Aspirin Regimen] 81 mg tablet,delayed release (DR/EC) 81 mg PO QAM (DME) Contour Next Test Strips Strip See Dose Instructions .ROUTE .MEDSUPPLY Qty: 600 3RF Dose Instruction: As directed Rx Instructions: use to test 6 times daily atorvastatin [Lipitor] 40 mg tablet 40 mg PO DAILY Qty: 90 3RF ascorbic acid (vitamin C) 100 mg tablet 100 mg PO DAILY (DME) FreeStyle Gayatri 2 [place] Misc See Rx Instructions .Route Qty: 1 0RF Rx Instructions: As directed (DME) FreeStyle Gayatri 2 Sensor Kit See Rx Instructions .Route Qty: 7 3RF Rx Instructions: Apply new sensor every 14 days cyanocobalamin (vitamin B-12) 1,000 mcg capsule 1,000 mcg PO DAILY Myrbetriq 50 mg tablet extended release 24 hr 50 mg PO DAILY Qty: 90 3RF Baqsimi 3 mg/actuation spray,non-aerosol 3 mg intranasal ONCE Qty: 2 1RF Rx Instructions: use as directed for hypoglycemia clopidogrel [Plavix] 75 mg tablet 75 mg PO QAM insulin lispro [Humalog U-100 Insulin] 100 unit/mL solution 0 unit continuous subcutaneous infusion DAILY Label Comments: sliding scale is 1 unit for every 15 carbs. no basil rate Rx Instructions: continuous infusion subcutaneously via pump, total daily units = 40units. Changed gabapentin 100 mg capsule 200 mg PO TID PRN (Reason: loss of sensation) Qty: 180 0RF lisinopril 2.5 mg tablet 2.5 mg PO DAILY Qty: 180 1RF Discharge Orders: Discharge Order (Routine); Ordered 06/20/22 Ordered By: Susan Tucker Admission Data Admit Date/Time: 06/10/22 17:45 Attending Provider: Susan Tucker Admit Provider: Renzo Reed Primary Care Provider: Raymond Doherty Other Providers: Renzo Reed ; Wu Rodriguez ; Josué Salguero ; Jalen Navarro ; Moisés Saunders ; Foster Cortes ; Adrian Murphy ; Ryan Hernandez ; Wei May ; Paul Ellison ; Sarina Bryson Coding Level of Care Code D/C DAY MANAGEMENT >30 MINS Diagnoses Acute blood loss anemia D62 Hematemesis K92.0 Esophagitis K20.90 Gastroparesis K31.84 Postoperative hypotension I95.81 Acute occlusion of artery of lower extremity I70.209 Arterial thrombosis I74.9 Diabetic peripheral neuropathy associated with type 1 diabetes mellitus E10.42 Tobacco use disorder F17.200 Vitamin B12 deficiency E53.8 Hyperlipidemia E78.5 PAD (peripheral artery disease) I73.9 Urinary urgency R39.15 Macrocytosis without anemia D75.89 HTN (hypertension) I10
--- NOTE | 2022-07-17 09:49 | Operative Report ---
Post Operative Report Pre & Post Diagnosis Operation Date: 06/13/22 09:45 Pre-Op Diagnosis: Right Superficial Femoral Artery Thrombosis Post-Op Diagnosis: Right Superficial Femoral Artery Thrombosis Operation Date: 06/13/22 18:45 Pre-Op Diagnosis: Hematemesis Post-Op Diagnosis: Reflux Esophagitis, Retained Gastric Contents I identified the patient and participated in the time-out.: Yes Procedure Operation Date: 06/13/22 09:45 Actual Procedures p Right Femoral Popliteal Prosthetic Bypass, transluminal angioplasty and stenting of right popliteal artery, right lower extremity arteriogram (Right) - Wu Salmeron MD Operation Date: 06/13/22 18:45 Actual Procedures p Esophagogastroduodenoscopy(Not Applicable) - Glynn Rangel DO Surgeon Wu Salmeron MD Pulp Mixer Carmencita,PAC Estimated Blood Loss 300 Findings Consistent with Post-Op Diagnosis Specimens None Anesthesia Type General Complications none Disposition Accompanied Patient To Recovery: No Disposition: Recovery Room Indications This is a 62-year-old female with severe claudication right lower extremity. She also has developed recent onset of rest pain a little right foot. Endovascular intervention cannot be done. In view of the long occlusion of femoropopliteal bypass above-knee with the possible popliteal artery stent was recommended. I have discussed the risks options and benefits of the procedure with the patient. The patient understands the risks options and benefits and agrees to the procedure. Description of Procedure The patient was taken the operating room placed supine position. After right lower extremities prepped draped sterile manner the patient was identified and timeout was performed. Under 2 incisions made in the right groin. This carried down to where the common femoral arteries identified. It was soft and usable for anastomosis. Is isolated to the ligament down to beyond its bifurcation. Next incision was made just above the knee medially. This was carried out to where the proximal popliteal artery was identified. Again it was soft and usable as it exited the adductor hiatus. Patient was heparinized at that time. After adequate position was accomplished with tunnel was made from the groin down to the lower thigh incision using a tunneler. A 6 mm propatent graft was passed through the tunnel. Comfortable arteries then clamped proximal distally. Longitudinal arteriotomy was performed. The graft was beveled and at the site anastomosis was accomplished using a 5-0 Prolene suture in the usual vascular fashion. A vascular clamp was placed on the graft and the common femoral arteries unclamped. Adequate hemostasis was noted the suture line. The popliteal artery was then clamped proximal distally. Longitudinal arteriotomy was performed. The [place] graft was then pulled the appropriate length trimmed and beveled. The popliteal artery was widely patent at that point of the anastomosis. An end-to-side anastomosis was accomplished between the graft and the popliteal artery. This was about a 5-0 Prolene suture in usual vascular fashion. Backbleeding and forward bleeding were allowed to occur. Final few sutures were placed and securely tied. Clamps were removed. Excellent flow was seen through the distal anastomosis. We then punctured the graft just beyond the proximal anastomosis with a micropuncture technique. Arteriography right lower extremity showed widely patent graft at the distal anastomosis. Popliteal artery was patent to the midportion of which a short occlusion was seen. We then switched the sheath to a 7 [place] sheath. 035 wire was inserted as well as a quick cross catheter. The lesion was traversed without too much difficulty. Wire was removed. Arteriography showed the catheter be true lumen. We then exchanged the wire to a v18. We inserted a 6 x 15 Viabahn stent. This was deployed across the lesion without difficulty. We then used a 5 mm balloon to expand the stent. Post completion film showed this area to be widely patent without any residual stenosis. Good flow was seen to the foot. And hemostasis was noted of the wounds. The wounds were then closed in usual fashion using running 2-0 Vicryl suture for the femoral sheath, a 3-0 Vicryl for both incisions for the subcutaneous layer and ese for the skin. Sterile dressings were applied for the wound on the lower leg and Prevena dressings for the groin.The patient left the operation room in satisfactory condition and tolerated the procedure well. All needle and sponge counts were correct at the end of the procedure. Stephanie Falcon Pac assisted due to lack of resident availability and was aubrey monteiro for positioning, draping, retraction, wound closure deep layers, subcutaneous tissue, and skin closure and was necessary for assisting with the case. I attest to the content of the Intraoperative Record and any orders documented therein. Any exceptions are noted below.
== END 2022-06-20 15:30 | disposition home or self-care (01) | DRG 253 ==
LOC: ED 13:24 → 3E 17:45 → SUATTDRO 17:45 → 3E 21:12 → 1E 06-13 16:15 → 2N 06-15 12:04

== ENCOUNTER 2022-07-26 11:08 | Inpatient (IN) ==
[2022-07-26] MEDS ORDERED: SODIUM CHLORIDE 0.9% 1000ML 1,000 ML IV ONE (11:56)
[2022-07-26 11:57] LABS: Hematocrit (blood only) 36.3 % (34.1-44.9); Hemoglobin 12.3 g/dl (12.0-16.0); Mean Corpuscular Hemoglobin 32.5 pg (25.0-34.0); Mean Corpuscular Hgb Conc 33.9 g/dL (32.0-36.0); Mean Platelet Volume 8.8 fL (9.4-12.3); Platelet Count 684 K/uL (130-400); RDW Coefficient of Variation 14.6 % (11.5-14.5); RDW Standard Deviation 51.8 fL (36.4-46.3); Red Blood Count 3.78 M/uL (3.93-5.22); White Blood Count 19.83 K/ul (4.8-10.8)
[2022-07-26] MEDS ORDERED: PIPERACILLIN/TAZOBACTAM 4.5 GM/120 ML BAG IV ONE (11:57)
--- NOTE | 2022-07-26 12:00 | Emergency Department Note ---
Impression & Plan Post op infection, History of femoropopliteal bypass, Leukocytosis, Acute hyponatremia ED Provider Note NAME: GEOFF GARCÍA AGE: 62 SEX: F : 1960 ARRIVES VIA: Walk-In INFORMANT: Patient ED PROVIDER(S): Ray Butler DO CHIEF COMPLAINT: Infected graft HPI: Patient is a 62-year-old female who was referred in from Dr. Salmeron's office who had a SFA occlusion graft placed back in early June. Since the placement the graft patient has been having drainage and has been infected. She was seen evaluated today. She has been on Keflex. She was referred in for admi ssion as tomorrow they are going to remove the graft. Patient denies any headache or change in vision. No chest pain or shortness of breath. No recorded fevers. No belly pain nausea vomiting or diarrhea. She has persistent constant pain in that right leg. PAST MEDICAL HISTORY:See Below PAST SURGICAL HISTORY:See Below FAMILY HISTORY:See Below SOCIAL HISTORY:See Below HOME MEDICATIONS:See Below ALLERGIES:See Below VITALS:See Below PHYSICAL EXAMINATION: GENERAL: Sitting up in bed, alert, well appearing, well nourished, no distress, non-toxic EYE EXAM: normal conjunctiva. OROPHARYNX: no exudate, no erythema, lips, buccal mucosa, and tongue normal and mucous membranes are moist NECK: supple, no nuchal rigidity, no adenopathy, non-tender LUNGS: Clear to auscultation. Normal chest wall mechanics HEART: no murmurs, S1 normal and S2 normal ABDOMEN: abdomen soft, non-tender, normo-active bowel sounds, no masses, no rebound or guarding. UPPER EXTREMITIES: upper extremities are grossly normal. LOWER EXTREMITIES: Dressing over the right distal thigh with a small amount of green purulent drainage from the distal aspect of the incision NEURO EXAM: Normal sensorium, cranial nerves II-XII grossly intact, normal spe ech, no gross weakness of arms, no gross weakness of legs. MEDICAL DECISION MAKING: Patient is a 62-year-old female referred in from Dr. Salmeron's office. She was sent in for admission and IV antibiotics for SFA graft which was placed which is now infected. This will be removed tomorrow per her report. IV was established blood work was obtained and showed a leukocytosis of 20,000. No significant anemia. BMP 130. Glucose was elevated 270. LFTs bilirubin was unremarkable. Pro-Osvaldo 0.3. COVID was negative. Patient was given IV Zosyn. She was initially seen in the waiting room and eventually did obtain a bed. Could not order vancomycin initially as they did not have a wait for. External records were reviewed. Patient was updated at bedside. Discussed with Dr. Ivy for further evaluation admission and work-up. She was also given IV fluids while waiting. Triage Nursing notes reviewed. Limited review of prior medical records performed Vital Signs: reviewed and remarkable for no significant abnormalities Differential diagnosis: Differential diagnosis includes etiologies such as sepsis, UTI, pneumonia, metabolic, electrolyte abnormalities, cardiac sources, intracerebral event, toxicologic, neurological, as well as others were entertained. ER treatment provided: See below Diagnostics interpreted by me include EKG and cardiac monitoring as listed below: -Cardiac Monitoring: An order was placed for continuous cardiac monitoring. The monitor shows a rate of 101 with sinus rhythm. -ECG: none -Laboratory studies:Interpreted by me as stated above in MDM and shown below. Imaging studies: Xrays: As interpreted by me:none CTs show: none Consultation(s): Discussed with hospitalist Dr. Garland in regards to presenta tion work-up treatment and further evaluation Procedures:none Critical Care: None Past Med/Surg History Medical History (Updated 07/26/22 @ 14:20 by Ray Butler DO) Acquired deformity of both feet Acquired hallux valgus of right foot Acute occlusion of artery of lower extremity Callus Controlled type 1 diabetes mellitus with hypoglycemia, with long-term current use of insulin Current tobacco use Diabetes Diabetes mellitus with diabetic polyneuropathy Diabetic neuropathy Gastroparesis Hallux rigidus of right foot Hallux rigidus, left foot Hallux valgus (acquired), left foot Hematemesis HTN (hypertension) Hyperlipidemia Lateral epicondylitis of elbow Macrocytosis without anemia 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 Superficial femoral artery occlusion Vitamin B12 deficiency Vitamin D deficiency Surgical History (Updated 07/26/22 @ 14:20 by Ray Butler DO) H/O hand surgery History of 3 sections History of angioplasty History of ankle surgery History of femoropopliteal bypass Family History Father Myocardial infarction Hypertension Diabetes Cardiac disorder Mother Lung cancer Diabetes Cardiac disorder Myocardial infarction Brother Lung cancer Hypertension Cardiac disorder Myocardial infarction Aunt Dementia Sister Hypertension Diabetes Denies family history of Colon cancer Ovarian cancer Prostate cancer Breast cancer Social History Smoking Status: Former smoker Tobacco Type: Cigarettes packs per day: 1; Cigarettes Per Day: 5/6 cigarettes per day; Second Hand Exposure: No; Hx Alcohol Use: Yes Alcohol type: wine Alcohol type Comment: 1-2 daily Hx Substance Use: No Preferred Language: Yoruba Communication Ability: Effective Visual Impairment: No Limitations Hearing Ability: Normal Tube Tester Required: Yes Beliefs That Will Affect Care: None marital status: Current Living Situation: Spouse 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 Feels Safe at Home: Yes Childhood Exposure to Second-Hand Smoke: Yes Dental Care, Regularly: No Physical Activity Frequency: Does not Exercise Seatbelt Use: always Sunscreen Use: No Assistive Devices: None Allergies Allergies Allergy/AdvReac Type Severity Reaction Status Date / Time cilostazol Allergy Severe CHEST Verified 07/26/22 13:32 PAIN,SOB NAUSEA Home Meds Home Medications Medication Instructions Recorded Confirmed ascorbic acid (vitamin C) 100 mg 100 mg PO DAILY 06/11/19 07/26/22 tablet aspirin 81 mg tablet,delayed 81 mg PO QAM 06/11/19 07/26/22 release (Adult Aspirin Regimen) cyanocobalamin (vitamin B-12) 1,000 mcg PO DAILY 06/28/20 07/26/22 1,000 mcg capsule clopidogrel 75 mg tablet (Plavix) 75 mg PO QAM 06/10/22 07/26/22 insulin lispro 100 unit/mL 0 unit continuous subcutaneous 06/10/22 07/26/22 subcutaneous solution (Humalog infusion DAILY U-100 Insulin) rivaroxaban 2.5 mg tablet (Xarelto) 2.5 mg PO BID 07/26/22 07/26/22 Previous Rx's Medication Instructions Recorded blood sugar diagnostic (Contour #600 ea 04/22/21 Next Test Strips) atorvastatin 40 mg tablet (Lipitor) 40 mg PO DAILY #90 tabs 06/21/21 glucagon 3 mg/actuation nasal 3 mg intranasal ONCE #2 ea 08/04/21 spray (Baqsimi) mirabegron 50 mg tablet,extended 50 mg PO DAILY #90 tabs 08/22/21 release 24 hr (Myrbetriq) flash glucose scanning reader #1 ea 11/21/21 (FreeStyle Gayatri 2 Garwin) flash glucose sensor (FreeStyle #7 ea 11/21/21 Gayatri 2 Sensor kit) acetaminophen 500 mg tablet 1,000 mg PO TID PRN mild-moderate 06/20/22 (Tylenol Extra Strength) pain #180 tabs docusate sodium 100 mg capsule 100 mg PO BID #60 caps 06/20/22 folic acid 1 mg tablet 1 mg PO QAM #30 tabs 06/20/22 gabapentin 100 mg capsule 200 mg PO TID PRN loss of 06/20/22 sensation #180 caps lisinopril 2.5 mg tablet 2.5 mg PO DAILY #180 tabs 06/20/22 oxycodone 5 mg tablet 5 - 10 mg PO Q4H PRN 06/20/22 moderate-severe pain #30 tabs pantoprazole 40 mg tablet,delayed 40 mg PO BID #60 tabs 07/21/22 release Results & Data (ED) Vital Signs Vital Signs - 24 hr 07/26/22 11:09 07/26/22 13:38 Temperature 36.6 C Temperature Source Temporal Artery Scan Pulse Rate 99 H Pulse Rate [Apical] 106 H Respiratory Rate 20 16 Respiratory Effort / Characteristics Non-Labored Spontaneous Respiratory Depth Normal Blood Pressure 94/52 L Blood Pressure Mean 66 Pulse Oximetry 96 99 Oxygen Delivery Method Room Air Room Air Sepsis Recent Fever Within 48 Hours No Sepsis New/Unexplained Change in Mental Status No Sepsis Action Taken by Nursing No Action Required Laboratory Data 07/26/22 11:50 07/26/22 11:50 Lab Results 07/26/22 07/26/22 07/26/22 Range/Units 11:50 11:50 11:50 WBC 19.83 H (4.8-10.8) K/ul RBC 3.78 L (3.93-5.22) M/uL Hgb 12.3 (12.0-16.0) g/dl Hct 36.3 (34.1-44.9) % MCV 96.0 (80.0-100.0) fL MCH 32.5 (25.0-34.0) pg MCHC 33.9 (32.0-36.0) g/dL RDW Std Deviation 51.8 H (36.4-46.3) fL RDW Coeff of Nicolas 14.6 H (11.5-14.5) % Plt Count 684 H (130-400) K/uL MPV 8.8 L (9.4-12.3) fL Immature Gran % (Auto) 1.0 % Neut % (Auto) 91.0 % Lymph % (Auto) 2.8 % [place] % (Auto) 4.8 % Eos % (Auto) 0.1 % Baso % (Auto) 0.3 % Neut # (Auto) 18.05 H (1.4-6.5) K/uL Lymph # (Auto) 0.56 L (1.2-3.4) K/uL [place] # (Auto) 0.96 H (0.24-0.82) K/uL Eos # (Auto) 0.01 (0-0.50) K/uL Baso # (Auto) 0.05 (0-0.2) K/uL Immature Gran # (Auto) 0.20 H (0.00-0.02) K/uL PT 12.1 H (9.0-12.0) Seconds INR 1.1 (0.9-1.1) APTT 33.5 H (21.0-31.0) Seconds PTT Ratio 1.2 Sodium 130 L (136-145) mmol/L Potassium 3.6 (3.5-5.1) mmol/L Chloride 91 L (98-107) mmol/L Carbon Dioxide 26 (21-32) mmol/L Anion Gap 13 H (3-11) BUN 19 (6-23) mg/dl Creatinine 1.09 (0.6-1.2) mg/dl Est Cr Clr Drug Dosing Not Reportable Est GFR ( Amer) 62.1 ml/min Est GFR (Non-Af Amer) 53.6 ml/min BUN/Creatinine Ratio 17.4 (10-20) Glucose 269 H (70-99(Fasting)) mg/dl Lactate (0.4-2.0) mmol/L Calcium 9.4 (8.5-10.1) mg/dl Magnesium 1.7 (1.7-2.4) mg/dl Total Bilirubin 0.7 (0.2-1.0) mg/dl AST 20 (13-39) U/L ALT 10 (7-52) U/L Alkaline Phosphatase 96 (34-104) U/L Total Protein 8.0 (6.0-8.3) gm/dl Albumin 3.4 (3.4-5.0) gm/dl Globulin 4.6 H (2.5-4.0) gm/dl Albumin/Globulin Ratio 0.7 L (0.9-2) Procalcitonin (0-0.5) ng/ml SARS-CoV-2, RNA, NAAT (NEGATIVE) 07/26/22 07/26/22 07/26/22 Range/Units 11:50 11:50 Unknown WBC (4.8-10.8) K/ul RBC (3.93-5.22) M/uL Hgb (12.0-16.0) g/dl Hct (34.1-44.9) % MCV (80.0-100.0) fL MCH (25.0-34.0) pg MCHC (32.0-36.0) g/dL RDW Std Deviation (36.4-46.3) fL RDW Coeff of Nicolas (11.5-14.5) % Plt Count (130-400) K/uL MPV (9.4-12.3) fL Immature Gran % (Auto) % Neut % (Auto) % Lymph % (Auto) % [place] % (Auto) % Eos % (Auto) % Baso % (Auto) % Neut # (Auto) (1.4-6.5) K/uL Lymph # (Auto) (1.2-3.4) K/uL [place] # (Auto) (0.24-0.82) K/uL Eos # (Auto) (0-0.50) K/uL Baso # (Auto) (0-0.2) K/uL Immature Gran # (Auto) (0.00-0.02) K/uL PT (9.0-12.0) Seconds INR (0.9-1.1) APTT (21.0-31.0) Seconds PTT Ratio Sodium (136-145) mmol/L Potassium (3.5-5.1) mmol/L Chloride (98-107) mmol/L Carbon Dioxide (21-32) mmol/L Anion Gap (3-11) BUN (6-23) mg/dl Creatinine (0.6-1.2) mg/dl Est Cr Clr Drug Dosing Est GFR ( Amer) ml/min Est GFR (Non-Af Amer) ml/min BUN/Creatinine Ratio (10-20) Glucose (70-99(Fasting)) mg/dl Lactate 1.5 (0.4-2.0) mmol/L Calcium (8.5-10.1) mg/dl Magnesium (1.7-2.4) mg/dl Total Bilirubin (0.2-1.0) mg/dl AST (13-39) U/L ALT (7-52) U/L Alkaline Phosphatase (34-104) U/L Total Protein (6.0-8.3) gm/dl Albumin (3.4-5.0) gm/dl Globulin (2.5-4.0) gm/dl Albumin/Globulin Ratio (0.9-2) Procalcitonin 0.30 (0-0.5) ng/ml SARS-CoV-2, RNA, NAAT NEGATIVE (NEGATIVE) Administered Medications Discontinued Medications Sodium Chloride (Nss 1000ml) 1,000 mls @ 999 mls/hr IV .Q1H1M ONE Stop: 07/26/22 12:56 Last Admin: 07/26/22 12:40 Dose: 999 mls/hr Documented By: NAA Piperacillin Sod/Tazobactam Sod (Zosyn) 4.5 gm in 120 mls @ 240 mls/hr IV NOW ONE Stop: 07/26/22 12:26 Last Admin: 07/26/22 12:40 Dose: Not Given Documented By: NAA Discharge Plan Visit Data Chief Complaint: Leg Injury/Pain Stated Complaint: LEG PROBLEM ED Provider: Ray Butler Discharge Problem: Post op infection, History of femoropopliteal bypass, Leukocytosis, Acute hyponatremia Forms Stand Alone Forms: My [facility] zePASS Prescriptions Prescriptions: No Action aspirin [Adult Aspirin Regimen] 81 mg tablet,delayed release (DR/EC) 81 mg PO QAM (DME) Contour Next Test Strips Strip See Dose Instructions .ROUTE .MEDSUPPLY Qty: 600 3RF Dose Instruction: As directed Rx Instructions: use to test 6 times daily atorvastatin [Lipitor] 40 mg tablet 40 mg PO DAILY Qty: 90 3RF pantoprazole 40 mg tablet,delayed release (DR/EC) 40 mg PO BID Qty: 60 0RF ascorbic acid (vitamin C) 100 mg tablet 100 mg PO DAILY (DME) FreeStyle Gayatri 2 Garwin Misc See Rx Instructions .Route Qty: 1 0RF Rx Instructions: As directed (DME) FreeStyle Gayatri 2 Sensor Kit See Rx Instructions .Route Qty: 7 3RF Rx Instructions: Apply new sensor every 14 days cyanocobalamin (vitamin B-12) 1,000 mcg capsule 1,000 mcg PO DAILY Myrbetriq 50 mg tablet extended release 24 hr 50 mg PO DAILY Qty: 90 3RF Baqsimi 3 mg/actuation spray,non-aerosol 3 mg intranasal ONCE Qty: 2 1RF Rx Instructions: use as directed for hypoglycemia clopidogrel [Plavix] 75 mg tablet 75 mg PO QAM insulin lispro [Humalog U-100 Insulin] 100 unit/mL solution 0 unit continuous subcutaneous infusion DAILY Label Comments: sliding scale is 1 unit for every 15 carbs. no basil rate Rx Instructions: continuous infusion subcutaneously via pump, total daily units = 40units. acetaminophen [Tylenol Extra Strength] 500 mg Tablet 1,000 mg PO TID PRN (Reason: mild-moderate pain) Qty: 180 0RF Rx Instructions: Over the counter oxycodone 5 mg Tablet 5 - 10 mg PO Q4H PRN (Reason: moderate-severe pain) Qty: 30 0RF docusate sodium 100 mg Capsule 100 mg PO BID Qty: 60 0RF folic acid 1 mg Tablet 1 mg PO QAM Qty: 30 0RF gabapentin 100 mg capsule 200 mg PO TID PRN (Reason: loss of sensation) Qty: 180 0RF lisinopril 2.5 mg tablet 2.5 mg PO DAILY Qty: 180 1RF Xarelto 2.5 mg tablet 2.5 mg PO BID Referrals Referrals: ProRaymond MD [Primary Care Provider] -
[2022-07-26 12:15] LABS: INR 1.1 (0.9-1.1); Partial Thromboplastin Ratio 1.2; Partial Thromboplastin Time 33.5 Seconds (21.0-31.0); Prothrombin Time 12.1 Seconds (9.0-12.0)
--- NOTE | 2022-07-26 12:16 | History & Physical Report ---
Date of Service July 26, 2022 Assessment & Plan (1) Vascular graft infection: Plan: Infected fem/pop bypasss/p angioplasty and stenting of right SFA 05/15/2022 with SFA occlusion and stenting subsequently s/p prosthetic bypass and right popliteal stenting 06/13/2022. Left lower extremity: Well-healed left femoral bypass surgical site, left extremity warm and dry. PT/DP pulse palpable. Cap refill intact. Sensation to soft touch intact, ankle dorsiflexion/plantar flexion and hip flexion intact. Right lower extremity: Femoral bypass site well-healed, palpable pulse. Popliteal bypass site with 2X nonhealed, open areas with mild surrounding erythema and bloody/purulent discharge expressed on palp. Lower extremity is cool, minimal/numb sensation at the dorsal foot and no sensation on the plantar foot. PT/DP pulses are not palpable. On admission: Leukocytosis acutely to 19.83 Hemoglobin 12.3, MCV 96. Platelet count 684, likely reactive Patient last took DOAC/aspirin/Plavix yesterday Discussed with vascular surgery. Consulted. Anticipate operative intervention/AKA. N.p.o. midnight. ABX as noted. We will hold aspirin/DOAC/Plavix, admit on heparin gtt which can be held in the morning prior to surgery. Blood cultures pending - Surface wound culture of purulent material sent, will also have operative cx - Admitted on Cefepime/Vanc/Flagyl given graft infection worsening over last few weeks and hx DM Baseline creatinine 0.75, admitting creatinine 1.09 Hypotension In the setting of infected bypass, history of recently low normal BPs Lisinopril held Normalized after 1L IVF - Continue IVFM 2/2 poor PO intake and NPO and midnight Type I DM with peripheral neuropathy With insulin pump Basal rate 0.9 units at last hospitalization, continued this on DC last A1c 7.7% Ratio 1:15 - Pt OK to use own pump History of acute blood loss anemia - hgb 12.3 on admission, no active bleeding - Trend History of esophagitis Continue PPI twice daily Gastroparesis Suspect in the setting of type I DM Supportive care at [facility] time - Will have outpt f/u for emptying study Tobacco use, 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 Held pending operative intervention as noted DVT PPx: On heparin gtt CODE STATUS: Full Diet: Clears, NPO at midnight Dispo: Med Tele (2) PVD (peripheral vascular disease): (3) HTN (hypertension): (4) Hyperlipidemia: (5) Diabetic peripheral neuropathy associated with type 1 diabetes mellitus: (6) Gastroparesis: History of Present Illness Primary Care Provider: Raymond Doherty MD Mattie is a 62-year-old female with past medical history of peripheral artery disease, type 1 diabetes mellitus with foot ulcers, hyperlipidemia, hypertension, tobacco use, gastro paresis, and esophagitis who presents on referral from vascular surgery for an infected femoropopliteal bypass. 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 During that admission she did experience hematemesis with an urgent EGD which showed no active bleeding, and acute blood loss anemia receiving 2 units of PRBC with no retroperitoneal bleeding, no psoas hematoma, and negative nuclear GI bleeding scan with fluctuating hemoglobin lev eling out at approximately 8.3. Patient did receive Venofer prior to discharge, and consultation with GI occult GI bleeding was felt to be unlikely. Case was reviewed by discharging hospitalist and vascular surgery, patient was recommended for discharge on aspirin/Plavix with follow-up in 1 to 2 weeks for addition of low-dose Xarelto if hemodynamically stable. Per Pt: Jun 10 started to have very severe pain in her R leg just like L leg occlusion. Jun 12 was admitted and had bipass 'and just never did well.' R mid leg incision never healed. Has been taking 2x rounds of keflex 14 days each round. No fevers, chills, or sweats no chest pain or chest pressur. no difficulty breathign or shortness of breath +n/+v clear no blood/bile. Appetite decreased. -diarrhea, No problems with LLE. No numbness. 10/10 pain in the RLE, ankle to knee. No pain at the hip. Some pain anterior- superior to knee. R foot 'numb' feeling 2 days ago. Foot has been cold for 2 days. L foot with intact sensation to soft touch. Saw Dr. Salmeron today. Pending excision of graft, will be on antibiotics. Will revise femoral graft. Anticipate above the knee amputation. Last BM 1 week ago. Has not been eating much in the last week.+flatus. Prior 1 glass of wine per day, none recently. Former smoker, last Jun 10. No recent use. Prior 25 years ~0.5ppd NO rec drug, no MM use. Allergies: No med allergies Eliquios/clopris/aspirin, last took yesterday. Allergies Allergy/AdvReac Type Severity Reaction Status Date / Time cilostazol Allergy Severe CHEST Verified 06/10/22 16:12 PAIN,SOB NAUSEA Home Medications Medication Instructions Recorded Confirmed Type ascorbic acid (vitamin C) 100 mg 100 mg PO DAILY 06/11/19 06/10/22 History tablet aspirin 81 mg tablet,delayed 81 mg PO QAM 06/11/19 06/10/22 History release (Adult Aspirin Regimen) cyanocobalamin (vitamin B-12) 1,000 mcg PO DAILY 06/28/20 06/10/22 History 1,000 mcg capsule blood sugar diagnostic (Contour #600 ea 04/22/21 03/21/22 Rx Next Test Strips) atorvastatin 40 mg tablet (Lipitor) 40 mg PO DAILY #90 tabs 06/21/21 06/10/22 Rx glucagon 3 mg/actuation nasal 3 mg intranasal ONCE #2 ea 08/04/21 06/10/22 Rx spray (Baqsimi) mirabegron 50 mg tablet,extended 50 mg PO DAILY #90 tabs 08/22/21 06/10/22 Rx release 24 hr (Myrbetriq) flash glucose scanning reader #1 ea 11/21/21 03/21/22 Rx (FreeStyle Gayatri 2 Kake) flash glucose sensor (FreeStyle #7 ea 11/21/21 03/21/22 Rx Gayatri 2 Sensor kit) clopidogrel 75 mg tablet (Plavix) 75 mg PO QAM 06/10/22 06/10/22 History insulin lispro 100 unit/mL 0 unit continuous subcutaneous 06/10/22 06/10/22 His tory subcutaneous solution (Humalog infusion DAILY U-100 Insulin) acetaminophen 500 mg tablet 1,000 mg PO TID PRN mild-moderate 06/20/22 Rx (Tylenol Extra Strength) pain #180 tabs docusate sodium 100 mg capsule 100 mg PO BID #60 caps 06/20/22 Rx folic acid 1 mg tablet 1 mg PO QAM #30 tabs 06/20/22 Rx gabapentin 100 mg capsule 200 mg PO TID PRN loss of 06/20/22 Rx sensation #180 caps lisinopril 2.5 mg tablet 2.5 mg PO DAILY #180 tabs 06/20/22 06/10/22 Rx oxycodone 5 mg tablet 5 - 10 mg PO Q4H PRN 06/20/22 Rx moderate-severe pain #30 tabs pantoprazole 40 mg tablet,delayed 40 mg PO BID #60 tabs 07/21/22 Rx release Past Med/Surg History Medical History (Updated 07/26/22 @ 12:50 by Axel Molina MD) Acquired deformity of both feet Acquired hallux valgus of right foot Acute occlusion of artery of lower extremity Callus Controlled type 1 diabetes mellitus with hypoglycemia, with long-term current use of insulin Current tobacco use Diabetes Diabetes mellitus with diabetic polyneuropathy Diabetic neuropathy Gastroparesis Hallux rigidus of right foot Hallux rigidus, left foot Hallux valgus (acquired), left foot Hematemesis HTN (hypertension) Hyperlipidemia Lateral epicondylitis of elbow Macrocytosis without anemia 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 Superficial femoral artery occlusion Vitamin B12 deficiency Vitamin D deficiency Surgical History H/O hand surgery History of 3 sections History of angioplasty History of ankle surgery History of femoropopliteal bypass Family History Father Myocardial infarction Hypertension Diabetes Cardiac disorder Mother Lung cancer Diabetes Cardiac disorder Myocardial infarction Brother Lung cancer Hypertension Cardiac disorder Myocardial infarction Aunt Dementia Sister Hypertension Diabetes Denies family history of Colon cancer Ovarian cancer Prostate cancer Breast cancer Social History Smoking Status: Former smoker Tobacco Type: Cigarettes packs per day: 1; Cigarettes Per Day: 5/6 cigarettes per day; Second Hand Exposure: No; Hx Alcohol Use: Yes Alcohol type: wine Alcohol type Comment: 1-2 daily Hx Substance Use: No Preferred Language: Romansh Communication Ability: Effective Visual Impairment: No Limitations Hearing Ability: Normal Body Builder Apprentice Required: Yes Beliefs That Will Affect Care: None marital status: Current Living Situation: Spouse 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 NAD. Cooperative. HEENT: Atraumatic, normocephalic. Vision/hearing grossly intact. Pupils equal and reactive to light. Pulm: CTAB A&P. -wheezes, -rales, -rhonchi. Symmetrical chest rise. No increase in work of breathing. No respiratory distress. Cardiac: RRR, -mrg. Radial pulses intact and symmetrical. Abdominal: Nontender, nondistended, soft. BS present. Extremities: Left lower extremity: Well-healed left femoral bypass surgical site, left extremity warm and dry. PT/DP pulse palpable. Cap refill intact. Sensation to soft touch intact, ankle dorsiflexion/plantar flexion and hip flexion intact. Right lower extremity: Femoral bypass site well-healed, palpable pulse. Popliteal bypass site with 2X nonhealed, open areas with mild surrounding erythema and purulent/bloody discharge. Lower extremity is cool, minimal/numb sensation at the dorsal foot and no sensation on the plantar foot. PT/DP pulses are not palpable. Results & Data Results & Data ([facility]) Vital Signs (Past 12 Hours) Vital Signs Temp Pulse Resp BP Pulse Ox O2 Del Method 07/26/22 11:09 36.6 C 99 H 20 94/52 L 96 Room Air PG Care Time/CCT Total # of Minutes Spent Total Time Spent with Patient: Total time spent is greater than 50% in coordination of care (as documented) at patient's floor/unit and/or counseling patient: Coding Level of Care Code 22020 INT INP/OBS CARE 3/75MIN Diagnoses Vascular graft infection T82.7XXA PVD (peripheral vascular disease) I73.9 HTN (hypertension) I10 Hyperlipidemia E78.5 Diabetic peripheral neuropathy associated with type 1 diabetes mellitus E10.42 Gastroparesis K31.84
[2022-07-26 12:18] LABS: Basophils # (auto) 0.05 K/uL (0-0.2); Basophils % (auto) 0.3 %; Eosinophils # (auto) 0.01 K/uL (0-0.50); Eosinophils % (auto) 0.1 %; Lymphocytes # (auto) 0.56 K/uL (1.2-3.4); Lymphocytes % (auto) 2.8 %; Monocytes # (auto) 0.96 K/uL (0.24-0.82); Monocytes % (auto) 4.8 %; Neutrophils # (auto) 18.05 K/uL (1.4-6.5)
[2022-07-26 12:26] LABS: Alanine Aminotransferase 10 U/L (7-52); Albumin Globulin Ratio 0.7 (0.9-2); Albumin Level 3.4 gm/dl (3.4-5.0); Alkaline Phosphatase 96 U/L (34-104); Anion Gap 13 (3-11); Aspartate Aminotransferase 20 U/L (13-39); BUN Creatinine Ratio 17.4 (10-20); Bilirubin,Total 0.7 mg/dl (0.2-1.0); Blood Urea Nitrogen 19 mg/dl (6-23); Calcium 9.4 mg/dl (8.5-10.1); Carbon Dioxide 26 mmol/L (21-32); Chloride 91 mmol/L (98-107); Est GFR (African American) 62.1 ml/min; Est GFR (Non-African American) 53.6 ml/min; Globulin 4.6 gm/dl (2.5-4.0); Glucose 269 mg/dl (70-99(Fasting)); Magnesium 1.7 mg/dl (1.7-2.4); Potassium 3.6 mmol/L (3.5-5.1); Sodium 130 mmol/L (136-145)
[2022-07-26] MEDS ORDERED: VANCOMYCIN CONSULT ACTIVE PRN (12:56)
[2022-07-26] MEDS ORDERED: ACETAMINOPHEN 500 MG TAB PO PRN (13:07)
[2022-07-26] MEDS ORDERED: HYDROmorphone INJ 0.5 MG/0.5 ML SYR IV PRN (13:07)
[2022-07-26] MEDS ORDERED: Heparin IV Adult Wt-Based Standard *NO* Bolus Protocol IV SCH (13:08)
[2022-07-26] MEDS ORDERED: Patient's WEIGHT Needed STA (13:18)
[2022-07-26] MEDS: NORMOSOL-R 1,000 ML IV SCH (14:36)
[2022-07-26] MEDS: VANCOMYCIN HCL 1,500 MG in SODIUM CHLORIDE 0.9% 500 ML IV STA ×2 (14:36→14:46)
[2022-07-26] MEDS: HYDROmorphone INJ 1 MG/ML SYRINGE IV PRN ×2 (14:36→18:45)
[2022-07-26] MEDS: HEPARIN SODIUM/DEXTROSE 25,000 UNITS/500 ML BAG IV SCH (14:46)
[2022-07-26] MEDS ORDERED: NON-FORMULARY MEDICATION (Insulin Lispro [Humalog U-100 Insulin] 100 unit/mL solution) continuous subcutaneous infusion SCH (16:15)
[2022-07-26] MEDS ORDERED: GLUCOSE 10 TAB/TUBE PO PRN (16:45)
[2022-07-26] MEDS ORDERED: CARBOHYDRATES FOR HYPOGLYCEMIA PO PRN (16:45)
[2022-07-26] MEDS ORDERED: GLUCOSE 40% GEL 15 GM TUBE PO PRN (16:45)
[2022-07-26] MEDS ORDERED: INSULIN ASPART 100 UNITS/ML VIAL SC PRN (16:45)
[2022-07-26] MEDS ORDERED: GLUCAGON FOR INJ 1 MG VIAL IM PRN (16:45)
[2022-07-26] MEDS ORDERED: DEXTROSE 50% 50 ML SYRINGE IV PRN (16:45)
[2022-07-26] MEDS: CEFEPIME 2,000 MG in SYRINGE 0 ML IV SCH (17:26)
[2022-07-26] MEDS: metroNIDAZOLE 500 MG/100 ML BAG IV SCH (17:34)
--- NOTE | 2022-07-26 19:05 | Pharmacy Report ---
Pharmacy PK ABX Note - Date of Service July 26, 2022 - Assessment and Plan Assessment 62 year old F receiving VANCOMYCIN/CEFEPIME for treatment of VASCULAR GRAFT INFECTION. Pertinent microbiologic data includes: WOUND/BLOOD culture pending Day # 1 of antimicrobial therapy. Plan Vancomycin * Loading dose: 1500 mg IV x 1 * Maintenance dose: 1000 mg IV every 18 hours * Regimen is predicted to achieve target AUC/ZIGGY of 400-600 mg/L.hr * Level will be ordered at steady state if vancomycin continued. Pharmacy will continue to follow and will adjust dose/frequency as necessary. Thank you. Pharmacy has transitioned to AUC monitoring for vancomycin. AUC/ZIGGY is the preferred PK/PD target and is associated with decreased risk of nephrotoxicity compared to traditional trough targets.
[2022-07-26 22:06] LABS: INR 1.1 (0.9-1.1); Prothrombin Time 11.9 Seconds (9.0-12.0)
[2022-07-26] MEDS: PANTOprazole 40 MG TAB PO SCH (22:48)
[2022-07-26] MEDS: INSULIN, Rapid-Acting PUMP SCH (23:23)
[2022-07-27] MEDS ORDERED: Nursing to Pharmacy Communication SCH (01:00)
[2022-07-27] MEDS: VANCOMYCIN HCL 1,000 MG in SODIUM CHLORIDE 0.9% 250 ML IV SCH ×2 (01:07→18:03)
[2022-07-27 01:11] LABS: Partial Thromboplastin Ratio 1.6; Partial Thromboplastin Time 43.6 Seconds (21.0-31.0)
[2022-07-27] MEDS ORDERED: HEPARIN SODIUM/DEXTROSE 25,000 UNITS/500 ML BAG IV SCH (01:19)
[2022-07-27] MEDS ORDERED: HYDROmorphone INJ 0.5 MG/0.5 ML SYR IV STA ×2 (02:12→20:07)
[2022-07-27] MEDS: CEFEPIME 2,000 MG in SYRINGE 0 ML IV SCH ×3 (02:36→17:02)
[2022-07-27] MEDS: metroNIDAZOLE 500 MG/100 ML BAG IV SCH ×3 (02:49→17:03)
[2022-07-27] MEDS: NORMOSOL-R 1,000 ML IV SCH ×2 (03:52→17:02)
[2022-07-27] MEDS ORDERED: ONDANSETRON INJ 2 MG/ML 2 ML VIAL IV STA (04:01)
[2022-07-27] MEDS: HYDROmorphone INJ 1 MG/ML SYRINGE IV PRN ×8 (04:26→22:12)
[2022-07-27 06:00] LABS: Basophils # (auto) 0.04 K/uL (0-0.2); Basophils % (auto) 0.2 %; Eosinophils # (auto) 0.04 K/uL (0-0.50); Eosinophils % (auto) 0.2 %; Hematocrit (blood only) 29.5 % (34.1-44.9); Hemoglobin 10.2 g/dl (12.0-16.0); Immature Granulocytes # (auto) 0.15 K/uL (0.00-0.02); Immature Granulocytes % (auto) 0.9 %; Lymphocytes # (auto) 1.37 K/uL (1.2-3.4); Lymphocytes % (auto) 7.8 %; Mean Corpuscular Hemoglobin 33.2 pg (25.0-34.0); Mean Corpuscular Hgb Conc 34.6 g/dL (32.0-36.0); Mean Corpuscular Volume 96.1 fL (80.0-100.0); Mean Platelet Volume 8.8 fL (9.4-12.3); Monocytes # (auto) 1.37 K/uL (0.24-0.82); Monocytes % (auto) 7.8 %; Neutrophils # (auto) 14.64 K/uL (1.4-6.5); Neutrophils % (auto) 83.1 %; Platelet Count 615 K/uL (130-400); RDW Coefficient of Variation 14.5 % (11.5-14.5); RDW Standard Deviation 50.4 fL (36.4-46.3); Red Blood Count 3.07 M/uL (3.93-5.22); White Blood Count 17.61 K/ul (4.8-10.8)
[2022-07-27 06:22] LABS: Albumin Level 2.8 gm/dl (3.4-5.0); Bilirubin,Total 0.4 mg/dl (0.2-1.0); Calcium 7.9 mg/dl (8.5-10.1); Magnesium 1.8 mg/dl (1.7-2.4); Potassium 3.2 mmol/L (3.5-5.1)
[2022-07-27 06:33] LABS: Albumin Globulin Ratio 0.8 (0.9-2); BUN Creatinine Ratio 21.3 (10-20); Est GFR (Non-African American) 95.8 ml/min; Globulin 3.3 gm/dl (2.5-4.0); Total Protein 6.1 gm/dl (6.0-8.3)
[2022-07-27 06:34] LABS: INR 1.2 (0.9-1.1); Prothrombin Time 12.2 Seconds (9.0-12.0)
--- NOTE | 2022-07-27 08:11 | Anesthesiology Consultation ---
Date of Service July 27, 2022 Assessment & Plan (1) Encounter for pre-operative examination: Chart Review Chart Review: Acceptable Risk for Surgery History Surgery Operation Date: 07/27/22 09:50 Proposed Procedures p Removal of Infected Right Femoral Popliteal Bypass - Wu Salmeron MD Height/Weight Height: 5 ft 8 in Weight: 66 kg Allergies Allergy/AdvReac Type Severity Reaction Status Date / Time cilostazol Allergy Severe CHEST Verified 07/26/22 13:32 PAIN,SOB NAUSEA Medications Home Medications Medication Instructions Recorded Confirmed Last Taken ascorbic acid (vitamin C) 100 mg 100 mg PO DAILY 06/11/19 07/26/22 05/14/22 06:30 tablet aspirin 81 mg tablet,delayed 81 mg PO QAM 06/11/19 07/26/22 05/14/22 06:30 release (Adult Aspirin Regimen) cyanocobalamin (vitamin B-12) 1,000 mcg PO DAILY 06/28/20 07/26/22 05/14/22 06:30 1,000 mcg capsule blood sugar diagnostic (Contour #600 ea 04/22/21 03/21/22 Unknown Next Test Strips) atorvastatin 40 mg tablet (Lipitor) 40 mg PO DAILY #90 tabs 06/21/21 07/26/22 05/14/22 06:30 glucagon 3 mg/actuation nasal 3 mg intranasal ONCE #2 ea 08/04/21 07/26/22 Unknown spray (Baqsimi) mirabegron 50 mg tablet,extended 50 mg PO DAILY #90 tabs 08/22/21 07/26/22 05/14/22 06:30 release 24 hr (Myrbetriq) flash glucose scanning reader #1 ea 11/21/21 03/21/22 Unknown (FreeStyle Gayatri 2 Moore) flash glucose sensor (FreeStyle #7 ea 11/21/21 03/21/22 Unknown Gayatri 2 Sensor kit) clopidogrel 75 mg tablet (Plavix) 75 mg PO QAM 06/10/22 07/26/22 Unknown insulin lispro 100 unit/mL 0 unit continuous subcutaneous 06/10/22 07/26/22 Unknown subcutaneous solution (Humalog infusion DAILY U-100 Insulin) acetaminophen 500 mg tablet 1,000 mg PO TID PRN mild-moderate 06/20/22 07/26/22 Unknown (Tylenol Extra Strength) pain #180 tabs docusate sodium 100 mg capsule 100 mg PO BID #60 caps 06/20/22 07/26/22 Unknown folic acid 1 mg tablet 1 mg PO QAM #30 tabs 06/20/22 07/26/22 Unknown gabapentin 100 mg capsule 200 mg PO TID PRN loss of 06/20/22 07/26/22 Unknown sensation #180 caps lisinopril 2.5 mg tablet 2.5 mg PO DAILY #180 tabs 06/20/22 07/26/22 05/14/22 06:30 oxycodone 5 mg tablet 5 - 10 mg PO Q4H PRN 06/20/22 07/26/22 Unknown moderate-severe pain #30 tabs pantoprazole 40 mg tablet,delayed 40 mg PO BID #60 tabs 07/21/22 07/26/22 Unknown release rivaroxaban 2.5 mg tablet (Xarelto) 2.5 mg PO BID 07/26/22 07/26/22 07/25/22 07:00 Active Medications Generic Name Dose Route Start Last Admin Trade Name Vinay PRN Reason Stop Dose Admin Hydromorphone HCl 0.5 mg 07/26/22 13:07 07/26/22 22:49 Hydromorphone Inj 0.5 Mg/0.5 Ml Syr IV 08/09/22 13:06 0.5 mg Q4H PRN Administration Moderate Pain (4,5,6) on NRS Hydromorphone HCl 1 mg 07/26/22 13:07 07/27/22 04:26 Hydromorphone Inj 1 Mg/Ml Syringe IV 08/09/22 13:06 1 mg Q4H PRN Administration Severe Pain (7,8,9,10) on NRS Cefepime HCl 2,000 mg/ Syringe 20 mls @ 5 mls/min 07/26/22 17:00 07/27/22 02:36 IV 08/02/22 16:59 5 mls/min Q8H NIRALI Administration Protocol Metronidazole 500 mg in 100 mls @ 100 mls/hr 07/26/22 17:00 07/27/22 03:57 Flagyl IV 08/02/22 16:59 Infused Q8H NIRALI Infusion Heparin Sodium/Dextrose 25,000 units in 500 mls @ 23 mls/hr 07/26/22 13:15 07/27/22 06:54 Heparin Sodium/Dextrose IV 08/25/22 13:14 1,150 units/hr .[id number] NIRALI 23 mls/hr Titration Protocol 1,150 UNITS/HR Parenteral Electrolytes 1,000 mls @ 80 mls/hr 07/26/22 13:00 07/27/22 03:52 Normosol-R IV 08/25/22 12:59 80 mls/hr .[id number] NIRALI Administration Vancomycin HCl 1,000 mg/ 270 mls @ 200 mls/hr 07/26/22 21:00 07/27/22 02:58 Sodium Chloride IV 08/02/22 20:59 Infused Q18H NIRALI Infusion Protocol Insulin Aspart 1 each 07/26/22 21:00 07/26/22 23:23 Insulin, Rapid-Acting Pump N/A 08/25/22 20:59 1 each ACHS NIRALI Administration Protocol Pantoprazole Sodium 40 mg 07/26/22 21:00 07/26/22 22:48 Pantoprazole 40 Mg Tab PO 08/25/22 20:59 40 mg BID NIRALI Administration Past Medical History Medical History Acquired deformity of both feet Acquired hallux valgus of right foot Acute occlusion of artery of lower extremity Callus Controlled type 1 diabetes mellitus with hypoglycemia, with long-term current use of insulin Current tobacco use Diabetes Diabetes mellitus with diabetic polyneuropathy Diabetic neuropathy Gastroparesis Hallux rigidus of right foot Hallux rigidus, left foot Hallux valgus (acquired), left foot Hematemesis HTN (hypertension) Hyperlipidemia Lateral epicondylitis of elbow Macrocytosis without anemia 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 Superficial femoral artery occlusion Vitamin B12 deficiency Vitamin D deficiency Past Family History Family History Father Myocardial infarction Hypertension Diabetes Cardiac disorder Mother Lung cancer Diabetes Cardiac disorder Myocardial infarction Brother Lung cancer Hypertension Cardiac disorder Myocardial infarction Aunt Dementia Sister Hypertension Diabetes Denies family history of Colon cancer Ovarian cancer Prostate cancer Breast cancer Past Surgical History Surgical History H/O hand surgery History of 3 sections History of angioplasty History of ankle surgery History of femoropopliteal bypass Social History Smoking Status: Former smoker tobacco type: cigarettes Smoking cigarettes per day: 5/6 cigarettes per day Do You Dip or Chew Tobacco: No Hx Alcohol Use: Yes Alcohol type: wine alcohol intake frequency: a few times a week Hx Substance Use: No substance use type: does not use Physical Exam Vital Signs Last Vital Signs Temp 36.8 C 07/27/22 07:14 Pulse 85 07/27/22 07:32 Resp 18 07/27/22 07:14 BP 133/70 07/27/22 07:14 Pulse Ox 96 07/27/22 07:14 O2 Del Method 07/27/22 07:14 Testing Laboratory Results 07/27/22 05:33 07/27/22 05:33 PT 12.2 Seconds (9.0-12.0) H 07/27/22 05:33 INR 1.2 (0.9-1.1) H 07/27/22 05:33 APTT 43.6 Seconds (21.0-31.0) H 07/27/22 00:40 Blood Type O Positive 07/26/22 16:13 Antibody Screen NEGATIVE 07/26/22 16:13 07/26/22 Unknown Gram Stain - Final Thigh,Right 07/27/22 07/26/22 07:41 23:19 POC Glucose 125 H 158 H
--- NOTE | 2022-07-27 08:26 | Consultation ---
Date of Consultation July 27, 2022 History of Present Illness Attending Physician: Mitul Wyman MD History of Present Illness Name: GEOFF GARCÍA Patient Number: [id number] : 1960 Date of Service: 07/26/2022 Chief Complaint: _Follow-up for right leg femoropopliteal bypass graft HPI: _Mrs García is a middle-aged female presents to Dr. Salmeron's vascular surgery clinic today for a follow-up visit regarding her right leg common femoral to above-knee popliteal artery prosthetic bypass graft and popliteal artery stent which was performed about [address] Salmeron at [facility]. She was seen postoperatively and noted to have a small amount of bloody drainage from her thigh incision. She was to return for follow-up today. Patient states that she has been overall feeling fatigued and nauseous for the past 10 days or so. Additionally she has been having more and more drainage from the incision instead of less. She has had severe pain numbness and coldness to the right foot for about 4 days. She did not call the office because she knew she had an appointment coming up. She denies any fever or syncope. She denies chest pain, shortness of breath, abdominal pain, any left leg complaints. Current Home Meds: (Last Updated 07/13 09:28) acetaminophen-oxyCODONE (Percocet 5 mg-325 mg oral tablet) 1 tab PO q6h PRN: as needed for pain ascorbic acid (Vitamin C 1000 mg oral tablet) 1,000 mg PO Daily aspirin (aspirin 81 mg oral delayed release tablet) 81 mg PO Daily atorvastatin (atorvastatin 40 mg oral tablet) 40 mg PO Daily cephalexin (Keflex 500 mg oral capsule) 500 mg PO q6h cholecalciferol (Vitamin D3 1000 intl units oral capsule) 1,000 Int_Unit PO Daily clopidogrel (clopidogrel 75 mg oral tablet) 75 mg PO Daily gabapentin (gabapentin 100 mg oral capsule) titrate up to 3 caps po qhs insulin lispro (HumaLOG) pump lisinopril (lisinopril 2.5 mg oral tablet) 5 mg PO Daily mirabegron (Myrbetriq 50 mg oral tablet, extended release) 50 mg PO Daily rivaroxaban (Xarelto 2.5 mg oral tablet) 2.5 mg PO bid Allergies and Sensitivities: Pletal(Chest pain) Pletal(SOB - Shortness of breath) Past Medical History: Problems: Ischemic leg Infected prosthetic vascular graft Right elbow pain S/P femoral-popliteal bypass surgery Ankle fracture Ankle injury (atherosclerosis) Tobacco user UTI (urinary tract infection) Vitamin B 12 deficiency Urinary incontinence Urge incontinence Ulnar neuropathy PAD (peripheral artery disease) Neck pain Microhematuria Interstitial cystitis HTN (hypertension) Hyperlipidemia Female pelvic pain Edema Dysuria Diabetic peripheral neuropathy Diabetes Carpal tunnel syndrome OBJECTIVE Vitals: Last Updated 07/26/22 10:23 Date Temp BP Location Pulse RR SpO2 Pain 07/26/22 0 07/26/22 36.7 104/42 Left Arm 98 96 07/13/22 0 Vital Signs are the last 3 documented. No Orthostatic Data Available Height and Weight: Last Updated 12/08/19 16:16 Date BMI Wt(kg) Wt(lb) Method Ht(cm) (ft-in) Method 12/08/19 23.26 69.4 153 Standing Scale 172.72 5-8 01/08/18 22.89 70.31 155 Standing Scale 175.26 5-9 11/01/17 24.51 75.3 166 Standing Scale 175.26 5-9 Heights and Weights are the last 3 documented. Physical Exam Constitutional: In general patient is a thin mildly ill-appearing middle-aged female in no distress. Her heart is regular, her lungs are clear throughout. Her right groin surgical incision is well-healed. Her distal thigh incision demonstrates a significant amount of purulent drainage which is expressible with minimal palpation. There is a small open area at the proximal end of this incision. Her proximal calf also has an incision, but this appears to be healed. Her right foot is cold and pale. It is tender and has no sensation. Distal pulses are nonpalpable and there are no dopplerable signals. ASSESSMENT: _ PLAN: _ 1 ) _infected right leg prosthetic femoropopliteal bypass Patient has a significant infection of her prosthetic femoropopliteal bypass, as well as systemic symptoms of nausea and general malaise. Her blood pressures are lower than normal today, but not critical. Due to the infected bypass, we recommend the patient to go to the [facility] emergency department for further evaluation, and admission for pain control and IV antibiotics. She will undergo removal of her femoropopliteal bypass graft in the operating room tomorrow. The procedure risks benefits and alternatives of this were discussed with the patient by myself at Dr. Salmeron's request. She expressed understanding and agreement to proceed. 2 ) _ischemic right leg Patient has an infected right leg femoropopliteal bypass which is also likely occluded. She has had symptoms in the right foot for at least 4 days. At this point there has not been any definitive imaging to help determine whether there are any further surgical solutions for revascularization. This will be obtained during her hospitalization we will make further plans after removal of her bypass graft. Due to the length of time that her foot has been ischemic, and minimal options for revascularization during the last arterial occlusion, it is likely that there will not be any further options for revascularization and BKA versus AKA amputation of the right leg may be the only surgical option. As I stated we will discuss this further after removal of her bypass, and treatment of her infection. This was discussed at length with the patient. She understands that she will likely undergo amputation of the right leg. Thank you for letting us participate in the care of this patient. Signature Line Electronic Signature on File CC: Raymond Doherty MD [facility] [place] [address] * Electronically Reviewed/Signed by: Stephanie Falcon PA-C Author Signature Dt/Tm:07/26/2022 11:57 AM [facility] [address] [id number] Electronically Reviewed/Signed by: Wu Salmeron MD Diagnostic Sales Specialist [facility] [address] Result Type: HVI Outpt Note Date of Service: July 26, 2022 11:47 EST Authorization Status: Preliminary Author or Import Date: REJI Falcon Lynn on July 26, 2022 11:57 EST Encounter info: [id number], [facility], Clinic, 07/26/2022 - Allergies Allergy/AdvReac Type Severity Reaction Status Date / Time cilostazol Allergy Severe CHEST Verified 07/26/22 13:32 PAIN,SOB NAUSEA Home Medications Medication Instructions Recorded Confirmed Type ascorbic acid (vitamin C) 100 mg 100 mg PO DAILY 06/11/19 07/26/22 History tablet aspirin 81 mg tablet,delayed 81 mg PO QAM 06/11/19 07/26/22 History release (Adult Aspirin Regimen) cyanocobalamin (vitamin B-12) 1,000 mcg PO DAILY 06/28/20 07/26/22 History 1,000 mcg capsule blood sugar diagnostic (Contour #600 ea 04/22/21 03/21/22 Rx Next Test Strips) atorvastatin 40 mg tablet (Lipitor) 40 mg PO DAILY #90 tabs 06/21/21 07/26/22 Rx glucagon 3 mg/actuation nasal 3 mg intranasal ONCE #2 ea 08/04/21 07/26/22 Rx spray (Baqsimi) mirabegron 50 mg tablet,extended 50 mg PO DAILY #90 tabs 08/22/21 07/26/22 Rx release 24 hr (Myrbetriq) flash glucose scanning reader #1 ea 11/21/21 03/21/22 Rx (FreeStyle Gayatri 2 [place]) flash glucose sensor (FreeStyle #7 ea 11/21/21 03/21/22 Rx Gayatri 2 Sensor kit) clopidogrel 75 mg tablet (Plavix) 75 mg PO QAM 06/10/22 07/26/22 History insulin lispro 100 unit/mL 0 unit continuous subcutaneous 06/10/22 07/26/22 History subcutaneous solution (Humalog infusion DAILY U-100 Insulin) acetaminophen 500 mg tablet 1,000 mg PO TID PRN mild-moderate 06/20/22 07/26/22 Rx (Tylenol Extra Strength) pain #180 tabs docusate sodium 100 mg capsule 100 mg PO BID #60 caps 06/20/22 07/26/22 Rx folic acid 1 mg tablet 1 mg PO QAM #30 tabs 06/20/22 07/26/22 Rx gabapentin 100 mg capsule 200 mg PO TID PRN loss of 06/20/22 07/26/22 Rx sensation #180 caps lisinopril 2.5 mg tablet 2.5 mg PO DAILY #180 tabs 06/20/22 07/26/22 Rx oxycodone 5 mg tablet 5 - 10 mg PO Q4H PRN 06/20/22 07/26/22 Rx moderate-severe pain #30 tabs pantoprazole 40 mg tablet,delayed 40 mg PO BID #60 tabs 07/21/22 07/26/22 Rx release rivaroxaban 2.5 mg tablet (Xarelto) 2.5 mg PO BID 07/26/22 07/26/22 History Patient History Medical History Acquired deformity of both feet Acquired hallux valgus of right foot Acute occlusion of artery of lower extremity Callus Controlled type 1 diabetes mellitus with hypoglycemia, with long-term current use of insulin Current tobacco use Diabetes Diabetes mellitus with diabetic polyneuropathy Diabetic neuropathy Gastroparesis Hallux rigidus of right foot Hallux rigidus, left foot Hallux valgus (acquired), left foot Hematemesis HTN (hypertension) Hyperlipidemia Lateral epicondylitis of elbow Macrocytosis without anemia 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 Superficial femoral artery occlusion Vitamin B12 deficiency Vitamin D deficiency Surgical History H/O hand surgery History of 3 sections History of angioplasty History of ankle surgery History of femoropopliteal bypass Family History Father Myocardial infarction Hypertension Diabetes Cardiac disorder Mother Lung cancer Diabetes Cardiac disorder Myocardial infarction Brother Lung cancer Hypertension Cardiac disorder Myocardial infarction Aunt Dementia Sister Hypertension Diabetes Denies family history of Colon cancer Ovarian cancer Prostate cancer Breast cancer Social History Smoking Status: Former smoker Tobacco Type: Cigarettes packs per day: 1; Cigarettes Per Day: 5/6 cigarettes per day; Second Hand Exposure: No; Do You Dip or Chew Tobacco: No; Tobacco Cessation Education Requested by Patient: No Hx Alcohol Use: Yes Alcohol type: wine Alcohol type Comment: 1-2 daily Hx Substance Use: No Preferred Language: Serbian Communication Ability: Effective Visual Impairment: No Limitations Hearing Ability: Normal Tightener Required: No Beliefs That Will Affect Care: None marital status: Current Living Situation: Spouse 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 Other Information That Helps Us Care for You: No Feels Safe at Home: Yes Safety Concerns: Feels Safe At This Time Childhood Exposure to Second-Hand Smoke: Yes Dental Care, Regularly: No Physical Activity Frequency: Does not Exercise Seatbelt Use: always Sunscreen Use: No Assistive Devices: Glasses Results & Data ([facility]) Vital Signs (Past 12 Hours) Vital Signs Temp Pulse Pulse Resp BP BP Pulse Ox 07/27/22 07:32 85 07/27/22 07:14 36.8 C 92 H 18 133/70 96 07/27/22 02:45 37.1 C 93 H 18 146/64 H 98 07/26/22 23:00 91 H 07/27/22 00:45 36.8 C 89 18 118/64 97 07/26/22 22:13 36.8 C 94 H 18 118/64 97 07/26/22 20:40 103 H 20 94 07/26/22 20:30 117/67 07/26/22 20:30 102 H 14 98 07/26/22 20:30 101 H 13 117/67 98 O2 Del Method 07/27/22 07:32 07/27/22 07:14 Room Air 07/27/22 02:45 Room Air 07/26/22 23:00 07/27/22 00:45 Room Air 07/26/22 22:13 Room Air 07/26/22 20:40 07/26/22 20:30 07/26/22 20:30 07/26/22 20:30 Room Air
[2022-07-27] MEDS: INSULIN, Rapid-Acting PUMP SCH ×4 (08:39→20:31)
[2022-07-27] MEDS: MIRABEGRON ER 25 MG TAB PO SCH (08:41)
[2022-07-27] MEDS: PANTOprazole 40 MG TAB PO SCH ×2 (08:41→20:31)
[2022-07-27 08:52] LABS: Partial Thromboplastin Ratio 1.7
[2022-07-27 09:00] LABS: Partial Thromboplastin Time 47.8 Seconds (21.0-31.0)
[2022-07-27] MEDS ORDERED: MIDAZOLAM HCL 1 MG/ML 2ML VIAL ONE (09:42)
[2022-07-27] MEDS ORDERED: fentaNYL citrate 100 MCG/2 ML VIAL ONE (09:42)
[2022-07-27] MEDS ORDERED: ROCURONIUM BROMIDE 10 MG/ML 5 ML VIAL IV ONE (09:45)
[2022-07-27] MEDS ORDERED: PROPOFOL IV EMULSION 10 MG/ML 20 ML VIAL IV ONE (09:45)
[2022-07-27] MEDS ORDERED: ONDANSETRON INJ 2 MG/ML 2 ML VIAL ONE (09:45)
[2022-07-27] MEDS ORDERED: LIDOCAINE 2% MPF LOCAL 5 ML VIAL INFIL ONE (09:45)
[2022-07-27] MEDS ORDERED: BUPIVACAINE/EPINEPHRINE 0.5% MPF 1:200,000 30 ML VIAL ONE (09:58)
[2022-07-27] MEDS ORDERED: HEPARIN (PORCINE) 1000 UNIT/ML 10 ML (CATH LAB USE ONLY) ONE (09:58)
[2022-07-27] MEDS ORDERED: ATROPINE SULFATE 0.1 MG/ML 10ML SYR IV PRN (09:59)
[2022-07-27] MEDS ORDERED: GELATIN SPONGE SZ 100 ONE (09:59)
[2022-07-27] MEDS ORDERED: LIDOCAINE 1% LOCAL 20 ML VIAL ONE (09:59)
[2022-07-27] MEDS ORDERED: THROMBIN FOR SOLN 20000 UNIT KIT ONE (09:59)
[2022-07-27] MEDS ORDERED: ceFAZolin 330 MG/ML 1 GM VIAL ONE (09:59)
[2022-07-27] MEDS ORDERED: KETOROLAC 30 MG/ML VIAL IV PRN (09:59)
[2022-07-27] MEDS ORDERED: LABETALOL HCL IV 5 MG/ML 20ML IV PRN (09:59)
[2022-07-27] MEDS ORDERED: ONDANSETRON INJ 2 MG/ML 2 ML VIAL IV PRN (09:59)
[2022-07-27] MEDS ORDERED: PHENYLEPHRINE HCL 10 MG/ML VIAL ONE (11:07)
[2022-07-27] MEDS ORDERED: GLYCOPYRROLATE 0.2 MG/ML VIAL ONE (11:09)
[2022-07-27] MEDS ORDERED: NEOSTIGMINE METHYLSULFATE 1 MG/ML 10ML VIAL ONE (11:09)
--- NOTE | 2022-07-27 11:20 | Post Operative Brief Note ---
Immediate Post Op Note v1 Date of Surgery July 27, 2022 Pre & Post Diagnosis Operation Date: 07/27/22 09:50 Pre-Op Diagnosis: infected right lower extremity graft Post-Op Diagnosis: infected right lower extremity graft I identified the patient and participated in the time-out.: Yes Procedure Operation Date: 07/27/22 09:50 Actual Procedures p Removal of Infected Right Femoral Popliteal Bypass, Pulse lavage of wound(Right) - Wu Salmeron MD Surgeon Wu Salmeron MD Broom Maker MD Chavez Estimated Blood Loss 20 Findings Consistent with Post-Op Diagnosis Anesthesia Type General Complications none Disposition Accompanied Patient To Recovery: No Disposition: Recovery Room
[2022-07-27] MEDS ORDERED: HYDROmorphone INJ 2 MG/ML SYR/VIAL ONE (11:46)
--- NOTE | 2022-07-27 11:52 | Operative Report ---
Post Operative Report Pre & Post Diagnosis Operation Date: 07/27/22 09:50 Pre-Op Diagnosis: infected right lower extremity graft Post-Op Diagnosis: infected right lower extremity graft I identified the patient and participated in the time-out.: Yes Procedure Operation Date: 07/27/22 09:50 Actual Procedures p Removal of Infected Right Femoral Popliteal Bypass, Pulse lavage of wound(Right) - Wu Salmeron MD Surgeon Wu Salmeron Health Information Tech Enrique Moreira MD Estimated Blood Loss 20 Findings Consistent with Post-Op Diagnosis Purulent fluid and old hematoma surrounding above knee popliteal bypass graft. Graft thrombosed. Proximal graft thrombosed without evidence of infection Specimens Infected popliteal bypass graft, purulent hematoma Drains None Anesthesia Type General Complications None Indications Infected thrombosed right femoral to above knee popliteal PTFE bypass graft requiring explantation for source control and definitive antibiotic therapy Description of Procedure The patient was taken to the operating room and placed in supine position. After general anesthesia was accomplished the right leg was prepped and draped in a sterile manner from the abdomen to the level of the ankle in a circumferential manner. The prior above knee popliteal incision was re-opened using a #10 blade scalple. The subcutaneous was opened using electrocautery. Nhan purulent material and old hematoma was encountered below the subcutaneous tissue extending deep to the bypass graft. This was evacuated and sent for culture. The bypass graft was thrombosed. The above knee popliteal artery just distal to the bypass anastomosis followed by the proximal portion was ligated using 2-0 ties. The bypass graft was divided Next attention was turned to the proximal portion of the graft. A longitudinal incision was made over the PTFE bypass just below the prior groin incision using a #10 blade scalpel. Bovie electrocautery was used to divide the subcutaneous tissue. Using blunt dissection and Metzenbaum scissors, the bypass graft was isolated and controlled. It did not appear grossly infected in this region. No purulent material or discharge. The graft was ligated using 2-0 ties and then divided and excised from the distal wound without difficulty. Proximal stump left in place. The above knee popliteal wound followed by the groin wound was then irrigated copiously with pulse lavage irrigation. The wound was inspected and adequate hemostasis was obtained. No visible purulent material remained. The proximal groin wound was then closed with interrupted 3-0 Vicryl suture for the subcutaneous layer followed by ese. A dry gauze dressing was placed. The above knee popliteal incision was packed with Betadine soaked gauze and covered with an ABD pad followed by a Kerlex wrap. The patient left the operating room in satisfactory condition and tolerated the procedure well. Dr. Salmeron was present and scrubbed for the entire procedure. I attest to the content of the Intraoperative Record and any orders documented therein. Any exceptions are noted below. Supervising Physician Co-Signing Physician Notes Wu Salmeron MD
--- NOTE | 2022-07-27 12:27 | Anesthesiology Progress Note ---
Date of Service July 27, 2022 Anesthesia Post Procedure Vital Signs Vital Signs: Temp Pulse Pulse Pulse Resp BP BP 07/27/22 12:15 36.4 C L 82 16 136/61 07/27/22 12:05 88 16 151/63 H 07/27/22 11:55 87 16 153/59 H 07/27/22 11:45 85 17 174/79 H 07/27/22 11:35 36.0 C L 85 18 160/81 H 07/27/22 09:46 37 C 90 20 127/59 L 07/27/22 07:32 85 07/27/22 07:14 36.8 C 92 H 18 133/70 07/27/22 02:45 37.1 C 93 H 18 146/64 H 07/26/22 23:00 91 H 07/27/22 00:45 36.8 C 89 18 118/64 07/26/22 22:13 36.8 C 94 H 18 118/64 07/26/22 20:40 103 H 20 07/26/22 20:30 117/67 07/26/22 20:30 102 H 14 07/26/22 20:20 96 H 14 07/26/22 20:08 126/60 07/26/22 20:08 94 H 11 L 07/26/22 20:00 86 12 07/26/22 20:00 119/60 07/26/22 19:40 101 H 20 07/26/22 19:30 127/53 L 07/26/22 19:30 100 H 19 07/26/22 19:00 97 H 12 132/73 07/26/22 20:30 101 H 13 117/67 07/26/22 19:30 99 H 18 127/53 L 07/26/22 16:36 95 H 17 07/26/22 15:37 95 H 18 143/85 H 07/26/22 15:00 96 H 14 07/26/22 14:50 99 H 17 07/26/22 14:40 99 H 16 07/26/22 14:30 101 H 13 07/26/22 14:20 102 H 18 07/26/22 14:10 101 H 16 07/26/22 14:00 103 H 13 07/26/22 13:50 105 H 17 07/26/22 13:40 106 H 20 07/26/22 13:30 111 H 18 07/26/22 13:30 137/80 07/26/22 13:20 109 H 17 07/26/22 13:10 103 H 22 07/26/22 13:00 101 H 16 07/26/22 13:00 147/83 H 07/26/22 12:50 105 H 18 07/26/22 12:40 103 H 12 07/26/22 12:39 106 H 20 07/26/22 13:38 106 H 16 Pulse Ox O2 Del Method O2 Flow Rate 07/27/22 12:15 95 Room Air 07/27/22 12:05 98 Room Air 07/27/22 11:55 100 Oxymask 5 07/27/22 11:45 100 Oxymask 5 07/27/22 11:35 100 Oxymask 5 07/27/22 09:46 99 Room Air 07/27/22 07:32 07/27/22 07:14 96 Room Air 07/27/22 02:45 98 Room Air 07/26/22 23:00 07/27/22 00:45 97 Room Air 07/26/22 22:13 97 Room Air 07/26/22 20:40 94 07/26/22 20:30 07/26/22 20:30 98 07/26/22 20:20 96 07/26/22 20:08 07/26/22 20:08 95 07/26/22 20:00 07/26/22 20:00 07/26/22 19:40 07/26/22 19:30 07/26/22 19:30 99 07/26/22 19:00 98 Room Air 07/26/22 20:30 98 Room Air 07/26/22 19:30 99 Room Air 07/26/22 16:36 95 Room Air 07/26/22 15:37 94 Room Air 07/26/22 15:00 95 07/26/22 14:50 97 07/26/22 14:40 98 07/26/22 14:30 98 07/26/22 14:20 99 07/26/22 14:10 07/26/22 14:00 07/26/22 13:50 97 07/26/22 13:40 97 07/26/22 13:30 100 07/26/22 13:30 07/26/22 13:20 100 07/26/22 13:10 98 07/26/22 13:00 97 07/26/22 13:00 07/26/22 12:50 98 07/26/22 12:40 98 07/26/22 12:39 97 07/26/22 13:38 99 Room Air Pain Intensity Right Leg: Pain Intensity: 12 Transfer of Care Handoff Completed per policy Notes Mental Status: alert / awake / arousable Patient Amnestic to Procedure: Yes Nausea / Vomiting: adequately controlled Pain: adequately controlled Airway Patency, RR, SpO2: stable & adequate BP & HR: stable & adequate Hydration State: stable & adequate Anesthetic Complications: no major complications apparent
[2022-07-27] MEDS: HEPARIN SODIUM/DEXTROSE 25,000 UNITS/500 ML BAG IV SCH (12:40)
--- NOTE | 2022-07-27 22:43 | Hospitalist Progress Note ---
Date of Service July 27, 2022 Assessment & Plan (1) Vascular graft infection: Plan: Infected fem/pop bypasss/p angioplasty and stenting of right SFA 05/15/2022 with SFA occlusion and stenting subsequently s/p prosthetic bypass and right popliteal stenting 06/13/2022. Left lower extremity: Well-healed left femoral bypass surgical site, left extremity warm and dry. PT/DP pulse palpable. Cap refill intact. Sensation to soft touch intact, ankle dorsiflexion/plantar flexion and hip flexion intact. Right lower extremity: Femoral bypass site well-healed, palpable pulse. Popliteal bypass site with 2X nonhealed, open areas with mild surrounding erythema and bloody/purulent discharge expressed on palp. Lower extremity is cool, minimal/numb sensation at the dorsal foot and no sensation on the plantar foot. PT/DP pulses are not palpable. On admission: Leukocytosis acutely to 19.83 Hemoglobin 12.3, MCV 96. Platelet count 684, likely reactive Patient last took DOAC/aspirin/Plavix yesterday Discussed with vascular surgery. Consulted. Anticipate operative intervention/AKA. N.p.o. midnight. ABX as noted. We will hold aspirin/DOAC/Plavix, admit on heparin gtt which can be held in the morning prior to surgery. White count 17.6 today Patient had exploration of infected thrombosed right femoral to above knee popliteal PTFE bypass graft requiring explantation for source control and definitive antibiotic therapy - Surface wound culture of purulent material sent, - Admitted on Cefepime/Vanc/Flagyl given graft infection worsening over last few weeks and hx DM Hypotension In the setting of infected bypass, history of recently low normal BPs Lisinopril held Normalized after 1L IVF - Continue IVFM 2/2 poor PO intake and NPO and midnight Type I DM with peripheral neuropathy With insulin pump Basal rate 0.9 units at last hospitalization, continued this on DC last A1c 7.7% Ratio 1:15 - Pt OK to use own pump History of acute blood loss anemia - hgb 12.3 on admission, no active bleeding - Trend History of esophagitis Continue PPI twice daily Gastroparesis Suspect in the setting of type I DM Supportive care at [facility] time - Will have outpt f/u for emptying study Tobacco use, 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 Held pending operative intervention as noted DVT PPx: On heparin gtt (2) PVD (peripheral vascular disease): (3) HTN (hypertension): (4) Hyperlipidemia: (5) Diabetic peripheral neuropathy associated with type 1 diabetes mellitus: (6) Gastroparesis: Admission and Anticipated Discharge Date Admission Date: July 26, 2022 Subjective Patient had exploration of the infected graft area done earlier this a.m. Patient denies any acute complaints at this time no fevers or chills noted Pain control adequate Physical Exam Physical Exam: Head and ENT no thyroid enlargement trachea midline Cardiovascular S1-S2 are normal no S3 Lungs bilateral air entry fair no wheezing Abdomen soft nondistended positive bowel sounds no rebound tenderness Extremity shows trace edema, lower extremity dressing applied no evidence of active bleeding Neurologically no focal deficits Skin shows no rash no cyanosis Results & Data Results & Data ([facility]) Vital Signs (Past 12 Hours) Vital Signs Temp Pulse Pulse Resp BP Pulse Ox O2 Del Method 07/27/22 19:19 37.1 C 100 H 18 144/70 H 97 Room Air 07/27/22 15:10 94 H 07/27/22 15:00 36.8 C 99 H 20 141/55 H 95 Room Air 07/27/22 14:02 37.0 C 95 H 20 119/54 L 98 Room Air 07/27/22 13:07 37.1 C 89 16 128/71 95 Room Air 07/27/22 13:00 36.7 C 92 H 18 123/56 L 98 Room Air 07/27/22 12:37 36.9 C 88 16 148/68 H 97 Room Air 07/27/22 12:15 36.4 C L 82 16 136/61 95 Room Air 07/27/22 12:05 88 16 151/63 H 98 Room Air 07/27/22 11:55 87 16 153/59 H 100 Oxymask 07/27/22 11:45 85 17 174/79 H 100 Oxymask 07/27/22 11:35 36.0 C L 85 18 160/81 H 100 Oxymask O2 Flow Rate 07/27/22 19:19 07/27/22 15:10 07/27/22 15:00 07/27/22 14:02 07/27/22 13:07 07/27/22 13:00 07/27/22 12:37 07/27/22 12:15 07/27/22 12:05 07/27/22 11:55 5 07/27/22 11:45 5 07/27/22 11:35 5 Laboratory Results Short CBC 07/27/22 Range/Units 05:33 WBC 17.61 H (4.8-10.8) K/ul Hgb 10.2 L (12.0-16.0) g/dl Hct 29.5 L (34.1-44.9) % Plt Count 615 H (130-400) K/uL BMP 07/27/22 05:33 Sodium 134 L Potassium 3.2 L Chloride 99 Carbon Dioxide 26 BUN 13 Creatinine 0.61 D Glucose 122 H Calcium 7.9 L Liver Function 07/27/22 Range/Units 05:33 Total Bilirubin 0.4 (0.2-1.0) mg/dl AST 17 (13-39) U/L ALT 8 (7-52) U/L Alkaline Phosphatase 68 (34-104) U/L Albumin 2.8 L (3.4-5.0) gm/dl PG Care Time/CCT Total # of Minutes Spent Total Time Spent with Patient: Total time spent is greater than 50% in coordination of care (as documented) at patient's floor/unit and/or counseling patient: Coding Level of Care Code 45169 SUB INP/OBS CARE 2/35MIN Diagnoses Vascular graft infection T82.7XXA PVD (peripheral vascular disease) I73.9 HTN (hypertension) I10 Hyperlipidemia E78.5 Diabetic peripheral neuropathy associated with type 1 diabetes mellitus E10.42 Gastroparesis K31.84
[2022-07-28] MEDS: CEFEPIME 2,000 MG in SYRINGE 0 ML IV SCH ×3 (01:51→18:46)
[2022-07-28] MEDS: metroNIDAZOLE 500 MG/100 ML BAG IV SCH ×3 (01:51→18:33)
[2022-07-28] MEDS ORDERED: HYDROmorphone INJ 0.5 MG/0.5 ML SYR IV STA (02:44)
[2022-07-28] MEDS: HYDROmorphone INJ 1 MG/ML SYRINGE IV PRN ×3 (02:58→21:50)
[2022-07-28] MEDS: NORMOSOL-R 1,000 ML IV SCH ×2 (05:36→20:27)
[2022-07-28] MEDS: PANTOprazole 40 MG TAB PO SCH ×2 (07:54→20:58)
[2022-07-28] MEDS: MIRABEGRON ER 25 MG TAB PO SCH (07:54)
[2022-07-28 08:13] LABS: Basophils # (auto) 0.03 K/uL (0-0.2); Basophils % (auto) 0.2 %; Eosinophils # (auto) 0.09 K/uL (0-0.50); Eosinophils % (auto) 0.7 %; Hematocrit (blood only) 29.8 % (34.1-44.9); Hemoglobin 10.3 g/dl (12.0-16.0); Immature Granulocytes % (auto) 0.7 %; Lymphocytes # (auto) 1.09 K/uL (1.2-3.4); Lymphocytes % (auto) 7.9 %; Mean Corpuscular Hemoglobin 32.8 pg (25.0-34.0); Mean Corpuscular Hgb Conc 34.6 g/dL (32.0-36.0); Mean Corpuscular Volume 94.9 fL (80.0-100.0); Mean Platelet Volume 8.7 fL (9.4-12.3); Monocytes # (auto) 0.96 K/uL (0.24-0.82); Neutrophils # (auto) 11.48 K/uL (1.4-6.5); Neutrophils % (auto) 83.5 %; Platelet Count 602 K/uL (130-400); RDW Coefficient of Variation 14.6 % (11.5-14.5); Red Blood Count 3.14 M/uL (3.93-5.22); White Blood Count 13.75 K/ul (4.8-10.8)
[2022-07-28 08:27] LABS: Partial Thromboplastin Ratio 1.3; Partial Thromboplastin Time 34.8 Seconds (21.0-31.0)
[2022-07-28] MEDS ORDERED: MoRPHine SULFATE 2 MG/ML CARP IV STA (10:01)
[2022-07-28] MEDS: INSULIN, Rapid-Acting PUMP SCH ×4 (10:13→21:26)
[2022-07-28 10:15] LABS: Calcium 7.9 mg/dl (8.5-10.1); Creatinine Clr Calc Pharmacy 95.6 ml/min; Est GFR (African American) 111.6 ml/min; Est GFR (Non-African American) 96.3 ml/min
--- NOTE | 2022-07-28 11:08 | Surgery Progress Note ---
Date of Service July 28, 2022 Assessment & Plan (1) Vascular graft infection: Plan: Pt doing better since removal of BPG. Dressing removed and wound vac placed today. WIll reeval on Sunday. (2) Ischemic leg: Plan: RLE remains ischemic and very painful. Will likely require BK vs AK amputation in future. Pt is aware of this. Admission and Anticipated Discharge Date Admission Date: July 26, 2022 Subjective 62 yo f POD #1 after undergoing removal of R fem-pop BPG d/t severe infection and occlusion, seen in f.u today. Pt states she is overall feeling slightly better than prior to surgery. She does have severe pain in R foot, as well as R thigh incisions. No other complaints presently. Review of Systems Review of Systems: All systems reviewed & are unremarkable except as noted in HPI & below Physical Exam Constitutional: WD/WN, vitals as above not in distress Cardiovascular: Rate/Rhythm: regular rate and regular rhythm Vessels: femoral pulses present; + posterior tibial pulses abnormal and + dorsalis pedis pulses abnormal Extremities: + abnormal capillary refill (LLE normal. RLE cold, no refill) RLE non dopplerable pulses, LLE palpable. Skin: + wound (R thigh wound with dusky muscle noted.) and + incision (upper thigh incision C/D/I) Neurologic: + does not move all extremities (Unable to move R toes. RLE very tender) Psychiatric: A+Ox3, euthymic affect Results & Data ([facility]) Vital Signs (Past 12 Hours) Vital Signs Temp Pulse Pulse Resp BP Pulse Ox O2 Del Method 07/28/22 07:45 37.0 C 84 18 116/68 94 Room Air 07/28/22 02:55 37.0 C 100 H 18 147/65 H 97 Room Air 07/28/22 00:16 95 H 07/27/22 23:22 37.2 C 94 H 18 133/88 94 Room Air
[2022-07-28] MEDS ORDERED: HYDROmorphone INJ 2 MG/ML SYR/VIAL IV STA (11:45)
[2022-07-28] MEDS ORDERED: VANCOMYCIN LEVEL SCH (12:00)
[2022-07-28] MEDS ORDERED: POTASSIUM PHOS 3 MMOL/1 ML INFUSION IV STA (12:21)
[2022-07-28] MEDS ORDERED: POTASSIUM CHLORIDE CRTAB 20 MEQ TABCR PO STA (12:27)
[2022-07-28] MEDS ORDERED: POTASSIUM PHOSPHATE 15 MMOL in DEXTROSE 5% 250 ML IV ONE (12:45)
[2022-07-28] MEDS: ACETAMINOPHEN 325 MG TAB PO SCH ×3 (13:42→20:32)
[2022-07-28] MEDS: DOCUSATE SODIUM 100 MG CAP PO SCH ×2 (13:53→20:58)
[2022-07-28] MEDS: PREGABALIN 75 MG CAP PO SCH (13:53)
[2022-07-28] MEDS: VANCOMYCIN HCL 1,000 MG in SODIUM CHLORIDE 0.9% 250 ML IV SCH (14:00)
[2022-07-28] MEDS: LIDOCAINE 5% 1 PATCH TD SCH (14:35)
--- NOTE | 2022-07-28 14:46 | Pharmacy Report ---
Pharmacy PK ABX Note - Date of Service July 28, 2022 - Assessment and Plan Assessment 62 year old F receiving VANCOMYCIN/CEFEPIME for treatment of VASCULAR GRAFT INFECTION. Pertinent microbiologic data includes: WOUND/BLOOD culture pending Day # 3 of antimicrobial therapy. Trough Vancomycin level obtained today after patient received 2 maintenance doses of Vancomycin 1000 mg IV q12h. Plan Vancomycin * Trough level of 5.4 mcg/mL, obtained today at 12:07 is sub-therapeutic * This is predicted to achieve AUC/ZIGGY of 269 mg/L.hr which is below target AUC/ZIGGY of 400-600 mg//L.hr. * Vancomycin dosing increased to 1250 mg IV Q12h. * Repeat trough level ordered for: 07/29/22 before dose at 20:00. Pharmacy will continue to follow and will adjust dose/frequency as necessary. Thank you. Pharmacy has transitioned to AUC monitoring for vancomycin. AUC/ZIGGY is the preferred PK/PD target and is associated with decreased risk of nephrotoxicity compared to traditional trough targets.
[2022-07-28] MEDS: LACTULOSE SYRUP 30 GM/45 ML UDP PO SCH ×2 (18:32→20:33)
[2022-07-28] MEDS: HYDROmorphone INJ 2 MG/ML SYR/VIAL IV PRN (18:33)
[2022-07-28] MEDS: VANCOMYCIN HCL 1,250 MG in SODIUM CHLORIDE 0.9% 250 ML IV SCH (20:28)
--- NOTE | 2022-07-28 22:44 | Hospitalist Progress Note ---
Date of Service July 28, 2022 Assessment & Plan (1) Vascular graft infection: Plan: Infected fem/pop bypasss/p angioplasty and stenting of right SFA 05/15/2022 with SFA occlusion and stenting subsequently s/p prosthetic bypass and right popliteal stenting 06/13/2022. Left lower extremity: Well-healed left femoral bypass surgical site, left extremity warm and dry. PT/DP pulse palpable. Cap refill intact. Sensation to soft touch intact, ankle dorsiflexion/plantar flexion and hip flexion intact. Right lower extremity: Femoral bypass site well-healed, palpable pulse. Popliteal bypass site with 2X nonhealed, open areas with mild surrounding erythema and bloody/purulent discharge expressed on palp. Lower extremity is cool, minimal/numb sensation at the dorsal foot and no sensation on the plantar foot. PT/DP pulses are not palpable. On admission: Leukocytosis acutely to 19.83 Hemoglobin 12.3, MCV 96. Platelet count 684, likely reactive Patient last took DOAC/aspirin/Plavix yesterday Discussed with vascular surgery. Consulted. Anticipate operative intervention/AKA. N.p.o. midnight. ABX as noted. We will hold aspirin/DOAC/Plavix, admit on heparin gtt which can be held in the morning prior to surgery. White count 17.6 today Patient had exploration of infected thrombosed right femoral to above knee popliteal PTFE bypass graft requiring explantation for source control and definitive antibiotic therapy - Surface wound culture of purulent material sent, - Admitted on Cefepime/Vanc/Flagyl given graft infection worsening over last few weeks and hx DM Hypotension In the setting of infected bypass, history of recently low normal BPs Lisinopril held Normalized after 1L IVF - Continue IVFM 2/2 poor PO intake and NPO and midnight Type I DM with peripheral neuropathy With insulin pump Basal rate 0.9 units at last hospitalization, continued this on DC last A1c 7.7% Ratio 1:15 - Pt OK to use own pump History of acute blood loss anemia - hgb 12.3 on admission, no active bleeding - Trend History of esophagitis Continue PPI twice daily Gastroparesis Suspect in the setting of type I DM Supportive care at [facility] time - Will have outpt f/u for emptying study Tobacco use, 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 Held pending operative intervention as noted DVT PPx: On heparin gtt (2) PVD (peripheral vascular disease): (3) HTN (hypertension): (4) Hyperlipidemia: (5) Diabetic peripheral neuropathy associated with type 1 diabetes mellitus: (6) Gastroparesis: Admission and Anticipated Discharge Date Admission Date: July 26, 2022 Subjective Patient reports increased pain in her lower extremity Physical Exam Physical Exam: Head and ENT no thyroid enlargement trachea midline Cardiovascular S1-S2 are normal no S3 Lungs bilateral air entry fair no wheezing Abdomen soft nondistended positive bowel sounds no rebound tenderness Extremity shows trace edema, lower extremity dressing applied no evidence of active bleeding Neurologically no focal deficits Skin shows right lower extremity pulsations weak and tenderness to touch Results & Data Results & Data ([facility]) Vital Signs (Past 12 Hours) Vital Signs Temp Pulse Resp BP Pulse Ox O2 Del Method 07/28/22 19:35 37.2 C 92 H 20 117/67 95 Room Air 07/28/22 15:57 36.9 C 95 H 18 106/62 96 Room Air 07/28/22 11:14 36.8 C 94 H 20 124/52 L 98 Room Air PG Care Time/CCT Total # of Minutes Spent Total Time Spent with Patient: Total time spent is greater than 50% in coordination of care (as documented) at patient's floor/unit and/or counseling patient: Coding Level of Care Code 59145 SUB INP/OBS CARE 2/35MIN Diagnoses Vascular graft infection T82.7XXA PVD (peripheral vascular disease) I73.9 HTN (hypertension) I10 Hyperlipidemia E78.5 Diabetic peripheral neuropathy associated with type 1 diabetes mellitus E10.42 Gastroparesis K31.84
[2022-07-29] MEDS: metroNIDAZOLE 500 MG/100 ML BAG IV SCH ×2 (01:30→09:15)
[2022-07-29] MEDS: CEFEPIME 2,000 MG in SYRINGE 0 ML IV SCH ×2 (01:31→09:14)
[2022-07-29] MEDS: ACETAMINOPHEN 325 MG TAB PO SCH ×6 (01:32→20:30)
[2022-07-29] MEDS: NORMOSOL-R 1,000 ML IV SCH ×2 (05:08→20:27)
[2022-07-29] MEDS: HYDROmorphone INJ 1 MG/ML SYRINGE IV PRN ×2 (05:32→13:54)
[2022-07-29] MEDS: VANCOMYCIN HCL 1,250 MG in SODIUM CHLORIDE 0.9% 250 ML IV SCH (08:01)
[2022-07-29] MEDS: PANTOprazole 40 MG TAB PO SCH ×2 (08:04→20:31)
[2022-07-29] MEDS: DOCUSATE SODIUM 100 MG CAP PO SCH ×3 (08:04→20:31)
[2022-07-29] MEDS: LACTULOSE SYRUP 30 GM/45 ML UDP PO SCH ×4 (08:05→20:28)
[2022-07-29] MEDS: MIRABEGRON ER 25 MG TAB PO SCH (08:05)
[2022-07-29] MEDS: INSULIN, Rapid-Acting PUMP SCH ×4 (09:12→20:39)
[2022-07-29] MEDS: PREGABALIN 75 MG CAP PO SCH (09:14)
[2022-07-29] MEDS: LIDOCAINE 5% 1 PATCH TD SCH (09:14)
--- NOTE | 2022-07-29 09:24 | Surgery Progress Note ---
Date of Service July 29, 2022 Assessment & Plan (1) Vascular graft infection: Plan: Pt doing better since removal of BPG. Cultures postive from both sites of the leg. Will need to have the rest of the proximal graft removed at the time of her amputation. (2) Ischemic leg: Plan: Pain much better controlled. Will plan on AKA Sunday as well as removal of the remaining graft. I have discussed the risks options and benefits of the procedure with the patient. The patient understands the risks options and benefits and agrees to the procedure. Admission and Anticipated Discharge Date Admission Date: July 26, 2022 Subjective Claims pain is well controlled. Has a small amount of discomfort in the lower leg. Physical Exam Constitutional: WD/WN, vitals as above Cardiovascular: Vessels: femoral pulses present; + posterior tibial pulses abnormal (on right) and + dorsalis pedis pulses abnormal (on right) Extremi ties: + abnormal capillary refill (markedly reduced on right) Musculoskeletal: Extremities: + abnormal strength (right foot) Skin: + incision (wound vac in place, other wound dry and clean on right leg) Neurologic: moves all extremities (except right foot) Psychiatric: Orientation: alert and oriented x 3 Results & Data ([facility]) Vital Signs (Past 12 Hours) Vital Signs Temp Pulse Pulse Resp BP Pulse Ox O2 Del Method 07/29/22 07:42 36.7 C 81 18 135/75 97 Room Air 07/29/22 04:05 36.7 C 93 H 20 148/70 H 96 Room Air 07/29/22 03:28 90 07/28/22 23:56 36.8 C 99 H 20 135/76 96 Room Air
[2022-07-29] MEDS: HYDROmorphone INJ 2 MG/ML SYR/VIAL IV PRN ×3 (09:28→23:50)
[2022-07-29 15:13] LABS: Creatinine Clr Calc Pharmacy 102.4 ml/min; Est GFR (African American) 114.2 ml/min; Est GFR (Non-African American) 98.5 ml/min
[2022-07-29] MEDS ORDERED: ACETAMINOPHEN 1,000 MG/100 ML VIAL IV PRN (16:40)
[2022-07-29] MEDS ORDERED: VANCOMYCIN LEVEL SCH (19:00)
[2022-07-29] MEDS: AMPICILLIN/SULBACTAM SOD 3,000 MG in 0.9 % SODIUM CHLORIDE 100 ML IV SCH (20:28)
--- NOTE | 2022-07-29 22:28 | Hospitalist Progress Note ---
Date of Service July 29, 2022 Assessment & Plan (1) Vascular graft infection: Plan: Infected fem/pop bypasss/p angioplasty and stenting of right SFA 05/15/2022 with SFA occlusion and stenting subsequently s/p prosthetic bypass and right popliteal stenting 06/13/2022. Left lower extremity: Well-healed left femoral bypass surgical site, left extremity warm and dry. PT/DP pulse palpable. Cap refill intact. Sensation to soft touch intact, ankle dorsiflexion/plantar flexion and hip flexion intact. Right lower extremity: Femoral bypass site well-healed, palpable pulse. Popliteal bypass site with 2X nonhealed, open areas with mild surrounding erythema and bloody/purulent discharge expressed on palp. Lower extremity is cool, minimal/numb sensation at the dorsal foot and no sensation on the plantar foot. PT/DP pulses are not palpable. On admission: Leukocytosis acutely to 19.83 Hemoglobin 12.3, MCV 96. Platelet count 684, likely reactive Patient last took DOAC/aspirin/Plavix yesterday Discussed with vascular surgery. Consulted. Anticipate operative intervention/AKA. N.p.o. midnight. ABX as noted. We will hold aspirin/DOAC/Plavix, admit on heparin gtt which can be held in the morning prior to surgery. White count 17.6 today Patient had exploration of infected thrombosed right femoral to above knee popliteal PTFE bypass graft requiring explantation for source control and definitive antibiotic therapy - Surface wound culture of purulent material sent, - Admitted on Cefepime/Vanc/Flagyl given graft infection worsening over last few weeks and hx DM 07/29-patient right lower extremity shows decreased perfusion vascular surgery p jorgito to perform right-sided AKA noted Patient also has a likely infected graft they will be removed during the amputation procedure as per vascular surgery Pain control with as needed Dilaudid Consult placed with pain management as well Hypotension In the setting of infected bypass, history of recently low normal BPs Lisinopril held Normalized after 1L IVF Blood pressures improved over the past 24 hours Type I DM with peripheral neuropathy With insulin pump Basal rate 0.9 units at last hospitalization, continued this on DC last A1c 7.7% Ratio 1:15 - Pt OK to use own pump History of acute blood loss anemia - hgb 12.3 on admission, no active bleeding - Trend History of esophagitis Continue PPI twice daily Gastroparesis Suspect in the setting of type I DM Supportive care at [facility] time - Will have outpt f/u for emptying study Tobacco use, in remission - Tobacco free since june Peripheral artery disease With history of bypass and complications as above, acute management as noted Urinary urgency Continue Myrbetriq Bladder scan for PVR DVT PPx: On heparin gtt (2) PVD (peripheral vascular disease): (3) HTN (hypertension): (4) Hyperlipidemia: (5) Diabetic peripheral neuropathy associated with type 1 diabetes mellitus: (6) Gastroparesis: Admission and Anticipated Discharge Date Admission Date: July 26, 2022 Subjective Patient reports right lower extremity pain controlled with as needed doses of Dilaudid Patient given bowel regimen and has had a BM today and reports her constipation related symptoms have improved Physical Exam Physical Exam: Head and ENT no thyroid enlargement trachea midline Cardiovascular S1-S2 are normal no S3 Lungs bilateral air entry fair no wheezing Abdomen soft nondistended positive bowel sounds no rebound tenderness Extremity shows trace edema, lower extremity dressing applied no evidence of active bleeding Neurologically no focal deficits Skin shows right lower extremity pulsations weak and tenderness to touch noted in right lower extremity Right lower extremity shows decreased pulsations and less warmth compared to the left lower extremity Results & Data Results & Data ([facility]) Vital Signs (Past 12 Hours) Vital Signs Temp Pulse Pulse Resp BP Pulse Ox O2 Del Method 07/29/22 19:40 36.6 C 83 20 117/69 96 Room Air 07/29/22 14:22 89 07/29/22 15:48 37.0 C 90 18 137/81 98 Room Air 07/29/22 11:47 36.6 C 83 18 132/78 97 Room Air Laboratory Results [facility] 07/29/22 14:26 Creatinine 0.56 L PG Care Time/CCT Total # of Minutes Spent Total Time Spent with Patient: Total time spent is greater than 50% in coordination of care (as documented) at patient's floor/unit and/or counseling patient: Coding Level of Care Code 21133 SUB INP/OBS CARE 2/35MIN Diagnoses Vascular graft infection T82.7XXA PVD (peripheral vascular disease) I73.9 HTN (hypertension) I10 Hyperlipidemia E78.5 Diabetic peripheral neuropathy associated with type 1 diabetes mellitus E10.42 Gastroparesis K31.84
[2022-07-30] MEDS: ACETAMINOPHEN 325 MG TAB PO SCH ×5 (00:21→20:00)
[2022-07-30] MEDS: AMPICILLIN/SULBACTAM SOD 3,000 MG in 0.9 % SODIUM CHLORIDE 100 ML IV SCH ×4 (00:21→18:11)
[2022-07-30] MEDS: NORMOSOL-R 1,000 ML IV SCH ×2 (04:55→17:45)
[2022-07-30] MEDS: HYDROmorphone INJ 1 MG/ML SYRINGE IV PRN ×4 (05:51→18:10)
[2022-07-30 06:26] LABS: Hemoglobin 9.7 g/dl (12.0-16.0); Mean Corpuscular Hemoglobin 32.9 pg (25.0-34.0); Mean Corpuscular Hgb Conc 33.4 g/dL (32.0-36.0); Mean Corpuscular Volume 98.3 fL (80.0-100.0); Mean Platelet Volume 8.8 fL (9.4-12.3); Platelet Count 643 K/uL (130-400); RDW Standard Deviation 54.4 fL (36.4-46.3); Red Blood Count 2.95 M/uL (3.93-5.22); White Blood Count 15.36 K/ul (4.8-10.8)
[2022-07-30 07:30] LABS: BUN Creatinine Ratio 7.1 (10-20); Calcium 7.8 mg/dl (8.5-10.1); Creatinine Clr Calc Pharmacy 102.4 ml/min; Est GFR (African American) 114.2 ml/min; Est GFR (Non-African American) 98.5 ml/min; Potassium 3.8 mmol/L (3.5-5.1)
[2022-07-30] MEDS: INSULIN, Rapid-Acting PUMP SCH ×4 (08:30→20:01)
[2022-07-30] MEDS: LACTULOSE SYRUP 30 GM/45 ML UDP PO SCH ×4 (08:33→20:00)
[2022-07-30] MEDS: DOCUSATE SODIUM 100 MG CAP PO SCH ×3 (08:33→20:00)
[2022-07-30] MEDS: PANTOprazole 40 MG TAB PO SCH ×2 (08:34→20:00)
[2022-07-30] MEDS: LIDOCAINE 5% 1 PATCH TD SCH (08:36)
[2022-07-30] MEDS: MIRABEGRON ER 25 MG TAB PO SCH (08:38)
[2022-07-30] MEDS: PREGABALIN 75 MG CAP PO SCH (08:53)
[2022-07-30] MEDS ORDERED: SODIUM CHLORIDE 0.9% 250 ML IV PRN (09:57)
--- NOTE | 2022-07-30 10:12 | Surgery Progress Note ---
Date of Service July 30, 2022 Assessment & Plan (1) Vascular graft infection: Plan: Pt doing better since removal of BPG. Cultures postive from both sites of the leg. Will remove rest of graft tomorrow. (2) Ischemic leg: Plan: Pain much better controlled. Will plan on Sunday Admission and Anticipated Discharge Date Admission Date: July 26, 2022 Subjective Patient wit ischemic pain of right lower extremity but well controlled with pain meds. Physical Exam Constitutional: WD/WN, vitals as above Cardiovascular: Vessels: femoral pulses present; + posterior tibial pulses abnormal (on right) and + dorsalis pedis pulses abnormal (on right) Extremities: + abnormal capillary refill (markedly reduced on right) Musculoskeletal: Extremities: + abnormal strength (right foot) Skin: + incision (wound vac in place, other wound dry and clean on right leg) Neurologic: moves all extremities (except right foot) Psychiatric: Orientation: alert and oriented x 3 Results & Data ([facility]) Vital Signs (Past 12 Hours) Vital Signs Temp Pulse Pulse Resp BP Pulse Ox O2 Del Method 07/30/22 07:41 36.6 C 80 18 136/63 96 Room Air 07/30/22 03:48 36.8 C 87 20 128/67 97 Room Air 07/30/22 01:23 92 H 07/29/22 23:50 36.8 C 94 H 20 131/51 L 96 Room Air
[2022-07-30] MEDS ORDERED: ONDANSETRON INJ 2 MG/ML 2 ML VIAL IV PRN (10:19)
--- NOTE | 2022-07-30 18:44 | Hospitalist Progress Note ---
Date of Service July 30, 2022 Assessment & Plan (1) Vascular graft infection: Plan: Infected fem/pop bypasss/p angioplasty and stenting of right SFA 05/15/2022 with SFA occlusion and stenting subsequently s/p prosthetic bypass and right popliteal stenting 06/13/2022. Left lower extremity: Well-healed left femoral bypass surgical site, left extremity warm and dry. PT/DP pulse palpable. Cap refill intact. Sensation to soft touch intact, ankle dorsiflexion/plantar flexion and hip flexion intact. Right lower extremity: Femoral bypass site well-healed, palpable pulse. Popliteal bypass site with 2X nonhealed, open areas with mild surrounding erythema and bloody/purulent discharge expressed on palp. Lower extremity is cool, minimal/numb sensation at the dorsal foot and no sensation on the plantar foot. PT/DP pulses are not palpable. On admission: Leukocytosis acutely to 19.83 Hemoglobin 12.3, MCV 96. Platelet count 684, likely reactive Patient last took DOAC/aspirin/Plavix yesterday Discussed with vascular surgery. Consulted. Anticipate operative intervention/AKA. N.p.o. midnight. ABX as noted. We will hold aspirin/DOAC/Plavix, admit on heparin gtt which can be held in the morning prior to surgery. White count 17.6 today Patient had exploration of infected thrombosed right femoral to above knee popliteal PTFE bypass graft requiring explantation for source control and definitive antibiotic therapy - Surface wound culture of purulent material sent, - Admitted on Cefepime/Vanc/Flagyl given graft infection worsening over last few weeks and hx DM 07/29-patient right lower extremity shows decreased perfusion vascular surgery p jorgito to perform right-sided AKA noted Patient also has a likely infected graft they will be removed during the amputation procedure as per vascular surgery Pain control with as needed Dilaudid Consult placed with pain management as well 07/30-patient has slightly improved right lower extremity pain with present analgesic regiment. Patient also has a likely infected vascular graft and that will be removed during the AKA procedure as per vascular Continue present pain management regiment Hypotension In the setting of infected bypass, history of recently low normal BPs Lisinopril held Normalized after 1L IVF Blood pressures improved over the past 24 hours Type I DM with peripheral neuropathy With insulin pump Basal rate 0.9 units at last hospitalization, continued this on DC last A1c 7.7% Ratio 1:15 - Pt OK to use own pump History of acute blood loss anemia - hgb 12.3 on admission, no active bleeding - Trend History of esophagitis Continue PPI twice daily Gastroparesis Suspect in the setting of type I DM Supportive care at [facility] time - Will have outpt f/u for emptying study Tobacco use, in remission - Tobacco free since june Peripheral artery disease With history of bypass and complications as above, acute management as noted Urinary urgency Continue Myrbetriq Bladder scan for PVR (2) PVD (peripheral vascular disease): (3) HTN (hypertension): (4) Hyperlipidemia: (5) Diabetic peripheral neuropathy associated with type 1 diabetes mellitus: (6) Gastroparesis: Admission and Anticipated Discharge Date Admission Date: July 26, 2022 Subjective Patient reports intermittent right lower extremity pain associated with ongoing ischemia but is controlled with present pain regimen Constipation symptoms are slightly improved with bowel regimen Looking forward to AKA surgery in a.m. as patient feels that she has tried her best to revascularize the leg but now wants the pain controlled . Physical Exam Physical Exam: Head and ENT no thyroid enlargement trachea midline Cardiovascular S1-S2 are normal no S3 Lungs bilateral air entry fair no wheezing Abdomen soft nondistended positive bowel sounds no rebound tenderness Extremity shows trace edema, lower extremity dressing applied no evidence of active bleeding Neurologically no focal deficits Skin shows right lower extremity pulsations weak and tenderness to touch noted in right lower extremity Right lower extremity shows decreased pulsations and less warmth compared to the left lower extremity Followed by vascular surgery today Results & Data Results & Data ([facility]) Vital Signs (Past 12 Hours) Vital Signs Temp Pulse Pulse Resp BP Pulse Ox Pulse Ox 07/30/22 18:26 37.1 C 83 18 137/67 97 07/30/22 16:10 36.7 C 79 18 129/71 98 07/30/22 14:36 90 07/30/22 07:00 74 07/30/22 11:44 36.7 C 76 18 131/55 L 98 07/30/22 09:58 95 07/30/22 07:41 36.6 C 80 18 136/63 96 O2 Del Method O2 Del Method 07/30/22 18:26 Room Air 07/30/22 16:10 Room Air 07/30/22 14:36 07/30/22 07:00 07/30/22 11:44 Room Air 07/30/22 09:58 Room Air 07/30/22 07:41 Room Air Laboratory Results Short CBC 07/30/22 Range/Units 06:06 WBC 15.36 H (4.8-10.8) K/ul Hgb 9.7 L (12.0-16.0) g/dl Hct 29.0 L (34.1-44.9) % Plt Count 643 H (130-400) K/uL BMP 07/30/22 06:06 Sodium 141 Potassium 3.8 D Chloride 105 Carbon Dioxide 32 BUN 4 L Creatinine 0.56 L Glucose 107 H Calcium 7.8 L PG Care Time/CCT Total # of Minutes Spent Total Time Spent with Patient: Total time spent is greater than 50% in coordination of care (as documented) at patient's floor/unit and/or counseling patient: Coding Level of Care Code 05280 SUB INP/OBS CARE 2/35MIN Diagnoses Vascular graft infection T82.7XXA PVD (peripheral vascular disease) I73.9 HTN (hypertension) I10 Hyperlipidemia E78.5 Diabetic peripheral neuropathy associated with type 1 diabetes mellitus E10.42 Gastroparesis K31.84
[2022-07-31] MEDS: HYDROmorphone INJ 1 MG/ML SYRINGE IV PRN ×4 (00:16→21:17)
[2022-07-31] MEDS: AMPICILLIN/SULBACTAM SOD 3,000 MG in 0.9 % SODIUM CHLORIDE 100 ML IV SCH ×4 (00:16→18:40)
[2022-07-31] MEDS: ACETAMINOPHEN 325 MG TAB PO SCH ×4 (02:14→19:53)
[2022-07-31] MEDS: NORMOSOL-R 1,000 ML IV SCH (05:49)
[2022-07-31 06:59] LABS: Hematocrit (blood only) 30.7 % (34.1-44.9); Hemoglobin 10.1 g/dl (12.0-16.0); Mean Corpuscular Hemoglobin 32.6 pg (25.0-34.0); Mean Corpuscular Hgb Conc 32.9 g/dL (32.0-36.0); Mean Platelet Volume 8.8 fL (9.4-12.3); Platelet Count 692 K/uL (130-400); RDW Coefficient of Variation 15.5 % (11.5-14.5); RDW Standard Deviation 55.8 fL (36.4-46.3); White Blood Count 18.45 K/ul (4.8-10.8)
[2022-07-31 07:18] LABS: BUN Creatinine Ratio 8.9 (10-20); Calcium 7.7 mg/dl (8.5-10.1); Creatinine Clr Calc Pharmacy 127.4 ml/min; Est GFR (African American) 122.7 ml/min; Est GFR (Non-African American) 105.9 ml/min; Potassium 3.1 mmol/L (3.5-5.1)
[2022-07-31] MEDS ORDERED: MAGNESIUM SULFATE / D5W 1 GM/100 ML BAG IV ONE (08:00)
--- NOTE | 2022-07-31 08:02 | Hospitalist Progress Note ---
Date of Service July 31, 2022 Assessment & Plan (1) Vascular graft infection: Plan: Acute significant risk to life and limb infected fem/pop bypasss/p angioplasty and stenting of right SFA 05/15/2022 with SFA occlusion and stenting subsequently s/p prosthetic bypass and right popliteal stenting 06/13/2022. Left lower extremity: Well-healed left femoral bypass surgical site, left extremity warm and dry. PT/DP pulse palpable. Cap refill intact. Sensation to soft touch intact, ankle dorsiflexion/plantar flexion and hip flexion intact. Right lower extremity: Femoral bypass site well-healed, palpable pulse. Popliteal bypass site with 2X nonhealed, open areas with mild surrounding erythema and bloody/purulent discharge expressed on palp. Lower extremity is cool, minimal/numb sensation at the dorsal foot and no sensation on the plantar foot. PT/DP pulses are not palpable. vascular surgery. Anticipate operative intervention/AKA. 07/31/2022 hold aspirin/DOAC/Plavix, heparin gtt held in the morning prior to surgery. Patient had exploration of infected thrombosed right femoral to above knee popliteal PTFE bypass graft requiring explantation for source control and definitive antibiotic therapy Cultures show e coil, and enterococcus on Unasyn Hypotension acute self-limited In the setting of infected bypass, history of recently low normal BPs Lisinopril held chronic stable type I DM with peripheral neuropathy With insulin pump lisinopril for secondary risk prevention History of acute blood loss anemia acute moderate risk to life and limbstable - stable. expect some decrease after sugery History of esophagitis, acute self limited Continue PPI twice daily Gastroparesis chronic stable Suspect in the setting of type I DM Supportive care at [facility] time - Will have outpt f/u for emptying study Tobacco use, in remission - Tobacco free since June Peripheral artery disease chronic responsible for issues of above With history of bypass and complications as above, acute management as noted Urinary urgency Continue Myrbetriq Bladder scan for PVR (2) PVD (peripheral vascular disease): (3) HTN (hypertension): (4) Hyperlipidemia: (5) Diabetic peripheral neuropathy associated with type 1 diabetes mellitus: (6) Gastroparesis: Admission and Anticipated Discharge Date Admission Date: July 26, 2022 Subjective Patient is seen preoperatively she is in good pain control slightly anxious ready for surgery to occur Physical Exam Physical Exam: Patient's cardiac exam is regular lungs are clear her right lower extremity is amnestic is cool to touch delayed capillary refill Results & Data Results & Data ([facility]) Vital Signs (Past 12 Hours) Vital Signs Temp Pulse Pulse Resp BP Pulse Ox O2 Del Method 07/31/22 07:36 98.2 F 93 H 16 157/73 H 97 Room Air 07/31/22 07:23 90 07/31/22 04:37 99.1 F 89 20 136/61 96 Room Air 07/31/22 01:30 88 07/30/22 22:57 98.8 F 90 20 126/64 97 Room Air Diagnostic Findings Reviewed CBC with persistent leukocytosis Repeat chemistry panel with hypokalemia repleted with both parenteral or oral potassium plus parenteral magnesium PG Care Time/CCT Total # of Minutes Spent Total Time Spent with Patient: Total time spent is greater than 50% in coordination of care (as documented) at patient's floor/unit and/or counseling patient: Coding Level of Care Code 01913 SUB INP/OBS CARE 3/50MIN Diagnoses Vascular graft infection T82.7XXA PVD (peripheral vascular disease) I73.9 HTN (hypertension) I10 Hyperlipidemia E78.5 Diabetic peripheral neuropathy associated with type 1 diabetes mellitus E10.42 Gastroparesis K31.84
[2022-07-31] MEDS: INSULIN, Rapid-Acting PUMP SCH ×4 (08:44→22:24)
[2022-07-31] MEDS: POTASSIUM CHLORIDE CRTAB 20 MEQ TABCR PO SCH ×2 (08:54→20:44)
[2022-07-31] MEDS: PANTOprazole 40 MG TAB PO SCH ×2 (08:54→20:44)
[2022-07-31] MEDS: LACTULOSE SYRUP 30 GM/45 ML UDP PO SCH ×4 (08:55→20:45)
[2022-07-31] MEDS: DOCUSATE SODIUM 100 MG CAP PO SCH ×3 (08:56→20:45)
[2022-07-31] MEDS: MIRABEGRON ER 25 MG TAB PO SCH (08:56)
[2022-07-31] MEDS: PREGABALIN 75 MG CAP PO SCH ×2 (09:00→20:44)
[2022-07-31] MEDS: POTASSIUM CHLORIDE / WTR 10 MEQ/100 ML PLCT IV SCH ×3 (09:08→11:02)
[2022-07-31] MEDS: LIDOCAINE 5% 1 PATCH TD SCH (10:57)
--- NOTE | 2022-07-31 11:49 | Anesthesiology Consultation ---
Date of Service July 31, 2022 Assessment & Plan (1) Encounter for pre-operative examination: Chart Review Chart Review: Acceptable Risk for Surgery History Surgery Operation Date: 07/27/22 09:50 Proposed Procedures p Removal of Infected Right Femoral Popliteal Bypass - Wu Salmeron MD Operation Date: 07/31/22 12:10 Proposed Procedures p Right Above Knee Amputation - Wu Salmeron MD Height/Weight Height: 5 ft 8 in Weight: 70.3 kg Allergies Allergy/AdvReac Type Severity Reaction Status Date / Time cilostazol Allergy Severe CHEST Verified 07/26/22 13:32 PAIN,SOB NAUSEA Medications Home Medications Medication Instructions Recorded Confirmed Last Taken ascorbic acid (vitamin C) 100 mg 100 mg PO DAILY 06/11/19 07/26/22 05/14/22 06:30 tablet aspirin 81 mg tablet,delayed 81 mg PO QAM 06/11/19 07/26/22 05/14/22 06:30 release (Adult Aspirin Regimen) cyanocobalamin (vitamin B-12) 1,000 mcg PO DAILY 06/28/20 07/26/22 05/14/22 06:30 1,000 mcg capsule blood sugar diagnostic (Contour #600 ea 04/22/21 03/21/22 Unknown Next Test Strips) atorvastatin 40 mg tablet (Lipitor) 40 mg PO DAILY #90 tabs 06/21/21 07/26/22 05/14/22 06:30 glucagon 3 mg/actuation nasal 3 mg intranasal ONCE #2 ea 08/04/21 07/26/22 Unknown spray (Baqsimi) mirabegron 50 mg tablet,extended 50 mg PO DAILY #90 tabs 08/22/21 07/26/22 05/14/22 06:30 release 24 hr (Myrbetriq) flash glucose scanning reader #1 ea 11/21/21 03/21/22 Unknown (FreeStyle Gayatri 2 [place]) flash glucose sensor (FreeStyle #7 ea 11/21/21 03/21/22 Unknown Gayatri 2 Sensor kit) clopidogrel 75 mg tablet (Plavix) 75 mg PO QAM 06/10/22 07/26/22 Unknown insulin lispro 100 unit/mL 0 unit continuous subcutaneous 06/10/22 07/26/22 Unknown subcutaneous solution (Humalog infusion DAILY U-100 Insulin) acetaminophen 500 mg tablet 1,000 mg PO TID PRN mild-moderate 06/20/22 07/26/22 Unknown (Tylenol Extra Strength) pain #180 tabs docusate sodium 100 mg capsule 100 mg PO BID #60 caps 06/20/22 07/26/22 Unknown folic acid 1 mg tablet 1 mg PO QAM #30 tabs 06/20/22 07/26/22 Unknown gabapentin 100 mg capsule 200 mg PO TID PRN loss of 06/20/22 07/26/22 Unknown sensation #180 caps lisinopril 2.5 mg tablet 2.5 mg PO DAILY #180 tabs 06/20/22 07/26/22 05/14/22 06:30 oxycodone 5 mg tablet 5 - 10 mg PO Q4H PRN 06/20/22 07/26/22 Unknown moderate-severe pain #30 tabs pantoprazole 40 mg tablet,delayed 40 mg PO BID #60 tabs 07/21/22 07/26/22 Unknown release rivaroxaban 2.5 mg tablet (Xarelto) 2.5 mg PO BID 07/26/22 07/26/22 07/25/22 07:00 Active Medications Generic Name Dose Route Start Last Admin Trade Name Freq PRN Reason Stop Dose Admin Acetaminophen 650 mg 07/30/22 14:00 07/31/22 08:54 Acetaminophen 325 Mg Tab PO 08/29/22 13:59 650 mg Q6H NIRALI Administration Docusate Sodium 100 mg 07/28/22 14:00 07/31/22 08:56 Docusate Sodium 100 Mg Cap PO 08/27/22 13:59 Not Given TID NIRALI Hydromorphone HCl 1 mg 07/26/22 13:07 07/31/22 09:50 Hydromorphone Inj 1 Mg/Ml Syringe IV 08/09/22 13:06 1 mg Q4H PRN Administration Moderate Pain Hydromorphone HCl 2 mg 07/28/22 13:19 07/29/22 23:50 Hydromorphone Inj 2 Mg/Ml Syr/Vial IV 07/31/22 13:18 2 mg Q6H PRN Administration Pain Ampicillin Sodium/Sulbactam 108 mls @ 216 mls/hr 07/29/22 18:00 07/31/22 06:38 Sodium 3,000 mg/ Sodium IV 08/05/22 17:59 Infused Chloride Q6 NIRALI Infusion Acetaminophen 1,000 mg in 100 mls @ 400 mls/hr 07/29/22 16:40 07/31/22 02:35 Ofirmev IV 08/01/22 16:39 Infused Q6H PRN Infusion Pain Insulin Aspart 1 each 07/26/22 21:00 07/31/22 08:44 Insulin, Rapid-Acting Pump N/A 08/25/22 20:59 Not Given ACHS NIRALI Protocol Lactulose 30 gm 07/28/22 17:00 07/31/22 08:55 Lactulose Syrup 30 Gm/45 Ml Udp PO 08/27/22 16:59 Not Given QID NIRALI Lidocaine 1 patch 07/28/22 13:15 07/31/22 10:57 Lidocaine 5% 1 Patch TD 08/02/22 13:14 1 patch QAM NIRALI Administration Mirabegron 50 mg 07/27/22 09:00 07/31/22 08:56 Mirabegron Er 25 Mg Tab PO 08/26/22 08:59 50 mg DAILY NIRALI Administration Miscellaneous 1 each 07/28/22 21:00 07/30/22 20:00 Remove Lidoderm Patch N/A 08/27/22 20:59 1 each DAILY@2100 NIRALI Administration Ondansetron HCl 4 mg 07/30/22 10:19 07/30/22 10:58 Ondansetron Inj 2 Mg/Ml 2 Ml Vial IV 08/29/22 10:18 4 mg Q4H PRN Administration Nausea Pantoprazole Sodium 40 mg 07/26/22 21:00 07/31/22 08:54 Pantoprazole 40 Mg Tab PO 08/25/22 20:59 40 mg BID NIRALI Administration Potassium Chloride 20 meq 07/31/22 09:00 07/31/22 08:54 Potassium Chloride Crtab 20 Meq Tabcr PO 08/01/22 09:01 20 meq BID NIRALI Administration Pregabalin 75 mg 07/28/22 13:15 07/31/22 09:00 Pregabalin 75 Mg Cap PO 07/31/22 13:14 75 mg DAILY NIRALI Administration NPO Date Last Intake of Fluids: 07/26/22 Time Last Intake of Fluids: 23:55 Last Intake of Fluids Comment: 0830 sip water for meds Date Last Intake of Solids: 07/26/22 Time Last Intake of Solids: 23:55 Past Medical History Medical History Acquired deformity of both feet Acquired hallux valgus of right foot Acute occlusion of artery of lower extremity Callus Controlled type 1 diabetes mellitus with hypoglycemia, with long-term current use of insulin Current tobacco use Diabetes Diabetes mellitus with diabetic polyneuropathy Diabetic neuropathy Gastroparesis Hallux rigidus of right foot Hallux rigidus, left foot Hallux valgus (acquired), left foot Hematemesis HTN (hypertension) Hyperlipidemia Ischemic leg Lateral epicondylitis of elbow Macrocytosis without anemia 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 Superficial femoral artery occlusion Vitamin B12 deficiency Vitamin D deficiency Past Family History Family History Father Myocardial infarction Hypertension Diabetes Cardiac disorder Mother Lung cancer Diabetes Cardiac disorder Myocardial infarction Brother Lung cancer Hypertension Cardiac disorder Myocardial infarction Aunt Dementia Sister Hypertension Diabetes Denies family history of Colon cancer Ovarian cancer Prostate cancer Breast cancer Past Surgical History Surgical History H/O hand surgery History of 3 sections History of angioplasty History of ankle surgery History of femoropopliteal bypass Social History Smoking Status: Former smoker tobacco type: cigarettes Smoking cigarettes per day: 5/6 cigarettes per day Do You Dip or Chew Tobacco: No Hx Alcohol Use: Yes Alcohol type: wine alcohol intake frequency: a few times a week Hx Substance Use: No substance use type: does not use Physical Exam Vital Signs Last Vital Signs Temp 37.2 C 07/31/22 11:29 Pulse 92 H 07/31/22 11:29 Resp 18 07/31/22 11:29 BP 151/71 H 07/31/22 11:29 Pulse Ox 95 07/31/22 11:29 O2 Del Method 07/31/22 11:29 O2 Flow Rate 5 07/27/22 11:55 Testing Laboratory Results 07/31/22 06:45 07/31/22 06:45 PT 12.2 Seconds (9.0-12.0) H 07/27/22 05:33 INR 1.2 (0.9-1.1) H 07/27/22 05:33 APTT 34.8 Seconds (21.0-31.0) H 07/28/22 08:00 Blood Type O Positive 07/30/22 10:09 Antibody Screen NEGATIVE 07/30/22 10:09 07/27/22 10:45 Gram Stain - Final Thigh,Right Aerobic and Anaerobic Culture - Preliminary Escherichia coli Enterococcus faecalis 07/27/22 10:45 Gram Stain - Final Thigh,Right Aerobic and Anaerobic Culture - Preliminary Escherichia coli Enterococcus faecalis 07/26/22 12:31 Aerobic Blood Culture - Preliminary Blood No growth in Aerobic bottle after 48 hours. Anaerobic Blood Culture - Preliminary No growth in Anaerobic bottle after 48 hours. 07/26/22 11:50 Aerobic Blood Culture - Preliminary Blood No growth in Aerobic bottle after 48 hours. Anaerobic Blood Culture - Preliminary No growth in Anaerobic bottle after 48 hours. 07/26/22 Unknown Gram Stain - Final Thigh,Right Wound Culture - Final Escherichia coli 07/31/22 07/31/22 11:38 07:41 POC Glucose 120 H 62 L* Electrocardiogram Date: 06/13/22 Findings: + NSR @ (16)
[2022-07-31] MEDS ORDERED: ONDANSETRON INJ 2 MG/ML 2 ML VIAL ONE ×2 (13:04→16:58)
[2022-07-31] MEDS ORDERED: ROCURONIUM BROMIDE 10 MG/ML 5 ML VIAL IV ONE (13:04)
[2022-07-31] MEDS ORDERED: LIDOCAINE 2% MPF LOCAL 5 ML VIAL INFIL ONE (13:04)
[2022-07-31] MEDS ORDERED: PROPOFOL IV EMULSION 10 MG/ML 20 ML VIAL IV ONE (13:04)
[2022-07-31] MEDS ORDERED: HYDROmorphone INJ 1 MG/ML SYRINGE IV PRN (13:05)
[2022-07-31] MEDS ORDERED: ATROPINE SULFATE 0.1 MG/ML 10ML SYR IV PRN (13:05)
[2022-07-31] MEDS ORDERED: MIDAZOLAM HCL 1 MG/ML 2ML VIAL ONE (13:05)
[2022-07-31] MEDS ORDERED: ONDANSETRON INJ 2 MG/ML 2 ML VIAL IV PRN (13:05)
[2022-07-31] MEDS ORDERED: fentaNYL citrate 100 MCG/2 ML VIAL ONE ×3 (13:05→16:37)
[2022-07-31] MEDS ORDERED: LABETALOL HCL IV 5 MG/ML 20ML IV PRN (13:05)
--- NOTE | 2022-07-31 13:05 | History & Physical Bridge Note ---
Date of Service July 31, 2022 History & Physical Bridge Note Patient for a right AKA and removal of the remaining prosthetic graft in right leg. I have discussed the risks options and benefits of the procedure with the patient. The patient understands the risks options and benefits and agrees to the procedure. I have examined the patient, reviewed the History & Physical and in the interval since the performance of the History & Physical I have noted the following changes of clinical significance: no changes noted
[2022-07-31] MEDS ORDERED: HYDROmorphone INJ 2 MG/ML SYR/VIAL ONE (14:23)
[2022-07-31] MEDS ORDERED: KETAMINE 50 MG/5 ML SYRINGE ONE (14:38)
[2022-07-31] MEDS ORDERED: HEPARIN SOD (PORCINE) 1000 UNIT/ML ONE ×2 (14:56→15:41)
[2022-07-31] MEDS ORDERED: HEPARIN (PORCINE) 1000 UNIT/ML 10 ML (CATH LAB USE ONLY) ONE (15:08)
[2022-07-31] MEDS ORDERED: THROMBIN FOR SOLN 20000 UNIT KIT ONE (15:08)
[2022-07-31] MEDS ORDERED: GELATIN SPONGE SZ 100 ONE (15:08)
[2022-07-31] MEDS ORDERED: ceFAZolin 330 MG/ML 1 GM VIAL ONE (15:14)
--- NOTE | 2022-07-31 17:37 | Post Operative Brief Note ---
Immediate Post Op Note v1 Date of Surgery July 31, 2022 Pre & Post Diagnosis Operation Date: 07/27/22 09:50 Pre-Op Diagnosis: infected right lower extremity graft Post-Op Diagnosis: infected right lower extremity graft Operation Date: 07/31/22 12:10 Pre-Op Diagnosis: Infected Right Lower Extremity Graft Post-Op Diagnosis: Infected Right Lower Extremity Graft I identified the patient and participated in the time-out.: Yes Procedure Operation Date: 07/27/22 09:50 Actual Procedures p Removal of Infected Right Femoral Popliteal Bypass, Pulse lavage of wound(Right) - Wu Salmeron MD Operation Date: 07/31/22 12:10 Actual Procedures p Right Above Knee Amputation, Removal of Remaining Infected Bypass Graft with Bovine Patch Angioplasty Common Femoral Artery and Profunda Femoral Artery(Right) - Wu Salmeron MD Surgeon Wu Salmeron MD System Support Developer Enrique Moreira MD Estimated Blood Loss 300 Findings Consistent with Post-Op Diagnosis Anesthesia Type General Complications none Disposition Accompanied Patient To Recovery: No Disposition: Recovery Room
--- NOTE | 2022-07-31 18:08 | Operative Report ---
Post Operative Report Pre & Post Diagnosis Operation Date: 07/27/22 09:50 Pre-Op Diagnosis: infected right lower extremity graft Post-Op Diagnosis: infected right lower extremity graft Operation Date: 07/31/22 12:10 Pre-Op Diagnosis: Infected Right Lower Extremity Graft Post-Op Diagnosis: Infected Right Lower Extremity Graft I identified the patient and participated in the time-out.: Yes Procedure Operation Date: 07/27/22 09:50 Actual Procedures p Removal of Infected Right Femoral Popliteal Bypass, Pulse lavage of wound(Right) - Wu Salmeron MD Operation Date: 07/31/22 12:10 Actual Procedures p Right Above Knee Amputation, Removal of Remaining Infected Bypass Graft with Bovine Patch Angioplasty Common Femoral Artery and Profunda Femoral Artery(Right) - Wu Salmeron MD Surgeon Wu Salmeron MD Drapery Installer Enrique Moreira MD Estimated Blood Loss 300 Findings Consistent with Post-Op Diagnosis Murky sanguinous discharge on opening right groin incision at site of bypass. Significant scarring and fibrous tissue surrounding graft. No ranjit pus. Following right ETHOLOGIST patch angioplasty, no inflow from right external and no backbleeding from profunda with known SFA occlusion. Following short #3 Ravinder embolectomy of right EIA, there was great inflow from R EIA, no thrombus retrieved. Following patch angioplasty of R profunda and embolectomy with short #3 Ravinder, there was great backbleeding with significant acute appearing thrombus retrieved. Good doppler signal in ETHOLOGIST and profunda on groin closure. R AKA site well approximated. All necrotic tissue debrieded. Remaining muscle reactive and pink. Specimens Right leg Complications None Disposition Accompanied Patient To Recovery: Yes Indications This is a 62 female with PMH of PAD who underwent a right common femoral artery to above knee popliteal artery bypass with PTFE. This unfortunately thrombosed and became infected and required ligation and excision. The residual stump left in her right groin continued to show signs of infection requiring complete excision. Due to her non-reconstructible vascular disease following her thrombosed bypass and active infection in her RLE, she is not a candidate for further revascularization. Her current symptoms of severe right leg pain and concern for infection fit with critical limb ischemia requiring urgent amputation. For this reason patient was indicated for a R AKA Description of Procedure The patient was taken to the operating room and placed in the supine position. General endotracheal anesthesia was induced. The right groin and right leg were prepped and draped circumferentially in the usual sterile fashion. A longit udinal incision was made at the location of the patients prior bypass graft surgical scar using a #10 blade scalpel. Murky serosanguineous fluid was encountered consistent with history of graft infection. Dissection was carried down through subcutaneous tissue using electrocautery followed by Metzenbaum scissions and the graft was identified. The graft was mobilized proximally to its anastomosis with the right common femoral artery and then the proximal right common femoral artery, right profunda femoris, and right SFA were controlled with vessel loops. Patient was systemically heparinized with a goal ACT of > 200. Following heparin administration the aforementioned arteries were clamped in order A #11 blade was then used to cut the Prolene suture of the graft anastomosis and all suture material and graft material were excised. Residual plaque on the posterior wall of the right common femoral artery was endarterectomized. Patch angioplasty was then performed of the right ETHOLOGIST defect with a bovine pericardial patch using 5-0 Prolene suture. Just prior to completion of the patch, when flushing the vessels, there was no backbleeding from the right external iliac artery or the right profunda. A #3 Ravinder was passed proximally and no thrombus was retrieved, however there was the return of fantastic backbleeding. The Ravinder was unable to be passed into the profunda and the SFA was known to be ligated from prior operations. The patch was then completed and all vessels unclamped. Attention was turned to the Profunda which was dissected distally for a length of 8-10cm. There was a distal Doppler signal noted in the profunda with a waterhammer signal proximally and no signal in between. The proximal, distal, and several branch points of the profunda were then clamped with Angled DeBakey clamps. A longitudinal arteriotomy was made in the profunda and extended proximally and distally with Nunez scissors. Acute appearing thrombus was present intraluminally and taken out. A #3 Ravinder was passed proximally and distally returning acute appearing thrombus. Following the first pass brisk backbleeding achieved in both directions. The Profunda was then repaired with patch angioplasty using a bovine pericardial patch and 6-0 Prolene suture. At completion, vessels were unclamped and there was an excellent Doppler signal throughout the proximal and distal profunda. The wound was closed with interrupted 2-0 Vicryl sutures followed by 3-0 running subcutaneous Vicryl sutures. The skin was closed with ese. Attention was then turned to the right lower extremity. An incision was made three fingerbreadths above the knee, curving proximally on the medial and lateral side to the area medially of her prior wound and laterally to the corresponding site at midline. Subcutaneous tissue and fascia were then divided using electrocautery followed by the quadriceps muscle using electrocautery. Once all the muscles were transected, the femur was cleaned using a periosteal e levator and then divided using a Gigli bone saw. The posterior aspect of the incision was then completed, meeting the medial and lateral endpoints just behind the knee and a knife was used behind the femur to divide the remaining subcutaneous tissue and muscle. The right lower extremity was passed off the table as specimen and all bleeding vessels were quickly clamped with hemostats and then suture ligated with 2-0 Vicryl sutures. The sciatic nerve was identified, tied with 2-0 Vicryl suture and then divided distally, and allowed to retract. The wound was inspected and hemostasis was obtained. A small portion of non-viable muscle at the site of the prior lateral leg resection was excised. No frankly infected tissue remained. The muscles followed by subcutaneous tissue was then closed over the femur with interrupted 2-0 and 3-0 Vicryl suture. The skin was closed with ese. Steril dressings were applied. Patient was transferred out of the operating room in stable condition Dr. Salmeron was present and scrubbed for the entire procedure. I attest to the content of the Intraoperative Record and any orders documented therein. Any exceptions are noted below. Supervising Physician Co-Signing Physician Notes Wu Salmeron MD
--- NOTE | 2022-07-31 18:43 | Anesthesiology Progress Note ---
Date of Service July 31, 2022 Anesthesia Post Procedure Vital Signs Vital Signs: Temp Pulse Pulse Pulse Resp BP Pulse Ox 07/31/22 18:25 96 H 20 98/47 L 93 07/31/22 18:15 37.2 C 95 H 20 115/48 L 95 07/31/22 18:05 93 H 18 105/66 95 07/31/22 17:55 92 H 20 119/77 99 07/31/22 17:45 97 H 24 113/95 100 07/31/22 17:38 36.9 C 103 H 20 158/58 H 98 07/31/22 12:54 37 C 94 H 20 143/56 H 98 07/31/22 11:29 37.2 C 92 H 18 151/71 H 95 07/31/22 07:36 36.8 C 93 H 16 157/73 H 97 07/31/22 07:23 90 07/31/22 04:37 37.3 C 89 20 136/61 96 07/31/22 01:30 88 07/30/22 22:57 37.1 C 90 20 126/64 97 O2 Del Method O2 Flow Rate 07/31/22 18:25 Room Air 07/31/22 18:15 Room Air 07/31/22 18:05 Room Air 07/31/22 17:55 Oxymask 5 07/31/22 17:45 Oxymask 5 07/31/22 17:38 Oxymask 9 07/31/22 12:54 Room Air 07/31/22 11:29 Room Air 07/31/22 07:36 Room Air 07/31/22 07:23 07/31/22 04:37 Room Air 07/31/22 01:30 07/30/22 22:57 Room Air Pain Intensity Right Leg: Pain Intensity: 10 Transfer of Care Handoff Completed per policy Notes Mental Status: alert / awake / arousable Patient Amnestic to Procedure: Yes Nausea / Vomiting: adequately controlled Pain: adequately controlled Airway Patency, RR, SpO2: stable & adequate BP & HR: stable & adequate Hydration State: stable & adequate Anesthetic Complications: no major complications apparent
[2022-07-31 19:48] LABS: Hematocrit (blood only) 29.8 % (34.1-44.9); Hemoglobin 9.8 g/dl (12.0-16.0)
[2022-08-01] MEDS: AMPICILLIN/SULBACTAM SOD 3,000 MG in 0.9 % SODIUM CHLORIDE 100 ML IV SCH ×4 (00:42→17:46)
[2022-08-01] MEDS: ACETAMINOPHEN 325 MG TAB PO SCH (01:19)
[2022-08-01 07:23] LABS: Hematocrit (blood only) 27.7 % (34.1-44.9); Hemoglobin 8.9 g/dl (12.0-16.0); Mean Corpuscular Hemoglobin 32.4 pg (25.0-34.0); Mean Corpuscular Hgb Conc 32.1 g/dL (32.0-36.0); Mean Corpuscular Volume 100.7 fL (80.0-100.0); Mean Platelet Volume 9.2 fL (9.4-12.3); Platelet Count 643 K/uL (130-400); RDW Coefficient of Variation 16.7 % (11.5-14.5); RDW Standard Deviation 61.1 fL (36.4-46.3); Red Blood Count 2.75 M/uL (3.93-5.22); White Blood Count 17.23 K/ul (4.8-10.8)
[2022-08-01] MEDS ORDERED: HYDROmorphone INJ 0.5 MG/0.5 ML SYR IV PRN (07:55)
[2022-08-01] MEDS ORDERED: HYDROmorphone INJ 1 MG/ML SYRINGE IV PRN (07:55)
--- NOTE | 2022-08-01 07:55 | Hospitalist Progress Note ---
Date of Service August 01, 2022 Assessment & Plan (1) Vascular graft infection: Plan: Acute significant risk to life and limb patient now status post right [id number] amputation performed on 07/31/2022 infected fem/pop bypasss/p angioplasty and stenting of right SFA 05/15/2022 with SFA occlusion and stenting subsequently s/p prosthetic bypass and right popliteal stenting 06/13/2022. Left lower extremity: Well-healed left femoral bypass surgical site, left e xtremity warm and dry. PT/DP pulse palpable. Cap refill intact. Sensation to soft touch intact, ankle dorsiflexion/plantar flexion and hip flexion intact. Right lower extremity: Status post above-knee amputation with dressing in place, pain management need to be addressed and reordered on 08/01 including scheduled Tylenol and parenteral opiates with escalation of Lyrica for phantom pain vascular surgery. operative intervention/AKA. 07/31/2022 holding aspirin/DOAC/Plavix, heparin gtt restarted. Once hemostasis is assured we will likely reinstitute her antiplatelet and anticoagulation orally Cultures show e coil, and enterococcus on Unasyn Hypotension acute self-limitedresolved secondary to sepsis now resolved In the setting of infected bypass, history of recently low normal BPs Lisinopril held chronic stable type I DM with peripheral neuropathy With insulin pump patient with self-management lisinopril for secondary risk prevention History of acute blood loss anemia acute moderate risk to life and limbstable - stable. no need for transfusion at this point History of esophagitis, acute self limited Continue PPI twice daily Gastroparesis chronic stable Suspect in the setting of type I DM Supportive care at this time - Will have outpt f/u for emptying study Tobacco use, in remission - Tobacco free since June Peripheral artery disease chronic responsible for issues of above With history of bypass and complications as above, acute management as noted Urinary urgency Continue Myrbetriq Bladder scan for PVR (2) PVD (peripheral vascular disease): (3) HTN (hypertension): (4) Hyperlipidemia: (5) Diabetic peripheral neuropathy associated with type 1 diabetes mellitus: (6) Gastroparesis: Admission and Anticipated Discharge Date Admission Date: July 26, 2022 Subjective Patient was in good spirits today she is status post AKA. She is not having significant phantom pain when I saw her but later in the day her phantom pain escalated. We are being evaluated for rehab. Patient was being seen by the diabetic nurse educator and evaluating her insulin pump which she continues to self manage Physical Exam Physical Exam: Patient is awake and alert her heart is regular her lungs are clear right leg has an AKA amputation with a bandage in place no significant fluctuance or tenderness to the distal limb Results & Data Results & Data ([facility]) Vital Signs (Past 12 Hours) Vital Signs Temp Pulse Pulse Resp BP Pulse Ox O2 Del Method 08/01/22 07:47 83 08/01/22 07:17 97.3 F L 88 16 107/65 99 Room Air 08/01/22 03:10 98.1 F 92 H 16 95/54 L 99 Room Air 07/31/22 22:05 99 H 08/01/22 01:09 96 H 18 101/58 L 98 Room Air 07/31/22 22:18 98.4 F 97 H 16 102/57 L 99 Room Air 07/31/22 21:06 98.2 F 96 H 18 118/62 99 Room Air 07/31/22 20:14 99.1 F 93 H 18 105/56 L 98 Room Air Diagnostic Findings Review of CBC shows leukocytosis acute blood loss anemia with a hemoglobin of 8.9 Evaluation of chemistry panel shows intact renal function postoperatively PG Care Time/CCT Total # of Minutes Spent Total Time Spent with Patient: Total time spent is greater than 50% in coordination of care (as documented) at patient's floor/unit and/or counseling patient: Coding Level of Care Code 73538 SUB INP/OBS CARE 3/50MIN Diagnoses Vascular graft infection T82.7XXA PVD (peripheral vascular disease) I73.9 HTN (hypertension) I10 Hyperlipidemia E78.5 Diabetic peripheral neuropathy associated with type 1 diabetes mellitus E10.42 Gastroparesis K31.84
[2022-08-01 07:57] LABS: Calcium 7.4 mg/dl (8.5-10.1); Potassium 3.7 mmol/L (3.5-5.1)
[2022-08-01] MEDS: MIRABEGRON ER 25 MG TAB PO SCH (08:05)
[2022-08-01] MEDS: PANTOprazole 40 MG TAB PO SCH ×2 (08:05→20:12)
[2022-08-01] MEDS: DOCUSATE SODIUM 100 MG CAP PO SCH ×3 (08:06→20:13)
[2022-08-01] MEDS: LACTULOSE SYRUP 30 GM/45 ML UDP PO SCH ×4 (08:06→20:12)
[2022-08-01] MEDS: POTASSIUM CHLORIDE CRTAB 20 MEQ TABCR PO SCH (08:10)
[2022-08-01] MEDS: PREGABALIN 75 MG CAP PO SCH (08:11)
[2022-08-01] MEDS: ACETAMINOPHEN 500 MG TAB PO SCH ×3 (08:14→20:12)
[2022-08-01 08:32] LABS: BUN Creatinine Ratio 16.1 (10-20); Creatinine Clr Calc Pharmacy 65.9 ml/min; Est GFR (African American) 81.6 ml/min; Est GFR (Non-African American) 70.4 ml/min
[2022-08-01] MEDS: LIDOCAINE 5% 1 PATCH TD SCH (09:11)
[2022-08-01] MEDS: INSULIN, Rapid-Acting PUMP SCH ×4 (09:13→23:35)
[2022-08-01] MEDS: oxyCODONE HCL IR 5 MG TAB (IMMEDIATE RELEASE) PO PRN ×2 (09:17→17:46)
[2022-08-01] MEDS ORDERED: PREGABALIN 75 MG CAP PO ONE (14:45)
[2022-08-01] MEDS: PREGABALIN 150 MG CAP PO SCH (20:35)
[2022-08-01] MEDS: HYDROmorphone INJ 1 MG/ML SYRINGE IV PRN (22:02)
[2022-08-02] MEDS: AMPICILLIN/SULBACTAM SOD 3,000 MG in 0.9 % SODIUM CHLORIDE 100 ML IV SCH ×4 (00:39→17:27)
[2022-08-02] MEDS: oxyCODONE HCL IR 5 MG TAB (IMMEDIATE RELEASE) PO PRN ×3 (02:48→19:34)
--- NOTE | 2022-08-02 08:29 | Hospitalist Progress Note ---
Date of Service August 02, 2022 Assessment & Plan (1) Vascular graft infection: Plan: Acute significant risk to life and limb patient now status post right [id number] amputation performed on 07/31/2022 issue is now less severe in the postoperative recovery phase infected fem/pop bypasss/p angioplasty and stenting of right SFA 05/15/2022 with SFA occlusion and stenting subsequently s/p prosthetic bypass and right popliteal stenting 06/13/2022. Left lower extremity: Well-healed left femoral bypass surgical site, left extremity warm and dry. PT/DP pulse palpable. Cap refill intact. Sensation to soft touch intact, ankle dorsiflexion/plantar flexion and hip flexion intact. Right lower extremity: Status post above-knee amputation with dressing in place, pain management need to be addressed and reordered on 08/01 including scheduled Tylenol and parenteral opiates with escalation of Lyrica for phantom pain vascular surgery. operative intervention/AKA. 07/31/2022 holding aspirin/DOAC/Plavix, heparin gtt restarted. Once hemostasis is assured we will likely reinstitute her antiplatelet and anticoagulation orally Cultures show e coil, and enterococcus on Unasyn Hypotension acute self-limitedresolved secondary to sepsis now resolved In the setting of infected bypass, history of recently low normal BPs Lisinopril held chronic stable type I DM with peripheral neuropathy With insulin pump patient with self-management lisinopril for secondary risk prevention History of acute blood loss anemia acute moderate risk to life and limbstable - stable. no need for transfusion at this point History of esophagitis, acute self limited Continue PPI twice daily Gastroparesis chronic stable Suspect in the setting of type I DM Supportive care at this time - Will have outpt f/u for emptying study Tobacco use, in remission - Tobacco free since June Peripheral artery disease chronic responsible for issues of above With history of bypass and complications as above, acute management as noted Urinary urgency Continue Myrbetriq Bladder scan for PVR (2) PVD (peripheral vascular disease): (3) HTN (hypertension): (4) Hyperlipidemia: (5) Diabetic peripheral neuropathy associated with type 1 diabetes mellitus: (6) Gastroparesis: Admission and Anticipated Discharge Date Admission Date: July 26, 2022 Subjective Patient is seen she was sitting in a chair she still having some pain. We did increase her Lyrica. She is offered opiates for other pain control. She is on scheduled Tylenol. She is planning on rehab. Patient was seen by vascular surgery and they feel this is in a stable postoperative course Physical Exam Physical Exam: Physical exam is awake alert appropriate she is slightly uncomfortable otherwise is without significant distress or cardiac exam is regular lungs are clear her leg is a bandage on it there is some typical postoperative swelling nothing that looks concerning overtly unusual Results & Data Results & Data ([facility]) Vital Signs (Past 12 Hours) Vital Signs Temp Pulse Pulse Resp BP Pulse Ox O2 Del Method 08/02/22 08:25 99.7 F H 92 H 20 135/72 97 Room Air 08/01/22 22:50 83 08/02/22 03:04 98.6 F 89 18 126/68 98 Room Air 08/01/22 23:01 98.4 F 93 H 18 110/69 96 Room Air Diagnostic Findings Reviewed CBC stable postop anemia anemia of chronic disease Reviewed PRP stable chronic kidney disease stage II PG Care Time/CCT Total # of Minutes Spent Total Time Spent with Patient: Total time spent is greater than 50% in coordination of care (as documented) at patient's floor/unit and/or counseling patient: Coding Level of Care Code 93758 SUB INP/OBS CARE 2/35MIN Diagnoses Vascular graft infection T82.7XXA PVD (peripheral vascular disease) I73.9 HTN (hypertension) I10 Hyperlipidemia E78.5 Diabetic peripheral neuropathy associated with type 1 diabetes mellitus E10.42 Gastroparesis K31.84
[2022-08-02] MEDS: LIDOCAINE 5% 1 PATCH TD SCH (08:43)
[2022-08-02 11:19] LABS: Hematocrit (blood only) 26.8 % (34.1-44.9); Hemoglobin 8.7 g/dl (12.0-16.0); Mean Corpuscular Hgb Conc 32.5 g/dL (32.0-36.0); Mean Corpuscular Volume 98.5 fL (80.0-100.0); Mean Platelet Volume 9.1 fL (9.4-12.3); Platelet Count 648 K/uL (130-400); RDW Standard Deviation 57.8 fL (36.4-46.3); Red Blood Count 2.72 M/uL (3.93-5.22)
[2022-08-02] MEDS: DOCUSATE SODIUM 100 MG CAP PO SCH ×3 (11:20→19:33)
[2022-08-02] MEDS: PREGABALIN 150 MG CAP PO SCH ×2 (11:21→19:35)
[2022-08-02] MEDS: MIRABEGRON ER 25 MG TAB PO SCH (11:21)
[2022-08-02] MEDS: PANTOprazole 40 MG TAB PO SCH ×2 (11:21→19:36)
[2022-08-02] MEDS: ACETAMINOPHEN 500 MG TAB PO SCH ×3 (11:21→21:03)
[2022-08-02] MEDS: LACTULOSE SYRUP 30 GM/45 ML UDP PO SCH ×4 (11:22→19:34)
[2022-08-02] MEDS: INSULIN, Rapid-Acting PUMP SCH ×4 (11:22→23:05)
[2022-08-02 11:58] LABS: BUN Creatinine Ratio 20.4 (10-20); Calcium 7.3 mg/dl (8.5-10.1); Creatinine Clr Calc Pharmacy 106.2 ml/min; Est GFR (African American) 115.6 ml/min; Est GFR (Non-African American) 99.7 ml/min; Potassium 3.7 mmol/L (3.5-5.1)
--- NOTE | 2022-08-02 12:41 | Surgery Progress Note ---
Date of Service August 02, 2022 Assessment & Plan (1) Vascular graft infection: Plan: Pt has complete removal of BPG, with bovine arterial patch over the proximal anastamosis site. Will require 4-6 weeks of IV abx, then can be on oral abx. Can consult ID if needed. (2) S/P above knee amputation: Plan: Pt now day 2 post op from RLE AKA and complete explant of BPG with bovine arterial patch. She is doing well post op and in good spirits. Once IV abx arranged, could be transferred to rehab whenever medically stable. Will see pt in office in 2 weeks for reeval. Admission and Anticipated Discharge Date Admission Date: July 26, 2022 Subjective 62 yo f POD #2 after undergoing RLE AKA and removal of BPG remnants, seen in f/u today. Pt states she is doing well generally. Still has some pain in RLE AKA site and groin incision. No other new complaints Review of Systems Review of Systems: All systems reviewed & are unremarkable except as noted in HPI & below Physical Exam Constitutional: WD/WN, vitals as above not in distress Cardiovascular: Rate/Rhythm: regular rate and regular rhythm Vessels: femoral pulses present; + posterior tibial pulses abnormal and + dorsalis pedis pulses abnormal RLE AKA Skin: RLE groin incision C/D/I. AKA site C/D/I with ese. + local tenderness and edema. No erythema Psychiatric: A+Ox3, euthymic affect Results & Data ([facility]) Vital Signs (Past 12 Hours) Vital Signs Temp Pulse Resp BP Pulse Ox O2 Del Method 08/02/22 08:25 37.6 C H 92 H 20 135/72 97 Room Air 08/02/22 03:04 37.0 C 89 18 126/68 98 Room Air
[2022-08-03] MEDS: AMPICILLIN/SULBACTAM SOD 3,000 MG in 0.9 % SODIUM CHLORIDE 100 ML IV SCH ×4 (00:22→18:18)
[2022-08-03 06:45] LABS: Hematocrit (blood only) 24.4 % (37.0-47.0); Mean Corpuscular Hemoglobin 32.5 pg (25.0-34.0); Mean Corpuscular Hgb Conc 32.8 g/dL (32.0-36.0); Mean Corpuscular Volume 99.2 fL (80.0-100.0); Platelet Count 558 K/uL (130-400); RDW Coefficient of Variation 16.9 % (11.5-14.5); RDW Standard Deviation 61.7 fL (36.4-46.3); Red Blood Count 2.46 M/uL (4.20-5.40); White Blood Count 8.18 K/ul (4.8-10.8)
[2022-08-03 06:52] LABS: Calcium 7.6 mg/dl (8.5-10.1); Est GFR (Non-African American) 104.4 ml/min; Potassium 3.5 mmol/L (3.5-5.1)
[2022-08-03] MEDS: INSULIN, Rapid-Acting PUMP SCH ×4 (09:07→21:33)
[2022-08-03] MEDS: LACTULOSE SYRUP 30 GM/45 ML UDP PO SCH ×4 (09:13→20:43)
[2022-08-03] MEDS: DOCUSATE SODIUM 100 MG CAP PO SCH ×4 (09:13→20:43)
[2022-08-03] MEDS: PANTOprazole 40 MG TAB PO SCH ×2 (09:14→20:46)
[2022-08-03] MEDS: PREGABALIN 150 MG CAP PO SCH ×2 (09:14→20:51)
[2022-08-03] MEDS: MIRABEGRON ER 25 MG TAB PO SCH (09:14)
[2022-08-03] MEDS: HYDROmorphone INJ 1 MG/ML SYRINGE IV PRN ×3 (09:32→20:51)
[2022-08-03] MEDS: ACETAMINOPHEN 500 MG TAB PO SCH ×3 (09:32→20:44)
[2022-08-03] MEDS: oxyCODONE HCL IR 5 MG TAB (IMMEDIATE RELEASE) PO PRN ×2 (12:09→18:24)
--- NOTE | 2022-08-03 13:59 | Infectious Disease Consult ---
Date of Consultation August 03, 2022 Assessment & Plan (1) Ischemic leg: (2) Post op infection: (3) Leukocytosis: (4) PAD (peripheral artery disease): (5) S/P above knee amputation: Plan This is a 62 year old female with pmh of dm1,diabetic neuropathy, gastroparesis, tobacco use do, Pad sp L fem-poplitea bypass 11/09/17 and SFA stent 03/15/22 c/b sfa thrombosis. She subsequently underwent RLE common femoral to above knee popliteal artery prosthetic bypass graft and popliteal artery stent on 06/13. Post operatively, she developed bloody drainage from her thigh incision and then purulent drainage. She completed 2 courses of Keflex with little improvement. She subsequently developed a dusky baldwin appearance to her RLE associated with severe pain, numbness and cold. She was evaluated on 07/26 in follow up clinic by her vascular surgeon Dr Salmeron. Given her signs and s ymptoms, there was suspicion of infected right fempop and occluded bypass graft, with limb ischemia. she was referred to ED for admission for removal of graft and AKA. She denies fever, chills, sweat, abdominal pain, chest pain ,shortness of beath, nausea or vomiting. She complains of sever RLE pain. In the Ed , she was hemodynamically stable. Labs noted for WBC of 19.83 K, PLt 684, procalcitonin 0.3. cr 1.09,COVID 19 not detected and Bc sterile On exam she was noted to have purulent drainage from her distal thigh incision. Her right foot was cold, pale, without sensation and wihout pulses on doppler. On 07/27 she underwent removal of infected right fem-pop bypass graft. The residual stump left in her right groin continued to show signs of infection requiring complete excision. On 07/31 she underwent AKA with removal of remaining bypass graft with bovine patch angioplasty common fem artery and PFA. Upon opening the right groin incision at site of bypass, murky sanguineous was noted. All necrotic tissue and thrombus removed. The remaining muscle reactive and pink. Intraoperative cultures + for Ecoli, E feacalis and finegoldia Magna. She is receiving Unasyn. She complains of mild pain at surgical site. ID consulted for antibiotic management of bypass graft infection Micro BC 07/26 Sterile Right thigh wound cx Ecoli Right thigh tissue cx an wound Cx 07/27: ecoli, E rachidacalis, Payalldia magna Aero/Ashleigh Cult Final 08/01/22-1103 Organism 1 Escherichia coli Quantity Moderate Sens Sensitivities to Follow Organism 2 Enterococcus faecalis Quantity Moderate Sens Sensitivities to Follow Organism 3 Finegoldia magna Quantity Few Sens No Sensitivities to Follow E coli E faecalis RX M.I.C. RX M.I.C. --- --------- --- --------- Amox/Clav S <=8/4 Ampicillin S <=8 S <=2 Amp/Sul S <=8/4 Cefazolin S <=2 Cefepime S <=2 Ceftriaxone S <=1 Ciprofloxacin S <=0.25 Daptomycin S 2 Ertapenem S <=0.5 Gentamicin S <=4 Gent Synergy S <=500 Levofloxacin S <=0.5 Meropenem S <=1 Penicillin S 2 Strep Synergy S <=1000 Tobramycin S <=4 Trimeth/Sulfa S <=2/38 Pip/Tazo S <=16 Vancomycin S 4 Enterococcus faecalis: Positive Combo 33 Streptomycin Synergy Screen S Gentamicin Synergy Screen S Abx: cefazolin 07/26-07/29 vancomycin 07/26-07/29 flagyl 07/26-07/29 Unasyn 07/29-ongoing 1. Polymicrobial RLE vascular graft infection 2. RLE ischemia - Sp debridement and removal of infected graft - Sp AKA as not able to revascularize 3.Leukocytosis - resolved 4. Thrombocytosis Discussion. She is sp source control with removal of infected prosthetic and AKA. Intraop Cx + ecoli, E faecalis and Finegoldia magna Recommendation If all infected prosthetic material , tissue removed, a 6 week course of IV abx post source control is recommend. Will verify with vascular surgery that all infected graft removed. Continue Unasyn 3 g Iv q6 h for at least 6 weeks post amputation. tentative end date 09/11/22 ordered crp, esr Follow up right AKA surgical pathology On abx, follow weekly cbc with diff, bmp, lft Can place PICC line Thank you for allowing me to participate in the care of your patient. ID will continue to follow. Colby Newton MD, MPH Infectious Disease [facility], [facility] Call [phone] with questions Consultation Information Consultation was provided via telemedicine using two-way real-time interactive telecommunication between the patient and the telemedicine provider. For the duration of the visit, the provider was performing the assessment from a different facility than the patient. This includesuse of bluetooth stethoscope forauscultationperformed by the telepresenter that the telemedicine provider can hear if described in the physical exam. Digital Printer Operator contact information: Please call [facility] Call Center . (Phone Number For Physician Use Only) After establishing a telemedicine visit, patient was: Patient was verified with two unique identifiers, Patient/authorized rep acknowledged consent and understanding and Gave permission to continue telehealth session Time Spent with Patient: Initial => 75 min History of Present Illness Reason for Consultation: Postoperative antibiotics sp infected graft removal Requesting Physician: Renzo Charlton MD Attending Physician: Jeffy Kang History of Present Illness This is a 62 year old female with pmh of dm1,diabetic neuropathy, gastroparesis, tobacco use do, Pad sp L fem-poplitea bypass 11/09/17 and SFA stent 03/15/22 c/b sfa thrombosis. She subsequently underwent RLE common femoral to above knee popliteal artery prosthetic bypass graft and popliteal artery stent on 06/13. Post operatively, she developed bloody drainage from her thigh incision and then purulent drainage. She completed 2 courses of Keflex with little improvement. She subsequently developed a dusky baldwin appearance to her RLE associated with severe pain, numbness and cold. She was evaluated on 07/26 in follow up clinic by her vascular surgeon Dr Salmeron. Given her signs and symptoms, there was suspicion of infected right fempop and occluded bypass graft, with limb ischemia. she was referred to ED for admission for removal of graft and AKA. She denies fever, chills, sweat, abdominal pain, chest pain ,shortness of beath, nausea or vomiting. She complains of sever RLE pain. In the Ed , she was hemodynamically stable. Labs noted for WBC of 19.83 K, PLt 684, procalcitonin 0.3. cr 1.09,COVID 19 not detected and Bc sterile On exam she was noted to have purulent drainage from her distal thigh incision. Her right foot was cold, pale, without sensation and wihout pulses on doppler. On 07/27 she underwent removal of infected right fem-pop bypass graft. The residual stump left in her right groin continued to show signs of infection requiring complete excision. On 07/31 she underwent AKA with removal of remaining bypass graft with bovine patch angioplasty common fem artery and PFA. Upon opening the right groin incision at site of bypass, murky sanguineous was noted. All necrotic tissue and thrombus removed. The remaining muscle reactive and pink. Intraoperative cultures + for Ecoli, E feacalis and finegoldia Magna. She is receiving Unasyn. She complains of mild pain at surgical site. ID consulted for antibiotic management of bypass graft infection Allergies Allergy/AdvReac Type Severity Reaction Status Date / Time cilostazol Allergy Severe CHEST Verified 07/26/22 13:32 PAIN,SOB NAUSEA Home Medications Medication Instructions Recorded Confirmed Type ascorbic acid (vitamin C) 100 mg 100 mg PO DAILY 06/11/19 07/26/22 History tablet aspirin 81 mg tablet,delayed 81 mg PO QAM 06/11/19 07/26/22 History release (Adult Aspirin Regimen) cyanocobalamin (vitamin B-12) 1,000 mcg PO DAILY 06/28/20 07/26/22 History 1,000 mcg capsule blood sugar diagnostic (Contour #600 ea 04/22/21 03/21/22 Rx Next Test Strips) atorvastatin 40 mg tablet (Lipitor) 40 mg PO DAILY #90 tabs 06/21/21 07/26/22 Rx glucagon 3 mg/actuation nasal 3 mg intranasal ONCE #2 ea 08/04/21 07/26/22 Rx spray (Baqsimi) mirabegron 50 mg tablet,extended 50 mg PO DAILY #90 tabs 08/22/21 07/26/22 Rx release 24 hr (Myrbetriq) flash glucose scanning reader #1 ea 11/21/21 03/21/22 Rx (FreeStyle Gayatri 2 [place]) flash glucose sensor (FreeStyle #7 ea 11/21/21 03/21/22 Rx Gayatri 2 Sensor kit) clopidogrel 75 mg tablet (Plavix) 75 mg PO QAM 06/10/22 07/26/22 History insulin lispro 100 unit/mL 0 unit continuous subcutaneous 06/10/22 07/26/22 History subcutaneous solution (Humalog infusion DAILY U-100 Insulin) acetaminophen 500 mg tablet 1,000 mg PO TID PRN mild-moderate 06/20/22 07/26/22 Rx (Tylenol Extra Strength) pain #180 tabs docusate sodium 100 mg capsule 100 mg PO BID #60 caps 06/20/22 07/26/22 Rx folic acid 1 mg tablet 1 mg PO QAM #30 tabs 06/20/22 07/26/22 Rx gabapentin 100 mg capsule 200 mg PO TID PRN loss of 06/20/22 07/26/22 Rx sensation #180 caps lisinopril 2.5 mg tablet 2.5 mg PO DAILY #180 tabs 06/20/22 07/26/22 Rx oxycodone 5 mg tablet 5 - 10 mg PO Q4H PRN 06/20/22 07/26/22 Rx moderate-severe pain #30 tabs pantoprazole 40 mg tablet,delayed 40 mg PO BID #60 tabs 07/21/22 07/26/22 Rx release rivaroxaban 2.5 mg tablet (Xarelto) 2.5 mg PO BID 07/26/22 07/26/22 History Patient History Medical History Acquired deformity of both feet Acquired hallux valgus of right foot Acute occlusion of artery of lower extremity Callus Controlled type 1 diabetes mellitus with hypoglycemia, with long-term current use of insulin Current tobacco use Diabetes Diabetes mellitus with diabetic polyneuropathy Diabetic neuropathy Gastroparesis Hallux rigidus of right foot Hallux rigidus, left foot Hallux valgus (acquired), left foot Hematemesis HTN (hypertension) Hyperlipidemia Ischemic leg Lateral epicondylitis of elbow Macrocytosis without anemia 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 Superficial femoral artery occlusion Vitamin B12 deficiency Vitamin D deficiency Surgical History (Updated 08/02/22 @ 12:04 by Stephanie Falcon PA-C) H/O hand surgery History of 3 sections History of angioplasty History of ankle surgery History of femoropopliteal bypass S/P above knee amputation Family History Father Myocardial infarction Hypertension Diabetes Cardiac disorder Mother Lung cancer Diabetes Cardiac disorder Myocardial infarction Brother Lung cancer Hypertension Cardiac disorder Myocardial infarction Aunt Dementia Sister Hypertension Diabetes Denies family history of Colon cancer Ovarian cancer Prostate cancer Breast cancer Social History Smoking Status: Former smoker Tobacco Type: Cigarettes packs per day: 1; Cigarettes Per Day: 5/6 cigarettes per day; Second Hand Exposure: No; Do You Dip or Chew Tobacco: No; Tobacco Cessation Education Requested by Patient: No Hx Alcohol Use: Yes Alcohol type: wine Alcohol type Comment: 1-2 daily Hx Substance Use: No Preferred Language: Guyanese Communication Ability: Effective Visual Impairment: No Limitations Hearing Ability: Normal Camp Head Counselor Required: No Beliefs That Will Affect Care: None marital status: Current Living Situation: Spouse 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 Physical Exam Constitutional: NAD Eyes: EOMI ENMT: poor dentition Respiratory: No increased work of breathing. Cardiovascular: RRR Gastrointestinal (Abdomen): soft, Nt , ND Musculoskeletal: sp Right AKA. right groin incision ese- Not tender. C/D/I. AKA stump incision ese. CDI Not red warmth, tender. medial stump incision with mild ttp Neurologic: AAO*4 Psychiatric: Cooperative, Appropriate Results & Data ([place]) Vital Signs (Past 12 Hours) Vital Signs Temp Pulse Pulse Resp BP Pulse Ox O2 Del Method 08/03/22 11:36 37 C 78 14 117/62 95 Room Air 08/03/22 10:46 83 08/03/22 07:22 37.1 C 79 18 125/77 96 Room Air 08/03/22 03:14 36.6 C 74 18 129/75 97 Room Air Laboratory Results Laboratory Results - last 48 hr 07/30/22 08/01/22 08/01/22 10:09 16:25 19:56 WBC RBC Hgb Hct MCV MCH MCHC RDW Std Deviation RDW Coeff of Nicolas Plt Count MPV Sodium Potassium Chloride Carbon Dioxide Anion Gap BUN Creatinine Est Cr Clr Drug Dosing Est GFR ( Amer) Est GFR (Non-Af Amer) BUN/Creatinine Ratio Glucose POC Glucose 144 H 125 H Calcium Crossmatch See Detail 08/02/22 08/02/22 08/02/22 07:35 08:32 08:32 WBC 11.80 H RBC 2.72 L Hgb 8.7 L Hct 26.8 L MCV 98.5 MCH 32.0 MCHC 32.5 RDW Std Deviation 57.8 H RDW Coeff of Nicolas 16.0 H Plt Count 648 H MPV 9.1 L Sodium 134 L Potassium 3.7 Chloride 101 Carbon Dioxide 28 Anion Gap 5 BUN 11 Creatinine 0.54 L D Est Cr Clr Drug Dosing 106.2 Est GFR ( Amer) 115.6 Est GFR (Non-Af Amer) 99.7 BUN/Creatinine Ratio 20.4 H Glucose 144 H POC Glucose 138 H Calcium 7.3 L Crossmatch 08/02/22 08/02/22 08/02/22 11:45 16:44 20:14 WBC RBC Hgb Hct MCV MCH MCHC RDW Std Deviation RDW Coeff of Nicolas Plt Count MPV Sodium Potassium Chloride Carbon Dioxide Anion Gap BUN Creatinine Est Cr Clr Drug Dosing Est GFR ( Amer) Est GFR (Non-Af Amer) BUN/Creatinine Ratio Glucose POC Glucose 105 H 188 H 175 H Calcium Crossmatch 08/03/22 08/03/22 06:20 06:20 WBC 8.18 RBC 2.46 L Hgb 8.0 L Hct 24.4 L MCV 99.2 MCH 32.5 MCHC 32.8 RDW Std Deviation 61.7 H RDW Coeff of Nicolas 16.9 H Plt Count 558 H MPV 9.0 L Sodium 140 Potassium 3.5 Chloride 107 Carbon Dioxide 30 Anion Gap 3 BUN 8 Creatinine 0.47 L Est Cr Clr Drug Dosing 122.0 Est GFR ( Amer) 121.0 Est GFR (Non-Af Amer) 104.4 BUN/Creatinine Ratio 17.0 Glucose 162 H POC Glucose Calcium 7.6 L Crossmatch Diagnostic Findings Microbiology 07/27/22 10:45 Thigh,Right Gram Stain - Final 07/27/22 10:45 Thigh,Right Aerobic and Anaerobic Culture - Final Escherichia coli Enterococcus faecalis Finegoldia magna 07/27/22 10:45 Thigh,Right Gram Stain - Final 07/27/22 10:45 Thigh,Right Aerobic and Anaerobic Culture - Final Escherichia coli Enterococcus faecalis Finegoldia magna 07/26/22 12:31 Blood Aerobic Blood Culture - Final No growth in Aerobic bottle after 5 days. 07/26/22 12:31 Blood Anaerobic Blood Culture - Final No growth in Anaerobic bottle after 5 days. 07/26/22 11:50 Blood Aerobic Blood Culture - Final No growth in Aerobic bottle after 5 days. 07/26/22 11:50 Blood Anaerobic Blood Culture - Final No growth in Anaerobic bottle after 5 days. 07/26/22 Unknown Thigh,Right Gram Stain - Final 07/26/22 Unknown Thigh,Right Wound Culture - Final Escherichia coli Medications Administered Home Medications Medication Instructions Recorded Confirmed Last Taken ascorbic acid (vitamin C) 100 mg 100 mg PO DAILY 06/11/19 07/26/22 05/14/22 06:30 tablet aspirin 81 mg tablet,delayed 81 mg PO QAM 06/11/19 07/26/22 05/14/22 06:30 release (Adult Aspirin Regimen) cyanocobalamin (vitamin B-12) 1,000 mcg PO DAILY 06/28/20 07/26/22 05/14/22 06:30 1,000 mcg capsule blood sugar diagnostic (Contour #600 ea 04/22/21 03/21/22 Unknown Next Test Strips) atorvastatin 40 mg tablet (Lipitor) 40 mg PO DAILY #90 tabs 06/21/21 07/26/22 05/14/22 06:30 glucagon 3 mg/actuation nasal 3 mg intranasal ONCE #2 ea 08/04/21 07/26/22 Unknown spray (Baqsimi) mirabegron 50 mg tablet,extended 50 mg PO DAILY #90 tabs 08/22/21 07/26/22 05/14/22 06:30 release 24 hr (Myrbetriq) flash glucose scanning reader #1 ea 11/21/21 03/21/22 Unknown (FreeStyle Gayatri 2 [place]) flash glucose sensor (FreeStyle #7 ea 11/21/21 03/21/22 Unknown Gayatri 2 Sensor kit) clopidogrel 75 mg tablet (Plavix) 75 mg PO QAM 06/10/22 07/26/22 Unknown insulin lispro 100 unit/mL 0 unit continuous subcutaneous 06/10/22 07/26/22 Unknown subcutaneous solution (Humalog infusion DAILY U-100 Insulin) acetaminophen 500 mg tablet 1,000 mg PO TID PRN mild-moderate 06/20/22 07/26/22 Unknown (Tylenol Extra Strength) pain #180 tabs docusate sodium 100 mg capsule 100 mg PO BID #60 caps 06/20/22 07/26/22 Unknown folic acid 1 mg tablet 1 mg PO QAM #30 tabs 06/20/22 07/26/22 Unknown gabapentin 100 mg capsule 200 mg PO TID PRN loss of 06/20/22 07/26/22 Unknown sensation #180 caps lisinopril 2.5 mg tablet 2.5 mg PO DAILY #180 tabs 06/20/22 07/26/22 05/14/22 06:30 oxycodone 5 mg tablet 5 - 10 mg PO Q4H PRN 06/20/22 07/26/22 Unknown moderate-severe pain #30 tabs pantoprazole 40 mg tablet,delayed 40 mg PO BID #60 tabs 07/21/22 07/26/22 Unknown release rivaroxaban 2.5 mg tablet (Xarelto) 2.5 mg PO BID 07/26/22 07/26/22 07/25/22 07:00 Active Medications Generic Name Dose Route Start Last Admin Trade Name Freq PRN Reason Stop Dose Admin Acetaminophen 1,000 mg 08/01/22 09:00 08/03/22 13:54 Acetaminophen 500 Mg Tab PO 08/31/22 08:59 1,000 mg TID NIRALI Administration Docusate Sodium 100 mg 07/28/22 14:00 08/03/22 13:54 Docusate Sodium 100 Mg Cap PO 08/27/22 13:59 100 mg TID NIRALI Administration Hydromorphone HCl 1 mg 07/26/22 13:07 08/03/22 09:32 Hydromorphone Inj 1 Mg/Ml Syringe IV 08/09/22 13:06 1 mg Q4H PRN Administration Moderate Pain Ampicillin Sodium/Sulbactam 108 mls @ 216 mls/hr 07/29/22 18:00 08/03/22 12:41 Sodium 3,000 mg/ Sodium IV 08/05/22 17:59 Infused Chloride Q6 NIRALI Infusion Insulin Aspart 1 each 07/26/22 21:00 08/03/22 12:10 Insulin, Rapid-Acting Pump N/A 08/25/22 20:59 1 each ACHS NIRALI Administration Protocol Lactulose 30 gm 07/28/22 17:00 08/03/22 12:06 Lactulose Syrup 30 Gm/45 Ml Udp PO 08/27/22 16:59 Not Given QID NIRALI Mirabegron 50 mg 07/27/22 09:00 08/03/22 09:14 Mirabegron Er 25 Mg Tab PO 08/26/22 08:59 50 mg DAILY NIRALI Administration Miscellaneous 1 each 07/28/22 21:00 08/02/22 19:37 Remove Lidoderm Patch N/A 08/27/22 20:59 Not Given DAILY@2100 [facility] Ondansetron HCl 4 mg 07/30/22 10:19 07/30/22 10:58 Ondansetron Inj 2 Mg/Ml 2 Ml Vial IV 08/29/22 10:18 4 mg Q4H PRN Administration Nausea Oxycodone HCl 10 mg 08/01/22 07:55 08/03/22 12:09 Oxycodone Hcl Ir 5 Mg Tab (Immediate Release) PO 08/15/22 07:54 10 mg Q6H PRN Administration Moderate Pain 4-6/10 Pantoprazole Sodium 40 mg 07/26/22 21:00 08/03/22 09:14 Pantoprazole 40 Mg Tab PO 08/25/22 20:59 40 mg BID NIRALI Administration Pregabalin 150 mg 08/01/22 21:00 08/03/22 09:14 Pregabalin 150 Mg Cap PO 08/31/22 20:59 150 mg BID NIRALI Administration
--- NOTE | 2022-08-03 14:20 | Surgery Progress Note ---
Date of Service August 03, 2022 Assessment & Plan (1) S/P above knee amputation: Plan: Patient can be d/c to rehab when bed available. Would recommend 6 weeks of IV antibiotics followed by orals for 6 months. Admission and Anticipated Discharge Date Admission Date: July 26, 2022 Subjective No complaints. In good spirits. Pain well controlled. Physical Exam Constitutional: WD/WN, vitals as above Skin: + incision (dry and clean) Results & Data ([facility]) Vital Signs (Past 12 Hours) Vital Signs Temp Pulse Pulse Resp BP Pulse Ox O2 Del Method 08/03/22 11:36 37 C 78 14 117/62 95 Room Air 08/03/22 10:46 83 08/03/22 07:22 37.1 C 79 18 125/77 96 Room Air 08/03/22 03:14 36.6 C 74 18 129/75 97 Room Air
--- NOTE | 2022-08-03 20:35 | Hospitalist Progress Note ---
Date of Service August 03, 2022 Assessment & Plan (1) Vascular graft infection: Plan: Acute significant risk to life and limb patient now status post right [id number] amputation performed on 07/31/2022 issue is now less severe in the postoperative recovery phase infected fem/pop bypasss/p angioplasty and stenting of right SFA 05/15/2022 with SFA occlusion and stenting subsequently s/p prosthetic bypass and right popliteal stenting 06/13/2022. Left lower extremity: Well-healed left femoral bypass surgical site, left extremity warm and dry. PT/DP pulse palpable. Cap refill intact. Sensation to soft touch intact, ankle dorsiflexion/plantar flexion and hip flexion intact. Right lower extremity: Status post above-knee amputation with dressing in place, pain management need to be addressed and reordered on 08/01 including scheduled Tylenol and parenteral opiates with escalation of Lyrica for phantom pain vascular surgery. operative intervention/AKA. 07/31/2022 holding aspirin/DOAC/Plavix, heparin gtt restarted. Once hemostasis is assured we will likely reinstitute her antiplatelet and anticoagulation orally Cultures show e coil, and enterococcus on Unasyn Awaiting input from ID consult. will need weeks of antibiotics Hypotension acute self-limitedresolved secondary to sepsis now resolved In the setting of infected bypass, history of recently low normal BPs Lisinopril held chronic stable type I DM with peripheral neuropathy With insulin pump patient with self-management lisinopril for secondary risk prevention History of acute blood loss anemia acute moderate risk to life and limbstable - stable. no need for transfusion at this point History of esophagitis, acute self limited Continue PPI twice daily Gastroparesis chronic stable Suspect in the setting of type I DM Supportive care at this time - Will have outpt f/u for emptying study Tobacco use, in remission - Tobacco free since June Peripheral artery disease chronic responsible for issues of above With history of bypass and complications as above, acute management as noted Urinary urgency Continue Myrbetriq Bladder scan for PVR (2) PVD (peripheral vascular disease): (3) HTN (hypertension): (4) Hyperlipidemia: (5) Diabetic peripheral neuropathy associated with type 1 diabetes mellitus: (6) Gastroparesis: Admission and Anticipated Discharge Date Admission Date: July 26, 2022 Subjective 62 yo male reports no new symptoms Review of Systems Review of Systems: All systems reviewed & are unremarkable except as noted in HPI & below Physical Exam Physical Exam: Physical exam is awake alert appropriate she is slightly uncomfortable otherwise is without significant distress or cardiac exam is regular lungs are clear her leg is a bandage on it there is some typical postoperative swelling nothing that looks concerning overtly unusual Results & Data Results & Data ([facility]) Vital Signs (Past 12 Hours) Vital Signs Temp Pulse Pulse Resp BP BP Pulse Ox 08/03/22 19:46 37.0 C 87 20 132/71 96 08/03/22 16:03 90 08/03/22 14:42 36.8 C 85 20 131/77 96 08/03/22 11:36 37 C 78 14 117/62 95 08/03/22 10:46 83 O2 Del Method 08/03/22 19:46 Room Air 08/03/22 16:03 08/03/22 14:42 Room Air 08/03/22 11:36 Room Air 08/03/22 10:46 PG Care Time/CCT Total # of Minutes Spent Total Time Spent with Patient: Total time spent is greater than 50% in coordination of care (as documented) at patient's floor/unit and/or counseling patient: Coding Level of Care Code 46238 SUB INP/OBS CARE 2/35MIN Diagnoses Vascular graft infection T82.7XXA PVD (peripheral vascular disease) I73.9 HTN (hypertension) I10 Hyperlipidemia E78.5 Diabetic peripheral neuropathy associated with type 1 diabetes mellitus E10.42 Gastroparesis K31.84
[2022-08-04] MEDS: AMPICILLIN/SULBACTAM SOD 3,000 MG in 0.9 % SODIUM CHLORIDE 100 ML IV SCH ×5 (00:02→23:07)
[2022-08-04] MEDS: oxyCODONE HCL IR 5 MG TAB (IMMEDIATE RELEASE) PO PRN ×3 (00:37→22:18)
[2022-08-04] MEDS: DOCUSATE SODIUM 100 MG CAP PO SCH ×3 (07:32→20:11)
[2022-08-04] MEDS: ACETAMINOPHEN 500 MG TAB PO SCH ×3 (07:33→20:12)
[2022-08-04] MEDS: MIRABEGRON ER 25 MG TAB PO SCH (07:33)
[2022-08-04] MEDS: PANTOprazole 40 MG TAB PO SCH ×2 (07:34→20:12)
[2022-08-04] MEDS: LACTULOSE SYRUP 30 GM/45 ML UDP PO SCH ×4 (07:34→20:12)
[2022-08-04] MEDS: PREGABALIN 150 MG CAP PO SCH ×2 (07:37→20:11)
[2022-08-04] MEDS: INSULIN, Rapid-Acting PUMP SCH ×4 (09:37→21:36)
[2022-08-04] MEDS: HYDROmorphone INJ 1 MG/ML SYRINGE IV PRN ×2 (10:16→20:11)
--- NOTE | 2022-08-04 11:09 | Surgery Progress Note ---
Date of Service August 04, 2022 Assessment & Plan (1) S/P above knee amputation: Plan: Patient can be d/c to rehab when bed available. Would recommend 6 weeks of IV antibiotics followed by orals for 6 months. Will see in office in 2-3 weeks. Admission and Anticipated Discharge Date Admission Date: July 26, 2022 Subjective 62 yo female POD #4 after RLE AKA and complete removal of BPG, seen in f/u today. Pt is looking forward to d/c to rehab and then eventually home. States pain is currently well controlled. No new complaints. Review of Systems Review of Systems: All systems reviewed & are unremarkable except as noted in HPI & below Physical Exam Constitutional: WD/WN, vitals as above not in distress Skin: + incision (dry and clean) Psychiatric: A+Ox3, euthymic affect Results & Data ([facility]) Vital Signs (Past 12 Hours) Vital Signs Temp Pulse Pulse Resp BP Pulse Ox O2 Del Method 08/04/22 09:12 83 08/04/22 08:41 37.0 C 88 18 130/67 97 Room Air 08/04/22 04:05 36.8 C 82 20 134/67 97 Room Air 08/04/22 00:00 80 08/03/22 23:42 36.7 C 92 H 18 165/80 H 99 Room Air
--- NOTE | 2022-08-04 13:56 | Infectious Disease Progress Nt ---
Date of Service August 04, 2022 Assessment & Plan (1) Ischemic leg: (2) Post op infection: (3) Leukocytosis: (4) PAD (peripheral artery disease): (5) S/P above knee amputation: Plan This is a 62 year old female with pmh of dm1,diabetic neuropathy, gastroparesis, tobacco use do, Pad sp L fem-poplitea bypass 11/09/17 and SFA stent 03/15/22 c/b sfa thrombosis. She subsequently underwent RLE common femoral to above knee popliteal artery prosthetic bypass graft and popliteal artery stent on 06/13. Post operatively, she developed bloody drainage from her thigh incision and then purulent drainage. She completed 2 courses of Keflex with little improvement. She subsequently developed a dusky baldwin appearance to her RLE associated with severe pain, numbness and cold. She was evaluated on 07/26 in follow up clinic by her vascular surgeon Dr Salmeron. Given her signs and symptoms, there was suspicion of infected right fempop and occluded bypass graft, with limb ischemia. she was referred to ED for admission for removal of graft and AKA. She denies fever, chills, sweat, abdominal pain, chest pain ,shortness of beath, nausea or vomiting. She complains of sever RLE pain. In the Ed , she was hemodynamically stable. Labs noted for WBC of 19.83 K, PLt 684, procalcitonin 0.3. cr 1.09,COVID 19 not detected and Bc sterile On exam she was noted to have purulent drainage from her distal thigh incision. Her right foot was cold, pale, without sensation and wihout pulses on doppler. On 07/27 she underwent removal of infected right fem-pop bypass graft. The residual stump left in her right groin continued to show signs of infection requiring complete excision. On 07/31 she underwent AKA with removal of remaining bypass graft with bovine patch angioplasty common fem artery and PFA. Upon opening the right groin incision at site of bypass, murky sanguineous was noted. All necrotic tissue and thrombus removed. The remaining muscle reactive and pink. Intraoperative cultures + for Ecoli, E feacalis and finegoldia Magna. She is receiving Unasyn. She complains of mild pain at surgical site. ID consulted for antibiotic management of bypass graft infection Micro BC 07/26 Sterile Right thigh wound cx Ecoli Right thigh tissue cx an wound Cx 07/27: ecoli, Won jonesfarooqarchie, Jerald dowell Aero/Ashleigh Cult Final 08/01/22-1103 Organism 1 Escherichia coli Quantity Moderate Sens Sensitivities to Follow Organism 2 Enterococcus faecalis Quantity Moderate Sens Sensitivities to Follow Organism 3 Jerald evansa Quantity Few Sens No Sensitivities to Follow E coli E faecalis RX M.I.C. RX M.I.C. --- --------- --- --------- Amox/Clav S <=8/4 Ampicillin S <=8 S <=2 Amp/Sul S <=8/4 Cefazolin S <=2 Cefepime S <=2 Ceftriaxone S <=1 Ciprofloxacin S <=0.25 Daptomycin S 2 Ertapenem S <=0.5 Gentamicin S <=4 Gent Synergy S <=500 Levofloxacin S <=0.5 Meropenem S <=1 Penicillin S 2 Strep Synergy S <=1000 Tobramycin S <=4 Trimeth/Sulfa S <=2/38 Pip/Tazo S <=16 Vancomycin S 4 Enterococcus faecalis: Positive Combo 33 Streptomycin Synergy Screen S Gentamicin Synergy Screen S Abx: cefazolin 07/26-07/29 vancomycin 07/26-07/29 flagyl 07/26-07/29 Unasyn 07/29-ongoing 1. Polymicrobial RLE vascular graft infection 2. RLE ischemia - Sp debridement and removal of infected graft - Sp AKA as not able to revascularize 3.Leukocytosis - resolved 4. Thrombocytosis Discussion. She is s/p source control with removal of infected prosthetic and AKA. Intraop Cx + ecoli, E faecalis and Avelinaia magna ESr and CRp elevated at 100 and 14.91 respectively Recommendation: All infected prosthetic material , tissue removed, but has a bovine patch on anastomosis that remains. Verified per ascular surgery PA Continue Unasyn 3 g Iv q6 h for at least 6 weeks post amputation. Tentative end date 09/11/22 THEN post IV start PO augmentin for 3-6 month as a bovine patch remains at anastomosis site. Follow up right AKA surgical pathology On abx, follow weekly cbc with diff, bmp, lft, esr crp She willneed close monitoring of these labs on snf abx as well as close Vasc surg follow up Can place PICC line Thank you for allowing me to participate in the care of your patient. ID will signoff Colby Newton MD, MPH Infectious Disease [facility] Call [phone] with questions Admission and Anticipated Discharge Date Admission Date: July 26, 2022 Subjective Subsequent visit was provided via telemedicine using two-way real-time interactive telecommunication between the patient and the telemedicine provider. For the duration of the visit, the provider was performing the assessment from a different facility than the patient. This includesuse of bluetooth stethoscope forauscultationperformed by the telepresenter that the telemedicine provider can hear if described in the physical exam. Corporate Statistical Financial Analyst contact information: Please call [facility] Call Center [phone]. (Phone Number For Physician Use Only) After establishing a telemedicine visit, patient was: Patient/authorized rep acknowledged consent and understanding and Gave permission to continue telehealth session Time Spent with Patient: Subsequent => 35 min She feels well. per vascular surgery all infected graft remains but has bovine patch on anastomosis Physical Exam Constitutional: NAD Eyes: EOMI ENMT: poor dentition Respiratory: No increased work of breathing. Cardiovascular: RRR Gastrointestinal (Abdomen): soft, Nt , ND Musculoskeletal: sp Right AKA. right groin incision ese- Not tender. C/D/I. AKA stump recently dressed _ did not remove. Nt, no drainage on dressing . l Neurologic: AAO*4 Psychiatric: Cooperative, Appropriate Results & Data ([facility]) Vital Signs (Past 12 Hours) Vital Signs Temp Pulse Pulse Resp BP Pulse Ox O2 Del Method 08/04/22 11:46 36.7 C 90 18 160/72 H 97 Room Air 08/04/22 09:12 83 08/04/22 08:41 37.0 C 88 18 130/67 97 Room Air 08/04/22 04:05 36.8 C 82 20 134/67 97 Room Air Laboratory Results Laboratory Results - last 48 hr 08/02/22 08/03/22 08/03/22 20:14 06:20 06:20 WBC 8.18 RBC 2.46 L Hgb 8.0 L Hct 24.4 L MCV 99.2 MCH 32.5 MCHC 32.8 RDW Std Deviation 61.7 H RDW Coeff of Nicolas 16.9 H Plt Count 558 H MPV 9.0 L ESR Sodium 140 Potassium 3.5 Chloride 107 Carbon Dioxide 30 Anion Gap 3 BUN 8 Creatinine 0.47 L Est Cr Clr Drug Dosing 122.0 Est GFR ( Amer) 121.0 Est GFR (Non-Af Amer) 104.4 BUN/Creatinine Ratio 17.0 Glucose 162 H POC Glucose 175 H Calcium 7.6 L C-Reactive Protein 08/03/22 08/03/22 08/03/22 16:26 18:05 18:05 WBC RBC Hgb Hct MCV MCH MCHC RDW Std Deviation RDW Coeff of Nicolas Plt Count MPV ESR 100 H Sodium Potassium Chloride Carbon Dioxide Anion Gap BUN Creatinine Est Cr Clr Drug Dosing Est GFR ( Amer) Est GFR (Non-Af Amer) BUN/Creatinine Ratio Glucose POC Glucose 125 H Calcium C-Reactive Protein 14.91 H 08/03/22 08/04/22 08/04/22 20:14 08:08 12:01 WBC RBC Hgb Hct MCV MCH MCHC RDW Std Deviation RDW Coeff of Nicolas Plt Count MPV ESR Sodium Potassium Chloride Carbon Dioxide Anion Gap BUN Creatinine Est Cr Clr Drug Dosing Est GFR ( Amer) Est GFR (Non-Af Amer) BUN/Creatinine Ratio Glucose POC Glucose 165 H 148 H 129 H Calcium C-Reactive Protein Diagnostic Findings Microbiology 07/27/22 10:45 Thigh,Right Gram Stain - Final 07/27/22 10:45 Thigh,Right Aerobic and Anaerobic Culture - Final Escherichia coli Enterococcus faecalis Finegoldia magna 07/27/22 10:45 Thigh,Right Gram Stain - Final 07/27/22 10:45 Thigh,Right Aerobic and Anaerobic Culture - Final Escherichia coli Enterococcus faecalis Finegoldia magna 07/26/22 12:31 Blood Aerobic Blood Culture - Final No growth in Aerobic bottle after 5 days. 07/26/22 12:31 Blood Anaerobic Blood Culture - Final No growth in Anaerobic bottle after 5 days. 07/26/22 11:50 Blood Aerobic Blood Culture - Final No growth in Aerobic bottle after 5 days. 07/26/22 11:50 Blood Anaerobic Blood Culture - Final No growth in Anaerobic bottle after 5 days. 07/26/22 Unknown Thigh,Right Gram Stain - Final 07/26/22 Unknown Thigh,Right Wound Culture - Final Escherichia coli
--- NOTE | 2022-08-04 16:02 | Hospitalist Progress Note ---
Date of Service August 04, 2022 Assessment & Plan (1) Vascular graft infection: Plan: Acute significant risk to life and limb patient now status post right [id number] amputation performed on 07/31/2022 issue is now less severe in the postoperative recovery phase infected fem/pop bypasss/p angioplasty and stenting of right SFA 05/15/2022 with SFA occlusion and stenting subsequently s/p prosthetic bypass and right popliteal stenting 06/13/2022. Left lower extremity: Well-healed left femoral bypass surgical site, left extremity warm and dry. PT/DP pulse palpable. Cap refill intact. Sensation to soft touch intact, ankle dorsiflexion/plantar flexion and hip flexion intact. Right lower extremity: Status post above-knee amputation with dressing in place, pain management need to be addressed and reordered on 08/01 including scheduled Tylenol and parenteral opiates with escalation of Lyrica for phantom pain vascular surgery. operative intervention/AKA. 07/31/2022 holding aspirin/DOAC/Plavix, heparin gtt restarted. Once hemostasis is assured we will likely reinstitute her antiplatelet and anticoagulation orally Cultures show e coil, and enterococcus on Unasyn Awaiting input from ID consult. will need weeks of antibiotics. Patient agreed with PICC line on 08/04 Hypotension acute self-limitedresolved secondary to sepsis now resolved In the setting of infected bypass, history of recently low normal BPs Lisinopril held chronic stable type I DM with peripheral neuropathy With insulin pump patient with self-management lisinopril for secondary risk prevention History of acute blood loss anemia acute moderate risk to life and limbstable - stable. no need for transfusion at this point History of esophagitis, acute self limited Continue PPI twice daily Gastroparesis chronic stable Suspect in the setting of type I DM Supportive care at this time - Will have outpt f/u for emptying study Tobacco use, in remission - Tobacco free since June Peripheral artery disease chronic responsible for issues of above With history of bypass and complications as above, acute management as noted Urinary urgency Continue Myrbetriq Bladder scan for PVR (2) PVD (peripheral vascular disease): (3) HTN (hypertension): (4) Hyperlipidemia: (5) Diabetic peripheral neuropathy associated with type 1 diabetes mellitus: (6) Gastroparesis: Admission and Anticipated Discharge Date Admission Date: July 26, 2022 Subjective 62 yo female reports no new symptoms. Review of Systems Review of Systems: All systems reviewed & are unremarkable except as noted in HPI & below Physical Exam Physical Exam: Physical exam is awake alert appropriate she is slightly uncomfortable otherwise is without significant distress or cardiac exam is regular lungs are clear her leg is a bandage on it there is some typical postoperative swelling nothing that looks concerning overtly unusual Results & Data Results & Data ([facility]) Vital Signs (Past 12 Hours) Vital Signs Temp Pulse Pulse Resp BP Pulse Ox O2 Del Method 08/04/22 15:55 36.9 C 80 18 126/71 96 Room Air 08/04/22 15:32 86 08/04/22 11:46 36.7 C 90 18 160/72 H 97 Room Air 08/04/22 09:12 83 08/04/22 08:41 37.0 C 88 18 130/67 97 Room Air 08/04/22 04:05 36.8 C 82 20 134/67 97 Room Air PG Care Time/CCT Total # of Minutes Spent Total Time Spent with Patient: Total time spent is greater than 50% in coordination of care (as documented) at patient's floor/unit and/or counseling patient: Coding Level of Care Code 52506 SUB INP/OBS CARE 2/35MIN Diagnoses Vascular graft infection T82.7XXA PVD (peripheral vascular disease) I73.9 HTN (hypertension) I10 Hyperlipidemia E78.5 Diabetic peripheral neuropathy associated with type 1 diabetes mellitus E10.42 Gastroparesis K31.84
[2022-08-05] MEDS: AMPICILLIN/SULBACTAM SOD 3,000 MG in 0.9 % SODIUM CHLORIDE 100 ML IV SCH ×4 (05:29→23:42)
[2022-08-05] MEDS: HYDROmorphone INJ 1 MG/ML SYRINGE IV PRN ×3 (06:07→20:34)
[2022-08-05 06:23] LABS: Hematocrit (blood only) 26.8 % (37.0-47.0); Hemoglobin 8.7 g/dl (12.0-16.0); Mean Corpuscular Hemoglobin 32.7 pg (25.0-34.0); Mean Corpuscular Hgb Conc 32.5 g/dL (32.0-36.0); Mean Corpuscular Volume 100.8 fL (80.0-100.0); Mean Platelet Volume 8.9 fL (9.4-12.4); Platelet Count 657 K/uL (130-400); RDW Coefficient of Variation 16.4 % (11.5-14.5); RDW Standard Deviation 61.4 fL (36.4-46.3); Red Blood Count 2.66 M/uL (4.20-5.40); White Blood Count 10.74 K/ul (4.8-10.8)
[2022-08-05 06:47] LABS: Calcium 7.8 mg/dl (8.5-10.1); Potassium 3.8 mmol/L (3.5-5.1)
[2022-08-05 06:52] LABS: BUN Creatinine Ratio 10.6 (10-20); Est GFR (Non-African American) 104.4 ml/min
[2022-08-05] MEDS: INSULIN, Rapid-Acting PUMP SCH ×4 (09:37→20:35)
[2022-08-05] MEDS: ACETAMINOPHEN 500 MG TAB PO SCH ×3 (09:38→20:34)
[2022-08-05] MEDS: LACTULOSE SYRUP 30 GM/45 ML UDP PO SCH ×4 (09:38→20:35)
[2022-08-05] MEDS: DOCUSATE SODIUM 100 MG CAP PO SCH ×3 (09:38→20:36)
[2022-08-05] MEDS: MIRABEGRON ER 25 MG TAB PO SCH (09:39)
[2022-08-05] MEDS: PANTOprazole 40 MG TAB PO SCH ×2 (09:39→20:34)
[2022-08-05] MEDS: PREGABALIN 150 MG CAP PO SCH ×2 (09:42→20:35)
[2022-08-05] MEDS: oxyCODONE HCL IR 5 MG TAB (IMMEDIATE RELEASE) PO PRN ×2 (09:42→17:57)
--- NOTE | 2022-08-05 20:56 | Hospitalist Progress Note ---
Date of Service August 05, 2022 Assessment & Plan (1) Vascular graft infection: Plan: Acute significant risk to life and limb patient now status post right [id number] amputation performed on 07/31/2022 issue is now less severe in the postoperative recovery phase infected fem/pop bypasss/p angioplasty and stenting of right SFA 05/15/2022 with SFA occlusion and stenting subsequently s/p prosthetic bypass and right popliteal stenting 06/13/2022. Left lower extremity: Well-healed left femoral bypass surgical site, left extremity warm and dry. PT/DP pulse palpable. Cap refill intact. Sensation to soft touch intact, ankle dorsiflexion/plantar flexion and hip flexion intact. Right lower extremity: Status post above-knee amputation with dressing in place, pain management need to be addressed and reordered on 08/01 including scheduled Tylenol and parenteral opiates with escalation of Lyrica for phantom pain vascular surgery. operative intervention/AKA. 07/31/2022 holding aspirin/DOAC/Plavix, heparin gtt restarted. Once hemostasis is assured we will likely reinstitute her antiplatelet and anticoagulation orally Cultures show e coil, and enterococcus on Unasyn will need weeks of antibiotics. Patient agreed with PICC line on 08/04 Patient is ready for discharge and awaiting placement on 08/05 Hypotension acute self-limitedresolved secondary to sepsis now resolved In the setting of infected bypass, history of recently low normal BPs Lisinopril held chronic stable type I DM with peripheral neuropathy With insulin pump patient with self-management lisinopril for secondary risk prevention History of acute blood loss anemia acute moderate risk to life and limbstable - stable. no need for transfusion at this point History of esophagitis, acute self limited Continue PPI twice daily Gastroparesis chronic stable Suspect in the setting of type I DM Supportive care at this time - Will have outpt f/u for emptying study Tobacco use, in remission - Tobacco free since June Peripheral artery disease chronic responsible for issues of above With history of bypass and complications as above, acute management as noted Urinary urgency Continue Myrbetriq Bladder scan for PVR (2) PVD (peripheral vascular disease): (3) HTN (hypertension): (4) Hyperlipidemia: (5) Diabetic peripheral neuropathy associated with type 1 diabetes mellitus: (6) Gastroparesis: Admission and Anticipated Discharge Date Admission Date: July 26, 2022 Subjective 62 yo female reports feeling well. NO new complaints. Review of Systems Review of Systems: All systems reviewed & are unremarkable except as noted in HPI & below Physical Exam Physical Exam: Physical exam is awake alert She appears to be very comfortable. She is without significant distress or cardiac exam is regular lungs are clear her leg is a bandage on it there is some typical postoperative swelling nothing that looks concerning overtly unusual Results & Data Results & Data ([facility]) Vital Signs (Past 12 Hours) Vital Signs Temp Pulse Pulse Resp BP Pulse Ox O2 Del Method 08/05/22 19:49 36.7 C 87 18 151/73 H 95 Room Air 08/05/22 16:44 87 08/05/22 14:49 36.7 C 89 18 150/71 H 96 Room Air 08/05/22 11:04 36.8 C 85 16 149/73 H 95 Room Air 08/05/22 10:46 99 H PG Care Time/CCT Total # of Minutes Spent Total Time Spent with Patient: Total time spent is greater than 50% in coordination of care (as documented) at patient's floor/unit and/or counseling patient: Coding Level of Care Code 16669 SUB INP/OBS CARE 2/35MIN Diagnoses Vascular graft infection T82.7XXA PVD (peripheral vascular disease) I73.9 HTN (hypertension) I10 Hyperlipidemia E78.5 Diabetic peripheral neuropathy associated with type 1 diabetes mellitus E10.42 Gastroparesis K31.84
[2022-08-06] MEDS: oxyCODONE HCL IR 5 MG TAB (IMMEDIATE RELEASE) PO PRN ×3 (00:11→22:42)
[2022-08-06] MEDS: AMPICILLIN/SULBACTAM SOD 3,000 MG in 0.9 % SODIUM CHLORIDE 100 ML IV SCH ×3 (05:48→18:25)
[2022-08-06] MEDS: HYDROmorphone INJ 1 MG/ML SYRINGE IV PRN ×3 (05:53→18:33)
[2022-08-06] MEDS: INSULIN, Rapid-Acting PUMP SCH ×4 (09:04→20:57)
[2022-08-06] MEDS: DOCUSATE SODIUM 100 MG CAP PO SCH ×3 (09:04→20:58)
[2022-08-06] MEDS: MIRABEGRON ER 25 MG TAB PO SCH (09:05)
[2022-08-06] MEDS: ACETAMINOPHEN 500 MG TAB PO SCH ×3 (09:06→21:00)
[2022-08-06] MEDS: LACTULOSE SYRUP 30 GM/45 ML UDP PO SCH ×4 (09:06→20:58)
[2022-08-06] MEDS: PANTOprazole 40 MG TAB PO SCH ×2 (09:06→20:59)
[2022-08-06] MEDS: PREGABALIN 150 MG CAP PO SCH ×2 (09:10→21:04)
--- NOTE | 2022-08-06 23:22 | Hospitalist Progress Note ---
Date of Service August 06, 2022 Assessment & Plan (1) Vascular graft infection: Plan: Acute significant risk to life and limb patient now status post right ocmzj-lel-zics amputation performed on 07/31/2022 issue is now less severe in the postoperative recovery phase infected fem/pop bypasss/p angioplasty and stenting of right SFA 05/15/2022 with SFA occlusion and stenting subsequently s/p prosthetic bypass and right popliteal stenting 06/13/2022. Left lower extremity: Well-healed left femoral bypass surgical site, left extremity warm and dry. PT/DP pulse palpable. Cap refill intact. Sensation to soft touch intact, ankle dorsiflexion/plantar flexion and hip flexion intact. Right lower extremity: Status post above-knee amputation with dressing in place, pain management need to be addressed and reordered on 08/01 including scheduled Tylenol and parenteral opiates with escalation of Lyrica for phantom pain vascular surgery. operative intervention/AKA. 07/31/2022 holding aspirin/DOAC/Plavix, heparin gtt restarted. Once hemostasis is assured we will likely reinstitute her antiplatelet and anticoagulation orally Cultures show e coil, and enterococcus on Unasyn will need weeks of antibiotics. Patient agreed with PICC line on 08/04 Patient is ready for discharge and awaiting placement on 08/05 Hypotension acute self-limitedresolved secondary to sepsis now resolved In the setting of infected bypass, history of recently low normal BPs Lisinopril held chronic stable type I DM with peripheral neuropathy With insulin pump patient with self-management lisinopril for secondary risk prevention History of acute blood loss anemia acute moderate risk to life and limbstable - stable. no need for transfusion at this point History of esophagitis, acute self limited Continue PPI twice daily Gastroparesis chronic stable Suspect in the setting of type I DM Supportive care at this time - Will have outpt f/u for emptying study Tobacco use, in remission - Tobacco free since June Peripheral artery disease chronic responsible for issues of above With history of bypass and complications as above, acute management as noted Urinary urgency Continue Myrbetriq Bladder scan for PVR Awaiting placement. (2) PVD (peripheral vascular disease): (3) HTN (hypertension): (4) Hyperlipidemia: (5) Diabetic peripheral neuropathy associated with type 1 diabetes mellitus: (6) Gastroparesis: Admission and Anticipated Discharge Date Admission Date: July 26, 2022 Subjective 62 yo male reports no new symptoms. Review of Systems Review of Systems: All systems reviewed & are unremarkable except as noted in HPI & below Physical Exam Physical Exam: Physical exam is awake alert She appears to be very comfortable. She is without significant distress or cardiac exam is regular lungs are clear her leg is a bandage on it there is some typical postoperative swelling nothing that looks concerning overtly unusual Results & Data Results & Data ([facility]) Vital Signs (Past 12 Hours) Vital Signs Temp Pulse Pulse Resp BP Pulse Ox O2 Del Method 08/06/22 19:00 37.1 C 87 18 151/71 H 96 Room Air 08/06/22 17:11 87 08/06/22 15:25 36.6 C 87 16 132/67 96 Room Air PG Care Time/CCT Total # of Minutes Spent Total Time Spent with Patient: Total time spent is greater than 50% in coordination of care (as documented) at patient's floor/unit and/or counseling patient: Coding Level of Care Code 87595 SUB INP/OBS CARE 08/02MIN Diagnoses Vascular graft infection T82.7XXA PVD (peripheral vascular disease) I73.9 HTN (hypertension) I10 Hyperlipidemia E78.5 Diabetic peripheral neuropathy associated with type 1 diabetes mellitus E10.42 Gastroparesis K31.84
[2022-08-07] MEDS: AMPICILLIN/SULBACTAM SOD 3,000 MG in 0.9 % SODIUM CHLORIDE 100 ML IV SCH ×4 (00:42→17:47)
[2022-08-07] MEDS: HYDROmorphone INJ 1 MG/ML SYRINGE IV PRN ×3 (00:49→17:53)
[2022-08-07] MEDS: oxyCODONE HCL IR 5 MG TAB (IMMEDIATE RELEASE) PO PRN ×2 (07:38→14:46)
[2022-08-07 07:58] LABS: Hematocrit (blood only) 24.5 % (37.0-47.0); Hemoglobin 8.1 g/dl (12.0-16.0); Mean Corpuscular Hemoglobin 32.4 pg (25.0-34.0); Mean Corpuscular Hgb Conc 33.1 g/dL (32.0-36.0); Mean Platelet Volume 8.7 fL (9.4-12.4); Platelet Count 656 K/uL (130-400); RDW Coefficient of Variation 16.6 % (11.5-14.5); RDW Standard Deviation 59.5 fL (36.4-46.3); White Blood Count 6.87 K/ul (4.8-10.8)
[2022-08-07 08:24] LABS: Potassium 3.5 mmol/L (3.5-5.1)
[2022-08-07 08:29] LABS: Creatinine Clr Calc Pharmacy 133.3 ml/min; Est GFR (African American) 124.6 ml/min; Est GFR (Non-African American) 107.5 ml/min
[2022-08-07] MEDS: MIRABEGRON ER 25 MG TAB PO SCH (08:29)
[2022-08-07] MEDS: PANTOprazole 40 MG TAB PO SCH ×2 (08:29→20:57)
[2022-08-07] MEDS: ACETAMINOPHEN 500 MG TAB PO SCH ×3 (08:29→22:17)
[2022-08-07] MEDS: INSULIN, Rapid-Acting PUMP SCH ×4 (08:30→20:53)
[2022-08-07] MEDS: PREGABALIN 150 MG CAP PO SCH ×2 (08:32→20:55)
[2022-08-07] MEDS: DOCUSATE SODIUM 100 MG CAP PO SCH ×3 (08:33→20:55)
[2022-08-07] MEDS: LACTULOSE SYRUP 30 GM/45 ML UDP PO SCH ×4 (08:33→20:53)
--- NOTE | 2022-08-07 22:29 | Hospitalist Progress Note ---
Date of Service August 07, 2022 Assessment & Plan (1) Vascular graft infection: Plan: Acute significant risk to life and limb patient now status post right hizvt-oww-qxyp amputation performed on 07/31/2022 issue is now less severe in the postoperative recovery phase infected fem/pop bypasss/p angioplasty and stenting of right SFA 05/15/2022 with SFA occlusion and stenting subsequently s/p prosthetic bypass and right popliteal stenting 06/13/2022. Left lower extremity: Well-healed left femoral bypass surgical site, left extremity warm and dry. PT/DP pulse palpable. Cap refill intact. Sensation to soft touch intact, ankle dorsiflexion/plantar flexion and hip flexion intact. Right lower extremity: Status post above-knee amputation with dressing in place, pain management need to be addressed and reordered on 08/01 including scheduled Tylenol and parenteral opiates with escalation of Lyrica for phantom pain vascular surgery. operative intervention/AKA. 07/31/2022 holding aspirin/DOAC/Plavix, heparin gtt restarted. Once hemostasis is assured we will likely reinstitute her antiplatelet and anticoagulation orally Cultures show e coil, and enterococcus on Unasyn will need weeks of antibiotics. Patient agreed with PICC line on 08/04 Patient is ready for discharge and awaiting placement on 08/05 Hypotension acute self-limitedresolved secondary to sepsis now resolved In the setting of infected bypass, history of recently low normal BPs Lisinopril held chronic stable type I DM with peripheral neuropathy With insulin pump patient with self-management lisinopril for secondary risk prevention History of acute blood loss anemia acute moderate risk to life and limbstable - stable. no need for transfusion at this point History of esophagitis, acute self limited Continue PPI twice daily Gastroparesis chronic stable Suspect in the setting of type I DM Supportive care at this time - Will have outpt f/u for emptying study Tobacco use, in remission - Tobacco free since June Peripheral artery disease chronic responsible for issues of above With history of bypass and complications as above, acute management as noted Urinary urgency Continue Myrbetriq Bladder scan for PVR Awaiting placement. (2) PVD (peripheral vascular disease): (3) HTN (hypertension): (4) Hyperlipidemia: (5) Diabetic peripheral neuropathy associated with type 1 diabetes mellitus: (6) Gastroparesis: Admission and Anticipated Discharge Date Admission Date: July 26, 2022 Subjective Patient reports no new symptoms. Review of Systems Review of Systems: All systems reviewed & are unremarkable except as noted in HPI & below Physical Exam Constitutional: WD/WN, vitals as above Patient resting comfortably in bed. Patient has no new complaints. Results & Data Results & Data ([facility]) Vital Signs (Past 12 Hours) Vital Signs Temp Pulse Pulse Resp BP Pulse Ox O2 Del Method 08/07/22 19:20 36.8 C 86 18 150/74 H 98 Room Air 08/07/22 16:03 78 08/07/22 14:50 36.7 C 83 20 124/71 96 Room Air 08/07/22 11:44 36.7 C 81 20 136/53 L 97 Room Air PG Care Time/CCT Total # of Minutes Spent Total Time Spent with Patient: Total time spent is greater than 50% in coordination of care (as documented) at patient's floor/unit and/or counseling patient: Coding Level of Care Code 56916 SUB INP/OBS CARE 25MIN Diagnoses Vascular graft infection T82.7XXA PVD (peripheral vascular disease) I73.9 HTN (hypertension) I10 Hyperlipidemia E78.5 Diabetic peripheral neuropathy associated with type 1 diabetes mellitus E10.42 Gastroparesis K31.84
[2022-08-08] MEDS: AMPICILLIN/SULBACTAM SOD 3,000 MG in 0.9 % SODIUM CHLORIDE 100 ML IV SCH ×4 (00:06→18:07)
[2022-08-08] MEDS: oxyCODONE HCL IR 5 MG TAB (IMMEDIATE RELEASE) PO PRN ×3 (00:56→18:09)
[2022-08-08] MEDS: INSULIN, Rapid-Acting PUMP SCH ×4 (08:04→20:50)
[2022-08-08] MEDS: HYDROmorphone INJ 1 MG/ML SYRINGE IV PRN ×3 (08:07→22:08)
[2022-08-08] MEDS: LACTULOSE SYRUP 30 GM/45 ML UDP PO SCH ×4 (08:10→20:50)
[2022-08-08] MEDS: PANTOprazole 40 MG TAB PO SCH ×2 (08:10→20:20)
[2022-08-08] MEDS: MIRABEGRON ER 25 MG TAB PO SCH (08:10)
[2022-08-08] MEDS: ACETAMINOPHEN 500 MG TAB PO SCH ×3 (08:10→20:49)
[2022-08-08] MEDS: DOCUSATE SODIUM 100 MG CAP PO SCH ×3 (08:10→20:19)
[2022-08-08] MEDS: PREGABALIN 150 MG CAP PO SCH ×2 (08:12→20:19)
--- NOTE | 2022-08-08 20:50 | Hospitalist Progress Note ---
Date of Service August 08, 2022 Assessment & Plan (1) Vascular graft infection: Plan: Acute significant risk to life and limb patient now status post right hmche-nyq-fykn amputation performed on 07/31/2022 issue is now less severe in the postoperative recovery phase infected fem/pop bypasss/p angioplasty and stenting of right SFA 05/15/2022 with SFA occlusion and stenting subsequently s/p prosthetic bypass and right popliteal stenting 06/13/2022. Left lower extremity: Well-healed left femoral bypass surgical site, left extremity warm and dry. PT/DP pulse palpable. Cap refill intact. Sensation to soft touch intact, ankle dorsiflexion/plantar flexion and hip flexion intact. Right lower extremity: Status post above-knee amputation with dressing in place, pain management need to be addressed and reordered on 08/01 including scheduled Tylenol and parenteral opiates with escalation of Lyrica for phantom pain vascular surgery. operative intervention/AKA. 07/31/2022 holding aspirin/DOAC/Plavix, heparin gtt restarted. Once hemostasis is assured we will likely reinstitute her antiplatelet and anticoagulation orally Cultures show e coil, and enterococcus on Unasyn will need weeks of antibiotics. Patient agreed with PICC line on 08/04 Patient is ready for discharge and awaiting placement on 08/08 Had successful appeal for rehab on 08/08 Plan for rehab on 08/09 Hypotension acute self-limitedresolved secondary to sepsis now resolved In the setting of infected bypass, history of recently low normal BPs Lisinopril held chronic stable type I DM with peripheral neuropathy With insulin pump patient with self-management lisinopril for secondary risk prevention History of acute blood loss anemia acute moderate risk to life and limbstable - stable. no need for transfusion at this point History of esophagitis, acute self limited Continue PPI twice daily Gastroparesis chronic stable Suspect in the setting of type I DM Supportive care at this time - Will have outpt f/u for emptying study Tobacco use, in remission - Tobacco free since June Peripheral artery disease chronic responsible for issues of above With history of bypass and complications as above, acute management as noted Urinary urgency Continue Myrbetriq Bladder scan for PVR Awaiting placement. (2) PVD (peripheral vascular disease): (3) HTN (hypertension): (4) Hyperlipidemia: (5) Diabetic peripheral neuropathy associated with type 1 diabetes mellitus: (6) Gastroparesis: Admission and Anticipated Discharge Date Admission Date: July 26, 2022 Subjective Patient reports no new symptoms. She states the swelling in her stump is improving. Review of Systems Review of Systems: All systems reviewed & are unremarkable except as noted in HPI & below Physical Exam Physical Exam: WD/WN, vitals as above Patient resting comfortably in bed. Talking in full sentences. Results & Data Results & Data ([facility]) Vital Signs (Past 12 Hours) Vital Signs Temp Pulse Pulse Resp BP Pulse Ox O2 Del Method 08/08/22 19:10 36.6 C 88 16 150/54 H 99 Room Air 08/08/22 14:49 36.7 C 81 20 138/60 97 Room Air 08/08/22 14:47 77 08/08/22 10:56 36.8 C 69 20 129/66 96 Room Air PG Care Time/CCT Total # of Minutes Spent Total Time Spent with Patient: Total time spent is greater than 50% in coordination of care (as documented) at patient's floor/unit and/or counseling patient: Coding Level of Care Code 29010 SUB INP/OBS CARE 3/50MIN Diagnoses Vascular graft infection T82.7XXA PVD (peripheral vascular disease) I73.9 HTN (hypertension) I10 Hyperlipidemia E78.5 Diabetic peripheral neuropathy associated with type 1 diabetes mellitus E10.42 Gastroparesis K31.84 Time Spent (min) 50 Comment included 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
[2022-08-09] MEDS: oxyCODONE HCL IR 5 MG TAB (IMMEDIATE RELEASE) PO PRN ×2 (00:56→10:29)
[2022-08-09] MEDS: AMPICILLIN/SULBACTAM SOD 3,000 MG in 0.9 % SODIUM CHLORIDE 100 ML IV SCH ×3 (00:57→11:50)
[2022-08-09] MEDS: HYDROmorphone INJ 1 MG/ML SYRINGE IV PRN (06:08)
[2022-08-09] MEDS: PANTOprazole 40 MG TAB PO SCH (07:31)
[2022-08-09] MEDS: ACETAMINOPHEN 500 MG TAB PO SCH ×2 (07:31→11:46)
[2022-08-09] MEDS: MIRABEGRON ER 25 MG TAB PO SCH (07:32)
[2022-08-09] MEDS: DOCUSATE SODIUM 100 MG CAP PO SCH ×2 (07:32→11:46)
[2022-08-09] MEDS: LACTULOSE SYRUP 30 GM/45 ML UDP PO SCH ×2 (07:39→11:46)
[2022-08-09] MEDS: PREGABALIN 150 MG CAP PO SCH (07:39)
[2022-08-09] MEDS: INSULIN, Rapid-Acting PUMP SCH ×2 (09:17→13:34)
[2022-08-09] MEDS ORDERED: RIVAROXABAN 2.5 MG TAB PO SCH (12:30)
--- NOTE | 2022-08-17 09:03 | Discharge Summary ---
Date of Service August 09, 2022 Principal Diagnosis vascular graft infection Discharge Exam WD/WN, vitals as above Patient resting comfortably in bed. Talking in full sentences. Constitutional WD/WN, vitals as above Discharge Data Allergies Allergy/AdvReac Type Severity Reaction Status Date / Time cilostazol Allergy Severe CHEST Verified 07/26/22 13:32 PAIN,SOB NAUSEA Consultations 07/26/22 11:57 ED Decision to Admit Stat 08/02/22 16:38 Consult Infectious Diseases Routine Procedures Performed Operation Date: 07/27/22 09:50 Actual Procedures p Removal of Infected Right Femoral Popliteal Bypass, Pulse lavage of wound(Right) - Wu Rodriguez MD Operation Date: 07/31/22 12:10 Actual Procedures p Right Above Knee Amputation, Removal of Remaining Infected Bypass Graft with Bovine Patch Angioplasty Common Femoral Artery and Profunda Femoral Artery(Right) - Wu Rodriguez MD Hospital Course (1) Vascular graft infection: Acute significant risk to life and limb patient now status post right xigti-prt-tawa amputation performed on 07/31/2022 issue is now less severe in the postoperative recovery phase infected fem/pop bypasss/p angioplasty and stenting of right SFA 05/15/2022 with SFA occlusion and stenting subsequently s/p prosthetic bypass and right popliteal stenting 06/13/2022. Left lower extremity: Well-healed left femoral bypass surgical site, left extremity warm and dry. PT/DP pulse palpable. Cap refill intact. Sensation to soft touch intact, ankle dorsiflexion/plantar flexion and hip flexion intact. Right lower extremity: Status post above-knee amputation with dressing in place, pain management need to be addressed and reordered on 08/01 including scheduled Tylenol and parenteral opiates with escalation of Lyrica for phantom pain vascular surgery. operative intervention/AKA. 07/31/2022 holding aspirin/DOAC/Plavix, heparin gtt restarted. Once hemostasis is assured we will likely reinstitute her antiplatelet and anticoagulation orally Cultures show e coil, and enterococcus on Unasyn will need 6 weeks of IV antibiotics. Patient agreed with PICC line on 08/04 Patient is ready for discharge and awaiting placement on 08/08 Had successful appeal for rehab on 08/08 Plan for rehab on 08/09, and will be discharged. Discharge instruction: Continue Unasyn 3 g Iv q6 h for at least 6 weeks post amputation. Tentative end date 09/11/22 THEN post IV start PO augmentin for 3-6 month as a bovine patch remains at anastomosis site. Follow up right AKA surgical pathology On abx, follow weekly cbc with diff, bmp, lft, esr crp She willneed close monitoring of these labs on longterm abx as well as close Vasc surg follow up Dr. Rodriguez will see in office in 2-3 weeks. Hypotension acute self-limitedresolved secondary to sepsis now resolved In the setting of infected bypass, history of recently low normal BPs Lisinopril held during hospital stay. chronic stable type I DM with peripheral neuropathy With insulin pump patient with self-management lisinopril for secondary risk prevention History of acute blood loss anemia acute moderate risk to life and limbstable - stable. no need for transfusion at this point History of esophagitis, acute self limited Continue PPI twice daily Gastroparesis chronic stable Suspect in the setting of type I DM Supportive care at this time - Will have outpt f/u for emptying study Tobacco use, in remission - Tobacco free since June Peripheral artery disease chronic responsible for issues of above With history of bypass and complications as above, acute management as noted Urinary urgency Continue Myrbetriq Bladder scan for PVR Awaiting placement. (2) PVD (peripheral vascular disease): (3) HTN (hypertension): (4) Hyperlipidemia: (5) Diabetic peripheral neuropathy associated with type 1 diabetes mellitus: (6) Gastroparesis: Total Time Total Time Spent Total Time Spent (In Minutes): 32 Discharge Plan Discharge Items Patient Disposition: Transfer Inpatient Rehab Fac Reason For Visit: infected rle graft Discharge Diagnosis: Infected Right Lower extremity Graft Activity: Resume your previous activity Non-emergency contact: Primary Care Provider Call non-emergency contact if: you have any medication questions Follow-up/Referrals: ProRaymond MD [Primary Care Provider] - Diet: Carb Consistent or DM2 and Heart Healthy Addtl Attending Provider Instructions: Continue Unasyn 3 g Iv q6 h for at least 6 weeks post amputation. Tentative end date 09/11/22 THEN post IV start PO augmentin for 3-6 month as a bovine patch remains at anastomosis site. Follow up right AKA surgical pathology On abx, follow weekly cbc with diff, bmp, lft, esr crp She willneed close monitoring of these labs on longterm abx as well as close Vasc surg follow up Dr. Rodriguez will see in office in 2-3 weeks. Pending Studies at Discharge: No Stand-Alone Forms: My [facility] [employer] Skilled Items Patient informed of condition?: No DNR: Yes Discharge Level of Care: Acute rehab Communicable Disease: No Discharge Prognosis: Stable Lines: None Urinary Catheter: No Medications and DC Order Prescriptions: New pregabalin [Lyrica] 150 mg Capsule 150 mg PO BID Qty: 0 0RF ampicillin sodium 2 gram recon soln 3 g IV Q6H 42 Days Qty: 168 0RF Continued aspirin [Adult Aspirin Regimen] 81 mg tablet,delayed release (DR/EC) 81 mg PO QAM (DME) Contour Next Test Strips Strip See Dose Instructions .ROUTE .MEDSUPPLY Qty: 600 3RF Dose Instruction: As directed Rx Instructions: use to test 6 times daily atorvastatin [Lipitor] 40 mg tablet 40 mg PO DAILY Qty: 90 3RF pantoprazole 40 mg tablet,delayed release (DR/EC) 40 mg PO BID Qty: 60 0RF lisinopril 2.5 mg tablet 2.5 mg PO DAILY Qty: 180 1RF ascorbic acid (vitamin C) 100 mg tablet 100 mg PO DAILY (DME) FreeStyle Gayatri 2 [place] Misc See Rx Instructions .Route Qty: 1 0RF Rx Instructions: As directed (DME) FreeStyle Gayatri 2 Sensor Kit See Rx Instructions .Route Qty: 7 3RF Rx Instructions: Apply new sensor every 14 days cyanocobalamin (vitamin B-12) 1,000 mcg capsule 1,000 mcg PO DAILY Myrbetriq 50 mg tablet extended release 24 hr 50 mg PO DAILY Qty: 90 3RF Baqsimi 3 mg/actuation spray,non-aerosol 3 mg intranasal ONCE Qty: 2 1RF Rx Instructions: use as directed for hypoglycemia clopidogrel [Plavix] 75 mg tablet 75 mg PO QAM acetaminophen [Tylenol Extra Strength] 500 mg Tablet 1,000 mg PO TID PRN (Reason: mild-moderate pain) Qty: 180 0RF Rx Instructions: Over the counter oxycodone 5 mg Tablet 5 - 10 mg PO Q4H PRN (Reason: moderate-severe pain) Qty: 30 0RF docusate sodium 100 mg Capsule 100 mg PO BID Qty: 60 0RF folic acid 1 mg Tablet 1 mg PO QAM Qty: 30 0RF Xarelto 2.5 mg tablet 2.5 mg PO BID Discontinued gabapentin 100 mg capsule 200 mg PO TID PRN (Reason: loss of sensation) Qty: 180 0RF No Action insulin lispro [Humalog U-100 Insulin] 100 unit/mL solution 40 unit continuous subcutaneous infusion DAILY Qty: 60 3RF Rx Instructions: continuous infusion subcutaneously via pump, total daily units = 40 units. Discharge Orders: Discharge Order (Routine); Ordered 08/09/22 Ordered By: Jeffy Kang Admission Data Admit Date/Time: 07/26/22 13:06 Attending Provider: Jeffy Kang Admit Provider: Axel Molina Primary Care Provider: Raymond Doherty Other Providers: Wu Rodriguez Antonie J. ; [facility] Other Interventions: Discharge Summary Assessment (RN) Last Done: 08/09/22 13:01 Coding Level of Care Code HOSP INP/OBS DISCH >30 MIN Diagnoses Vascular graft infection T82.7XXA PVD (peripheral vascular disease) I73.9 HTN (hypertension) I10 Hyperlipidemia E78.5 Diabetic peripheral neuropathy associated with type 1 diabetes mellitus E10.42 Gastroparesis K31.84
== END 2022-08-09 16:38 | DRG 239 ==
LOC: ED 11:08 → EDINP 13:06 → SUATTDRO 13:06 → 2N 16:00